=== PATIENT | female | born 1935 | race Caucasian/White ===

== ENCOUNTER 2017-10-25 07:43 | Emergency (ER) | payer OTHER, BC ==
[~2017-10-25] VITALS: Ht 162.6 cm; Wt 105.1 kg
[2017-10-25] MEDS ORDERED: HYDROCODONE/ACETAMIN 5/325MG TAB PO STA (07:58)
[2017-10-25 08:13] VITALS: O2SAT 92
[2017-10-25 08:14] VITALS: Ht 162.6 cm; Wt 105.1 kg
--- NOTE | 2017-10-25 08:39 | EMERGENCY ROOM VISIT NOTE ---
History Report prepared by Varghese: Francisco Barlow Under the Supervision of: Dr. Prasad John M.D. First contact with patient: 07:44 Stated Complaint: SHOULDER PAIN History of Present Illness The patient is a 82 year old female who presents to the Emergency Room via EMS with complaints of worsening left shoulder pain that began 3 days ago. Patient states the pain radiates to the base of her neck, left trapezius, and left upper chest and is worsened with movement. Patient believes her pain is due to overuse of her walking cane and has been taking Tylenol at home for her symptoms. She denies any pain prior to 3 days ago. Past medical history includes a pacemaker, diabetes, and hypertension which she takes lisinopril for. Patient states she is allergic to aspirin and "IV dye". Patient states she lives alone and that her PCP is from [facility] in [place]. Pt denies recent falls/injuries, LOC, headache, fevers, chills, diaphoresis, visual changes, breathing difficulties, nausea, vomiting, abdominal pain, back pain, melena, hematochezia, urinary symptoms, numbness, weakness, lymphadenopathy, rash, or other complaints. Source of History: patient, EMS Onset: 3 days ago Position: neck, chest, shoulder (left) Timing: worsening Modifying Factors (Worsening): movement Modifying Factors (Relieving): other (None) Review of Systems See HPI for pertinent positives and negatives. A total of ten systems were reviewed and were otherwise negative. Past Medical & Surgical Medical Problems: (1) Diabetes (2) H/O cardiac pacemaker (3) Hypertension Family History Omitted secondary to age. Social History Housing Status: lives alone Current/Historical Medications Scheduled Cholecalciferol (Vitamin D3), 1 TAB PO DAILY Clopidogrel (Plavix), 75 MG PO DAILY Pioglitazone (Actos), 1 TAB PO DAILY Potassium Ext Rel (Klor-Con), 20 MEQ PO DAILY Rosuvastatin Calcium (Crestor), 1 TAB PO DAILY Torsemide (Demadex), 1 TAB PO DAILY Scheduled PRN Hydrocodone/Acetaminophen 5MG/325MG ([place] 5MG/325MG), 1-2 TABS PO Q6H PRN for Pain Miscellaneous Medications Isosorbide Dinitrate (Isordil), 30 MG PO Lisinopril (Zestril), 10 MG PO Allergies Coded Allergies: Iodinated Diagnostic Agents (Verified Allergy, Severe, SHORTNESS OF BREATH , 10/25/17) Aspirin (Verified Allergy, Mild, RASH, 10/25/17) Physical Exam Vital Signs Date Time Temp Pulse Resp B/P (MAP) Pulse Ox O2 Delivery O2 Flow Rate FiO2 10/25/17 12:48 72 16 169/99 98 10/25/17 09:40 65 14 192/73 95 Room Air 10/25/17 08:16 74 10/25/17 08:13 92 Room Air 10/25/17 07:50 75 16 189/104 92 Room Air Physical Exam GENERAL: Awake, alert, uncomfortable-appearing, in no distress HENT: Normocephalic, atraumatic. Oropharynx unremarkable. EYES: Normal conjunctiva. Sclera non-icteric. NECK: Supple. No nuchal rigidity. FROM. No masses. RESPIRATORY: Clear to auscultation. No wheezes. No rales. Normal respiratory effort. CARDIAC: Normal rate. Normal rhythm. No murmurs. No rubs. Extremities warm and well perfused. Pulses equal. No JVD. GI: Soft, non-distended. No tenderness to palpation. No rebound or guarding. No masses. RECTAL: Deferred. MUSCULOSKELETAL: Atraumatic. Left upper chest and left trapezius tenderness. Relatively normal range of motion in shoulder. The back is symmetrical on inspection without obvious abnormality. There is no CVA tenderness to palpation. No joint edema. LOWER EXTREMITIES: Calves are equal size bilaterally and non-tender. No edema. No discoloration. NEURO: Normal sensorium. No sensory or motor deficits noted. SKIN: No rash or jaundice noted. No zoster seen. Medical Decision & Procedures ER Provider Diagnostic Interpretation: Radiology results as stated below per my review and radiologist interpretation: C-SPINE ROUTINE 4 OR 5 VIEWS CLINICAL HISTORY: left neck and shoulder pain, no trauma COMPARISON STUDY: 07/14/2016 FINDINGS: There is poor visualization of the C7 vertebra. No fractures or subluxations are visualized. There are multilevel degenerative changes most pronounced the C5-6 level with posterior osteophytic spurring. Neck calcifications, likely represent atherosclerotic carotid disease. There is tracheal deviation to the right. This is indirect evidence for a thoracic inlet mass. There is left apical pleural thickening. IMPRESSION: 1. Multilevel degenerative change. No fractures or subluxations identified 2. Tracheal deviation to the right. This is indirect evidence for a thoracic inlet mass. Electronically signed by: Lacho Graff M.D. 10/25/2017 9:29 AM CHEST 2 VIEWS ROUTINE CLINICAL HISTORY: left upper chest pain COMPARISON STUDY: No previous studies for comparison. FINDINGS: The heart is mildly enlarged. There is a left subclavian dual-chamber central venous pacemaker. There is no failure. There is no focal pulmonary consolidation. Indistinctness left heart border is likely secondary to a fat pad. There are no significant pleural effusions. A linear opacity within the right mid to lower lung zone likely represents an area of scarring. IMPRESSION: No active disease in the chest. Electronically signed by: Lacho Graff M.D. 10/25/2017 9:27 AM (CHEST) THORAX WITHOUT CLINICAL HISTORY: Left upper chest pain. Abnormal cervical spine study. Possible thoracic inlet mass. COMPARISON STUDY: Cervical spine series dated October 25, 2017, chest x-ray dated October 25, 2017 CT DOSE: 505.42 mGy.cm TECHNIQUE: CT of the thorax was performed from the thoracic inlet to the lung bases. Images are reviewed in the axial, sagittal, and coronal planes. IV contrast was not administered for this examination. A dose lowering technique was utilized adhering to the principles of ALARA. FINDINGS: Thyroid: There is a multinodular thyroid gland present. Thoracic aorta: The ascending thoracic aorta measures 35 mm. Heart: The heart is mildly enlarged. There is a left subclavian dual-chamber central venous pacemaker present. There are coronary artery calcifications present. Lungs and pleural spaces: There is respiratory motion artifact. There are no significant pleural effusions. There is no focal pulmonary consolidation. Mediastinum: There is no pathologic adenopathy. No large thoracic inlet masses are visualized. Rosario: There is no evidence of pathologic hilar adenopathy given the limitations of a noncontrast study Axilla: Clear. Upper abdomen: Partially visualized upper abdominal viscera is within normal limits. Skeletal structures: There are no lytic or blastic osseous lesions. IMPRESSION: 1. No acute intrathoracic findings 2. No large thoracic inlet masses are visualized 3. Small multinodular thyroid goiter which results in minor tracheal deviation to the right. 4. No evidence of focal pulmonary consolidation. No pleural effusions identified. Electronically signed by: Lacho Graff M.D. 10/25/2017 10:43 AM Laboratory Results 10/25/17 08:30 Red Blood Count 3.75, Mean Corpuscular Volume 93.9, Mean Corpuscular Hemoglobin 30.4, Mean Corpuscular Hemoglobin Concent 32.4, Mean Platelet Volume 12.6, Neutrophils (%) (Auto) 65.0, Lymphocytes (%) (Auto) 20.0, Monocytes (%) (Auto) 13.8, Eosinophils (%) (Auto) 0.6, Basophils (%) (Auto) 0.3, Neutrophils # (Auto ) 4.61, Lymphocytes # (Auto) 1.42, Monocytes # (Auto) 0.98, Eosinophils # (Auto ) 0.04, Basophils # (Auto) 0.02 10/25/17 08:30 Test 10/25/17 08:30 White Blood Count 7.09 K/uL (4.8-10.8) Red Blood Count 3.75 M/uL (4.2-5.4) Hemoglobin 11.4 g/dL (12.0-16.0) Hematocrit 35.2 % (37-47) Mean Corpuscular Volume 93.9 fL (80-100) Mean Corpuscular Hemoglobin 30.4 pg (25-34) Mean Corpuscular Hemoglobin Concent 32.4 g/dl (32-36) Platelet Count 182 K/uL (130-400) Mean Platelet Volume 12.6 fL (7.4-10.4) Neutrophils (%) (Auto) 65.0 % Lymphocytes (%) (Auto) 20.0 % Monocytes (%) (Auto) 13.8 % Eosinophils (%) (Auto) 0.6 % Basophils (%) (Auto) 0.3 % Neutrophils # (Auto) 4.61 K/uL (1.4-6.5) Lymphocytes # (Auto) 1.42 K/uL (1.2-3.4) Monocytes # (Auto) 0.98 K/uL (0.11-0.59) Eosinophils # (Auto) 0.04 K/uL (0-0.5) Basophils # (Auto) 0.02 K/uL (0-0.2) RDW Standard Deviation 49.9 fL (36.4-46.3) RDW Coefficient of Variation 14.7 % (11.5-14.5) Immature Granulocyte % (Auto) 0.3 % Immature Granulocyte # (Auto) 0.02 K/uL (0.00-0.02) Nucleated RBC Absolute Count (auto) 0.02 K/uL (0-0) Nucleated Red Blood Cells % 0.3 % Anion Gap 11.0 mmol/L (3-11) Est Creatinine Clear Calc Drug Dose 50.4 ml/min Estimated GFR () 60.3 Estimated GFR (Non- 52.1 BUN/Creatinine Ratio 16.4 (10-20) Calcium Level 9.1 mg/dl (8.5-10.1) Total Bilirubin 0.9 mg/dl (0.2-1) Direct Bilirubin 0.3 mg/dl (0-0.2) Aspartate Amino Transf (AST/SGOT) 16 U/L (15-37) Alanine Aminotransferase (ALT/SGPT) 13 U/L (12-78) Alkaline Phosphatase 92 U/L (45-117) Total Creatine Kinase 46 U/L (26-192) Creatine Kinase MB < 1.0 ng/ml (0.5-3.6) Creatine Kinase MB Ratio (0-3.0) Troponin I < 0.015 ng/ml (0-0.045) Total Protein 7.4 gm/dl (6.4-8.2) Albumin 3.2 gm/dl (3.4-5.0) Thyroid Stimulating Hormone (TSH) 1.470 uIu/ml (0.300-4.500) Laboratory results reviewed by me Medications Administered Medications (Trade) Dose Ordered Sig/Billie Route Start Time Stop Time Status Last Admin Dose Admin Acetaminophen/ Hydrocodone Bitart ([place] 5/325 Tab) 1 tab NOW STAT PO 10/25/17 07:58 10/25/17 07:59 DC 10/25/17 08:23 1 TAB Acetaminophen/ Hydrocodone Bitart ([place] 5/325mg Home Pack) 1 homepack UD ONCE PO 10/25/17 12:30 10/25/17 12:31 DC 10/25/17 12:48 1 HOMEPACK ECG Per My Interpretation Indication: back/shoulder pain Rate (beats per minute): 75 Rhythm: atrial fibrillation (with demand pacer) Findings: PVC, other (No ST elevation/depression) ED Course 0747: The patient was evaluated in room A3. A complete history and physical exam was performed. 0758: [place] 5/325 Tab 1 tab PO 1005: I reevaluated the patient and updated her on her treatment plan. 1230: [place] 5/325mg Home Pack 1 homepack PO 1231: I reevaluated the patient and updated her and her family on the patient's findings. She states she is feeling better. Discussed results and discharge instructions with her and her family. Patient is agreeable to following up with the clinic after discharge. She verbalized understanding and agreement. The patient is ready for discharge. Medical Decision Nursing notes reviewed. The patient's presentation and history were concerning for left shoulder, neck and upper chest pain. Etiologies such as musculoskeletal, shingles, trauma, cardiac ischemia, aortic dissection, pulmonary embolism, pneumonia, pneumothorax, infections, gastrointestinal, as well as others were entertained. Patient was evaluated. She had Several days of progressive left shoulder/neck/upper chest pain. It is nonpleuritic. It is worse with movement. Her left shoulder joint examination was rather unremarkable without significant pain elicited during range of motion testing. She did have tenderness to the left upper chest wall and trapezius area. She had good range of motion of her neck. There is no obvious rash to suggest zoster. She was given 1 [place]. ECG did not reveal any acute ischemic change. Blood work and imaging were ordered. Blood work wasUnremarkable. Troponin negative. ECG was unremarkable. The patient had a negative chest x-ray. Imaging of the cervical spine revealed some degenerative changes. She had what appeared to be tracheal deviation to the right. Given her symptoms CT imaging of the chest was performed. There is no obvious mass lesion in the left shoulder region or lung apex. The patient is has a thyroid abnormality. She will follow-up with this. The patient is doing well. She is feeling better after the pain medication. Her pain is intermittent and lancinating. I suspect some type of neuropathic origin. She describes it like pain similar to a zoster episode but I do not see any episode of a rash developing. I did discuss this with the family patient. I discussed very conservative use of pain medication. The patient will rest. She will take it easy. She will follow up with primary providers on Friday. The patient was educated. Family was advised to monitor the patient and check on her frequently. There are any worsening problems or issues with other symptoms develop she should come back to the ER right away. By the evaluation outlined above other emergent etiologies such as those listed in the differential, as well as others, were deemed relatively unlikely. The patient was educated about the findings as listed above. All questions were answered and the patient was pleased with the treatment. Return instructions were outlined and the patient was discharged in stable condition. The patient was referred to her PCP for follow-up for a recheck of the current condition. Medication Reconcilliation Current Medication List: was personally reviewed by me Blood Pressure Screening Patient's blood pressure: Elevated blood pressure Blood pressure disposition: Referred to PCP Consults Time Called: [phone] Consulting Physician: Dr. Graff - [facility] Returned Call: [phone] Discussed the patient's case. Dr. Graff recommends ordering the patient a CT Chest. Impression Primary Impression: Left shoulder pain Additional Impressions: Left sided chest pain Neck pain on left side Scribe Attestation The scribe's documentation has been prepared under my direction and personally reviewed by me in its entirety. I confirm that the note above accurately reflects all work, treatment, procedures, and medical decision making performed by me. Departure Information Dispostion Home / Self-Care Prescriptions Hydrocodone/Acetaminophen 5MG/325MG ([place] 5MG/325MG) Tab 1-2 TABS PO Q6H Y for Pain, #8 TAB Prov: Prasad John MD 10/25/17 Referrals No Doctor, Assigned (PCP) Forms HOME CARE DOCUMENTATION FORM, IMPORTANT VISIT INFORMATION Patient Instructions My [facility] Additional Instructions Hydrocodone/acetaminophen 5/325mg: Take 1-2 pills every 6 hours as needed for pain. Avoid additional Acetaminophen/Tylenol, alcohol, operating machinery or dangerous equipment, working on ladders or roofs, DRIVING, or situations where being under the influence may be dangerous. It is recommended to use a stool softener such as Colace, 100mg twice daily while taking this medication to avoid constipation. Rest. Warm compresses for 20 minutes at a time four times daily for 2-3 days. Continue current medications. Follow-up with her primary clinic on Friday for recheck of the current condition as well as her blood pressure. Also have your thyroid checked. Return to the ER for worsening pain, chest pain, difficulty breathing, fevers, vomiting, worsening of your condition, or as needed. Problem Qualifiers
[2017-10-25 08:40] LABS: BASO % 0.3 %; BASO ABS # 0.02 K/uL (0-0.2); EOS % 0.6 %; EOS ABS # 0.04 K/uL (0-0.5); HEMATOCRIT 35.2 % (37-47); HEMOGLOBIN 11.4 g/dL (12.0-16.0); IG# 0.02 K/uL (0.00-0.02); LYMPH ABS # 1.42 K/uL (1.2-3.4); MEAN CELL VOLUME 93.9 fL (80-100); MEAN CORPUSCULAR HEMOGLOBIN 30.4 pg (25-34); MEAN CORPUSCULAR HGB CONC 32.4 g/dl (32-36); MEAN PLATELET VOLUME 12.6 fL (7.4-10.4); MONO % 13.8 %; MONO ABS # 0.98 K/uL (0.11-0.59); NEUT ABS # 4.61 K/uL (1.4-6.5); NUCLEATED RED BLOOD CELL ABS 0.02 K/uL (0-0); PLATELET COUNT 182 K/uL (130-400); RED CELL DISTRIBUTION WIDTH CV 14.7 % (11.5-14.5); RED CELL DISTRIBUTION WIDTH SD 49.9 fL (36.4-46.3); WHITE BLOOD COUNT 7.09 K/uL (4.8-10.8)
[2017-10-25 09:09] LABS: ALBUMIN 3.2 gm/dl (3.4-5.0); ALKALINE PHOSPHATASE 92 U/L (45-117); ALT/SGPT 13 U/L (12-78); AST/SGOT 16 U/L (15-37); BLOOD UREA NITROGEN 16 mg/dl (7-18); CALCIUM 9.1 mg/dl (8.5-10.1); CARBON DIOXIDE 23 mmol/L (21-32); CKMB < 1.0 ng/ml (0.5-3.6); GLUCOSE 130 mg/dl (70-99); POTASSIUM 3.7 mmol/L (3.5-5.1); SODIUM 139 mmol/L (136-145); TOTAL PROTEIN 7.4 gm/dl (6.4-8.2)
--- NOTE | 2017-10-25 09:28 | DIAGNOSTIC IMAGING REPORT ---
CHEST 2 VIEWS ROUTINE CLINICAL HISTORY: left upper chest pain COMPARISON STUDY: No previous studies for comparison. FINDINGS: The heart is mildly enlarged. There is a left subclavian dual-chamber central venous pacemaker. There is no failure. There is no focal pulmonary consolidation. Indistinctness left heart border is likely secondary to a fat pad. There are no significant pleural effusions. A linear opacity within the right mid to lower lung zone likely represents an area of scarring. IMPRESSION: No active disease in the chest. Electronically signed by: Lacho Graff M.D. 10/25/2017 9:27 AM Dictated Date/Time: 10/25/2017 9:26 AM
--- NOTE | 2017-10-25 09:31 | DIAGNOSTIC IMAGING REPORT ---
C-SPINE ROUTINE 4 OR 5 VIEWS CLINICAL HISTORY: left neck and shoulder pain, no trauma COMPARISON STUDY: 07/14/2016 FINDINGS: There is poor visualization of the C7 vertebra. No fractures or subluxations are visualized. There are multilevel degenerative changes most pronounced the C5-6 level with posterior osteophytic spurring. Neck calcifications, likely represent atherosclerotic carotid disease. There is tracheal deviation to the right. This is indirect evidence for a thoracic inlet mass. There is left apical pleural thickening. IMPRESSION: 1. Multilevel degenerative change. No fractures or subluxations identified 2. Tracheal deviation to the right. This is indirect evidence for a thoracic inlet mass. Electronically signed by: Lacho Graff M.D. 10/25/2017 9:29 AM Dictated Date/Time: 10/25/2017 9:27 AM
[2017-10-25] MEDS ORDERED: POTA-639 PO (10:08)
[2017-10-25] MEDS ORDERED: LISI-461 PO (10:08)
[2017-10-25] MEDS ORDERED: ISR/30 PO (10:08)
[2017-10-25] MEDS ORDERED: ROSU20TA PO (10:08)
[2017-10-25] MEDS ORDERED: ACT30 PO (10:08)
[2017-10-25] MEDS ORDERED: TORS20TA2 PO (10:08)
[2017-10-25] MEDS ORDERED: CLOP1TAB15 PO (10:08)
[2017-10-25] MEDS ORDERED: CHOL1000 PO (10:08)
--- NOTE | 2017-10-25 10:45 | DIAGNOSTIC IMAGING REPORT ---
(CHEST) THORAX WITHOUT CLINICAL HISTORY: Left upper chest pain. Abnormal cervical spine study. Possible thoracic inlet mass. COMPARISON STUDY: Cervical spine series dated October 25, 2017, chest x-ray dated October 25, 2017 CT DOSE: 505.42 mGy.cm TECHNIQUE: CT of the thorax was performed from the thoracic inlet to the lung bases. Images are reviewed in the axial, sagittal, and coronal planes. IV contrast was not administered for this examination. A dose lowering technique was utilized adhering to the principles of ALARA. FINDINGS: Thyroid: There is a multinodular thyroid gland present. Thoracic aorta: The ascending thoracic aorta measures 35 mm. Heart: The heart is mildly enlarged. There is a left subclavian dual-chamber central venous pacemaker present. There are coronary artery calcifications present. Lungs and pleural spaces: There is respiratory motion artifact. There are no significant pleural effusions. There is no focal pulmonary consolidation. Mediastinum: There is no pathologic adenopathy. No large thoracic inlet masses are visualized. Rosario: There is no evidence of pathologic hilar adenopathy given the limitations of a noncontrast study Axilla: Clear. Upper abdomen: Partially visualized upper abdominal viscera is within normal limits. Skeletal structures: There are no lytic or blastic osseous lesions. IMPRESSION: 1. No acute intrathoracic findings 2. No large thoracic inlet masses are visualized 3. Small multinodular thyroid goiter which results in minor tracheal deviation to the right. 4. No evidence of focal pulmonary consolidation. No pleural effusions identified. Electronically signed by: Lacho Graff M.D. 10/25/2017 10:43 AM Dictated Date/Time: 10/25/2017 10:38 AM
[2017-10-25] MEDS ORDERED: NORCO 5/325MG HOME PACK PO ONE (12:30)
[2017-10-25 12:48] VITALS: BP 169/99; PULSE 72; O2SAT 98
[2017-10-25] MEDS ORDERED: HYDR-5688 PO (13:50)
== END 2017-10-25 12:49 | disposition home or self-care (01) ==
LOC: EDBD 07:43 → C.EDA 07:44
DX: M25.512 Pain in left shoulder (principal); M54.2 Cervicalgia; R07.89 Other chest pain; R94.6 Abnormal results of thyroid function studies; E11.9 Type 2 diabetes mellitus without complications; I10 Essential (primary) hypertension; Z95.0 Presence of cardiac pacemaker; Z79.899 Other long term (current) drug therapy; Z88.6 Allergy status to analgesic agent; Z91.041 Radiographic dye allergy status

== ENCOUNTER 2018-12-05 22:02 | Inpatient (IN) ==
[2018-12-05 22:41] LABS: Basophils # (auto) 0.02 K/uL (0-0.2); Basophils % (auto) 0.2 %; Eosinophils % (auto) 1.1 %; Hematocrit (blood only) 32.4 % (37-47); Hemoglobin 10.3 g/dL (12.0-16.0); Immature Granulocytes # (auto) 0.02 K/uL (0.00-0.02); Immature Granulocytes % (auto) 0.2 %; Lymphocytes # (auto) 1.11 K/uL (1.2-3.4); Lymphocytes % (auto) 12.3 %; Mean Corpuscular Hemoglobin 28.8 pg (25-34); Mean Corpuscular Hgb Conc 31.8 g/dL (32-36); Mean Corpuscular Volume 90.5 fL (80-100); Mean Platelet Volume 13.4 fL (7.4-10.4); Monocytes # (auto) 0.65 K/uL (0.11-0.59); Monocytes % (auto) 7.2 %; Neutrophils # (auto) 7.09 K/uL (1.4-6.5); Platelet Count 221 K/uL (130-400); RDW Coefficient of Variation 14.6 % (11.5-14.5); RDW Standard Deviation 48.9 fL (36.4-46.3); Red Blood Count 3.58 M/uL (4.2-5.4); White Blood Count 8.99 K/uL (4.8-10.8)
[2018-12-05 22:44] LABS: iSTAT Creatinine 1.1 mg/dl (0.6-1.3); iSTAT Hemoglobin 10.2 g/dl (12.0-16.0); iSTAT Ionized Calcium 1.2 mmol/l (1.12-1.32); iSTAT Potassium 4.3 mEq/L (3.3-5.0)
[2018-12-05 22:48] LABS: Alanine Aminotransferase 12 U/L (12-78); Albumin Level 3.5 gm/dl (3.4-5.0); Aspartate Aminotransferase 16 U/L (15-37); BUN Creatinine Ratio 18.5 (10-20); Blood Urea Nitrogen 22 mg/dl (7-18); Calcium 9.4 mg/dl (8.5-10.1); Carbon Dioxide 21 mmol/L (21-32); Chloride 110 mmol/L (98-107); Creatinine Clr Calc Pharmacy 38.7 ml/min; Est GFR (Non-African American) 42.3; Glucose 152 mg/dl (70-99); Magnesium 1.7 mg/dl (1.8-2.4); Potassium 4.3 mmol/L (3.5-5.1); Sodium 139 mmol/L (136-145)
[2018-12-05 22:52] LABS: INR 1.1 (0.9-1.1); Partial Thromboplastin Ratio 0.9; Partial Thromboplastin Time 25.7 Seconds (21.0-31.0)
[2018-12-05] MEDS ORDERED: METOPROLOL SUCC 25MG EXT REL TAB PO STA (22:54)
[2018-12-05] MEDS ORDERED: MAGNESIUM SULFATE / D5W 1 GM/100 ML BAG IV ONE (22:54)
[2018-12-05] MEDS ORDERED: METOPROLOL TARTRATE 1 MG/ML VIAL IV STA (22:54)
[2018-12-05 22:59] LABS: Albumin Globulin Ratio 0.9 (0.9-2); Alkaline Phosphatase 98 U/L (45-117); Bilirubin,Total 0.3 mg/dl (0.2-1); Creatine Kinase 74 U/L (26-192); Globulin 3.8 gm/dl (2.5-4.0); Total Protein 7.3 gm/dl (6.4-8.2); Troponin I < 0.015 ng/ml (0-0.045)
--- NOTE | 2018-12-05 23:00 | XRay Report ---
XR chest 1V portable CLINICAL HISTORY: Dysrhythmia COMPARISON STUDY: 10/25/2017 FINDINGS: The heart is enlarged. There is a left subclavian dual-chamber central venous pacemaker pre sent. There is mild vascular prominence without evidence for overt failure. There are no pleural effu sions. There is no focal pulmonary consolidation. There is stable indistinctness of the left heart clifton rder.[ IMPRESSION: No active disease in the chest. Electronically signed by: Lacho Graff M.D. 12/05/2018 10:57 PM
[2018-12-05 23:28] LABS: Lyme Ab IgG w/WB Rflx Negative (Negative); Lyme Ab IgM w/WB Rflx Negative (Negative)
[2018-12-06] MEDS ORDERED: ACETAMINOPHEN 325 MG TAB PO STA (00:13)
[2018-12-06] MEDS ORDERED: ACETAMINOPHEN 325 MG TAB PO PRN (01:05)
[2018-12-06] MEDS ORDERED: NITROGLYCERIN SL 0.4 MG/TAB TAB SL PRN (01:05)
[2018-12-06] MEDS ORDERED: ONDANSETRON INJ 2 MG/ML 2 ML VIAL IV PRN (01:05)
[2018-12-06] MEDS ORDERED: POLYETHYLENE (MIRALAX) 17 GM PACK PO PRN (01:05)
[2018-12-06] MEDS ORDERED: ALBUTEROL HFA 8 GM INHALER INH PRN (01:05)
--- NOTE | 2018-12-06 01:14 | Emergency Department Note ---
Entered by Supriya Farrell acting as a scribe for ED Provider Note CHIEF COMPLAINT: Cardiac assessment HISTORY OF PRESENT ILLNESS: The patient is an 83 year old female who presents to the Emergency Room for a cardiac assessment. Per daughter, she and the patient were going to see the [employer] today, but the patient suddenly started gasping for air in the car and almost had a syncopal episode. Per daughter, when the patient got out of the car, she complained of feeling nauseas and she eventually vomited. Per daughter, the patient had a very rapid heat rate at this time and she looked more pale than usual. The patient notes that she has a history of atrial fibrillation and she is currently on Eliquis. Pt denies LOC, headache, fevers, chills, diaphoresis, visual changes, neck pain, chest pain, abdominal pain, back pain, melena, asad tochezia, urinary symptoms, numbness, lymphadenopathy, rash, or other complaints. REVIEW OF SYSTEMS: See HPI for pertinent positives and negatives. A total of ten systems were reviewed and were otherwise negative. PMHx/PSHx: Atrial fibrillation, cardiac pacemaker, diabetes, hypertension. SOCIAL HISTORY: Patient lives at home. PHYSICAL EXAM: GENERAL: Awake, alert, well-appearing, in no distress HENT: Normocephalic, atraumatic. Oropharynx unremarkable. EYES: PERRL. Normal conjunctiva. Sclera non-icteric. NECK: Inspection normal. Non-tender. Supple. No nuchal rigidity. FROM. No masses. RESPIRATORY: Clear to auscultation. No wheezes. No rales. Normal respiratory effort. CARDIAC: Normal rate. Normal rhythm. No murmurs. No rubs. Extremities warm and well perfused. Pulses equal. No JVD. GI: Soft, non-distended. No tenderness to palpation. No rebound or guarding. No masses. RECTAL: Deferred. MUSCULOSKELETAL: Atraumatic. Pacemaker in left upper chest, chest examination reveals no tenderness. The back is symmetrical on inspection without obvious abnormality. There is no CVA tenderness to palpation. No joint edema. LOWER EXTREMITIES: Calves are equal size bilaterally and non-tender. No edema. No discoloration. NEURO: Normal sensorium. No sensory or motor deficits noted. SKIN: No rash or jaundice noted. EMERGENCY DEPARTMENT COURSE: 2226: Past medical records reviewed. The patient was evaluated in room A4, and a complete history and physical examination were performed. 2230: I-STAT does not show any significant abnormalities. 2254: I discussed the patient's case with Dr. Kemp- Cardiology. He recommends starting the patient on beta blockers and admission to hospital service. He states that he will consult with the patient tomorrow. 2257: I updated the patient on the plan for admission and she verbally agreed and understands. 2308: I discussed the patient's case with Dr. Gao- [facility]. He will evaluate the patient for further management. MEDICAL DECISION MAKING: A4B Triage Nursing notes reviewed and agree them. Additional history obtained from the family. The patient's history was concerning for near syncope, palpitations. Differential diagnosis: Etiologies such as electrolyte abnormality, cardiac dysrhythmia, thyroid dysfunction, pulmonary embolism, infection, gastrointestinal, as well as others were entertained. Physical examination: Benign as above. ER treatment provided: Cardiac monitoring revealed a paced rhythm with occasional runs of wide-complex tachycardia IV metoprolol 5 mg IV magnesium 1 g Oral metoprolol 25 mg On reassessment the patient felt well. Diagnostic interpretation by me: The electrocardiogram was negative for pathologic change. No ischemia. The labs revealed an unremarkable CBC and chemistry panel except for mild hypomagnesemia. Imaging studies: Chest x-ray as above. Consultation: A consultation was placed with [facility] due to the wide-complex dysrhythmia. I discussed case with Dr. Kemp. He recommended the metoprolol as given above. Monitoring in the hospital was recommended. A consultation was placed with the hospitalist. The case was discussed and diagnostics were reviewed. The patient was evaluated in the ER for further treatment. IMPRESSION: Wide-complex tachycardia, near syncope, hypomagnesemia PLAN: Evaluated by Hospitalist The scribe's documentation has been prepared under my direction and personally reviewed by me in its entirety. I confirm that the note above accurately reflects all work, treatment, procedures, and medical decision making performed by me. Impression & Plan Wide-complex tachycardia, Near syncope, Hypomagnesemia Past Med/Surg History Medical History H/O cardiac pacemaker Diabetes Hypertension Atrial fibrillation Social History Preferred Language: Citizen Of [place] Feels Safe at Home: Yes Smoking Status: Never smoker Results & Data Vital Signs Vital Signs - 24 hr 12/05/18 22:10 12/05/18 22:15 12/05/18 22:17 Temperature 36.5 C Temperature Source Oral Sepsis Recent Fever Within 48 Hours No Sepsis Action Taken by Nursing No Action Required Pulse Rate 89 85 107 H Pulse Rate from SpO2 Sensor 89 73 106 H Pulse Rhythm Irregular Pulse Strength Normal Respiratory Rate 21 22 25 H Respiratory Effort / Characteristics Non-Labored Respiratory Depth Normal Respiratory Pattern Regular Blood Pressure 174/139 H 176/80 H Blood Pressure Mean 150 112 Blood Pressure Position Lying Pulse Oximetry 98 99 97 Oxygen Delivery Method Room Air 12/05/18 22:20 12/05/18 22:25 12/05/18 22:30 Temperature Temperature Source Sepsis Recent Fever Within 48 Hours Sepsis Action Taken by Nursing Pulse Rate 73 74 Pulse Rate from SpO2 Sensor 93 H 74 64 Pulse Rhythm Pulse Strength Respiratory Rate 16 25 H Respiratory Effort / Characteristics Respiratory Depth Respiratory Pattern Blood Pressure 168/77 H Blood Pressure Mean 107 Blood Pressure Position Pulse Oximetry 97 98 97 Oxygen Delivery Method 12/05/18 22:31 12/05/18 22:35 12/05/18 22:40 Temperature Temperature Source Sepsis Recent Fever Within 48 Hours Sepsis Action Taken by Nursing Pulse Rate 72 76 69 Pulse Rate from SpO2 Sensor 72 76 69 Pulse Rhythm Pulse Strength Respiratory Rate 18 21 21 Respiratory Effort / Characteristics Respiratory Depth Respiratory Pattern Blood Pressure 162/60 H 158/61 H 141/66 H Blood Pressure Mean 94 93 91 Blood Pressure Position Pulse Oximetry 99 98 98 Oxygen Delivery Method 12/05/18 22:45 12/05/18 22:50 12/05/18 22:55 Temperature Temperature Source Sepsis Recent Fever Within 48 Hours Sepsis Action Taken by Nursing Pulse Rate 66 69 69 Pulse Rate from SpO2 Sensor 64 69 67 Pulse Rhythm Pulse Strength Respiratory Rate 14 13 26 H Respiratory Effort / Characteristics Respiratory Depth Respiratory Pattern Blood Pressure 133/66 153/63 H 143/48 H Blood Pressure Mean 88 93 79 Blood Pressure Position Pulse Oximetry 98 98 98 Oxygen Delivery Method 12/05/18 23:00 12/05/18 23:04 12/05/18 23:05 Temperature Temperature Source Sepsis Recent Fever Within 48 Hours Sepsis Action Taken by Nursing Pulse Rate 68 67 72 Pulse Rate from SpO2 Sensor 66 72 Pulse Rhythm Pulse Strength Respiratory Rate 19 19 Respiratory Effort / Characteristics Respiratory Depth Respiratory Pattern Blood Pressure 152/58 H 152/58 H 159/60 H Blood Pressure Mean 89 93 Blood Pressure Position Pulse Oximetry 99 99 Oxygen Delivery Method 12/05/18 23:10 12/05/18 23:11 12/05/18 23:15 Temperature Temperature Source Sepsis Recent Fever Within 48 Hours Sepsis Action Taken by Nursing Pulse Rate 69 64 65 Pulse Rate from SpO2 Sensor Pulse Rhythm Pulse Strength Respiratory Rate 18 21 20 Respiratory Effort / Characteristics Respiratory Depth Respiratory Pattern Blood Pressure 142/56 H 160/55 H Blood Pressure Mean 84 90 Blood Pressure Position Pulse Oximetry Oxygen Delivery Method 12/05/18 23:20 12/05/18 23:25 12/05/18 23:30 Temperature Temperature Source Sepsis Recent Fever Within 48 Hours Sepsis Action Taken by Nursing Pulse Rate 63 64 67 Pulse Rate from SpO2 Sensor 65 69 67 Pulse Rhythm Pulse Strength Respiratory Rate 20 24 21 Respiratory Effort / Characteristics Respiratory Depth Respiratory Pattern Blood Pressure 153/60 H 152/75 H 143/89 H Blood Pressure Mean 91 100 107 Blood Pressure Position Pulse Oximetry 99 93 99 Oxygen Delivery Method 12/05/18 23:35 12/05/18 23:40 12/05/18 23:45 Temperature Temperature Source Sepsis Recent Fever Within 48 Hours Sepsis Action Taken by Nursing Pulse Rate 61 64 61 Pulse Rate from SpO2 Sensor 61 64 62 Pulse Rhythm Pulse Strength Respiratory Rate 21 21 15 Respiratory Effort / Characteristics Respiratory Depth Respiratory Pattern Blood Pressure 137/105 H 145/62 H 148/57 H Blood Pressure Mean 115 89 87 Blood Pressure Position Pulse Oximetry 98 99 96 Oxygen Delivery Method 12/05/18 23:51 12/05/18 23:55 12/06/18 00:00 Temperature Temperature Source Sepsis Recent Fever Within 48 Hours Sepsis Action Taken by Nursing Pulse Rate 64 62 65 Pulse Rate from SpO2 Sensor 71 61 66 Pulse Rhythm Pulse Strength Respiratory Rate 16 16 19 Respiratory Effort / Characteristics Respiratory Depth Respiratory Pattern Blood Pressure 136/60 156/63 H 150/96 H Blood Pressure Mean 85 94 114 Blood Pressure Position Pulse Oximetry 98 98 98 Oxygen Delivery Method 12/06/18 00:06 12/06/18 00:10 Temperature Temperature Source Sepsis Recent Fever Within 48 Hours Sepsis Action Taken by Nursing Pulse Rate 63 61 Pulse Rate from SpO2 Sensor 62 62 Pulse Rhythm Pulse Strength Respiratory Rate 25 H 20 Respiratory Effort / Characteristics Respiratory Depth Respiratory Pattern Blood Pressure 152/78 H 142/57 H Blood Pressure Mean 102 85 Blood Pressure Position Pulse Oximetry 98 98 Oxygen Delivery Method Home Medications Current Medication List: was personally reviewed by me Laboratory Data Attestation: I reviewed the patient's lab results. Result diagrams: 12/05/18 22:19 12/05/18 22:19 Lab Results 12/05/18 12/05/18 12/05/18 Range/Units 22:19 22:19 22:19 WBC 8.99 (4.8-10.8) K/uL RBC 3.58 L (4.2-5.4) M/uL Hgb 10.3 L (12.0-16.0) g/dL POC Hgb (12.0-16.0) g/dl Hct 32.4 L (37-47) % POC Hct (37-47) % MCV 90.5 (80-100) fL MCH 28.8 (25-34) pg MCHC 31.8 L (32-36) g/dL RDW Std Deviation 48.9 H (36.4-46.3) fL RDW Coeff of Seferino 14.6 H (11.5-14.5) % Plt Count 221 (130-400) K/uL MPV 13.4 H (7.4-10.4) fL Immature Gran % (Auto) 0.2 % Neut % (Auto) 79.0 % Lymph % (Auto) 12.3 % Osborne % (Auto) 7.2 % Eos % (Auto) 1.1 % Baso % (Auto) 0.2 % Immature Gran # (Auto) 0.02 (0.00-0.02) K/uL Neut # (Auto) 7.09 H (1.4-6.5) K/uL Lymph # (Auto) 1.11 L (1.2-3.4) K/uL Osborne # (Auto) 0.65 H (0.11-0.59) K/uL Eos # (Auto) 0.10 (0-0.5) K/uL Baso # (Auto) 0.02 (0-0.2) K/uL PT 11.0 (9.0-12.0) Seconds INR 1.1 (0.9-1.1) APTT 25.7 (21.0-31.0) Seconds PTT Ratio 0.9 POC Sodium (135-144) mEq/L Sodium 139 (136-145) mmol/L POC Potassium (3.3-5.0) mEq/L Potassium 4.3 (3.5-5.1) mmol/L POC Chloride (101-112) mEq/L Chloride 110 H (98-107) mmol/L Carbon Dioxide 21 (21-32) mmol/L POC Total CO2 (24-31) mEq/l Anion Gap 8.0 (3-11) POC Anion Gap (16-25) mmol/L POC BUN (7-18) mg/dl BUN 22 H (7-18) mg/dl Creatinine 1.18 (0.6-1.2) mg/dl POC Creatinine (0.6-1.3) mg/dl Est Cr Clr Drug Dosing 38.7 ml/min Est GFR ( Amer) 49.0 Est GFR (Non-Af Amer) 42.3 BUN/Creatinine Ratio 18.5 (10-20) Glucose 152 H (70-99) mg/dl POC Glucose (other) (70-99) mg/dl Calcium 9.4 (8.5-10.1) mg/dl POC Ioniz Calcium Carmen (1.12-1.32) mmol/l Magnesium 1.7 L (1.8-2.4) mg/dl Total Bilirubin 0.3 (0.2-1) mg/dl AST 16 (15-37) U/L ALT 12 (12-78) U/L Alkaline Phosphatase 98 (45-117) U/L Total Creatine Kinase 74 (26-192) U/L Troponin I < 0.015 (0-0.045) ng/ml Total Protein 7.3 (6.4-8.2) gm/dl Albumin 3.5 (3.4-5.0) gm/dl Globulin 3.8 (2.5-4.0) gm/dl Albumin/Globulin Ratio 0.9 (0.9-2) TSH 3.050 (0.300-4.500) uIu/ml Lyme Disease IgG Ab (Negative) Lyme Disease IgM Ab (Negative) 12/05/18 12/05/18 Range/Units 22:19 22:32 WBC (4.8-10.8) K/uL RBC (4.2-5.4) M/uL Hgb (12.0-16.0) g/dL POC Hgb 10.2 L (12.0-16.0) g/dl Hct (37-47) % POC Hct 30 L (37-47) % MCV (80-100) fL MCH (25-34) pg MCHC (32-36) g/dL RDW Std Deviation (36.4-46.3) fL RDW Coeff of Seferino (11.5-14.5) % Plt Count (130-400) K/uL MPV (7.4-10.4) fL Immature Gran % (Auto) % Neut % (Auto) % Lymph % (Auto) % Osborne % (Auto) % Eos % (Auto) % Baso % (Auto) % Immature Gran # (Auto) (0.00-0.02) K/uL Neut # (Auto) (1.4-6.5) K/uL Lymph # (Auto) (1.2-3.4) K/uL Osborne # (Auto) (0.11-0.59) K/uL Eos # (Auto) (0-0.5) K/uL Baso # (Auto) (0-0.2) K/uL PT (9.0-12.0) Seconds INR (0.9-1.1) APTT (21.0-31.0) Seconds PTT Ratio POC Sodium 140 (135-144) mEq/L Sodium (136-145) mmol/L POC Potassium 4.3 (3.3-5.0) mEq/L Potassium (3.5-5.1) mmol/L POC Chloride 109 (101-112) mEq/L Chloride (98-107) mmol/L Carbon Dioxide (21-32) mmol/L POC Total CO2 22 L (24-31) mEq/l Anion Gap (3-11) POC Anion Gap 14.0 L (16-25) mmol/L POC BUN 25 H (7-18) mg/dl BUN (7-18) mg/dl Creatinine (0.6-1.2) mg/dl POC Creatinine 1.1 (0.6-1.3) mg/dl Est Cr Clr Drug Dosing ml/min Est GFR ( Amer) Est GFR (Non-Af Amer) BUN/Creatinine Ratio (10-20) Glucose (70-99) mg/dl POC Glucose (other) 154 H (70-99) mg/dl Calcium (8.5-10.1) mg/dl POC Ioniz Calcium Carmen 1.20 (1.12-1.32) mmol/l Magnesium (1.8-2.4) mg/dl Total Bilirubin (0.2-1) mg/dl AST (15-37) U/L ALT (12-78) U/L Alkaline Phosphatase (45-117) U/L Total Creatine Kinase (26-192) U/L Troponin I (0-0.045) ng/ml Total Protein (6.4-8.2) gm/dl Albumin (3.4-5.0) gm/dl Globulin (2.5-4.0) gm/dl Albumin/Globulin Ratio (0.9-2) TSH (0.300-4.500) uIu/ml Lyme Disease IgG Ab Negative (Negative) Lyme Disease IgM Ab Negative (Negative) Administered Medications Discontinued Medications Acetaminophen (Tylenol) 650 mg PO NOW STA Stop: 12/06/18 00:14 Last Admin: 12/06/18 00:20 Dose: 650 mg Documented by: [id number] Magnesium Sulfate/Dextrose (Magnesium Sulfate / D5w) 1 gm in 100 mls @ 100 mls/hr IV ONE ONE Stop: 12/05/18 23:53 Last Infusion: 12/06/18 00:03 Dose: 0 mls/hr Documented by: [id number] Admin: 12/05/18 23:03 Dose: 100 mls/hr Documented by: [id number] Metoprolol Succinate (Toprol Xl) 25 mg PO NOW STA Stop: 12/05/18 22:55 Last Admin: 12/05/18 23:04 Dose: 25 mg Documented by: [id number] Metoprolol Tartrate (Lopressor) 5 mg IV NOW STA Stop: 12/05/18 22:55 Last Admin: 12/05/18 23:04 Dose: 5 mg Documented by: [id number] Imaging Data Radiologist's Impression: Radiology results as stated below per my review and the radiologist's interpretation: XR chest 1V portable CLINICAL HISTORY: Dysrhythmia COMPARISON STUDY: 10/25/2017 FINDINGS: The heart is enlarged. There is a left subclavian dual-chamber central venous pacemaker present. There is mild vascular prominence without evidence for overt failure. There are no pleural effusions. There is no focal pulmonary consolidation. There is stable indistinctness of the left heart border.[ IMPRESSION: No active disease in the chest. Electronically signed by: Lacho Graff M.D. 12/05/2018 10:57 PM ECG Data Attestation: I personally reviewed and interpreted this ECG as follows: Indication: tachycardia Rate (beats per minute): 86 Rhythm: other (atrial paced rhythm with prolonged AV conduction) Findings: no PVC, no ST depression and no ST elevation Blood Pressure Blood Pressure Findings: Elevated blood pressure Blood Pressure Disposition: further management by hospitalist Discharge Plan Visit Data Chief Complaint: Tachycardia Stated Complaint: cardiac assessment ED Provider: Prasad John Discharge Problem: Wide-complex tachycardia, Near syncope, Hypomagnesemia Patient Disposition: Being Evaluated by Hospitalist Discharge Instructions Interventions: ED Discharge Assessment Last Done: 12/06/18 00:33 The scribe's documentation has been prepared under my direction and personally reviewed by me in its entirety. I confirm that the note above accurately reflec ts all work, treatment, procedures, and medical decision making performed by me.
[2018-12-06 01:50] LABS: Appearance Urine Clear (Clear); Bacteria Urine Automated Negative (Negative); Bilirubin Urine Negative (Negative); Blood Urine Negative (Negative); Color Urine Yellow; Glucose Urine UA Negative (Negative); Ketones Urine Trace (Negative); Leukocyte Esterase Urine 2+ (Negative); Nitrite Urine Negative (Negative); Protein Urine Negative (Negative); RBC Urine Automated 0-4 /hpf (0-4); Specific Gravity Urine 1.018 (1.000-1.030); Urobilinogen Urine Negative (Negative); WBC Urine Automated >30 /hpf (0-5)
--- NOTE | 2018-12-06 02:30 | History and Physical Report ---
DATE OF ADMISSION: 12/06/2018 CHIEF COMPLAINT: Near syncope and chest discomfort. HISTORY OF PRESENT ILLNESS: This is an 83-year-old female with past medical history significant for prediabetes, hyperlipidemia, history of asthma, history of coronary artery disease status post stent, hypertension, carotid stenosis, GERD, chronic kidney disease stage III, status post cardiac pacemaker. Follows with cardiology at [facility]. Recently in August when pacemaker was interrogated, she was found to be in AFib and she was started on Eliquis and has next appointment with her [employer] in [place] next week. Presents with near syncope. The patient went outside with her daughters in the car; when they were coming back, she was talking to the lady sitting next to her in the car, when suddenly she stopped talking and when the daughters checked her she was pale. She felt almost passed out and the patient complained of some chest discomfort and she was brought into the ER. In the ER, EKG showed paced rhythm with prolonged AV conduction and then she had a brief period of wide complex tachycardia which was regular. ER physician called [employer] vision care associate and advised IV Lopressor and p.o. Lopressor, which she received. Currently, the patient states the chest pain is almost gone. Denies any shortness of breath. She was nauseous earlier, that improved. She was dizzy earlier, that improved. No blurred visions. No earache, no runny nose, no sore throat, no cough, no recent fever or chills. No abdominal pain. Normal bowel and bladder movements. No blood in the stools or black stools. Sometimes gets edema in left lower extremity.No hematuria or burning micturitions. No rash. Ambulates with the help of cane. Appetite is okay. She lives alone. Later she complained of some bitemporal headache but not very severe. ALLERGIES: ASPIRIN, IODINATED CONTRAST AGENTS. PAST MEDICAL HISTORY: As mentioned above. PAST SURGICAL HISTORY: Status post pacemaker, cardiac stent placement, colonoscopy, EGDs, lumbar spine fusion surgery, left radius and ulnar fracture repaired with fixation, right arm radial shaft repair when she was 8 years old, appendectomy, removal of the bilateral oviducts, cataract surgery of the right eye, cholecystectomy, total abdominal hysterectomy with removal of tubes for uterine cancer. MEDICATIONS: Currently the patient is on albuterol 2 puffs inhalation p.r.n., Eliquis 5 mg p.o. b.i.d., Plavix 75 mg p.o. daily, Imdur 30 mg p.o. daily, lisinopril 20 mg p.o. daily, potassium chloride 20 mEq daily, furosemide 20 mg p.o. daily. FAMILY HISTORY: Significant for mother had bladder and kidney cancer, diabetes, and heart disorder. Sister has nephrectomy and breast cancer. Father has heart disorder. SOCIAL HISTORY: Lives alone, . Quit smoking in 1974. No alcohol, no drug use. REVIEW OF SYSTEMS: As per HPI. Rest of the review of systems negative. PHYSICAL EXAMINATION: GENERAL: The patient is old and frail, not in acute distress. VITAL SIGNS: Temperature 36.5, pulse 61, respiratory rate 15, blood pressure 148/57, oxygen 96% on room air. HEENT: No pallor, no icterus. Pupils equal, round, reactive to light. Extraocular muscles intact. NECK: No JVD, no neck masses, no carotid bruits. CARDIOVASCULAR: S1, S2 heard, regular rate and rhythm, no murmur, no gallop. RESPIRATORY SYSTEM: Normal AP diameter. No accessory muscle use. No wheezing, no crackles. ABDOMEN: Soft, bowel sounds present, nontender. No distention. CENTRAL NERVOUS SYSTEM: Cranial nerves II-XII are grossly intact. Nonfocal. EXTREMITIES: Mild pedal edema present, no erythema seen. LABORATORY DATA: WBC 8.9, hemoglobin 10.3, hematocrit 32.4, platelets 221. PT 11, INR 1.1, APTT 25.7. Sodium 139, potassium 4.3, chloride 110, bicarbonate 21, BUN 22, creatinine 1.1, serum glucose 152, calcium 9.4, magnesium 1.7, total bilirubin 0.3, AST 16, ALT 12, alkaline phosphatase 98, total creatinine kinase 74. Troponin I less than 0.015. TSH 3.05. Lyme disease negative. IMAGING DATA: Chest x-ray, no acute active disease in the chest. EKG: Showed atrial paced rhythm with prolonged AV conduction at a rate of 86. ASSESSMENT AND PLAN: This 83-year-old presents with near syncope. 1. Near syncope with some chest discomfort. Currently asymptomatic. EKG showed paced rhythm with prolonged AV conduction, and she had a brief period of wide complex tachycardia. The patient has received IV Lopressor and p.o. Lopressor as per recommendation of cardiology. We will monitor in the tele floor. We will do serial cardiac enzymes, echocardiogram, and await cardiology input. NPO for now. Pacemaker was interrogated in the ER. 2. History of atrial fibrillation, recently in August when the pacemaker was interrogated by her [employer] in [place], she who was found to be in AFib and she was started on Eliquis. Now we are also starting her on Lopressor. Await cardiac input. 3. History of coronary artery disease status post stent, on Imdur, Plavix, and lisinopril. 4. History of hypertension, on lisinopril and Imdur and torsemide. Currently starting on Lopressor, .We will follow the blood pressure. 5. Prediabetes. We will follow HbA1c levels, follow the blood sugars. She is currently n.p.o. When started on diet we will place her on diabetic diet. 6. Hyperlipidemia, not on any medication currently. We will follow the lipid profile. 7. Chronic kidney disease stage III. Seems stable. We will follow the labs. 8. Hypomagnesemia. Magnesium 1.7, which was replaced in the ER. We will follow the levels again tomorrow. 9. Anemia. Hemoglobin is 10.3, needs followup. 10. Deep venous thrombosis prophylaxis, on Eliquis. DISPOSITION: Admit to tele floor. Expect to discharge home and follow with family doctor and [employer]. Level 1 full code. MTDD
[2018-12-06 07:32] LABS: Basophils # (auto) 0.02 K/uL (0-0.2); Basophils % (auto) 0.3 %; Eosinophils # (auto) 0.19 K/uL (0-0.5); Eosinophils % (auto) 2.7 %; Hematocrit (blood only) 29.8 % (37-47); Hemoglobin 9.7 g/dL (12.0-16.0); Immature Granulocytes # (auto) 0.01 K/uL (0.00-0.02); Immature Granulocytes % (auto) 0.1 %; Lymphocytes # (auto) 2.16 K/uL (1.2-3.4); Lymphocytes % (auto) 31.1 %; Mean Corpuscular Hemoglobin 29.2 pg (25-34); Mean Corpuscular Hgb Conc 32.6 g/dL (32-36); Mean Corpuscular Volume 89.8 fL (80-100); Monocytes # (auto) 0.71 K/uL (0.11-0.59); Monocytes % (auto) 10.2 %; Neutrophils # (auto) 3.85 K/uL (1.4-6.5); Neutrophils % (auto) 55.6 %; Platelet Count 198 K/uL (130-400); RDW Coefficient of Variation 14.4 % (11.5-14.5); RDW Standard Deviation 47.6 fL (36.4-46.3); Red Blood Count 3.32 M/uL (4.2-5.4); White Blood Count 6.94 K/uL (4.8-10.8)
[2018-12-06 08:10] LABS: Creatinine Clr Calc Pharmacy 46.8 ml/min; Est GFR (African American) 62.9; Est GFR (Non-African American) 54.3; Potassium 4.3 mmol/L (3.5-5.1)
[2018-12-06 08:11] LABS: BUN Creatinine Ratio 20.3 (10-20); Magnesium 2.1 mg/dl (1.8-2.4)
[2018-12-06] MEDS ORDERED: PERFLUTREN LIPID MICROSPHERE (DEFINITY) IV ONE (08:22)
[2018-12-06] MEDS: POTASSIUM CHLORIDE 20 MEQ TABCR PO SCH (08:27)
[2018-12-06] MEDS: TORSEMIDE 10 MG TAB PO SCH (08:27)
[2018-12-06] MEDS: APIXABAN 5 MG TABLET PO SCH ×2 (08:27→21:11)
[2018-12-06] MEDS: METOPROLOL TARTRATE 25 MG TAB PO SCH ×2 (08:27→21:11)
[2018-12-06] MEDS: ISOSORBIDE MONO EXTENDED REL 30 MG TABCR PO SCH (08:28)
[2018-12-06] MEDS: lisinopriL 20 MG TAB PO SCH (08:28)
[2018-12-06] MEDS ORDERED: CLOPIDOGREL BISULFATE 75 MG TAB PO SCH (09:00)
--- NOTE | 2018-12-06 09:06 | Hospitalist Progress Note ---
Date of Service December 06, 2018 Subjective ORDERED ESR FOR HER BITEMPORAL HEADACHES AND TYLENOL GIVEN.. WILL FOLLOW. Results & Data Vital Signs (Past 12 Hours) Vital Signs Temp Pulse Pulse Resp BP BP Pulse Ox 12/06/18 07:11 36.9 C 73 20 152/76 H 97 12/06/18 03:29 36.9 C 79 19 151/74 H 97 12/06/18 00:45 36.9 C 99 H 167/76 H 99 12/06/18 00:15 60 20 143/53 H 97 12/06/18 00:10 61 20 142/57 H 98 12/06/18 00:06 63 25 H 152/78 H 98 12/06/18 00:00 65 19 150/96 H 98 12/05/18 23:55 62 16 156/63 H 98 12/05/18 23:51 64 16 136/60 98 12/05/18 23:45 61 15 148/57 H 96 12/05/18 23:40 64 21 145/62 H 99 12/05/18 23:35 61 21 137/105 H 98 12/05/18 23:30 67 21 143/89 H 99 12/05/18 23:25 64 24 152/75 H 93 12/05/18 23:20 63 20 153/60 H 99 12/05/18 23:15 65 20 160/55 H 12/05/18 23:11 64 21 142/56 H 12/05/18 23:10 69 18 12/05/18 23:05 72 19 159/60 H 99 12/05/18 23:04 67 152/58 H 12/05/18 23:00 68 19 152/58 H 99 12/05/18 22:55 69 26 H 143/48 H 98 12/05/18 22:50 69 13 153/63 H 98 12/05/18 22:45 66 14 133/66 98 12/05/18 22:40 69 21 141/66 H 98 12/05/18 22:35 76 21 158/61 H 98 12/05/18 22:31 72 18 162/60 H 99 12/05/18 22:30 74 25 H 97 12/05/18 22:25 73 16 168/77 H 98 12/05/18 22:20 97 12/05/18 22:17 107 H 25 H 176/80 H 97 12/05/18 22:15 85 22 99 12/05/18 22:10 36.5 C 89 21 174/139 H 98
--- NOTE | 2018-12-06 13:21 | Cardiology Consultation ---
Date of Consultation December 06, 2018 Assessment & Plan (1) Wide-complex tachycardia: Wide-complex tachycardia appears to be paced rhythm with atrial tracking. No observed ventricular tachycardia on review of telemetry strips Pacemaker interrogation reveals intermittent atrial fibrillation Plan continue chronic anticoagulation with Eliquis Added routine beta-michael therapy with metoprolol 25 mg twice per day Supplement potassium to greater than 4 (2) Paroxysmal atrial fibrillation: As above (3) H/O cardiac pacemaker: Device functioning appropriately with good battery life (4) Near syncope: Arrhythmias possible ischemia in concerning however no evidence of troponin elevation. (5) Coronary artery disease: Remote coronary intervention (6) Anemia: No recent myocardial infarction or angina would discontinue Plavix and continue Eliquis as single agent History of Present Illness Reason for Consultation: Tachypalpitations Requesting Physician: Dr. Palmer Attending Physician: Samir Palmer MD History of Present Illness Patient is an 83-year-old female with information obtained from review of records and discussion with patient. Patient extremely poor historian. Her past history is notable for remote coronary disease with prior coronary stent in 1993 LAD diagonal possible intervention versus repeat cath in 2007. 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 Yesterday while with family member became pale and nauseated. Per report heart rate was fast when palpated. She presented to the emergency room complaining of mild chest pressure in addition to above Telemetry demonstrated elevated heart rate and intermittent wide-complex conduction (paced rhythm) She is referred now for further evaluation. She denies any acute complaints currently and has minimal recollection of event from day prior. Notes no recent fevers chills or sweats. Notes no bleeding difficulties notes no melena hematochezia dysuria hematuria. Appetite weighted been stable. No recent myocardial infarction or angina. She is active to a modest level degree about home uses walker for ambulation Allergies Allergy/AdvReac Type Severity Reaction Status Date / Time Iodinated Contrast Media Allergy Severe SHORTNESS Verified 12/05/18 23:09 OF BREATH aspirin Allergy Mild RASH Verified 12/05/18 23:09 Home Medications Home Medications Medication Instructions Recorded Confirmed Type albuterol sulfate 2 puff INHALATION DIRECTED PRN 12/05/18 12/05/18 History apixaban [Eliquis] 5 mg PO BID 12/05/18 12/05/18 History clopidogrel [Plavix] 75 mg PO DAILY 12/05/18 12/05/18 History isosorbide mononitrate 30 mg PO DAILY 12/05/18 12/05/18 History lisinopril 20 mg PO DAILY 12/05/18 12/05/18 History potassium chloride 20 meq PO DAILY 12/05/18 12/05/18 History torsemide 20 mg PO DAILY 12/05/18 12/05/18 History metoprolol tartrate 25 mg PO BID 30 Days #60 tab 12/07/18 Rx Patient History Medical History H/O cardiac pacemaker Diabetes Hypertension Atrial fibrillation Social History Preferred Language: Dominican Communication Ability: Effective Beliefs That Will Affect Care: None Current Living Situation: Alone Feels Safe at Home: Yes Safety Concerns: Feels Safe At This Time Smoking Status: Never smoker Hx Alcohol Use: No Hx Substance Use: No Physical Exam Constitutional: WD/WN, vitals as above no acute distress Eyes: PERRL, conjunctivae normal, anicteric sclerae ENMT: external ear and nose normal, oropharynx normal Neck: trachea midline Thyroid goiter present Respiratory: normal respiratory effort, lungs clear to auscultation Cardiovascular: Rate/Rhythm: regular rate and regular rhythm Heart Sounds: normal S1 and normal S2 Palpation: S3 nonpalpable Vessels: no JVD and no femoral bruit Extremities: no edema Mild venous stasis Chest (Breasts): Chest: + pacemaker (Local site without irritation or tenderness) Gastrointestinal (Abdomen): normal bowel sounds, soft, nontender, no hepatosplenomegaly Musculoskeletal: no cyanosis or clubbing, extremities motor strength 5/5 Results & Data Vital Signs (Past 12 Hours) Vital Signs Temp Pulse Pulse Resp BP Pulse Ox 12/06/18 11:43 36.4 C L 80 18 148/76 H 99 12/06/18 08:00 60 12/06/18 07:11 36.9 C 73 20 152/76 H 97 12/06/18 03:29 36.9 C 79 19 151/74 H 97 Laboratory Results Laboratory Results - last 24 hr 12/05/18 12/05/18 12/05/18 22:19 22:19 22:19 WBC 8.99 RBC 3.58 L Hgb 10.3 L POC Hgb Hct 32.4 L POC Hct MCV 90.5 MCH 28.8 MCHC 31.8 L RDW Std Deviation 48.9 H RDW Coeff of Seferino 14.6 H Plt Count 221 MPV 13.4 H Immature Gran % (Auto) 0.2 Neut % (Auto) 79.0 Lymph % (Auto) 12.3 [place] % (Auto) 7.2 Eos % (Auto) 1.1 Baso % (Auto) 0.2 Immature Gran # (Auto) 0.02 Neut # (Auto) 7.09 H Lymph # (Auto) 1.11 L [place] # (Auto) 0.65 H Eos # (Auto) 0.10 Baso # (Auto) 0.02 ESR PT 11.0 INR 1.1 APTT 25.7 PTT Ratio 0.9 POC Sodium Sodium 139 POC Potassium Potassium 4.3 POC Chloride Chloride 110 H Carbon Dioxide 21 POC Total CO2 Anion Gap 8.0 POC Anion Gap POC BUN BUN 22 H Creatinine 1.18 POC Creatinine Est Cr Clr Drug Dosing 38.7 Est GFR ( Amer) 49.0 Est GFR (Non-Af Amer) 42.3 BUN/Creatinine Ratio 18.5 Glucose 152 H POC Glucose POC Glucose (other) Calcium 9.4 POC Ioniz Calcium Carmen Magnesium 1.7 L Total Bilirubin 0.3 AST 16 ALT 12 Alkaline Phosphatase 98 Total Creatine Kinase 74 Troponin I < 0.015 Total Protein 7.3 Albumin 3.5 Globulin 3.8 Albumin/Globulin Ratio 0.9 TSH 3.050 Urine Color Urine Appearance Urine pH Ur Specific [place] Urine Protein Urine Glucose (UA) Urine Ketones Urine Blood Urine Nitrite Urine Bilirubin Urine Urobilinogen Ur Leukocyte Esterase Urine WBC (Auto) Urine RBC (Auto) U Hyaline Cast (Auto) U Epithel Cells (Auto) Urine Bacteria (Auto) Lyme Disease IgG Ab Lyme Disease IgM Ab 12/05/18 12/05/18 12/05/18 22:19 22:19 22:32 WBC RBC Hgb POC Hgb 10.2 L Hct POC Hct 30 L MCV MCH MCHC RDW Std Deviation RDW Coeff of Seferino Plt Count MPV Immature Gran % (Auto) Neut % (Auto) Lymph % (Auto) [place] % (Auto) Eos % (Auto) Baso % (Auto) Immature Gran # (Auto) Neut # (Auto) Lymph # (Auto) [place] # (Auto) Eos # (Auto) Baso # (Auto) ESR 62 H PT INR APTT PTT Ratio POC Sodium 140 Sodium POC Potassium 4.3 Potassium POC Chloride 109 Chloride Carbon Dioxide POC Total CO2 22 L Anion Gap POC Anion Gap 14.0 L POC BUN 25 H BUN Creatinine POC Creatinine 1.1 Est Cr Clr Drug Dosing Est GFR ( Amer) Est GFR (Non-Af Amer) BUN/Creatinine Ratio Glucose POC Glucose POC Glucose (other) 154 H Calcium POC Ioniz Calcium Carmen 1.20 Magnesium Total Bilirubin AST ALT Alkaline Phosphatase Total Creatine Kinase Troponin I Total Protein Albumin Globulin Albumin/Globulin Ratio TSH Urine Color Urine Appearance Urine pH Ur Specific [place] Urine Protein Urine Glucose (UA) Urine Ketones Urine Blood Urine Nitrite Urine Bilirubin Urine Urobilinogen Ur Leukocyte Esterase Urine WBC (Auto) Urine RBC (Auto) U Hyaline Cast (Auto) U Epithel Cells (Auto) Urine Bacteria (Auto) Lyme Disease IgG Ab Negative Lyme Disease IgM Ab Negative 12/06/18 12/06/18 12/06/18 01:34 01:40 07:02 WBC 6.94 RBC 3.32 L Hgb 9.7 L POC Hgb Hct 29.8 L POC Hct MCV 89.8 MCH 29.2 MCHC 32.6 RDW Std Deviation 47.6 H RDW Coeff of Seferino 14.4 Plt Count 198 MPV 13.0 H Immature Gran % (Auto) 0.1 Neut % (Auto) 55.6 Lymph % (Auto) 31.1 [place] % (Auto) 10.2 Eos % (Auto) 2.7 Baso % (Auto) 0.3 Immature Gran # (Auto) 0.01 Neut # (Auto) 3.85 Lymph # (Auto) 2.16 [place] # (Auto) 0.71 H Eos # (Auto) 0.19 Baso # (Auto) 0.02 ESR PT INR APTT PTT Ratio POC Sodium Sodium POC Potassium Potassium POC Chloride Chloride Carbon Dioxide POC Total CO2 Anion Gap POC Anion Gap POC BUN BUN Creatinine POC Creatinine Est Cr Clr Drug Dosing Est GFR ( Amer) Est GFR (Non-Af Amer) BUN/Creatinine Ratio Glucose POC Glucose POC Glucose (other) Calcium POC Ioniz Calcium Carmen Magnesium Total Bilirubin AST ALT Alkaline Phosphatase Total Creatine Kinase Troponin I < 0.015 Total Protein Albumin Globulin Albumin/Globulin Ratio TSH Urine Color Yellow Urine Appearance Clear Urine pH 5.0 Ur Specific [place] 1.018 Urine Protein Negative Urine Glucose (UA) Negative Urine Ketones Trace H Urine Blood Negative Urine Nitrite Negative Urine Bilirubin Negative Urine Urobilinogen Negative Ur Leukocyte Esterase 2+ H Urine WBC (Auto) >30 H Urine RBC (Auto) 0-4 U Hyaline Cast (Auto) 1-5 U Epithel Cells (Auto) 10-20 H Urine Bacteria (Auto) Negative Lyme Disease IgG Ab Lyme Disease IgM Ab 12/06/18 12/06/18 12/06/18 07:02 07:02 07:24 WBC RBC Hgb POC Hgb Hct POC Hct MCV MCH MCHC RDW Std Deviation RDW Coeff of Seferino Plt Count MPV Immature Gran % (Auto) Neut % (Auto) Lymph % (Auto) [place] % (Auto) Eos % (Auto) Baso % (Auto) Immature Gran # (Auto) Neut # (Auto) Lymph # (Auto) [place] # (Auto) Eos # (Auto) Baso # (Auto) ESR PT INR APTT PTT Ratio POC Sodium Sodium 141 POC Potassium Potassium 4.3 POC Chloride Chloride 112 H Carbon Dioxide 21 POC Total CO2 Anion Gap 8.0 POC Anion Gap POC BUN BUN 20 H Creatinine 0.96 POC Creatinine Est Cr Clr Drug Dosing 46.8 Est GFR ( Amer) 62.9 Est GFR (Non-Af Amer) 54.3 BUN/Creatinine Ratio 20.3 H Glucose 102 H POC Glucose 103 H POC Glucose (other) Calcium 9.0 POC Ioniz Calcium Carmen Magnesium 2.1 Total Bilirubin AST ALT Alkaline Phosphatase Total Creatine Kinase Troponin I < 0.015 Total Protein Albumin Globulin Albumin/Globulin Ratio TSH Urine Color Urine Appearance Urine pH Ur Specific [place] Urine Protein Urine Glucose (UA) Urine Ketones Urine Blood Urine Nitrite Urine Bilirubin Urine Urobilinogen Ur Leukocyte Esterase Urine WBC (Auto) Urine RBC (Auto) U Hyaline Cast (Auto) U Epithel Cells (Auto) Urine Bacteria (Auto) Lyme Disease IgG Ab Lyme Disease IgM Ab
--- NOTE | 2018-12-06 13:47 | Hospitalist Progress Note ---
Date of Service December 06, 2018 Assessment & Plan (1) Near syncope: -As per admission History and Physical " This is an 83-year-old female with past medical history significant for prediabetes, hyperlipidemia, history of asthma, history of coronary artery disease status post stent, hypertension, carotid stenosis, GERD, chronic kidney disease stage III, status post cardiac pacemaker. Follows with cardiology at [facility]. Recently in August when pacemaker was interrogated, she was found to be in AFib and she was started on Eliquis and has next appointment with her grape pruner in [place] next week. Presents with near syncope. The patient went outside with her daughters in the car; when they were coming back, she was talking to the lady sitting next to her in the car, when suddenly she stopped talking and when the daughters checked her she was pale. She felt almost passed out and the patient complained of some chest discomfort and she was brought into the ER. In the ER, EKG showed paced rhythm with prolonged AV conduction and then she had a brief period of wide complex tachycardia which was regular. ER physician called grape pruner certified medical transcriptionist and advised IV Lopressor and p.o. Lopressor, which she received. -symptoms likely from paroxysmal atrial fibrillation after inpatient cardiology assessments (2) Paroxysmal atrial fibrillation: -as per cardiology evaluation of EKG and telemetry, the initial concern for Wide-complex tachycardia appears to be misinterpretation of a paced rhythm with atrial tracking. No observed ventricular tachycardia on review of telemetry strips Pacemaker interrogation reveals intermittent atrial fibrillation -metoprolol 25 mg twice a day has been added to patient's medication regimen on this admission -continue chronic anticoagulation with Eliquis -as per cardiology Dr. Kemp, since patient already on Eliquis, there is no additional need of having clopidogrel. will have clopidogrel stopped from home medication list when patient is discharge from hospital (3) H/O cardiac pacemaker: -has pacemaker; Pacemaker interrogation reveals intermittent atrial fibrillation (4) Coronary artery disease: History of coronary artery disease status with stent -continue Imdur and lisinopril -ejection fraction of 50 to 55% on echocardiogram performed on this admission -lipid panel and hemoglobin A1c tests can be done on outpatient basis History of hypertension -continue Imdur and lisinopril -on torsemide 20 mg daily (5) Hypomagnesemia: -admission Magnesium 1.7, which was replaced in the ER -follow up serum magnesium 2.1 -hypomagnesemia resolved Headache -resolved -ESR is elevated as 62 but no other clinical symptoms of infection or autoimmune reaction (6) CKD (chronic kidney disease): -renal function is stable (7) Anemia: Anemia -discontinue clopidogrel while on Eliquis as per cardiology Deep venous thrombosis prophylaxis: on Eliquis. Disposition: patient's family members arrived and agreed with patient of further monitoring of heart rates in the hospital while on new metoprolol medication Patient's daughter Shaye Tavarez [phone] Subjective Patient denies nausea today. no vomiting today. no abdomen pain. on room air, no shortness of breath. no chest pain. no palpitations. she is ambulatory. no dizziness or lightheadedness today. no headache currently Physical Exam Constitutional: WD/WN, vitals as above comfortable Eyes: PERRL, conjunctivae normal, anicteric sclerae EOM intact bilaterally ENMT: external ear and nose normal, oropharynx normal Neck: normal visual inspection Respiratory: normal respiratory effort, lungs clear to auscultation Cardiovascular: Rate/Rhythm: regular rate Gastrointestinal (Abdomen): normal bowel sounds, soft, nontender, no hepatosplenomegaly Musculoskeletal: no cyanosis or clubbing, extremities motor strength 5/5 Head/Neck/Chest: normocephalic and head atraumatic Neurologic: PERRL, EOMI, accommodation nl, no face palsy, no dysarthria CN's II-XI intact bilaterally Psychiatric: A+Ox3, euthymic affect Results & Data Vital Signs (Past 12 Hours) Vital Signs Temp Pulse Pulse Resp BP Pulse Ox 12/06/18 11:43 36.4 C L 80 18 148/76 H 99 12/06/18 08:00 60 12/06/18 07:11 36.9 C 73 20 152/76 H 97 12/06/18 03:29 36.9 C 79 19 151/74 H 97
[2018-12-07] MEDS: POTASSIUM CHLORIDE 20 MEQ TABCR PO SCH (08:06)
[2018-12-07] MEDS: TORSEMIDE 10 MG TAB PO SCH (08:06)
[2018-12-07] MEDS: METOPROLOL TARTRATE 25 MG TAB PO SCH (08:06)
[2018-12-07] MEDS: APIXABAN 5 MG TABLET PO SCH (08:06)
[2018-12-07] MEDS: ISOSORBIDE MONO EXTENDED REL 30 MG TABCR PO SCH (08:06)
[2018-12-07] MEDS: lisinopriL 20 MG TAB PO SCH (08:07)
--- NOTE | 2018-12-07 11:50 | Hospitalist Progress Note ---
Date of Service December 07, 2018 Assessment & Plan (1) Near syncope: -As per admission History and Physical " This is an 83-year-old female with past medical history significant for prediabetes, hyperlipidemia, history of asthma, history of coronary artery disease status post stent, hypertension, carotid stenosis, GERD, chronic kidney disease stage III, status post cardiac pacemaker. Follows with cardiology at [facility]. Recently in August when pacemaker was interrogated, she was found to be in AFib and she was started on Eliquis and has next appointment with her revenue coordinator in [place] next week. Presents with near syncope. The patient went outside with her daughters in the car; when they were coming back, she was talking to the lady sitting next to her in the car, when suddenly she stopped talking and when the daughters checked her she was pale. She felt almost passed out and the patient complained of some chest discomfort and she was brought into the ER. In the ER, EKG showed paced rhythm with prolonged AV conduction and then she had a brief period of wide complex tachycardia which was regular. ER physician called revenue coordinator supervisor functional testing and advised IV Lopressor and p.o. Lopressor, which she received. -symptoms likely from paroxysmal atrial fibrillation after inpatient cardiology assessments (2) Paroxysmal atrial fibrillation: -as per cardiology evaluation of EKG and telemetry, the initial concern for Wide-complex tachycardia appears to be misinterpretation of a paced rhythm with atrial tracking. No observed ventricular tachycardia on review of telemetry strips Pacemaker interrogation reveals intermittent atrial fibrillation -metoprolol 25 mg twice a day has been added to patient's medication regimen on this admission -continue chronic anticoagulation with Eliquis -as per cardiology Dr. Kemp, since patient already on Eliquis, there is no additional need of having clopidogrel. will have clopidogrel stopped from home medication list when patient is discharge from hospital -discharge to home appointments 12/11/2018 12:50 PM Provider Janeth Morin DO Department Internal Medicine [facility] 12/16/2018 9:00 AM Provider Jorge Kemp MD Department Cardiology, [facility] Prescription of Metoprolol Tartrate twice a day for 30 day supply sent electronically to [facility] [address] [place] [id number] stop clopidogrel (plavix) from home medications. continue Eliquis (3) H/O cardiac pacemaker: -has pacemaker; Pacemaker interrogation reveals intermittent atrial fibrillation (4) Coronary artery disease: History of coronary artery disease status with stent -continue Imdur and lisinopril -ejection fraction of 50 to 55% on echocardiogram performed on this admission -Paper prescriptions made for Pre-diabetes to check the blood sugars with Accu- Chek Guide testing strips and Accu-Check Fastclix lancets (drum); Quantity of 60 each -lipid panel and hemoglobin A1c tests can be done on outpatient basis (5) Hypertension: -continue Imdur and lisinopril -on torsemide 20 mg daily (6) Hypomagnesemia: -admission Magnesium 1.7, which was replaced in the ER; follow up serum magnesium 2.1; hypomagnesemia resolved Headache -resolved -ESR is elevated as 62 but no other clinical symptoms of infection or autoimmune reaction (7) CKD (chronic kidney disease): -renal function is stable (8) Anemia: Anemia -discontinue clopidogrel while on Eliquis as per cardiology Deep venous thrombosis prophylaxis: on Eliquis. Patient's daughter Shaye Tavarez [phone] Discharge Diagnosis: Near syncope; Paroxysmal Atrial Fibrillation; Coronary artery disease; Hypertension, Chronic Kidney Disease, Hypomagnesemia (treated and resolved) , Anemia Subjective Patient denies chest pain. no palpitations. no dizziness. no headache. no shortness of breath. no vomiting. no abdominal pain. ambulates. no dizziness. no headache Physical Exam Constitutional: WD/WN, vitals as above comfortable Eyes: PERRL, conjunctivae normal, anicteric sclerae EOM intact bilaterally ENMT: external ear and nose normal, oropharynx normal Neck: normal visual inspection Respiratory: normal respiratory effort, lungs clear to auscultation Cardiovascular: Rate/Rhythm: regular rate Gastrointestinal (Abdomen): normal bowel sounds, soft, nontender, no hepatosplenomegaly Musculoskeletal: no cyanosis or clubbing, extremities motor strength 5/5 Head/Neck/Chest: normocephalic and head atraumatic Neurologic: PERRL, EOMI, accommodation nl, no face palsy, no dysarthria CN's II-XI intact bilaterally Psychiatric: A+Ox3, euthymic affect Results & Data Vital Signs (Past 12 Hours) Vital Signs Temp Pulse Resp BP BP Pulse Ox 12/07/18 07:51 36.5 C 69 18 158/84 H 98 12/07/18 04:10 36.8 C 66 18 159/76 H 98 12/07/18 00:12 36.8 C 74 19 152/83 H 97
--- NOTE | 2018-12-07 11:57 | Discharge Summary ---
Date of Service December 07, 2018 Admission HPI Per Admitting Provider DATE OF ADMISSION: 12/06/2018 CHIEF COMPLAINT: Near syncope and chest discomfort. HISTORY OF PRESENT ILLNESS: This is an 83-year-old female with past medical history significant for prediabetes, hyperlipidemia, history of asthma, history of coronary artery disease status post stent, hypertension, carotid stenosis, GERD, chronic kidney disease stage III, status post cardiac pacemaker. Follows with cardiology at [facility]. Recently in August when pacemaker was interrogated, she was found to be in AFib and she was started on Eliquis and has next appointment with her vp strategic planning in [place] next week. Presents with near syncope. The patient went outside with her daughters in the car; when they were coming back, she was talking to the lady sitting next to her in the car, when suddenly she stopped talking and when the daughters checked her she was pale. She felt almost passed out and the patient complained of some chest discomfort and she was brought into the ER. In the ER, EKG showed paced rhythm with prolonged AV conduction and then she had a brief period of wide complex tachycardia which was regular. ER physician called vp strategic planning electrical contacts adjuster and advised IV Lopressor and p.o. Lopressor, which she received. Currently, the patient states the chest pain is almost gone. Denies any shortness of breath. She was nauseous earlier, that improved. She was dizzy earlier, that improved. No blurred visions. No earache, no runny nose, no sore throat, no cough, no recent fever or chills. No abdominal pain. Normal bowel and bladder movements. No blood in the stools or black stools. Sometimes gets edema in left lower extremity.No hematuria or burning micturitions. No rash. Ambulates with the help of cane. Appetite is okay. She lives alone. Later she complained of some bitemporal headache but not very severe. ALLERGIES: ASPIRIN, IODINATED CONTRAST AGENTS. PAST MEDICAL HISTORY: As mentioned above. PAST SURGICAL HISTORY: Status post pacemaker, cardiac stent placement, colonoscopy, EGDs, lumbar spine fusion surgery, left radius and ulnar fracture repaired with fixation, right arm radial shaft repair when she was 8 years old, appendectomy, removal of the bilateral oviducts, cataract surgery of the right eye, cholecystectomy, total abdominal hysterectomy with removal of tubes for uterine cancer. MEDICATIONS: Currently the patient is on albuterol 2 puffs inhalation p.r.n., Eliquis 5 mg p.o. b.i.d., Plavix 75 mg p.o. daily, Imdur 30 mg p.o. daily, lisinopril 20 mg p.o. daily, potassium chloride 20 mEq daily, furosemide 20 mg p.o. daily. FAMILY HISTORY: Significant for mother had bladder and kidney cancer, diabetes, and heart disorder. Sister has nephrectomy and breast cancer. Father has heart disorder. SOCIAL HISTORY: Lives alone, . Quit smoking in 1974. No alcohol, no drug use. REVIEW OF SYSTEMS: As per HPI. Rest of the review of systems negative. Admission Exam Per Admitting Provider PHYSICAL EXAMINATION: GENERAL: The patient is old and frail, not in acute distress. VITAL SIGNS: Temperature 36.5, pulse 61, respiratory rate 15, blood pressure 148/57, oxygen 96% on room air. HEENT: No pallor, no icterus. Pupils equal, round, reactive to light. Extraocular muscles intact. NECK: No JVD, no neck masses, no carotid bruits. CARDIOVASCULAR: S1, S2 heard, regular rate and rhythm, no murmur, no gallop. RESPIRATORY SYSTEM: Normal AP diameter. No accessory muscle use. No wheezing, no crackles. ABDOMEN: Soft, bowel sounds present, nontender. No distention. CENTRAL NERVOUS SYSTEM: Cranial nerves II-XII are grossly intact. Nonfocal. EXTREMITIES: Mild pedal edema present, no erythema seen. Principal Diagnosis Near syncope; Paroxysmal Atrial Fibrillation; Coronary artery disease; Hypertension, Chronic Kidney Disease, Hypomagnesemia (treated and resolved) , Anemia Discharge Exam Constitutional WD/WN, vitals as above comfortable Eyes PERRL, conjunctivae normal, anicteric sclerae EOM intact bilaterally ENMT external ear and nose normal, oropharynx normal Neck normal visual inspection Respiratory normal respiratory effort, lungs clear to auscultation Cardiovascular Rate/Rhythm: regular rate Gastrointestinal (Abdomen) normal bowel sounds, soft, nontender, no hepatosplenomegaly Musculoskeletal no cyanosis or clubbing, extremities motor strength 5/5 Head/Neck/Chest: normocephalic and head atraumatic Neurologic PERRL, EOMI, accommodation nl, no face palsy, no dysarthria CN's II-XI intact bilaterally Psychiatric A+Ox3, euthymic affect Discharge Data Allergies Allergy/AdvReac Type Severity Reaction Status Date / Time Iodinated Contrast Media Allergy Severe SHORTNESS Verified 12/05/18 23:09 OF BREATH aspirin Allergy Mild RASH Verified 12/05/18 23:09 Consultations 12/05/18 23:37 ED Decision to Admit Stat 12/06/18 01:05 Consult Case Management - Discharge Planning Routine 12/06/18 08:00 Consult Cardiology Routine Hospital Course (1) Near syncope: -As per admission History and Physical " This is an 83-year-old female with past medical history significant for prediabetes, hyperlipidemia, history of asthma, history of coronary artery disease status post stent, hypertension, carotid stenosis, GERD, chronic kidney disease stage III, status post cardiac pacemaker. Follows with cardiology at [facility]. Recently in August when pacemaker was interrogated, she was found to be in AFib and she was started on Eliquis and has next appointment with her vp strategic planning in [place] next week. Presents with near syncope. The patient went outside with her daughters in the car; when they were coming back, she was talking to the lady sitting next to her in the car, when suddenly she stopped talking and when the daughters checked her she was pale. She felt almost passed out and the patient complained of some chest discomfort and she was brought into the ER. In the ER, EKG showed paced rhythm with prolonged AV conduction and then she had a brief period of wide complex tachycardia which was regular. ER physician called vp strategic planning electrical contacts adjuster and advised IV Lopressor and p.o. Lopressor, which she received. -symptoms likely from paroxysmal atrial fibrillation after inpatient cardiology assessments (2) Paroxysmal atrial fibrillation: -as per cardiology evaluation of EKG and telemetry, the initial concern for Wide-complex tachycardia appears to be misinterpretation of a paced rhythm with atrial tracking. No observed ventricular tachycardia on review of telemetry strips Pacemaker interrogation reveals intermittent atrial fibrillation -metoprolol 25 mg twice a day has been added to patient's medication regimen on this admission -continue chronic anticoagulation with Eliquis -as per cardiology Dr. Kemp, since patient already on Eliquis, there is no additional need of having clopidogrel. will have clopidogrel stopped from home medication list when patient is discharge from hospital -discharge to home appointments 12/11/2018 12:50 PM Provider Janeth Morin DO Department Internal Medicine [facility] 12/16/2018 9:00 AM Provider Jorge Kemp MD Department Cardiology, [facility] Prescription of Metoprolol Tartrate twice a day for 30 day supply sent electronically to [facility] [address] [place] [address] stop clopidogrel (plavix) from home medications. continue Eliquis (3) H/O cardiac pacemaker: -has pacemaker; Pacemaker interrogation reveals intermittent atrial fibrillation (4) Coronary artery disease: History of coronary artery disease status with stent -continue Imdur and lisinopril -ejection fraction of 50 to 55% on echocardiogram performed on this admission -Paper prescriptions made for Pre-diabetes to check the blood sugars with Accu- Chek Guide testing strips and Accu-Check Fastclix lancets (drum); Quantity of 60 each -lipid panel and hemoglobin A1c tests can be done on outpatient basis (5) Hypertension: -continue Imdur and lisinopril -on torsemide 20 mg daily (6) Hypomagnesemia: -admission Magnesium 1.7, which was replaced in the ER; follow up serum magnesium 2.1; hypomagnesemia resolved Headache -resolved -ESR is elevated as 62 but no other clinical symptoms of infection or autoimmune reaction (7) CKD (chronic kidney disease): -renal function is stable (8) Anemia: Anemia -discontinue clopidogrel while on Eliquis as per cardiology Deep venous thrombosis prophylaxis: on Eliquis. Patient's daughter Shaye Tavarez [phone] Discharge Diagnosis: Near syncope; Paroxysmal Atrial Fibrillation; Coronary artery disease; Hypertension, Chronic Kidney Disease, Hypomagnesemia (treated and resolved) , Anemia Total Time Total Time Spent Total Time Spent (In Minutes): 40 minutes Total Time Includes: Examination of the Patient, Discharge Planning, Medication Reconciliation and Communication With Other Providers Discharge Plan Discharge Items Patient Disposition: Home - Self-Care Reason For Visit: NEAR SYNCOPE, CHEST PAIN Discharge Diagnosis: Near syncope; Paroxysmal Atrial Fibrillation; Coronary artery disease; Hyp ertension, Chronic Kidney Disease, Anemia, Hypomagnesemia (treated and resolved) Condition on Discharge: Good Activity: Per Instructions section Non-emergency contact: Primary Care Provider and Charge Manager Call non-emergency contact if: you have any medication questions Follow-up/Referrals: Janeth Morin DO [Primary Care Provider] - Diet: Heart Healthy Addtl Attending Provider Instructions: discharge to home appointments 12/11/2018 12:50 PM Provider Janeth Morin DO Department Internal Medicine [facility] 12/16/2018 9:00 AM Provider Jorge Kemp MD Department Cardiology, [facility] Prescription of Metoprolol Tartrate twice a day for 30 day supply sent electronically to [facility] [address] [place] [address] stop clopidogrel (plavix). continue Eliquis Paper prescriptions made for Pre-diabetes to check the blood sugars with Accu- Chek Guide testing strips and Accu-Check Fastclix lancets (drum); Quantity of 60 each Pending Studies at Discharge: No Stand-Alone Forms: [facility] Medications and DC Order Prescriptions: New metoprolol tartrate 25 mg Tablet 25 mg PO BID 30 Days Qty: 60 RF: 0 Continued torsemide 20 mg Tablet 20 mg PO DAILY RF: 0 lisinopril 20 mg Tablet 20 mg PO DAILY RF: 0 isosorbide mononitrate 30 mg Tablet Extended Release 24 Hr 30 mg PO DAILY RF: 0 albuterol sulfate 90 mcg/actuation Hfa Aerosol Inhaler 2 puff INHALATION DIRECTED PRN (Reason: Shortness Of Breath Or Wheezing) RF: 0 Eliquis 5 mg Tablet 5 mg PO BID RF: 0 potassium chloride 20 mEq Tablet Extended Release 20 meq PO DAILY RF: 0 Discontinued clopidogrel [Plavix] 75 mg Tablet 75 mg PO DAILY RF: 0 Discharge Orders: Discharge Order (Routine); Ordered 12/07/18 Ordered By: Samir Palmer Admission Data Admit Date/Time: 12/06/18 00:11 Attending Provider: Samir Palmer Admit Provider: Gil Gao Primary Care Provider: Janeth Morin Other Providers: Gil Gao ; Jorge Kemp
--- NOTE | 2018-12-07 11:59 | Cardiology Progress Note ---
Date of Service December 07, 2018 Assessment & Plan (1) Paroxysmal atrial fibrillation: No recurrence in hospital since initiation of beta-michael therapy. Pacemaker interrogation reveals presence of paroxysmal atrial fibrillation on presentation. Main complaint tachypalpitations without recurrent events Patient on appropriate medical therapies with beta-michael, JOSELITO inhibitor appropriate anticoagulation with apixaban. We continue current medications Given remote coronary disease and no evidence of acute myocardial injury would discontinue clopidogrel maintain single agent apixaban given anemia Could consider statin dosing as an outpatient patient followed by cardiology currently allow this to be addressed Patient unable to continue with current oyster sorter would offer [facility] as alternative (2) Wide-complex tachycardia: Wide-complex tachycardia appears to be paced rhythm with atrial tracking. No observed ventricular tachycardia on review of telemetry strips Pacemaker interrogation reveals intermittent atrial fibrillation Plan continue chronic anticoagulation with Eliquis Added routine beta-michael therapy with metoprolol 25 mg twice per day Supplement potassium to greater than 4 (3) H/O cardiac pacemaker: Device functioning appropriately with good battery life (4) Near syncope: Arrhythmias possible ischemia in concerning however no evidence of troponin elevation. (5) Coronary artery disease: Remote coronary intervention (6) Anemia: No recent myocardial infarction or angina would discontinue Plavix and continue Eliquis as single agent Subjective . Telemetry reveals atrial and ventricular pacing Patient seen and examined, chart, medications, telemetry reviewed. No complaints overnight overall feeling well this morning no chest pains or discomfort no dizziness or lightheadedness. Patient rather is rather poor historian however Telemetry reveals atrial and intermittent ventricular pacing Physical Exam Constitutional: WD/WN, vitals as above no acute distress Eyes: PERRL, conjunctivae normal, anicteric sclerae ENMT: external ear and nose normal, oropharynx normal Neck: trachea midline Respiratory: normal respiratory effort, lungs clear to auscultation Cardiovascular: Rate/Rhythm: regular rate and regular rhythm Heart Sounds: normal S1 and normal S2 Palpation: S3 nonpalpable Vessels: no JVD and no femoral bruit Extremities: no edema Chest (Breasts): Chest: + pacemaker (Local site without irritation or tenderness) Gastrointestinal (Abdomen): normal bowel sounds, soft, nontender, no hepatosplenomegaly Musculoskeletal: no cyanosis or clubbing, extremities motor strength 5/5 Skin: no rashes, warm and dry Results & Data Vital Signs (Past 12 Hours) Vital Signs Temp Pulse Resp BP BP Pulse Ox 10/07/19 07:51 36.5 C 69 18 158/84 H 98 12/07/18 04:10 36.8 C 66 18 159/76 H 98 12/07/18 00:12 36.8 C 74 19 152/83 H 97
== END 2018-12-07 14:43 | disposition home or self-care (01) | DRG 310 ==
LOC: ED 22:02 → 2S 12-06 00:11

== ENCOUNTER 2018-12-10 18:36 | Inpatient (IN) ==
--- NOTE | 2018-12-10 19:01 | XRay Report ---
XR chest 1V portable HISTORY: 83 years-old Female Chest Pain acute atypical chest pain COMPARISON: Chest radiograph 12/05/2018 TECHNIQUE: Portable AP view of the chest FINDINGS: Cardiac silhouette is enlarged, unchanged. Stable positioning of the left subclavian pacer. No pneumo thorax or overt pulmonary edema. Mild left hemidiaphragm elevation with subsegmental left basilar opa cities. Mild chronic interstitial coarsening. Degenerative changes of the shoulders and spine. IMPRESSION: 1. Cardiomegaly without overt pulmonary edema. 2. Subsegmental left basilar opacities with mild left hemidiaphragmatic elevation suggests atelectasi s. Pneumonitis considered less likely. The above report was generated using voice recognition software. It may contain grammatical, syntax o r spelling errors. Electronically signed by: Lionel Bush M.D. 12/10/2018 7:00 PM
[2018-12-10] MEDS ORDERED: DiphenhydrAMINE HCL 50 MG/ML VIAL IV STA ×2 (19:10→21:50)
[2018-12-10] MEDS ORDERED: ACETAMINOPHEN 1,000 MG/100 ML VIAL IV STA (19:10)
[2018-12-10] MEDS ORDERED: METOCLOPRAMIDE HCL INJ 5 MG/ML 2 ML VIAL IV STA (19:10)
[2018-12-10] MEDS ORDERED: SODIUM CHLORIDE 0.9% 500 ML IV ONE ×2 (19:11→20:32)
[2018-12-10 19:31] LABS: Basophils # (auto) 0.02 K/uL (0-0.2); Basophils % (auto) 0.2 %; Eosinophils # (auto) 0.11 K/uL (0-0.5); Hematocrit (blood only) 32.2 % (37-47); Hemoglobin 10.6 g/dL (12.0-16.0); Immature Granulocytes # (auto) 0.02 K/uL (0.00-0.02); Immature Granulocytes % (auto) 0.2 %; Lymphocytes # (auto) 1.49 K/uL (1.2-3.4); Lymphocytes % (auto) 13.5 %; Mean Corpuscular Hemoglobin 29.4 pg (25-34); Mean Corpuscular Hgb Conc 32.9 g/dL (32-36); Mean Corpuscular Volume 89.2 fL (80-100); Mean Platelet Volume 13.4 fL (7.4-10.4); Monocytes % (auto) 5.4 %; Neutrophils # (auto) 8.79 K/uL (1.4-6.5); Neutrophils % (auto) 79.7 %; Platelet Count 230 K/uL (130-400); RDW Coefficient of Variation 14.4 % (11.5-14.5); RDW Standard Deviation 47.3 fL (36.4-46.3); Red Blood Count 3.61 M/uL (4.2-5.4); White Blood Count 11.03 K/uL (4.8-10.8)
[2018-12-10 20:00] LABS: Alanine Aminotransferase 13 U/L (12-78); Albumin Globulin Ratio 0.9 (0.9-2); Albumin Level 3.5 gm/dl (3.4-5.0); Alkaline Phosphatase 102 U/L (45-117); Aspartate Aminotransferase 16 U/L (15-37); BUN Creatinine Ratio 25.6 (10-20); Bilirubin,Total 0.3 mg/dl (0.2-1); Blood Urea Nitrogen 45 mg/dl (7-18); Calcium 9.3 mg/dl (8.5-10.1); Carbon Dioxide 18 mmol/L (21-32); Chloride 106 mmol/L (98-107); Creatinine Clr Calc Pharmacy 26.9 ml/min; Est GFR (African American) 30.2; Est GFR (Non-African American) 26.1; Globulin 3.7 gm/dl (2.5-4.0); Glucose 200 mg/dl (70-99); Lipase 173 U/L (73-393); Magnesium 1.6 mg/dl (1.8-2.4); Phosphorus 2.4 mg/dl (2.5-4.9); Potassium 4.3 mmol/L (3.5-5.1); Sodium 138 mmol/L (136-145); Total Protein 7.2 gm/dl (6.4-8.2); Troponin I < 0.015 ng/ml (0-0.045)
[2018-12-10] MEDS ORDERED: MAGNESIUM SULFATE / D5W 1 GM/100 ML BAG IV STA (20:31)
--- NOTE | 2018-12-10 20:36 | CT Scan Report ---
CT head/brain wo con CLINICAL HISTORY: 83 years-old Female with vertigo. Acute vertigo with dizziness TECHNIQUE: Multiple axial CT images of the head were obtained without contrast. A dose lowering tech nique was utilized adhering to the principles of ALARA. CT DOSE: 537.48 mGy.cm COMPARISON: None. FINDINGS: No acute intracranial hemorrhage, midline shift, intracranial mass, hydrocephalus, territorial ischem ia or abnormal extra-axial collection. Age-related involutional changes. Patchy white matter hypodens ities suggest chronic microvascular ischemic disease. Cerebral vascular calcifications are noted. The calvarium is intact. Small air-fluid level of the right sphenoid sinus suggests acute sinus dise ase. Trace right mastoid effusion. Soft tissues are unremarkable. Prior bilateral cataract repair. IMPRESSION: No acute intracranial abnormality. The above report was generated using voice recognition software. It may contain grammatical, syntax o r spelling errors. Electronically signed by: Lionel Bush M.D. 12/10/2018 8:35 PM
[2018-12-10] MEDS ORDERED: cefTRIAXone SODIUM 2,000 MG/70 ML BAG IV STA (21:32)
[2018-12-10] MEDS ORDERED: SODIUM CHLORIDE 0.9% 1000ML 1,000 ML IV ONE (22:23)
--- NOTE | 2018-12-10 22:48 | History & Physical Report ---
Date of Service December 10, 2018 Assessment & Plan (1) Dizziness: This is a pleasant 83-year-old female who has significant past medical history of CAD with history of stent x2, PAF, status post PPM, HTN, HLD, prediabetes mellitus, CKD stage III, GERD, anemia, osteoporosis who presents to [facility] ED secondary to dizziness prior to arrival. Per history symptoms appear consistent with vertigo CT scan of brain without acute abnormality Symptoms concerning given recent admission due to near syncopal episode MRI unobtainable due to pacemaker Also appears to have active UTI along with ABEL Admit to telemetry Treat UTI to culture with IV antibiotic IVF due to ABEL Replete electrolytes Would consult PT for BPPV evaluation Obtain orthostatics Consider fluticasone nasal spray or antihistamine like Jazmyne given effusion of tympanic membranes - sx may be related to ET dysfunction Hx of carotid artery disease per epic - may benefit from carotid doppler Please refer to attending addendum for further details regarding assessment and treatment plan (2) Acute worsening of stage 3 chronic kidney disease: Baseline creatinine 1.0 BUN/creatinine 45 and 1.76 Continue IVF Hold lisinopril and torsemide Likely prerenal Monitor BMP (3) UTI (urinary tract infection): Urine culture from previous admission on 12/06 grew E. coli, sensitive to ceftriaxone Received 1 dose of ceftriaxone in ED WBC 11 K, urinalysis with leukocyte esterase, W BC, +4 bacteria Continue treat with IV antibiotics, await urine culture (4) Hypomagnesemia: Repleted with 1 g mag sulfate in ED Repeat mag in a.m. (5) Paroxysmal atrial fibrillation: Patient currently in sinus rhythm Rate controlled with metoprolol Anticoagulated with Eliquis (6) Coronary artery disease: History of stenting x2 at [place] On lisinopril, metoprolol, imdur, Eliquis as outpatient Hold lisinopril given ABEL Patient to establish with Dr. Kemp on 12/16/2018 at 9 AM (7) Hypertension: Blood pressure elevated upon admission, I got a blood pressure of 164/87 Continue metoprolol Hold lisinopril and torsemide given ABEL Monitor and treat accordingly (8) Pre-diabetes: Last A1c 6.3 on 08/07/2018 A1c pending Admission glucose 200 Per family patient ate a whole bag of candy corn the day of admission NovoLog per protocol (9) HLD (hyperlipidemia): Not currently on statin Per cardiology recent note to discuss at upcoming office visit (10) H/O cardiac pacemaker: Last interrogated 12/05/2018 intermittent atrial fibrillation (11) DVT prophylaxis: Continue Eliquis Disposition: Admit to telemetry Follow-up: PCP Dr. Morin upon discharge Patient was seen and examined in collaboration with Dr. Richard, please see addendum History of Present Illness Chief Complaint: Dizziness prior to arrival Primary Care Provider: Janeth Morin DO This is a pleasant 83-year-old female who has significant past medical history of CAD with history of stent x2, PAF, status post PPM, HTN, HLD, prediabetes mellitus, CKD stage III, GERD, anemia, osteoporosis who presents to [facility] ED secondary to dizziness prior to arrival. Family members at bedside. Of significance patient recently admitted to [facility] 12/05 to 12/07 secondary to near syncopal episode. During this hospitalization her pacemaker was interrogated and she was found to be having episodes of atrial fibrillation. She was initiated on metoprolol. She was seen and evaluated by cardiology. Echocardiogram was performed which revealed EF 55 to 60%, AV sclerosis. Patient was sitting in her chair today when she became very dizzy. "Everything was moving around me and I felt like I was on a [id number]." Symptoms did not seem to worsen with head movements. She had one episode of emesis and felt nauseated. Family members felt she was diaphoretic and clammy. Since discharge she is otherwise been doing well. Fatou etite has been good. She is been compliant with her medications. She denies fever, chills, sweats, lightheadedness, presyncope, chest pain, shortness with rest, palpitations, hemoptysis, cough, URI symptoms, abdominal pain, diarrhea, melena, hematochezia. She has had one episode of dysuria and increased frequency with urination. Denies hematuria and increased urgency. In ED patient has received IV fluid for dehydration, IV ceftriaxone for concern for UTI, IV Reglan and IV acetaminophen due to headache. Currently her symptoms have since resolved and she feels much improved. Allergies Allergy/AdvReac Type Severity Reaction Status Date / Time Iodinated Contrast Media Allergy Severe SHORTNESS Verified 12/10/18 19:54 OF BREATH aspirin Allergy Mild RASH Verified 12/10/18 19:54 Home Medications Home Medications Medication Instructions Recorded Confirmed Type Eliquis 5 mg PO BID 12/05/18 12/10/18 History albuterol sulfate 2 puff INHALATION DIRECTED PRN 12/05/18 12/10/18 History isosorbide mononitrate 30 mg PO QAM 12/05/18 12/10/18 History lisinopril 20 mg PO QAM 12/05/18 12/10/18 History potassium chloride 20 meq PO QAM 12/05/18 12/10/18 History torsemide 20 mg PO QAM 12/05/18 12/10/18 History metoprolol tartrate 25 mg PO BID 30 Days #60 tab 12/07/18 12/10/18 Rx Past Med/Surg History Medical History HLD (hyperlipidemia) Carotid artery stenosis CKD (chronic kidney disease) stage 3, GFR 30-59 ml/min Pre-diabetes Hypertension Paroxysmal atrial fibrillation Anemia Coronary artery disease Diabetes Hypertension Atrial fibrillation Surgical History History of heart artery stent 1993, 2007 History of lumbar fusion History of total abdominal hysterectomy History of cataract extraction History of appendectomy History of cholecystectomy History of open reduction and internal fixation (ORIF) procedure Left forearm H/O cardiac pacemaker Family History Mother Diabetes Myocardial infarction Cancer Bladder and kidney Sister Breast cancer Son Multiple sclerosis Social History Preferred Language: Beninese Communication Ability: Effective Access Clinician Required: No Beliefs That Will Affect Care: None Current Living Situation: Alone Other Information That Helps Us Care for You: Yes (would like more help at home) Feels Safe at Home: Yes Safety Concerns: Feels Safe At This Time Smoking Status: Never smoker Hx Alcohol Use: No Hx Substance Use: No Review of Systems Review of Systems: All systems reviewed & are unremarkable except as noted in HPI & below Physical Exam Physical Exam: Constitutional: WD/WN, elderly, female, appears stated age, vitals as above, NAD, sitting up in bed, pleasant, conversing easily Head: Normocephalic, Atraumatic Eyes: PERRL, conjunctivae normal, anicteric sclerae ENMT: external ear and nose normal, oropharynx normal, external auditory canals clean and dry. Bilateral TMs visualized with mild bulging of TM, clear effusion Neck: trachea midline, no thyromegaly normal visual inspection Respiratory: normal respiratory effort, lungs clear to auscultation, no wheeze, rales, rhonchi. Normal insp/exp effort, no accessory muscle use Cardiovascular: RRR, 1/6 NITHIN noted RUSB, no edema Vessels: no JVD or carotid bruit Chest: normal inspection of chest Abdomen: normal bowel sounds, soft, nontender, no hepatosplenomegaly Musculoskeletal: no cyanosis or clubbing, extremities motor strength 5/5 Skin: no rashes, warm and dry normal turgor Neurologic: PERRL, EOMI, no nystagmus, dizziness unable to be elicited with quick alternating head movements or change in position. Accommodation nl, no face palsy, no dysarthria CN's II-XI intact bilaterally and moves all extremities Psychiatric: A+Ox3, euthymic affect Lymphatic: no cervical or axillary lymphadenopathy : deferred Results & Data Vital Signs (Past 12 Hours) Vital Signs Temp Pulse Pulse Resp BP BP Pulse Ox 12/10/18 22:02 64 21 198/85 H 12/10/18 22:00 68 21 12/10/18 21:00 74 17 147/66 H 12/10/18 20:57 80 24 151/77 H 12/10/18 20:17 64 17 93 12/10/18 19:36 79 23 116/51 L 12/10/18 19:35 79 20 116/51 L 99 12/10/18 19:00 69 17 12/10/18 18:53 79 17 12/10/18 18:44 63 97 12/10/18 18:42 37.3 C 81 20 154/52 H 99 12/10/18 18:41 72 15 154/52 H Laboratory Results Short CBC 12/10/18 Range/Units 19:05 WBC 11.03 H (4.8-10.8) K/uL Hgb 10.6 L (12.0-16.0) g/dL Hct 32.2 L (37-47) % Plt Count 230 (130-400) K/uL BMP 12/10/18 19:05 Sodium 138 Potassium 4.3 Chloride 106 Carbon Dioxide 18 L BUN 45 H Creatinine 1.76 H Glucose 200 H Calcium 9.3 Cardiac Enzymes 12/10/18 Range/Units 19:05 Troponin I < 0.015 (0-0.045) ng/ml Liver Function 12/10/18 Range/Units 19:05 Total Bilirubin 0.3 (0.2-1) mg/dl AST 16 (15-37) U/L ALT 13 (12-78) U/L Alkaline Phosphatase 102 (45-117) U/L Albumin 3.5 (3.4-5.0) gm/dl Diagnostic Findings Head CT: Findings: No acute intracranial hemorrhage, midline shift, intracranial mass, hydrocephalus, territorial ischemia or abnormal extra-axial collection. Age- related involutional changes. Patchy white matter hypodensities suggest chronic microvascular ischemic disease. Cerebral vascular calcifications are noted. The calvarium is intact. Small air-fluid level of the right sphenoid sinus suggests acute sinus disease. Trace right mastoid effusion. Soft tissues are unremarkable. Prior bilateral cataract repair. IMPRESSION: No acute intracranial abnormality. CXR:IMPRESSION: 1. Cardiomegaly without overt pulmonary edema. 2. Subsegmental left basilar opacities with mild left hemidiaphragmatic elevation suggests atelectasis. Pneumonitis considered less likely. Medications Administered Discontinued Medications Diphenhydramine HCl (Benadryl) 12.5 mg IV NOW STA Stop: 12/10/18 19:11 Last Admin: 12/10/18 19:26 Dose: 12.5 mg Documented by: [id number] Diphenhydramine HCl (Benadryl) 25 mg IV NOW STA Stop: 12/10/18 21:51 Last Admin: 12/10/18 22:01 Dose: Not Given Documented by: [id number] Acetaminophen (Ofirmev) 1,000 mg in 100 mls @ 400 mls/hr IV NOW STA Stop: 12/10/18 19:24 Last Infusion: 12/10/18 20:15 Dose: 0 mls/hr Documented by: [id number] Admin: 12/10/18 19:26 Dose: 400 mls/hr Documented by: [id number] Sodium Chloride (Nss) 500 mls @ 999 mls/hr IV .Q31M ONE Stop: 12/10/18 19:41 Last Infusion: 12/10/18 20:15 Dose: 0 mls/hr Documented by: [id number] Admin: 12/10/18 19:31 Dose: 999 mls/hr Documented by: [id number] Magnesium Sulfate/Dextrose (Magnesium Sulfate / D5w) 1 gm in 100 mls @ 100 mls/hr IV NOW STA Stop: 12/10/18 21:30 Last Infusion: 12/10/18 22:01 Dose: 0 mls/hr Documented by: [id number] Admin: 12/10/18 20:56 Dose: 100 mls/hr Documented by: [id number] Sodium Chloride (Nss) 500 mls @ 999 mls/hr IV .Q31M ONE Stop: 12/10/18 21:02 Last Infusion: 12/10/18 22:01 Dose: 0 mls/hr Documented by: [id number] Admin: 12/10/18 20:57 Dose: 999 mls/hr Documented by: [id number] Metoclopramide HCl (Reglan) 5 mg IV NOW STA Stop: 12/10/18 19:11 Last Admin: 12/10/18 19:26 Dose: 5 mg Documented by: [id number] ECG Rate (beats per minute): 69 Findings: + paced rhythm Additional Comments: Atrial paced with prolonged AV conduction Code Status & VTE Plan Code Status Full code VTE Prophylaxis Plan VTE Prophylaxis will be ordered: Yes Supervising Physician Co-Signing Physician Notes IM ATTENDING : Patient seen and examined. History obtained from patient, family, and records. Preceding documentation by Ms. Linda Irby PA-C reviewed. FINAL ASSESSMENT AND PLAN as follows : Dizziness, vertigo Likely secondary to orthostasis secondary to ARF, clinical dehydration Complicated UTI, no sepsis With peripheral component given spinning symptoms A. fib status post PPM on Eliquis, paced rhythm CAD status post stent PVD as per records Hypertension, BP on the lower side Chronic anemia, hemoglobin at baseline Hyperglycemia secondary to prediabetes, hemoglobin A1c of 6.3 last August 2018 OBS Medical telemetry Check orthostatic vitals IVF, hold home JOSELITO inhibitor, diuretic Rx until creatinine at baseline and patie nt euvolemic Follow urine cultures, IV Ceftriaxone Meclizine as needed ISS BG goal 140-180 PT OT eval DVT prophylaxis. Eliquis Full code
[2018-12-10 22:59] LABS: Appearance Urine Clear (Clear); Bacteria Urine Automated 4+ (Negative); Bilirubin Urine Negative (Negative); Blood Urine Negative (Negative); Color Urine Yellow; Glucose Urine UA Negative (Negative); Ketones Urine Negative (Negative); Leukocyte Esterase Urine 2+ (Negative); Nitrite Urine Negative (Negative); Protein Urine Negative (Negative); RBC Urine Automated 0-4 /hpf (0-4); Specific Gravity Urine 1.015 (1.000-1.030); Urobilinogen Urine Negative (Negative)
[2018-12-11] MEDS ORDERED: NITROGLYCERIN SL 0.4 MG/TAB TAB SL PRN (00:33)
[2018-12-11] MEDS ORDERED: GLUCOSE 10 TABS/TUBE PO PRN (00:33)
[2018-12-11] MEDS ORDERED: ACETAMINOPHEN 325 MG TAB PO PRN (00:33)
[2018-12-11] MEDS ORDERED: DEXTROSE 50% 50 ML SYRINGE IV PRN (00:33)
[2018-12-11] MEDS ORDERED: MECLIZINE 12.5 MG TAB PO PRN (00:33)
[2018-12-11] MEDS ORDERED: PROMETHAZINE HCL 12.5 MG in SODIUM CHLORIDE 0.9% 50 ML IV PRN (00:33)
[2018-12-11] MEDS ORDERED: GLUCOSE 40% GEL 15 GM TUBE PO PRN (00:33)
[2018-12-11] MEDS ORDERED: TRAMADOL HCL 50 MG TABLET PO PRN (00:33)
[2018-12-11] MEDS ORDERED: CARBOHYDRATES FOR HYPOGLYCEMIA PO PRN (00:33)
[2018-12-11] MEDS ORDERED: GLUCAGON FOR INJ 1 MG VIAL SQ PRN (00:33)
[2018-12-11] MEDS ORDERED: INFLUENZA ADMINISTRATION CHARGE ONE (01:30)
[2018-12-11] MEDS ORDERED: INFLUENZA VACCINE HIGH DOSE 65+ 0.5 ML SYR IM ONE (01:30)
[2018-12-11] MEDS: APIXABAN 5 MG TABLET PO SCH ×3 (02:32→21:11)
[2018-12-11] MEDS: METOPROLOL TARTRATE 25 MG TAB PO SCH ×3 (02:32→21:11)
[2018-12-11] MEDS ORDERED: SODIUM CHLORIDE 0.9% 1000ML 1,000 ML IV ONE (02:33)
[2018-12-11] MEDS: INSULIN ASPART 100 UNITS/ML 3 ML PEN SC SCH ×5 (02:44→21:11)
[2018-12-11] MEDS: SODIUM CHLORIDE 0.9% 1000ML 1,000 ML IV SCH ×2 (04:04→12:11)
[2018-12-11 05:35] LABS: Basophils # (auto) 0.02 K/uL (0-0.2); Basophils % (auto) 0.2 %; Eosinophils # (auto) 0.07 K/uL (0-0.5); Eosinophils % (auto) 0.8 %; Hematocrit (blood only) 30.2 % (37-47); Hemoglobin 9.4 g/dL (12.0-16.0); Immature Granulocytes # (auto) 0.01 K/uL (0.00-0.02); Immature Granulocytes % (auto) 0.1 %; Lymphocytes # (auto) 2.38 K/uL (1.2-3.4); Lymphocytes % (auto) 26.4 %; Mean Corpuscular Hemoglobin 28.2 pg (25-34); Mean Corpuscular Hgb Conc 31.1 g/dL (32-36); Mean Corpuscular Volume 90.7 fL (80-100); Mean Platelet Volume 12.8 fL (7.4-10.4); Monocytes # (auto) 0.59 K/uL (0.11-0.59); Monocytes % (auto) 6.5 %; Neutrophils # (auto) 5.94 K/uL (1.4-6.5); Platelet Count 211 K/uL (130-400); RDW Coefficient of Variation 14.6 % (11.5-14.5); RDW Standard Deviation 48.2 fL (36.4-46.3); Red Blood Count 3.33 M/uL (4.2-5.4); White Blood Count 9.01 K/uL (4.8-10.8)
[2018-12-11 06:08] LABS: BUN Creatinine Ratio 26.9 (10-20); Calcium 8.4 mg/dl (8.5-10.1); Creatinine Clr Calc Pharmacy 29.3 ml/min; Est GFR (African American) 36.4; Est GFR (Non-African American) 31.4; Magnesium 2.1 mg/dl (1.8-2.4)
--- NOTE | 2018-12-11 06:13 | Emergency Department Note ---
Entered by Danny Craven acting as a scribe for Cullen Pardo MD History of Present Illness General Chief complaint: Vertigo Stated complaint: DIZZY/VOMITING Time Seen by Provider: 12/10/18 18:43 Source: patient History of Present Illness Onset (ago): hour(s) (few) Location: head Pain Consistency: + constant Quality: + other (dizziness) Exacerbated By: + movement Associated symptoms: + headaches and + other (diarrhea) The patient is an 83 y/o female who presents to the ED w/ CC of constant dizz iness beginning a few hours ago. The patient states it feels like the room is spinning, and she is not sure if this has happened to her before. She reports she also has a headache, and she rarely gets a headache. The patient notes her symptoms started while she was in the bathroom. She states she had to lay on the floor for a little before getting up in the chair. The patient reports she was here a week ago, and she did not have symptoms of the room spinning. She notes movements in general worsens her dizziness, and she has been intermittently vomiting. The patient denies diarrhea. She states she is on torsemide for fluid retention in her legs. Home Medications Home Medications Medication Instructions Recorded Confirmed Type Eliquis 5 mg PO BID 12/05/18 12/10/18 History albuterol sulfate 2 puff INHALATION DIRECTED PRN 12/05/18 12/10/18 History isosorbide mononitrate 30 mg PO QAM 12/05/18 12/10/18 History lisinopril 20 mg PO QAM 12/05/18 12/10/18 History potassium chloride 20 meq PO QAM 12/05/18 12/10/18 History torsemide 20 mg PO QAM 12/05/18 12/10/18 History metoprolol tartrate 25 mg PO BID 30 Days #60 tab 12/07/18 12/10/18 Rx Allergies Allergy/AdvReac Type Severity Reaction Status Date / Time Iodinated Contrast Media Allergy Severe SHORTNESS Verified 12/10/18 19:54 OF BREATH aspirin Allergy Mild RASH Verified 12/10/18 19:54 Past Med/Surg History Medical History HLD (hyperlipidemia) Carotid artery stenosis CKD (chronic kidney disease) stage 3, GFR 30-59 ml/min Pre-diabetes Hypertension Paroxysmal atrial fibrillation Anemia Coronary artery disease Diabetes Hypertension Atrial fibrillation Surgical History History of heart artery stent 1993, 2007 History of lumbar fusion History of total abdominal hysterectomy History of cataract extraction History of appendectomy History of cholecystectomy History of open reduction and internal fixation (ORIF) procedure Left forearm H/O cardiac pacemaker Family History Mother Diabetes Myocardial infarction Cancer Bladder and kidney Sister Breast cancer Son Multiple sclerosis Social History Preferred Language: Malawian Communication Ability: Effective 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 and A total of 10 systems reviewed and were otherwise negative Physical Exam Vital Signs Vital Signs - 24 hr 12/10/18 18:41 12/10/18 18:42 12/10/18 18:44 Temperature 37.3 C Temperature Source Oral Sepsis Recent Fever Within 48 Hours No Sepsis New/Unexplained Change in Mental Status No Sepsis Action Taken by Nursing No Action Required Pulse Rate 72 81 63 Pulse Rate [Apical] Pulse Rate from SpO2 Sensor Pulse Rhythm Regular Pulse Rhythm [Apical] Pulse Strength [Apical] Respiratory Rate 15 20 Respiratory Effort / Characteristics Respiratory Depth Blood Pressure 154/52 H 154/52 H Blood Pressure [Right Arm] Blood Pressure Mean 86 86 Blood Pressure Mean [Right Arm] Blood Pressure Position Sitting Pulse Oximetry 99 97 Oxygen Delivery Method Room Air 12/10/18 18:53 12/10/18 19:00 12/10/18 19:35 Temperature Temperature Source Sepsis Recent Fever Within 48 Hours Sepsis New/Unexplained Change in Mental Status Sepsis Action Taken by Nursing Pulse Rate 79 69 Pulse Rate [Apical] 79 Pulse Rate from SpO2 Sensor Pulse Rhythm Pulse Rhythm [Apical] Regular Pulse Strength [Apical] Normal Respiratory Rate 17 17 20 Respiratory Effort / Characteristics Non-Labored Spontaneous Respiratory Depth Normal Blood Pressure Blood Pressure [Right Arm] 116/51 L Blood Pressure Mean Blood Pressure Mean [Right Arm] 72 Blood Pressure Position Pulse Oximetry 99 Oxygen Delivery Method Room Air 12/10/18 19:36 12/10/18 20:17 12/10/18 20:57 Temperature Temperature Source Sepsis Recent Fever Within 48 Hours Sepsis New/Unexplained Change in Mental Status Sepsis Action Taken by Nursing Pulse Rate 79 64 80 Pulse Rate [Apical] Pulse Rate from SpO2 Sensor 64 Pulse Rhythm Pulse Rhythm [Apical] Pulse Strength [Apical] Respiratory Rate 23 17 24 Respiratory Effort / Characteristics Respiratory Depth Blood Pressure 116/51 L 151/77 H Blood Pressure [Right Arm] Blood Pressure Mean 72 101 Blood Pressure Mean [Right Arm] Blood Pressure Position Pulse Oximetry 93 Oxygen Delivery Method 12/10/18 21:00 12/10/18 22:00 12/10/18 22:02 Temperature Temperature Source Sepsis Recent Fever Within 48 Hours Sepsis New/Unexplained Change in Mental Status Sepsis Action Taken by Nursing Pulse Rate 74 68 64 Pulse Rate [Apical] Pulse Rate from SpO2 Sensor Pulse Rhythm Pulse Rhythm [Apical] Pulse Strength [Apical] Respiratory Rate 17 21 21 Respiratory Effort / Characteristics Respiratory Depth Blood Pressure 147/66 H 198/85 H Blood Pressure [Right Arm] Blood Pressure Mean 93 122 Blood Pressure Mean [Right Arm] Blood Pressure Position Pulse Oximetry Oxygen Delivery Method 12/10/18 22:43 12/10/18 23:00 Temperature Temperature Source Sepsis Recent Fever Within 48 Hours Sepsis New/Unexplained Change in Mental Status Sepsis Action Taken by Nursing Pulse Rate 80 70 Pulse Rate [Apical] Pulse Rate from SpO2 Sensor Pulse Rhythm Pulse Rhythm [Apical] Pulse Strength [Apical] Respiratory Rate 15 24 Respiratory Effort / Characteristics Respiratory Depth Blood Pressure 167/86 H Blood Pressure [Right Arm] Blood Pressure Mean 113 Blood Pressure Mean [Right Arm] Blood Pressure Position Pulse Oximetry Oxygen Delivery Method GENERAL: Awake, alert, uncomfortable-appearing, in no distress HENT: Normocephalic, atraumatic. Oropharynx with dry mucous membranes and otherwise unremarkable. EYES: Normal conjunctiva. Sclera non-icteric. Bilateral bidirectional horizontal nystagmus that extinguishes. NECK: Supple. No nuchal rigidity. FROM. No JVD. RESPIRATORY: CTAB CARDIAC: Regular rate, normal rhythm. Extremities warm and well perfused. Pulses equal. ABDOMEN: Soft, non-distended. No tenderness to palpation. No rebound or guarding. No masses. RECTAL: Deferred. MUSCULOSKELETAL: Chest examination reveals no tenderness. The back is symmetrical on inspection without obvious abnormality. There is no CVA tenderness to palpation. No joint edema. LOWER EXTREMITIES: Calves are equal size bilaterally and non-tender. No edema. No discoloration. NEURO: Normal sensorium. No sensory or motor deficits noted. Cerebellar function intact, including finger to nose, alternating palms, heel to turner. 5/5 strength and SILT x 4 extremities. SKIN: No rash or jaundice noted. Course 1901: Past medical records reviewed. The patient was evaluated in room B10. A complete history and physical exam was performed. 2202: Upon reevaluation, the patient is resting comfortably. I discussed laboratory and radiographic results with her. She verbalized agreement of the treatment plan. The patient will be evaluated for further management and care. 2210: I reviewed the patient's case with Dr. Nixon, [facility] Hospitalist. He will evaluate the patient for further management. Administered Medications Apixaban (Eliquis) 5 mg PO BID OSCAR Stop: 01/10/19 02:29 Last Admin: 12/11/18 02:32 Dose: 5 mg Documented by: [id number] Sodium Chloride (Nss 1000ml) 1,000 mls @ 150 mls/hr IV .Q6H40M OSCAR Stop: 01/10/19 04:44 Last Admin: 12/11/18 04:04 Dose: 150 mls/hr Documented by: [id number] Insulin Aspart (Novolog Flexpen) 0 units SC ACHS OSCAR Stop: 01/10/19 02:29 Last Admin: 12/11/18 02:44 Dose: Not Given Documented by: [id number] Cosigned by: [id number] Metoprolol Tartrate (Lopressor) 25 mg PO BID OSCAR Stop: 01/10/19 01:59 Last Admin: 12/11/18 02:32 Dose: 25 mg Documented by: [id number] Discontinued Medications Diphenhydramine HCl (Benadryl) 12.5 mg IV NOW STA Stop: 12/10/18 19:11 Last Admin: 12/10/18 19:26 Dose: 12.5 mg Documented by: [id number] Diphenhydramine HCl (Benadryl) 25 mg IV NOW STA Stop: 12/10/18 21:51 Last Admin: 12/10/18 22:01 Dose: Not Given Documented by: [id number] Acetaminophen (Ofirmev) 1,000 mg in 100 mls @ 400 mls/hr IV NOW STA Stop: 12/10/18 19:24 Last Infusion: 12/10/18 20:15 Dose: 0 mls/hr Documented by: [id number] Admin: 12/10/18 19:26 Dose: 400 mls/hr Documented by: [id number] Sodium Chloride (Nss) 500 mls @ 999 mls/hr IV .Q31M ONE Stop: 12/10/18 19:41 Last Infusion: 12/10/18 20:15 Dose: 0 mls/hr Documented by: [id number] Admin: 12/10/18 19:31 Dose: 999 mls/hr Documented by: [id number] Magnesium Sulfate/Dextrose (Magnesium Sulfate / D5w) 1 gm in 100 mls @ 100 mls/hr IV NOW STA Stop: 12/10/18 21:30 Last Infusion: 12/10/18 22:01 Dose: 0 mls/hr Documented by: [id number] Admin: 12/10/18 20:56 Dose: 100 mls/hr Documented by: [id number] Sodium Chloride (Nss) 500 mls @ 999 mls/hr IV .Q31M ONE Stop: 12/10/18 21:02 Last Infusion: 12/10/18 22:01 Dose: 0 mls/hr Documented by: [id number] Admin: 12/10/18 20:57 Dose: 999 mls/hr Documented by: [id number] Ceftriaxone Sodium (Rocephin) 2,000 mg in 70 mls @ 140 mls/hr IV NOW STA Stop: 12/10/18 22:01 Last Infusion: 12/11/18 01:57 Dose: 0 mls/hr Documented by: [id number] Admin: 12/10/18 23:38 Dose: 140 mls/hr Documented by: [id number] Sodium Chloride (Nss 1000ml) 1,000 mls @ 80 mls/hr IV .[id number] ONE Stop: 12/11/18 10:52 Last Infusion: 12/11/18 02:30 Dose: 0 mls/hr Documented by: [id number] Admin: 12/10/18 23:38 Dose: 80 mls/hr Documented by: [id number] Sodium Chloride (Nss 1000ml) 1,000 mls @ 999 mls/hr IV .Q1H1M ONE Stop: 12/11/18 03:33 Last Infusion: 12/11/18 04:05 Dose: 0 mls/hr Documented by: [id number] Admin: 12/11/18 02:40 Dose: 999 mls/hr Documented by: [id number] Metoclopramide HCl (Reglan) 5 mg IV NOW STA Stop: 12/10/18 19:11 Last Admin: 12/10/18 19:26 Dose: 5 mg Documented by: [id number] Medical Decision Making Differential Diagnosis Differential Diagnosis includes but is not limited to dehydration, stroke, anemia, hypoglycemia, hyponatremia, hypernatremia, urinary tract infection, pneumonia, bronchitis, sepsis, gastroenteritis, additional abdominal pathology, metabolic abnormalities and infections. Medical Records Attestation: I reviewed the patient's medical records. Home Medications Current Medication List: was personally reviewed by me Laboratory Data Attestation: I reviewed the patient's lab results. Result diagrams: 12/11/18 05:27 12/10/18 19:05 Lab Results 12/10/18 12/10/18 12/10/18 Range/Units 19:05 19:05 21:00 WBC 11.03 H (4.8-10.8) K/uL RBC 3.61 L (4.2-5.4) M/uL Hgb 10.6 L (12.0-16.0) g/dL Hct 32.2 L (37-47) % MCV 89.2 (80-100) fL MCH 29.4 (25-34) pg MCHC 32.9 (32-36) g/dL RDW Std Deviation 47.3 H (36.4-46.3) fL RDW Coeff of Seferino 14.4 (11.5-14.5) % Plt Count 230 (130-400) K/uL MPV 13.4 H (7.4-10.4) fL Immature Gran % (Auto) 0.2 % Neut % (Auto) 79.7 % Lymph % (Auto) 13.5 % [place] % (Auto) 5.4 % Eos % (Auto) 1.0 % Baso % (Auto) 0.2 % Immature Gran # (Auto) 0.02 (0.00-0.02) K/uL Neut # (Auto) 8.79 H (1.4-6.5) K/uL Lymph # (Auto) 1.49 (1.2-3.4) K/uL [place] # (Auto) 0.60 H (0.11-0.59) K/uL Eos # (Auto) 0.11 (0-0.5) K/uL Baso # (Auto) 0.02 (0-0.2) K/uL Sodium 138 (136-145) mmol/L Potassium 4.3 (3.5-5.1) mmol/L Chloride 106 (98-107) mmol/L Carbon Dioxide 18 L (21-32) mmol/L Anion Gap 14.0 H (3-11) BUN 45 H (7-18) mg/dl Creatinine 1.76 H (0.6-1.2) mg/dl Est Cr Clr Drug Dosing 26.9 ml/min Est GFR ( Amer) 30.2 Est GFR (Non-Af Amer) 26.1 BUN/Creatinine Ratio 25.6 H (10-20) Glucose 200 H (70-99) mg/dl Lactate (0.4-2.0) mmol/L Calcium 9.3 (8.5-10.1) mg/dl Phosphorus 2.4 L (2.5-4.9) mg/dl Magnesium 1.6 L (1.8-2.4) mg/dl Total Bilirubin 0.3 (0.2-1) mg/dl AST 16 (15-37) U/L ALT 13 (12-78) U/L Alkaline Phosphatase 102 (45-117) U/L Troponin I < 0.015 (0-0.045) ng/ml Total Protein 7.2 (6.4-8.2) gm/dl Albumin 3.5 (3.4-5.0) gm/dl Globulin 3.7 (2.5-4.0) gm/dl Albumin/Globulin Ratio 0.9 (0.9-2) Lipase 173 (73-393) U/L Specimen Hemolysis Urine Color Yellow Urine Appearance Clear (Clear) Urine pH 5.0 (4.5-7.5) Ur Specific [place] 1.015 (1.000-1.030) Urine Protein Negative (Negative) Urine Glucose (UA) Negative (Negative) Urine Ketones Negative (Negative) Urine Blood Negative (Negative) Urine Nitrite Negative (Negative) Urine Bilirubin Negative (Negative) Urine Urobilinogen Negative (Negative) Ur Leukocyte Esterase 2+ H (Negative) Urine WBC (Auto) 10-30 H (0-5) /hpf Urine RBC (Auto) 0-4 (0-4) /hpf U Hyaline Cast (Auto) 5-10 H (0-5) /lpf U Epithel Cells (Auto) 5-10 H (0-5) /lpf Urine Bacteria (Auto) 4+ H (Negative) 12/10/18 Range/Units 23:17 WBC (4.8-10.8) K/uL RBC (4.2-5.4) M/uL Hgb (12.0-16.0) g/dL Hct (37-47) % MCV (80-100) fL MCH (25-34) pg MCHC (32-36) g/dL RDW Std Deviation (36.4-46.3) fL RDW Coeff of Seferino (11.5-14.5) % Plt Count (130-400) K/uL MPV (7.4-10.4) fL Immature Gran % (Auto) % Neut % (Auto) % Lymph % (Auto) % [place] % (Auto) % Eos % (Auto) % Baso % (Auto) % Immature Gran # (Auto) (0.00-0.02) K/uL Neut # (Auto) (1.4-6.5) K/uL Lymph # (Auto) (1.2-3.4) K/uL [place] # (Auto) (0.11-0.59) K/uL Eos # (Auto) (0-0.5) K/uL Baso # (Auto) (0-0.2) K/uL Sodium (136-145) mmol/L Potassium (3.5-5.1) mmol/L Chloride (98-107) mmol/L Carbon Dioxide (21-32) mmol/L Anion Gap (3-11) BUN (7-18) mg/dl Creatinine (0.6-1.2) mg/dl Est Cr Clr Drug Dosing ml/min Est GFR ( Amer) Est GFR (Non-Af Amer) BUN/Creatinine Ratio (10-20) Glucose (70-99) mg/dl Lactate 3.5 H* (0.4-2.0) mmol/L Calcium (8.5-10.1) mg/dl Phosphorus (2.5-4.9) mg/dl Magnesium (1.8-2.4) mg/dl Total Bilirubin (0.2-1) mg/dl AST (15-37) U/L ALT (12-78) U/L Alkaline Phosphatase (45-117) U/L Troponin I (0-0.045) ng/ml Total Protein (6.4-8.2) gm/dl Albumin (3.4-5.0) gm/dl Globulin (2.5-4.0) gm/dl Albumin/Globulin Ratio (0.9-2) Lipase (73-393) U/L Specimen Hemolysis Urine Color Urine Appearance (Clear) Urine pH (4.5-7.5) Ur Specific [place] (1.000-1.030) Urine Protein (Negative) Urine Glucose (UA) (Negative) Urine Ketones (Negative) Urine Blood (Negative) Urine Nitrite (Negative) Urine Bilirubin (Negative) Urine Urobilinogen (Negative) Ur Leukocyte Esterase (Negative) Urine WBC (Auto) (0-5) /hpf Urine RBC (Auto) (0-4) /hpf U Hyaline Cast (Auto) (0-5) /lpf U Epithel Cells (Auto) (0-5) /lpf Urine Bacteria (Auto) (Negative) Imaging Data Radiologist's Impression: Radiology results as stated below per my review and the radiologist's interpretation: XR chest 1V portable HISTORY: 83 years-old Female Chest Pain acute atypical chest pain COMPARISON: Chest radiograph 12/05/2018 TECHNIQUE: Portable AP view of the chest FINDINGS: Cardiac silhouette is enlarged, unchanged. Stable positioning of the left subclavian pacer. No pneumothorax or overt pulmonary edema. Mild left hemidiaphragm elevation with subsegmental left basilar opacities. Mild chronic interstitial coarsening. Degenerative changes of the shoulders and spine. IMPRESSION: 1. Cardiomegaly without overt pulmonary edema. 2. Subsegmental left basilar opacities with mild left hemidiaphragmatic elevation suggests atelectasis. Pneumonitis considered less likely. The above report was generated using voice recognition software. It may contain grammatical, syntax or spelling errors. Electronically signed by: Lionel Bush M.D. 12/10/2018 7:[address] head/brain wo con CLINICAL HISTORY: 83 years-old Female with vertigo. Acute vertigo with dizziness TECHNIQUE: Multiple axial CT images of the head were obtained without contrast. A dose lowering technique was utilized adhering to the principles of ALARA. CT DOSE: 537.48 mGy.cm COMPARISON: None. FINDINGS: No acute intracranial hemorrhage, midline shift, intracranial mass, hydrocephalus, territorial ischemia or abnormal extra-axial collection. Age- related involutional changes. Patchy white matter hypodensities suggest chronic microvascular ischemic disease. Cerebral vascular calcifications are noted. The calvarium is intact. Small air-fluid level of the right sphenoid sinus suggests acute sinus disease. Trace right mastoid effusion. Soft tissues are unremarkable. Prior bilateral cataract repair. IMPRESSION: No acute intracranial abnormality. The above report was generated using voice recognition software. It may contain grammatical, syntax or spelling errors. Electronically signed by: Lionel Bush M.D. 12/10/2018 8:35 PM ECG Data Attestation: I personally reviewed and interpreted this ECG as follows: Indication: nausea Rate (beats per minute): 69 Rhythm: other (atrial paced) Findings: no PAC, no PVC, no ST depression, no ST elevation, no acute ischemic change and no ectopy Blood Pressure Blood Pressure Findings: Elevated blood pressure Blood Pressure Disposition: further management by hospitalist MAEGAN Schwarz The patient is a pleasant 83 y/o woman with a pmhx of PAF on Eliquis, HTN, CAD, s/p PPM who presents to the emergency department with vertigo with associated n/v per HPI. On arrival the patient is uncomfortable appearing but in NAD, AFVSS. Patient appears clinically dry. She exhibits bilateral bidirectional horizontal nystagmus that extinguishes. Otherwise she has no focal neuro deficits. Cerebellar function intact including [id number], alternating palms, [id number] and 5/5 strength and SILT x 4 extremities. EKG demonstrates paced rhythm. CXR with most likely basilar atelectasis. WBC 11, nonspecific. Platelets wnl. H/H similar to prior range of values. Cr. 1.7 elevated for patient when compared to past year. Chemistry bicarb of 18 and Agap 14. Mg 1.6 with repletion provided. LFTs unremarkable. UA c/w infection with WBC, LE and bacteria. Previous UA grew ecoli sensitive to CTX and so treatment initiated with this. CT head negative for acute proess and demonstrates chronic parasinus disease. Patient feeling improved after IVF hydraiton, Reglan, diphenhydramine. However given patient's renal failure and electrolytes abnormalities reasoanble to admit for further management. Patient and daughters at beside agreeable. Case was discussed with Dr. Nixon, [facility] hospitalist, who will evaluate the patient for admission. Impression & Plan Vertigo, Hypomagnesemia, Acute renal insufficiency Discharge Plan Visit Data *Final* Discharge Date/Time: 12/11/18 00:00 Chief Complaint: Vertigo Stated Complaint: DIZZY/VOMITING ED Provider: Cullen Pardo Discharge Problem: Vertigo, Hypomagnesemia, Acute renal insufficiency Patient Disposition: Admitted As Inpatient Discharge Instructions Interventions: ED Discharge Assessment Last Done: 12/11/18 00:00 The scribe's documentation has been prepared under my direction and personally reviewed by me in its entirety. I confirm that the note above accurately reflects all work, treatment, procedures, and medical decision making performed by me.
[2018-12-11 06:21] LABS: Estimated Average Glucose 140 mg/dl; Hemoglobin A1C 6.5 % (4.5-5.6)
[2018-12-11] MEDS: ISOSORBIDE MONO EXTENDED REL 30 MG TABCR PO SCH (07:49)
--- NOTE | 2018-12-11 17:23 | Hospitalist Progress Note ---
Date of Service December 11, 2018 Assessment & Plan (1) Dizziness: Patient is an 83 yr female with H/O CAD S/P stent x2, PAF, status post PPM, HTN, HLD, prediabetes mellitus, CKD stage III, GERD, anemia, osteoporosis who presents to [facility] ED secondary to dizziness prior to arrival. Dizziness/Vertigo CT HEAD:No acute intracranial abnormality. MRI unobtainable due to pacemaker Negative Orthostatics Meclizine PRN PT/OT for BPPV evaluation Fall precautions Consider carotid Doppler if no improvement given history of carotid artery disease (2) Acute worsening of stage 3 chronic kidney disease: Baseline Cr 1.0 Cr: 1.76>>1.51 Continue IVF Hold lisinopril and torsemide Likely prerenal due to UTI Monitor renal function (3) UTI (urinary tract infection): Urine culture from previous admission on 12/06 grew E. coli, sensitive to ceftriaxone Lactate levels trended down Blood cultures pending Urine culture gram-negative bacilli Continue ceftriaxone # day 2 (4) Hypomagnesemia: Resolved Monitor (5) Paroxysmal atrial fibrillation: Continue metoprolol On Eliquis for anticoagulation (6) Coronary artery disease: H/O Stenting x2 at [place] Continue metoprolol, Imdur Hold lisinopril due to ABEL Patient to establish with Dr. Kemp on 12/16/2018 at 9 AM Denies chest pain (7) Hypertension: Continue metoprolol Also on Imdur Hold lisinopril and torsemide given ABEL Monitor (8) Pre-diabetes: Hb A1c 6.5 Per family patient ate a whole bag of candy corn the day of admission Continue NovoLog per protocol (9) HLD (hyperlipidemia): Not currently on statin Per cardiology recent note to discuss at upcoming office visit (10) H/O cardiac pacemaker: Last interrogated 12/05/2018 intermittent atrial fibrillation (11) DVT prophylaxis: On Eliquis Code Status Full Code Disposition: Follow-up: PCP Dr. Morin upon discharge Subjective Patient is seen and examined at bedside Complains of intermittent burning micturition Also reports dizziness with ambulation Denies any chest pain, shortness of breath, nausea, abdominal pain Offers no other complaints Review of Systems Review of Systems: All systems reviewed & are unremarkable except as noted in HPI & below Physical Exam Physical Exam: Physical Exam: Vitals signs as noted above General Appearance:Obese, no apparent distress Head: normocephalic, Atraumatic Eyes: normal inspection, EOMI Neck: supple, Trachea midline Respiratory/Chest: Normal breath sounds, CTA Cardiovascular: S1, S2, + murmur Abdomen/GI:Soft, Non tender, Bowel sounds present Extremities/Musculoskelatal:normal inspection, no edema Neurologic/Psych:AAOX3, grossly no focal neurological deficits Skin: normal color, warm Results & Data Vital Signs (Past 12 Hours) Vital Signs Temp Pulse Resp BP Pulse Ox 12/11/18 15:22 37.0 C 98 H 18 146/72 H 95 12/11/18 11:13 36.7 C 85 18 144/72 H 98 12/11/18 07:26 36.7 C 78 18 127/74 95 Laboratory Results Short CBC 12/10/18 12/11/18 Range/Units 19:05 05:27 WBC 11.03 H 9.01 (4.8-10.8) K/uL Hgb 10.6 L 9.4 L (12.0-16.0) g/dL Hct 32.2 L 30.2 L (37-47) % Plt Count 230 211 (130-400) K/uL BMP 12/10/18 12/11/18 19:05 05:27 Sodium 138 140 Potassium 4.3 5.0 D Chloride 106 110 H Carbon Dioxide 18 L 21 BUN 45 H 41 H Creatinine 1.76 H 1.51 H Glucose 200 H 113 H Calcium 9.3 8.4 L Cardiac Enzymes 12/10/18 Range/Units 19:05 Troponin I < 0.015 (0-0.045) ng/ml Liver Function 12/10/18 Range/Units 19:05 Total Bilirubin 0.3 (0.2-1) mg/dl AST 16 (15-37) U/L ALT 13 (12-78) U/L Alkaline Phosphatase 102 (45-117) U/L Albumin 3.5 (3.4-5.0) gm/dl Urine 12/10/18 Range/Units 21:00 Urine Color Yellow Urine Appearance Clear (Clear) Urine pH 5.0 (4.5-7.5) Ur Specific [place] 1.015 (1.000-1.030) Urine Protein Negative (Negative) Urine Glucose (UA) Negative (Negative)
[2018-12-11] MEDS ORDERED: SODIUM CHLORIDE 0.9% 1000ML 1,000 ML IV STA (19:32)
[2018-12-11] MEDS ORDERED: cefTRIAXone SODIUM 2,000 MG in DEXTROSE 5% 50 ML IV SCH (23:30)
[2018-12-12 06:38] LABS: Hemoglobin 9.7 g/dL (12.0-16.0); Mean Corpuscular Hemoglobin 28.4 pg (25-34); Mean Corpuscular Hgb Conc 31.3 g/dL (32-36); Mean Corpuscular Volume 90.9 fL (80-100); Mean Platelet Volume 12.5 fL (7.4-10.4); Platelet Count 192 K/uL (130-400); RDW Coefficient of Variation 14.4 % (11.5-14.5); Red Blood Count 3.41 M/uL (4.2-5.4); White Blood Count 4.97 K/uL (4.8-10.8)
[2018-12-12 07:16] LABS: BUN Creatinine Ratio 22.6 (10-20); Calcium 8.4 mg/dl (8.5-10.1); Creatinine Clr Calc Pharmacy 42.2 ml/min; Est GFR (African American) 56.5; Est GFR (Non-African American) 48.7; Magnesium 1.7 mg/dl (1.8-2.4); Potassium 4.3 mmol/L (3.5-5.1)
[2018-12-12] MEDS: ISOSORBIDE MONO EXTENDED REL 30 MG TABCR PO SCH (08:05)
[2018-12-12] MEDS: INSULIN ASPART 100 UNITS/ML 3 ML PEN SC SCH ×2 (08:05→13:29)
[2018-12-12] MEDS: APIXABAN 5 MG TABLET PO SCH (08:05)
[2018-12-12] MEDS: METOPROLOL TARTRATE 25 MG TAB PO SCH (08:05)
[2018-12-12] MEDS ORDERED: MAGNESIUM SULFATE / D5W 1 GM/100 ML BAG IV ONE (09:00)
[2018-12-12] MEDS ORDERED: cefTRIAXone SODIUM 2,000 MG in DEXTROSE 5% 50 ML IV ONE (11:30)
--- NOTE | 2018-12-12 11:39 | Hospitalist Progress Note ---
Date of Service December 12, 2018 Assessment & Plan (1) Dizziness: Patient is an 83 yr female with H/O CAD S/P stent x2, PAF, status post PPM, HTN, HLD, prediabetes mellitus, CKD stage III, GERD, anemia, osteoporosis who presents to [facility] ED secondary to dizziness prior to arrival. Dizziness/Vertigo CT HEAD:No acute intracranial abnormality. MRI unobtainable due to pacemaker Negative Orthostatics Meclizine PRN PT/OT: Negative for BPPV Fall precautions Dizziness resolved (2) Acute worsening of stage 3 chronic kidney disease: Baseline Cr 1.0 Cr: 1.76>>1.51>>1.05 Received IV Fluids Hold lisinopril and torsemide Likely prerenal due to UTI Monitor renal function Resolved (3) UTI (urinary tract infection): Urine culture from previous admission on 12/06 grew E. coli, sensitive to ceftriaxone Lactate levels trended down Blood cultures:Negative to date Urine culture: E.coli Continue ceftriaxone # day 3 (4) Hypomagnesemia: Replace electrolytes as needed Monitor (5) Paroxysmal atrial fibrillation: Continue metoprolol On Eliquis for anticoagulation (6) Coronary artery disease: H/O Stenting x2 at [place] Continue metoprolol, Imdur Hold lisinopril due to ABEL Patient to establish with Dr. Kemp on 12/16/2018 at 9 AM Denies chest pain (7) Hypertension: Continue metoprolol Also on Imdur Hold lisinopril and torsemide given ABEL Monitor (8) Pre-diabetes: Hb A1c 6.5 Per family patient ate a whole bag of candy corn the day of admission Continue NovoLog per protocol (9) HLD (hyperlipidemia): Not currently on statin Per cardiology recent note to discuss at upcoming office visit (10) H/O cardiac pacemaker: Last interrogated 12/05/2018 intermittent atrial fibrillation (11) DVT prophylaxis: On Eliquis Code Status Full Code Disposition: Plan to discharge home today Follow-up: PCP Dr. Morin upon discharge Subjective Patient is seen and examined at bedside Doing much better today No new complaints Minimal dysuria Dizziness resolved Denies any chest pain, shortness of breath, nausea, abdominal pain Review of Systems Review of Systems: All systems reviewed & are unremarkable except as noted in HPI & below Physical Exam Physical Exam: Physical Exam: Vitals signs as noted above General Appearance:Obese, no apparent distress Head: normocephalic, Atraumatic Eyes: normal inspection, EOMI Neck: supple, Trachea midline Respiratory/Chest: Normal breath sounds, CTA Cardiovascular: S1, S2, + murmur Abdomen/GI:Soft, Non tender, Bowel sounds present Extremities/Musculoskelatal:normal inspection, no edema Neurologic/Psych:AAOX3, grossly no focal neurological deficits Skin: normal color, warm Results & Data Vital Signs (Past 12 Hours) Vital Signs Temp Pulse Pulse Resp BP BP Pulse Ox 12/12/18 09:30 80 12/12/18 07:16 36.6 C 68 18 147/76 H 98 12/12/18 04:07 36.8 C 91 H 20 121/76 95 12/12/18 01:04 91 H 12/11/18 23:46 36.8 C 86 20 116/61 94 Laboratory Results Short CBC 12/12/18 Range/Units 06:25 WBC 4.97 (4.8-10.8) K/uL Hgb 9.7 L (12.0-16.0) g/dL Hct 31.0 L (37-47) % Plt Count 192 (130-400) K/uL BMP 12/12/18 06:25 Sodium 141 Potassium 4.3 Chloride 112 H Carbon Dioxide 23 BUN 24 H Creatinine 1.05 Glucose 96 Calcium 8.4 L
--- NOTE | 2018-12-12 11:50 | Discharge Summary ---
Date of Service December 12, 2018 Admission HPI Per Admitting Provider This is a pleasant 83-year-old female who has significant past medical history of CAD with history of stent x2, PAF, status post PPM, HTN, HLD, prediabetes mellitus, CKD stage III, GERD, anemia, osteoporosis who presents to [facility] ED secondary to dizziness prior to arrival. Family members at bedside. Of significance patient recently admitted to [facility] 12/05 to 12/07 secondary to near syncopal episode. During this hospitalization her pacemaker was interrogated and she was found to be having episodes of atrial fibrillation. She was initiated on metoprolol. She was seen and evaluated by cardiology. Echocardiogram was performed which revealed EF 55 to 60%, AV sclerosis. Patient was sitting in her chair today when she became very dizzy. "Everything was moving around me and I felt like I was on a [id number]." Symptoms did not seem to worsen with head movements. She had one episode of emesis and felt nauseated. Family members felt she was diaphoretic and clammy. Since discharge she is otherwise been doing well. Appetite has been good. She is been compliant with her medications. She denies fever, chills, sweats, lightheadedness, presyncope, chest pain, shortness with rest, palpitations, hemoptysis, cough, URI symptoms, abdominal pain, diarrhea, melena, hematochezia. She has had one episode of dysuria and increased frequency with urination. Denies hematuria and increased urgency. In ED patient has received IV fluid for dehydration, IV ceftriaxone for concern for UTI, IV Reglan and IV acetaminophen due to headache. Currently her symptoms have since resolved and she feels much improved. Admission Exam Per Admitting Provider Constitutional: WD/WN, elderly, female, appears stated age, vitals as above, NAD, sitting up in bed, pleasant, conversing easily Head: Normocephalic, Atraumatic Eyes: PERRL, conjunctivae normal, anicteric sclerae ENMT: external ear and nose normal, oropharynx normal, external auditory canals clean and dry. Bilateral TMs visualized with mild bulging of TM, clear effusion Neck: trachea midline, no thyromegaly normal visual inspection Respiratory: normal respiratory effort, lungs clear to auscultation, no wheeze, rales, rhonchi. Normal insp/exp effort, no accessory muscle use Cardiovascular: RRR, 1/6 NITHIN noted RUSB, no edema Vessels: no JVD or carotid bruit Chest: normal inspection of chest Abdomen: normal bowel sounds, soft, nontender, no hepatosplenomegaly Musculoskeletal: no cyanosis or clubbing, extremities motor strength 5/5 Skin: no rashes, warm and dry normal turgor Neurologic: PERRL, EOMI, no nystagmus, dizziness unable to be elicited with quick alternating head movements or change in position. Accommodation nl, no face palsy, no dysarthria CN's II-XI intact bilaterally and moves all extremities Psychiatric: A+Ox3, euthymic affect Lymphatic: no cervical or axillary lymphadenopathy : deferred Principal Diagnosis Urinary tract infection Acute kidney injury Hypomagnesemia Hypertension Discharge Data Allergies Allergy/AdvReac Type Severity Reaction Status Date / Time Iodinated Contrast Media Allergy Severe SHORTNESS Verified 12/10/18 19:54 OF BREATH aspirin Allergy Mild RASH Verified 12/10/18 19:54 Consultations 12/10/18 22:09 ED Decision to Admit Stat 12/11/18 00:33 Consult Case Management - Discharge Planning Routine Procedures Performed Head CT: No acute intracranial abnormality. CXR: 1. Cardiomegaly without overt pulmonary edema. 2. Subsegmental left basilar opacities with mild left hemidiaphragmatic elevation suggests atelectasis. Pneumonitis considered less likely. Ordered Studies 12/10/18 19:10 CT head/brain wo con Stat Hospital Course (1) Dizziness: Patient is an 83 yr female with H/O CAD S/P stent x2, PAF, status post PPM, HTN, HLD, prediabetes mellitus, CKD stage III, GERD, anemia, osteoporosis who presents to [facility] ED secondary to dizziness prior to arrival. Dizziness/Vertigo CT HEAD:No acute intracranial abnormality. MRI unobtainable due to pacemaker Negative Orthostatics Meclizine PRN PT/OT: Negative for BPPV Fall precautions Dizziness resolved (2) Acute worsening of stage 3 chronic kidney disease: Baseline Cr 1.0 Cr: 1.76>>1.51>>1.05 Received IV Fluids Hold lisinopril and torsemide Likely prerenal due to UTI Monitor renal function Resolved (3) UTI (urinary tract infection): Urine culture from previous admission on 12/06 grew E. coli, sensitive to ceftriaxone Lactate levels trended down Blood cultures:Negative to date Urine culture: E.coli Continue ceftriaxone # day 3 (4) Hypomagnesemia: Replace electrolytes as needed Monitor (5) Paroxysmal atrial fibrillation: Continue metoprolol On Eliquis for anticoagulation (6) Coronary artery disease: H/O Stenting x2 at [place] Continue metoprolol, Imdur Hold lisinopril due to ABEL Patient to establish with Dr. Kemp on 12/16/2018 at 9 AM Denies chest pain (7) Hypertension: Continue metoprolol Also on Imdur Hold lisinopril and torsemide given ABEL Monitor (8) Pre-diabetes: Hb A1c 6.5 Per family patient ate a whole bag of candy corn the day of admission Continue NovoLog per protocol (9) HLD (hyperlipidemia): Not currently on statin Per cardiology recent note to discuss at upcoming office visit (10) H/O cardiac pacemaker: Last interrogated 12/05/2018 intermittent atrial fibrillation (11) DVT prophylaxis: On Eliquis Code Status Full Code Disposition: Plan to discharge home today Follow-up: PCP Dr. Morin upon discharge Total Time Total Time Spent Total Time Spent (In Minutes): 38 minutes Total Time Includes: Examination of the Patient, Discharge Planning, Medication Reconciliation, Communication With Other Providers and Other Discharge Plan Discharge Items Patient Disposition: Home - Self-Care Reason For Visit: HTN URGENCY, ARF Discharge Diagnosis: Urinary tract infection Acute kidney injury Hypomagnesemia Hypertension Activity: Resume your previous activity Exercise/Sports: Gradually increase as tolerated Non-emergency contact: Primary Care Provider Call non-emergency contact if: you have any medication questions, your symptoms worsen, your pain is not controlled, your pain is worsening, your pain is unusual for you, your pain is concerning for you and you have a fever Follow-up/Referrals: Janeth Morin DO [Primary Care Provider] - Diet: Carb Consistent or DM2 and Heart Healthy Addtl Attending Provider Instructions: Follow-up with Dr. Koby Alex for primary care service on December 16, 2018 at 10:45 AM Complete antibiotic course as prescribed Your final blood cultures are pending at the time of discharge. Follow-up with your primary care physician for results. Seek immediate medical attention if your symptoms reoccur or worsen Pending Studies at Discharge: Yes Studies:: Final blood cultures Stand-Alone Forms: [facility] Medications and DC Order Prescriptions: New meclizine 12.5 mg Tablet 12.5 mg PO TID PRN (Reason: dizziness) 10 Days Qty: 30 RF: 0 cefuroxime axetil 500 mg tablet 500 mg PO BID 5 Days Qty: 10 RF: 0 Continued torsemide 20 mg Tablet 20 mg PO QAM RF: 0 lisinopril 20 mg Tablet 20 mg PO QAM RF: 0 isosorbide mononitrate 30 mg Tablet Extended Release 24 Hr 30 mg PO QAM RF: 0 albuterol sulfate 90 mcg/actuation Hfa Aerosol Inhaler 2 puff INHALATION DIRECTED PRN (Reason: Shortness Of Breath Or Wheezing) RF: 0 Eliquis 5 mg Tablet 5 mg PO BID RF: 0 potassium chloride 20 mEq Tablet Extended Release 20 meq PO QAM RF: 0 metoprolol tartrate 25 mg Tablet 25 mg PO BID 30 Days Qty: 60 RF: 0 Discharge Orders: Discharge Order (Routine); Ordered 12/12/18 Ordered By: David Wilcox Admission Data Admit Date/Time: 12/11/18 16:15 Attending Provider: David Wilcox Admit Provider: Maxi Nixon Primary Care Provider: Janeth Morin Other Providers: Maxi Nixon Other Interventions: Discharge Summary Assessment (RN) Last Done: 12/12/18 11:56 DC Date/Time DO NOT enter until pt leaves facility: 12/12/18 15:03
== END 2018-12-12 15:03 | disposition home or self-care (01) | DRG 305 ==
LOC: ED 18:36 → 2W 18:36

== ENCOUNTER 2021-03-14 10:58 | Observation (INO) ==
--- NOTE | 2021-03-14 11:16 | Emergency Department Note ---
Impression & Plan Vertigo, Difficulty in walking ED Provider Note NAME: SJ ADLER AGE: 86 SEX: F : 1935 ARRIVES VIA: Ambulance INFORMANT: Patient, ED PROVIDER(S): Aravind Walton DO CHIEF COMPLAINT: Dizziness HPI: The patient is an 86-year-old female who presented to emergency department for an evaluation of dizziness. The patient states when she went to get out of bed this morning to go to the bathroom she felt an acute onset of dizziness. She felt that the room was spinning. She had severe nausea and vomiting. She called 911 because the symptoms were not getting better. The patient was treated with Zofran prior to arrival. She does have a pacemaker. She had a pacemaker rhythm prior to arrival. She also was noted to have elevated blood pressure. She has no history of stroke. She does have a history of taking oral anticoagulation. She states she has been compliant with her usual medications. She has not been seen by doctor today. She denies having any fever or cough. She denies having any lower extremity swelling or pain. ROS: See above HPI for pertinent positives & negatives. A total of 10 systems reviewed and were otherwise negative. PAST MEDICAL HISTORY: See Below PAST SURGICAL HISTORY: See Below FAMILY HISTORY: See Below SOCIAL HISTORY: See Below HOME MEDICATIONS: See Below ALLERGIES: See Below VITALS: See Below PHYSICAL EXAMINATION: GENERAL: The patient is awake and alert. She is nonanxious appearing comfortable. EYES: The conjunctivae are clear. The pupils are round and reactive. EARS, NOSE, MOUTH AND THROAT: The nose is without any evidence of any deformity. Tympanic membranes are clear bilaterally. NECK: The neck is nontender and supple. RESPIRATORY: Normal respiratory effort is noted there is no evidence of wheezing rhonchi or rales CARDIOVASCULAR: Regular rate and rhythm noted there no murmurs rubs or gallops normal S1 normal S2. GASTROINTESTINAL: The abdomen is soft. Abdomen is nontender. MUSCULOSKELETAL/EXTREMITIES: There is no evidence of gross deformity full range of motion is noted in the hips and shoulders. SKIN: Skin is warm and dry. There is no significant pedal edema. NEUROLOGIC: Patient is awake alert and oriented x3. Patient is able to hold each leg off the bed for greater than 5 seconds. No facial droop was noted. T here was no nystagmus elicited. MEDICAL DECISION MAKING: The patient is an 86-year-old female who presented to the emergency department for an evaluation of vertigo. The patient had very severe symptoms that she awoke with. She had no other deficits but did have significant difficulty ambulating because of vertigo. I discussed patient's laboratory and radiographic studies with her. She was treated with Antivert in the emergency department. Symptoms did not significantly change. The patient tried to ambulate and had severe difficulty again. For this reason I discussed her case with the on-call [facility]. They have agreed to evaluate the patient in the emergency department for further management and disposition. It is possible she may require further work-up to ensure this is not a neurologic cause for her vertigo. Triage Nursing notes reviewed. Prior medical records reviewed Vital Signs: reviewed and remarkable for no significant abnormalities Differential diagnosis: Benign positional vertigo, dehydration, hypovolemia, anemia, tumor, infection, hypoglycemia, electrolyte abnormalities, cardiac sources, intracerebral event, toxicologic, neurologic, as well as other pathologies. ER treatment provided: See below Diagnostics interpreted by me: ECG: EKG was obtained in the emergency department. My interpretation is atrial paced with ventricular sensed rhythm. 74 bpm. PVCs were noted. Increased NV interval was noted. This was compared to a tracing from December 10, 2018. The ectopy is new otherwise no significant changes were noted. Cardiac Monitoring: An order was placed for continuous cardiac monitoring. The monitor shows a rate of 66 bpm with paced rhythm. Laboratory studies: As stated above and show below. Imaging studies: See below Consultation(s): I discussed this case with Capri who is on-call for the [facility]. Past Med/Surg History Medical History Arthritis Atrial fibrillation REASON FOR ELIQUIS (FOLLOWED BY DR. PENNY) Carotid artery stenosis CKD (chronic kidney disease) stage 3, GFR 30-59 ml/min Coronary artery disease s/p stent placement in 1993 (LAD diagonal) and 2007 HLD (hyperlipidemia) Hx of cancer of uterus s/p hysterectomy Hypertension Lower back pain Peripheral neuropathy Prediabetes NO MEDS CURRENLTY Shortness of breath REASON FOR INHLAER RX (HAS NOT USED FOR A WHILE) Spinal stenosis Urinary leakage Surgical History H/O cardiac pacemaker IMPLANTED "QUITE A WHILE AGO" RECENTLY CHECKED>LAST WEEK History of appendectomy History of bladder surgery BLADDER TACK History of cholecystectomy History of colonoscopy History of heart artery stent 1993, 2007 (PLACED IN [place]) History of lumbar fusion History of open reduction and internal fixation (ORIF) procedure Left forearm History of surgery on arm RT ARM REPAIRED AT AGE 9 D/T FRACTURE History of tonsillectomy History of tooth extraction History of total abdominal hysterectomy Family History Mother Diabetes Myocardial infarction Cancer Bladder and kidney Family history of diabetes mellitus Sister Breast cancer Son Multiple sclerosis Social History Smoking Status: Never smoker Second Hand Exposure: Yes (IN THE PAST); Hx Alcohol Use: No Hx Substance Use: No Preferred Language: Lao Communication Ability: Effective Desk Interviewer Required: No Beliefs That Will Affect Care: None Current Living Situation: Alone Other Information That Helps Us Care for You: No Feels Safe at Home: Yes Safety Concerns: Feels Safe At This Time Assistive Devices: Cane Allergies Allergies Allergy/AdvReac Type Severity Reaction Status Date / Time Iodinated Contrast Media Allergy Severe SHORTNESS Verified 03/14/21 15:16 OF BREATH aspirin Allergy Mild RASH Verified 03/14/21 15:16 Home Meds Home Medications Medication Instructions Recorded Confirmed albuterol sulfate 90 mcg/actuation 2 puff INHALATION Q4 PRN 12/05/18 03/14/21 aerosol inhaler apixaban 5 mg tablet (Eliquis) 5 mg PO BID 12/05/18 03/14/21 isosorbide mononitrate 30 mg 30 mg PO QAM 12/05/18 03/14/21 tablet,extended release 24 hr lisinopril 20 mg tablet 20 mg PO QAM 12/05/18 03/14/21 potassium chloride 20 mEq 20 meq PO QAM 12/05/18 03/14/21 tablet,extended release torsemide 20 mg tablet 20 mg PO QAM 12/05/18 03/14/21 metoprolol tartrate 25 mg tablet 25 mg PO BID 10/20/19 03/14/21 rosuvastatin 5 mg tablet 5 mg PO QAM 10/20/19 03/14/21 Results & Data (ED) Vital Signs Vital Signs - 24 hr 03/14/21 11:20 03/14/21 11:23 03/14/21 11:24 Temperature 36.5 C Temperature Source Oral Pulse Rate 82 78 Pulse Rate [Apical] 81 Pulse Rhythm Regular Regular Pulse Rhythm [Apical] Regular Respiratory Rate 18 17 18 Respiratory Effort / Characteristics Non-Labored Respiratory Depth Normal Normal Blood Pressure 186/75 H Blood Pressure [Left Arm] 198/169 H Blood Pressure Mean 112 Blood Pressure Mean [Left Arm] 178 Blood Pressure Position Sitting Pulse Oximetry 100 100 100 Oxygen Delivery Method Room Air Room Air Room Air Sepsis Recent Fever Within 48 Hours No Sepsis New/Unexplained Change in Mental Status No Sepsis Action Taken by Nursing No Action Required 03/14/21 11:26 03/14/21 13:05 Temperature Temperature Source Pulse Rate Pulse Rate [Apical] 89 Pulse Rhythm Pulse Rhythm [Apical] Regular Respiratory Rate 15 Respiratory Effort / Characteristics Respiratory Depth Normal Blood Pressure Blood Pressure [Left Arm] 146/112 H Blood Pressure Mean Blood Pressure Mean [Left Arm] 123 Blood Pressure Position Pulse Oximetry 100 100 Oxygen Delivery Method Room Air Room Air Sepsis Recent Fever Within 48 Hours Sepsis New/Unexplained Change in Mental Status Sepsis Action Taken by Half-Way Medications Current Medication List: was personally reviewed by me Laboratory Data Attestation: I reviewed the patient's lab results. Result diagrams: 03/15/21 06:48 03/15/21 06:48 Lab Results 03/14/21 03/14/21 03/14/21 Range/Units 11:08 11:08 11:22 WBC 6.46 (4.8-10.8) K/uL RBC 4.01 L (4.2-5.4) M/uL Hgb 11.8 L (12.0-16.0) g/dL Hct 38.0 (37-47) % MCV 94.8 (80-100) fL MCH 29.4 (25-34) pg MCHC 31.1 L (32-36) g/dL RDW Std Deviation 48.0 H (36.4-46.3) fL RDW Coeff of Seferino 13.9 (11.5-14.5) % Plt Count 196 (130-400) K/uL MPV 12.8 H (7.4-10.4) fL Immature Gran % (Auto) 0.2 % Neut % (Auto) 69.5 % Lymph % (Auto) 24.1 % Wirt % (Auto) 4.5 % Eos % (Auto) 1.2 % Baso % (Auto) 0.5 % Neut # (Auto) 4.49 (1.4-6.5) K/uL Lymph # (Auto) 1.56 (1.2-3.4) K/uL Wirt # (Auto) 0.29 (0.11-0.59) K/uL Eos # (Auto) 0.08 (0-0.5) K/uL Baso # (Auto) 0.03 (0-0.2) K/uL Immature Gran # (Auto) 0.01 (0.00-0.02) K/uL PT 10.4 (9.0-12.0) Seconds INR 1.0 (0.9-1.1) APTT 24.6 (21.0-31.0) Seconds PTT Ratio 0.9 Sodium 141 (136-145) mmol/L Potassium 4.3 (3.5-5.1) mmol/L Chloride 108 H (98-107) mmol/L Carbon Dioxide 21 (21-32) mmol/L Anion Gap 12 H (3-11) BUN 16 (6-23) mg/dl Creatinine 0.96 (0.6-1.2) mg/dl Est Cr Clr Drug Dosing 45.8 ml/min Est GFR ( Amer) 61.6 ml/min Est GFR (Non-Af Amer) 53.2 ml/min BUN/Creatinine Ratio 16.7 (10-20) Glucose 188 H (70-99) mg/dl Calcium 9.2 (8.5-10.1) mg/dl Total Bilirubin 0.5 (0.2-1.0) mg/dl AST 14 (13-39) U/L ALT 9 (7-52) U/L Alkaline Phosphatase 89 (34-104) U/L Troponin I 0.03 (0-0.04) ng/ml Total Protein 7.0 (6.0-8.3) gm/dl Albumin 3.7 (3.4-5.0) gm/dl Globulin 3.3 (2.5-4.0) gm/dl Albumin/Globulin Ratio 1.1 (0.9-2) TSH 2.827 (0.300-4.500) uIu/ml POC Urine pH (4.5-7.5) POC Urine Protein (Negative) POC Ur Glucose (UA) (Normal) POC Urine Ketones (Negative) POC Urine Blood (Negative) POC Urine Nitrite (Negative) POC Urine Bilirubin (Negative) POC Urine Urobilinogen (Normal) POC U Leukocyte Esteras (Negative) SARS-CoV-2, RNA, NAAT (NEGATIVE) 03/14/21 03/14/21 Range/Units 13:04 14:37 WBC (4.8-10.8) K/uL RBC (4.2-5.4) M/uL Hgb (12.0-16.0) g/dL Hct (37-47) % MCV (80-100) fL MCH (25-34) pg MCHC (32-36) g/dL RDW Std Deviation (36.4-46.3) fL RDW Coeff of Seferino (11.5-14.5) % Plt Count (130-400) K/uL MPV (7.4-10.4) fL Immature Gran % (Auto) % Neut % (Auto) % Lymph % (Auto) % Wirt % (Auto) % Eos % (Auto) % Baso % (Auto) % Neut # (Auto) (1.4-6.5) K/uL Lymph # (Auto) (1.2-3.4) K/uL Wirt # (Auto) (0.11-0.59) K/uL Eos # (Auto) (0-0.5) K/uL Baso # (Auto) (0-0.2) K/uL Immature Gran # (Auto) (0.00-0.02) K/uL PT (9.0-12.0) Seconds INR (0.9-1.1) APTT (21.0-31.0) Seconds PTT Ratio Sodium (136-145) mmol/L Potassium (3.5-5.1) mmol/L Chloride (98-107) mmol/L Carbon Dioxide (21-32) mmol/L Anion Gap (3-11) BUN (6-23) mg/dl Creatinine (0.6-1.2) mg/dl Est Cr Clr Drug Dosing ml/min Est GFR ( Amer) ml/min Est GFR (Non-Af Amer) ml/min BUN/Creatinine Ratio (10-20) Glucose (70-99) mg/dl Calcium (8.5-10.1) mg/dl Total Bilirubin (0.2-1.0) mg/dl AST (13-39) U/L ALT (7-52) U/L Alkaline Phosphatase (34-104) U/L Troponin I (0-0.04) ng/ml Total Protein (6.0-8.3) gm/dl Albumin (3.4-5.0) gm/dl Globulin (2.5-4.0) gm/dl Albumin/Globulin Ratio (0.9-2) TSH (0.300-4.500) uIu/ml POC Urine pH 5 (4.5-7.5) POC Urine Protein Negative (Negative) POC Ur Glucose (UA) Normal (Normal) POC Urine Ketones 2+ (Moderate) H (Negative) POC Urine Blood Negative (Negative) POC Urine Nitrite Negative (Negative) POC Urine Bilirubin Negative (Negative) POC Urine Urobilinogen Normal (Normal) POC U Leukocyte Esteras Trace H (Negative) SARS-CoV-2, RNA, NAAT NEGATIVE (NEGATIVE) Administered Medications Apixaban (Apixaban 5 Mg Tablet) 5 mg PO BID [facility] Stop: 04/13/21 20:59 Last Admin: 03/15/21 07:44 Dose: 5 mg Documented by: [id number] Admin: 03/14/21 20:25 Dose: 5 mg Documented by: [id number] Insulin Aspart (Insulin Aspart Per Unit) 0 units [facility] Stop: 04/13/21 16:29 Last Admin: 03/14/21 17:27 Dose: Not Given Documented by: [id number] Isosorbide Mononitrate (Isosorbide Wirt Extended Rel 30 Mg Tabcr) 30 mg PO [facility] Stop: 04/14/21 08:59 Last Admin: 03/15/21 07:44 Dose: 30 mg Documented by: [id number] Lisinopril (L[facility] 20 Mg Tab) [facility] Stop: 04/14/21 08:59 Last Admin: 03/15/21 07:44 Dose: 20 mg Documented by: [id number] Metoprolol Tartrate (Metoprolol Tartrate 25 Mg Tab) 25 mg PO BID [facility] Stop: 04/13/21 20:59 Last Admin: 03/15/21 07:45 Dose: 25 mg Documented by: [id number] Admin: 03/14/21 20:25 Dose: 25 mg Documented by: [id number] Potassium Chloride (Potassium Chloride Crtab 20 Meq Tabcr) 20 meq PO QAM [facility] Stop: 04/14/21 08:59 Last Admin: 03/15/21 07:44 Dose: 20 meq Documented by: [id number] Rosuvastatin Calcium (Rosuvastatin Calcium 5 Mg Tab) 5 mg PO QAM [facility] Stop: 04/14/21 08:59 Last Admin: 03/15/21 07:44 Dose: 5 mg Documented by: [id number] Torsemide (Torsemide 20 Mg Tab) 20 mg PO QAM [facility] Stop: 04/14/21 08:59 Last Admin: 03/15/21 07:45 Dose: 20 mg Documented by: [id number] Discontinued Medications Meclizine HCl (Meclizine Hcl 25 Mg Tab) 25 mg PO NOW STA Stop: 03/14/21 13:01 Last Admin: 03/14/21 13:14 Dose: 25 mg Documented by: [id number] Imaging Data Radiologist's Impression: Chest X-Ray 03/14/21 11:12 XR chest 1V portable CLINICAL HISTORY: weakness. Evaluate cardiac pulmonary status COMPARISON STUDY: 12/10/2018 TECHNIQUE: 1 view of the chest FINDINGS: Single frontal view of the chest demonstrates the heart size to be at the upper limits of normal with a precardiac pacer again seen. The lungs are clear of alveolar opacities. There is no evidence for pleural effusion. There is no evidence for vascular congestion. There is no acute osseous pathology. IMPRESSION: No acute cardiopulmonary disease. ACT 112: Negative or not required by law. Electronically signed by: Leland Denis M.D. 03/14/2021 11:[address] 03/14/21 11:12 CT OF THE HEAD WITHOUT CONTRAST CLINICAL HISTORY: Vertigo. COMPARISON STUDY: Head CT December 10, 2018. CT DOSE: 537.48 mGy.cm TECHNIQUE: Helical axial images of the head were obtained without IV contrast. Automated exposure control was utilized for the study. A dose lowering technique was utilized adhering to the principles of ALARA. FINDINGS: No acute intracranial hemorrhage, midline shift or mass effect is present. The ventricular system is unremarkable. The basal cisterns are patent. No extra-axial collections are present. White matter hypodensity suggests small vessel disease. There are no findings to suggest acute dural sinus thrombosis or acute territorial infarct. No significant calvarial abnormalities are present. IMPRESSION: No acute intracranial findings. ACT 112: Negative or not required by law. Electronically signed by: Quirino Lai M.D. 03/14/2021 11:52 AM Discharge Plan Visit Data Chief Complaint: Weakness Stated Complaint: WEAKNESS, NAUSEA, VOMITING ED Provider: Aravind Walton Discharge Problem: Vertigo, Difficulty in walking Patient Disposition: Admitted As Inpatient Discharge Instructions Interventions: ED Discharge Assessment Last Done: 03/14/21 15:39
[2021-03-14 11:22] LABS: Basophils # (auto) 0.03 K/uL (0-0.2); Basophils % (auto) 0.5 %; Eosinophils # (auto) 0.08 K/uL (0-0.5); Eosinophils % (auto) 1.2 %; Hemoglobin 11.8 g/dL (12.0-16.0); Immature Granulocytes # (auto) 0.01 K/uL (0.00-0.02); Immature Granulocytes % (auto) 0.2 %; Lymphocytes # (auto) 1.56 K/uL (1.2-3.4); Lymphocytes % (auto) 24.1 %; Mean Corpuscular Hemoglobin 29.4 pg (25-34); Mean Corpuscular Hgb Conc 31.1 g/dL (32-36); Mean Corpuscular Volume 94.8 fL (80-100); Mean Platelet Volume 12.8 fL (7.4-10.4); Monocytes # (auto) 0.29 K/uL (0.11-0.59); Monocytes % (auto) 4.5 %; Neutrophils # (auto) 4.49 K/uL (1.4-6.5); Neutrophils % (auto) 69.5 %; Platelet Count 196 K/uL (130-400); RDW Coefficient of Variation 13.9 % (11.5-14.5); Red Blood Count 4.01 M/uL (4.2-5.4); White Blood Count 6.46 K/uL (4.8-10.8)
--- NOTE | 2021-03-14 11:41 | XRay Report ---
XR chest 1V portable CLINICAL HISTORY: weakness. Evaluate cardiac pulmonary status COMPARISON STUDY: 12/10/2018 TECHNIQUE: 1 view of the chest FINDINGS: Single frontal view of the chest demonstrates the heart size to be at the upper limits of normal with a precardiac pacer again seen. The lungs are clear of alveolar opacities. There is no evidence for p leural effusion. There is no evidence for vascular congestion. There is no acute osseous pathology. IMPRESSION: No acute cardiopulmonary disease. ACT 112: Negative or not required by law. Electronically signed by: Leland Denis M.D. 03/14/2021 11:40 AM
[2021-03-14 11:49] LABS: Partial Thromboplastin Ratio 0.9; Partial Thromboplastin Time 24.6 Seconds (21.0-31.0); Prothrombin Time 10.4 Seconds (9.0-12.0)
[2021-03-14 11:49] LABS: Troponin I 0.03 ng/ml (0-0.04)
[2021-03-14 11:54] LABS: Albumin Globulin Ratio 1.1 (0.9-2); Albumin Level 3.7 gm/dl (3.4-5.0); BUN Creatinine Ratio 16.7 (10-20); Bilirubin,Total 0.5 mg/dl (0.2-1.0); Calcium 9.2 mg/dl (8.5-10.1); Creatinine Clr Calc Pharmacy 45.8 ml/min; Est GFR (African American) 61.6 ml/min; Est GFR (Non-African American) 53.2 ml/min; Globulin 3.3 gm/dl (2.5-4.0); Potassium 4.3 mmol/L (3.5-5.1)
--- NOTE | 2021-03-14 11:54 | CT Scan Report ---
CT OF THE HEAD WITHOUT CONTRAST CLINICAL HISTORY: Vertigo. COMPARISON STUDY: Head CT December 10, 2018. CT DOSE: 537.48 mGy.cm TECHNIQUE: Helical axial images of the head were obtained without IV contrast. Automated exposure con trol was utilized for the study. A dose lowering technique was utilized adhering to the principles o f ALARA. FINDINGS: No acute intracranial hemorrhage, midline shift or mass effect is present. The ventricular system is unremarkable. The basal cisterns are patent. No extra-axial collections are present. White matter hypodensity suggests small vessel disease. There are no findings to suggest acute dural sinus thrombosis or acute territorial infarct. No significant calvarial abnormalities are present. IMPRESSION: No acute intracranial findings. ACT 112: Negative or not required by law. Electronically signed by: Quirino Lai M.D. 03/14/2021 11:52 AM
[2021-03-14 12:05] LABS: Thyroid Stimulating Hormone 2.827 uIu/ml (0.300-4.500)
--- NOTE | 2021-03-14 12:17 | Electrocardiogram Report ---
Test Reason : Blood Pressure : / mmHG Vent. Rate : 074 BPM Atrial Rate : 074 BPM P-R Int : 290 ms QRS Dur : 080 ms QT Int : 386 ms P-R-T Axes : 077 031 100 degrees QTc Int : 428 ms Poor data quality, interpretation may be adversely affected Atrial-paced rhythm with prolonged AV conduction with frequent Premature ventricular complexes Low voltage QRS Abnormal ECG When compared with ECG of 10-DEC-2018 18:48, Premature ventricular complexes now present Confirmed by Lopez Rodas ([id number]) on 03/14/2021 12:17:08 PM Referred By: Confirmed By:Lopez Rodas
[2021-03-14] MEDS ORDERED: MECLIZINE HCL 25 MG TAB PO STA (13:00)
[2021-03-14 13:09] LABS: POC Urine Bilirubin Negative (Negative); POC Urine Blood Negative (Negative); POC Urine Glucose Normal (Normal); POC Urine Leukocytes Trace (Negative); POC Urine Nitrite Negative (Negative); POC Urine Protein Negative (Negative); POC Urine Urobilinogen Normal (Normal); POC Urine pH 5 (4.5-7.5)
--- NOTE | 2021-03-14 15:45 | History & Physical Report ---
Date of Service March 14, 2021 Assessment & Plan (1) Dizziness: Plan: Patient is 86 y/o F with PMH CAD s/p stent, paroxysmal atrial fibrillation on Eliquis, h/o AV block s/p pacemaker, HTN, HLD, CKD III, GERD, chronic anemia, prediabetes presented to ER with complaint of dizziness described as ceiling moving around causing off balance and fall into sofa. In ER hypertensive at 186/75, other vitals stable. No leukocytosis, negative troponin EKG: paced rhythm CT HEAD: no acute intracranial findings Possible BPPV -Orthostatics -Pt with pacemaker, will have to check to see if MRI compatible -Carotid doppler -Fall precautions -Meclizine prn -Pacemaker interrogation -PT eval -CBC, BMP in am (2) Paroxysmal atrial fibrillation: Plan: On Eliquis -Continue Eliquis, metoprolol tartrate (3) Hypertension: Plan: Hypertensive in ER Repeat BP on floor improved at 156/72 -Will follow BP and may need to consider adding/adjusting medications -Continue lisinopril, metoprolol tartrate, torsemide (4) Coronary artery disease: Plan: S/p stent x 2 -Continue rosuvastatin, isosorbide, Toprol tartrate (5) H/O cardiac pacemaker: Plan: h/o AV block -Pacemaker interrogation (6) Pre-diabetes: Plan: A1c: 6.5 in 2019 -A1c in a.m. -Diabetic diet (7) CKD (chronic kidney disease) stage 3, GFR 30-59 ml/min: Plan: Cr: 0.9. Baseline ~1.1 -Monitor renal functions, avoid nephrotoxic agents when possible DVT Prophylaxis -On Eliquis Full Code as per discussion with pt Follows with Dr Morin for routine care Pt was seen and care coordinated with Dr Adkins. See addendum History of Present Illness Chief Complaint: Dizziness Primary Care Provider: Janeth Morin DO Patient is 86 y/o F with PMH CAD s/p stent, paroxysmal atrial fibrillation on Eliquis, h/o AV block s/p pacemaker, HTN, HLD, CKD III, GERD, chronic anemia, prediabetes presented to ER with complaint of dizziness. Patient is poor historian. Patient reports she did have her medications this morning. She states this morning she had onset of dizziness described as ceiling moving around. She reports this started when she was walking from her living room to kitchen and reports caused her to feel off balance and fall into her sofa. She denies hitting her head or any injury. Patient thinks that she has some associated nausea. Denies any vomiting. Reports had similar episode of dizziness several years ago. She reports she usually walks with a cane. Denies any extremity weakness or paresthesias. Denies fever/chills, diaphoresis, V/D/C, RUIZ, syncope, LOC, vision changes, neck pain, CP, SOB, orthopnea, palpitations, cough, sore throat, choking, otalgia, rhinorrhea, abdominal pain, paresthesias, extremity weakness, extremity edema, rashes, urinary symptoms. Allergies Allergy/AdvReac Type Severity Reaction Status Date / Time Iodinated Contrast Media Allergy Severe SHORTNESS Verified 03/14/21 15:16 OF BREATH aspirin Allergy Mild RASH Verified 03/14/21 15:16 Home Medications Medication Instructions Recorded Confirmed Type albuterol sulfate 90 mcg/actuation 2 puff INHALATION Q4 PRN 12/05/18 03/14/21 History aerosol inhaler apixaban 5 mg tablet (Eliquis) 5 mg PO BID 12/05/18 03/14/21 History isosorbide mononitrate 30 mg 30 mg PO QAM 12/05/18 03/14/21 History tablet,extended release 24 hr lisinopril 20 mg tablet 20 mg PO QAM 12/05/18 03/14/21 History potassium chloride 20 mEq 20 meq PO QAM 12/05/18 03/14/21 History tablet,extended release torsemide 20 mg tablet 20 mg PO QAM 12/05/18 03/14/21 History metoprolol tartrate 25 mg tablet 25 mg PO BID 10/20/19 03/14/21 History rosuvastatin 5 mg tablet 5 mg PO QAM 10/20/19 03/14/21 History Past Med/Surg History Medical History Arthritis Atrial fibrillation REASON FOR ELIQUIS (FOLLOWED BY DR. PENNY) Carotid artery stenosis CKD (chronic kidney disease) stage 3, GFR 30-59 ml/min Coronary artery disease s/p stent placement in 1993 (LAD diagonal) and 2007 HLD (hyperlipidemia) Hx of cancer of uterus s/p hysterectomy Hypertension Lower back pain Peripheral neuropathy Prediabetes NO MEDS CURRENLTY Shortness of breath REASON FOR INHLAER RX (HAS NOT USED FOR A WHILE) Spinal stenosis Urinary leakage Surgical History H/O cardiac pacemaker IMPLANTED "QUITE A WHILE AGO" RECENTLY CHECKED>LAST WEEK History of appendectomy History of bladder surgery BLADDER TACK History of cholecystectomy History of colonoscopy History of heart artery stent 1993, 2007 (PLACED IN [place]) History of lumbar fusion History of open reduction and internal fixation (ORIF) procedure Left forearm History of surgery on arm RT ARM REPAIRED AT AGE 9 D/T FRACTURE History of tonsillectomy History of tooth extraction History of total abdominal hysterectomy Family History Mother Diabetes Myocardial infarction Cancer Bladder and kidney Family history of diabetes mellitus Sister Breast cancer Son Multiple sclerosis Social History Smoking Status: Never smoker Second Hand Exposure: Yes (IN THE PAST); Hx Alcohol Use: No Hx Substance Use: No Preferred Language: Albanian Communication Ability: Effective Excelsior Picker Required: No Beliefs That Will Affect Care: None Current Living Situation: Alone Other Information That Helps Us Care for You: No Feels Safe at Home: Yes Safety Concerns: Feels Safe At This Time Assistive Devices: Cane Review of Systems Review of Systems: All systems reviewed & are unremarkable except as noted in HPI & below Physical Exam Physical Exam: General: no distress, obese Head: normocephalic, atraumatic Eyes: PERRL, EOM's intact, conjunctiva non-injected, anicteric ENT: normal inspection external ears, nose, mucous membranes moist Neck: supple, trachea midline, non-tender Lungs: clear, no respiratory distress, no wheezing/rhonchi/rales CV: RRR, no JVD, no pretibial edema Abd: normal BS, soft, non-tender Ext: no cyanosis, no calf tenderness Neuro: A&O x 3, no focal deficits noted, normal affect Skin: warm, dry Results & Data Results & Data ([facility]) Vital Signs (Past 12 Hours) Vital Signs Temp Pulse Pulse Resp BP BP Pulse Ox 03/14/21 15:39 82 16 100 03/14/21 15:22 81 15 98 03/14/21 13:05 89 15 146/112 H 100 03/14/21 11:26 100 03/14/21 11:24 78 18 100 03/14/21 11:23 81 17 198/169 H 100 03/14/21 11:20 36.5 C 82 18 186/75 H 100 Laboratory Results Short CBC 03/14/21 Range/Units 11:08 WBC 6.46 (4.8-10.8) K/uL Hgb 11.8 L (12.0-16.0) g/dL Hct 38.0 (37-47) % Plt Count 196 (130-400) K/uL BMP 03/14/21 11:08 Sodium 141 Potassium 4.3 Chloride 108 H Carbon Dioxide 21 BUN 16 Creatinine 0.96 Glucose 188 H Calcium 9.2 Cardiac Enzymes 03/14/21 Range/Units 11:08 Troponin I 0.03 (0-0.04) ng/ml Liver Function 03/14/21 Range/Units 11:08 Total Bilirubin 0.5 (0.2-1.0) mg/dl AST 14 (13-39) U/L ALT 9 (7-52) U/L Alkaline Phosphatase 89 (34-104) U/L Albumin 3.7 (3.4-5.0) gm/dl Diagnostic Findings Chest X-Ray 03/14/21 11:12 XR chest 1V portable CLINICAL HISTORY: weakness. Evaluate cardiac pulmonary status COMPARISON STUDY: 12/10/2018 TECHNIQUE: 1 view of the chest FINDINGS: Single frontal view of the chest demonstrates the heart size to be at the upper limits of normal with a precardiac pacer again seen. The lungs are clear of alveolar opacities. There is no evidence for pleural effusion. There is no evidence for vascular congestion. There is no acute osseous pathology. IMPRESSION: No acute cardiopulmonary disease. ACT 112: Negative or not required by law. Electronically signed by: Leland Denis M.D. 03/14/2021 11:[address] 03/14/21 11:12 CT OF THE HEAD WITHOUT CONTRAST CLINICAL HISTORY: Vertigo. COMPARISON STUDY: Head CT December 10, 2018. CT DOSE: 537.48 mGy.cm TECHNIQUE: Helical axial images of the head were obtained without IV contrast. Automated exposure control was utilized for the study. A dose lowering technique was utilized adhering to the principles of ALARA. FINDINGS: No acute intracranial hemorrhage, midline shift or mass effect is present. The ventricular system is unremarkable. The basal cisterns are patent. No extra-axial collections are present. White matter hypodensity suggests small vessel disease. There are no findings to suggest acute dural sinus thrombosis or acute territorial infarct. No significant calvarial abnormalities are present. IMPRESSION: No acute intracranial findings. ACT 112: Negative or not required by law. Electronically signed by: Quirino Lai M.D. 03/14/2021 11:52 AM Code Status & VTE Plan VTE Prophylaxis Plan VTE Prophylaxis will be ordered: Yes
[2021-03-14] MEDS ORDERED: DEXTROSE 50% 50 ML SYRINGE IV PRN (16:28)
[2021-03-14] MEDS ORDERED: GLUCOSE 40% GEL 15 GM TUBE PO PRN (16:28)
[2021-03-14] MEDS ORDERED: ACETAMINOPHEN 325 MG TAB PO PRN (16:28)
[2021-03-14] MEDS ORDERED: CARBOHYDRATES FOR HYPOGLYCEMIA PO PRN (16:28)
[2021-03-14] MEDS ORDERED: GLUCAGON FOR INJ 1 MG VIAL SQ PRN (16:28)
[2021-03-14] MEDS ORDERED: GLUCOSE 10 TABS/TUBE PO PRN (16:28)
[2021-03-14] MEDS ORDERED: MECLIZINE HCL 25 MG TAB PO PRN (16:28)
[2021-03-14] MEDS ORDERED: INSULIN ASPART PER UNIT SC SCH (16:30)
--- NOTE | 2021-03-14 19:44 | Ultrasound Report ---
US carotid doppler BI CLINICAL HISTORY: 86 years-old Female with dizziness. Acute dizziness COMPARISON: Head CT of same day TECHNIQUE: Multiple real time sonographic images of the carotid bifurcations were obtained assessing marcelino scale, color Doppler and spectral wave form appearance FINDINGS: RIGHT CAROTID: The peak systolic velocity measured within the right ICA is90 cm/sec. The end diasto lic velocity measured 16 cm/sec. The ICA to CCA ratio measured 1.3 which correlates with a stenosis of 0-50%. Mild to moderate atherosclerotic plaque of the right carotid bulb. LEFT CAROTID: The peak systolic velocity measured within the left ICA is71 cm/sec. The end diastoli c velocity measured 18 cm/sec. The ICA to CCA ratio measured 0.78 which correlates with a stenosis of 0-50%. Mild to moderate atherosclerotic plaque of the left carotid bulb. There is normal antegrade vertebral flow bilaterally. Blood pressure within the right upper extremity is measured at 174/71 and on the left is measured at 159/73. IMPRESSION: 1. Atherosclerosis of the bilateral carotid bulbs without hemodynamically significant stenosis. 2. Normal antegrade vertebral flow bilaterally. ACT 112: Negative or not required by law. The above report was generated using voice recognition software. It may contain grammatical, syntax o r spelling errors. Electronically signed by: Matt Bush M.D. 03/14/2021 7:43 PM
[2021-03-14] MEDS: METOPROLOL TARTRATE 25 MG TAB PO SCH (20:25)
[2021-03-14] MEDS: APIXABAN 5 MG TABLET PO SCH (20:25)
[2021-03-15 07:21] LABS: Hematocrit (blood only) 36.1 % (37-47); Hemoglobin 11.2 g/dL (12.0-16.0); Mean Corpuscular Hemoglobin 29.2 pg (25-34); Mean Corpuscular Volume 94.3 fL (80-100); Platelet Count 196 K/uL (130-400); RDW Standard Deviation 48.3 fL (36.4-46.3); Red Blood Count 3.83 M/uL (4.2-5.4); White Blood Count 6.53 K/uL (4.8-10.8)
[2021-03-15] MEDS: APIXABAN 5 MG TABLET PO SCH (07:44)
[2021-03-15 07:45] LABS: BUN Creatinine Ratio 17.2 (10-20); Calcium 8.9 mg/dl (8.5-10.1); Creatinine Clr Calc Pharmacy 45.2 ml/min; Est GFR (Non-African American) 55.3 ml/min
[2021-03-15] MEDS: METOPROLOL TARTRATE 25 MG TAB PO SCH (07:45)
[2021-03-15] MEDS ORDERED: ROSUVASTATIN CALCIUM 5 MG TAB PO SCH (09:00)
[2021-03-15] MEDS ORDERED: POTASSIUM CHLORIDE CRTAB 20 MEQ TABCR PO SCH (09:00)
[2021-03-15] MEDS ORDERED: ISOSORBIDE MONO EXTENDED REL 30 MG TABCR PO SCH (09:00)
[2021-03-15] MEDS ORDERED: lisinopril 20 MG TAB PO SCH (09:00)
[2021-03-15] MEDS ORDERED: TORSEMIDE 20 MG TAB PO SCH (09:00)
[2021-03-15 09:32] LABS: Estimated Average Glucose 148 mg/dl; Hemoglobin A1C 6.8 % (4.5-5.6)
--- NOTE | 2021-03-15 14:33 | Electrocardiogram Report ---
Test Reason : Blood Pressure : / mmHG Vent. Rate : 067 BPM Atrial Rate : 067 BPM P-R Int : 302 ms QRS Dur : 088 ms QT Int : 396 ms P-R-T Axes : 000 022 048 degrees QTc Int : 418 ms Atrial-paced rhythm with prolonged AV conduction Low voltage QRS Abnormal ECG When compared with ECG of 14-MAR-2021 11:14, Premature ventricular complexes are no longer Present Confirmed by Lopez Rodas ([id number]) on 03/15/2021 2:33:12 PM Referred By: REFERRED SELF Confirmed By:Lopez Rodas
--- NOTE | 2021-03-15 16:04 | Hospitalist Progress Note ---
Date of Service March 15, 2021 Assessment & Plan (1) Dizziness: Plan: Patient is 86 y/o F with PMH CAD s/p stent, paroxysmal atrial fibrillation on Eliquis, h/o AV block s/p pacemaker, HTN, HLD, CKD III, GERD, chronic anemia, prediabetes presented to ER with complaint of dizziness described as ceiling moving around causing off balance and fall into sofa. In ER hypertensive at 186/75, other vitals stable. No leukocytosis, negative troponin EKG: paced rhythm CT HEAD showed no acute intracranial abnormality Unable to get an MRI due to her pacemaker carotid u/s showed atherosclerosis of the bilateral carotid bulbs without hemodynamically significant stenosis. Normal antegrade vertebral flow bilaterally. Continue Meclizine prn Fall precaution Continue PT/OT eval (2) Elevated troponin: Plan: Troponin increased from 0.03 to 0.34 , then trending down to 0.29 Possible related to elevate blood pressure Denies any chest pain EKG showed no ischemic changes ECHO showed moderate concentric LVH. LV wall motion is normal with EF 55-60% Continue statin, eliquis and metoprolol (3) Paroxysmal atrial fibrillation: Plan: Continue Eliquis, metoprolol tartrate (4) Hypertension: Plan: Hypertensive on admission, currently BP improved Continue lisinopril, metoprolol tartrate, torsemide Stable (5) Coronary artery disease: Plan: S/p stent x 2 Continue rosuvastatin, isosorbide, Toprol tartrate (6) H/O cardiac pacemaker: Plan: h/o AV block Stable (7) Pre-diabetes: Plan: A1c: 6.8 on 03/15/21 Diabetic diet (8) CKD (chronic kidney disease) stage 3, GFR 30-59 ml/min: Plan: Cr: 0.9. Baseline ~1.1 stable DVT Prophylaxis On Eliquis Full Code Disposition Discharge home today By CMS guidelines, a determination that the admission or continued stay is not medically necessary has been made by a member of the UR committee and a physician for this hospital stay, therefore a Code 44 will be completed and the Inpatient admission will be changed to outpatient. Admission and Anticipated Discharge Date Admission Date: March 14, 2021 Subjective Pt was seen and examined for follow up of dizziness Lying in bed with no acute distress Pt said that she feels fine Denies any chest pain, palpitation, fever and SOB Review of Systems Review of Systems: All systems reviewed & are unremarkable except as noted in Subjective Physical Exam Physical Exam: General- No acute distress Head- atraumatic Eyes- PERRL, EOMI, ENT- oropharynx clear Neck- supple, no JVD Lungs- clear to auscultation Heart- regular rhythm; no murmur Abdomen- normal bowel sounds, soft, nontender Extremities- no calf tenderness Neuro- alert, oriented x 3; PERRL, EOMI; no facial palsy; no dysarthria Skin- warm & dry Results & Data Results & Data ([facility]) Vital Signs (Past 12 Hours) Vital Signs Temp Pulse Pulse Resp BP Pulse Ox 03/15/21 14:56 71 03/15/21 11:52 36.4 C L 60 16 119/71 94 03/15/21 08:00 36.9 C 61 18 127/70 95 03/15/21 07:19 71 03/15/21 04:39 36.5 C 66 18 126/68 97
--- NOTE | 2021-03-16 16:15 | Communication Note ---
Date of Service: March 16, 2021 By CMS guidelines, a determination that the admission or continued stay is not medically necessary has been made by a member of the Utilization Review co mmittee and a physician for this hospital stay. Therefore, a Code 44 will be completed and the inpatient admission will be changed to outpatient. Eliz Fabian DO
--- NOTE | 2021-03-16 16:17 | Discharge Summary ---
Date of Service March 15, 2021 Admission HPI Per Admitting Provider Patient is 86 y/o F with PMH CAD s/p stent, paroxysmal atrial fibrillation on Eliquis, h/o AV block s/p pacemaker, HTN, HLD, CKD III, GERD, chronic anemia, prediabetes presented to ER with complaint of dizziness. Patient is poor historian. Patient reports she did have her medications this morning. She states this morning she had onset of dizziness described as ceiling moving around. She reports this started when she was walking from her living room to kitchen and reports caused her to feel off balance and fall into her sofa. She denies hitting her head or any injury. Patient thinks that she has some asso ciated nausea. Denies any vomiting. Reports had similar episode of dizziness several years ago. She reports she usually walks with a cane. Denies any extremity weakness or paresthesias. Denies fever/chills, diaphoresis, V/D/C, RUIZ, syncope, LOC, vision changes, neck pain, CP, SOB, orthopnea, palpitations, cough, sore throat, choking, otalgia, rhinorrhea, abdominal pain, paresthesias, extremity weakness, extremity edema, rashes, urinary symptoms. Admission Exam Per Admitting Provider General: no distress, obese Head: normocephalic, atraumatic Eyes: PERRL, EOM's intact, conjunctiva non-injected, anicteric ENT: normal inspection external ears, nose, mucous membranes moist Neck: supple, trachea midline, non-tender Lungs: clear, no respiratory distress, no wheezing/rhonchi/rales CV: RRR, no JVD, no pretibial edema Abd: normal BS, soft, non-tender Ext: no cyanosis, no calf tenderness Neuro: A&O x 3, no focal deficits noted, normal affect Skin: warm, dry Principal Diagnosis Dizziness: Elevated troponin: Paroxysmal atrial fibrillation: Hypertension: Coronary artery disease: H/O cardiac pacemaker: Diabetes CKD (chronic kidney disease) stage 3, GFR 30-59 ml/min: Discharge Exam General- No acute distress Head- atraumatic Eyes- PERRL, EOMI, ENT- oropharynx clear Neck- supple, no JVD Lungs- clear to auscultation Heart- regular rhythm; no murmur Abdomen- normal bowel sounds, soft, nontender Extremities- no calf tenderness Neuro- alert, oriented x 3; PERRL, EOMI; no facial palsy; no dysarthria Skin- warm & dry Discharge Data Allergies Allergy/AdvReac Type Severity Reaction Status Date / Time Iodinated Contrast Media Allergy Severe SHORTNESS Verified 03/14/21 15:16 OF BREATH aspirin Allergy Mild RASH Verified 03/14/21 15:16 Consultations 03/14/21 14:43 ED Decision to Admit Stat Ordered Studies 03/14/21 11:12 CT head/brain wo con Stat 03/14/21 16:16 US carotid doppler BI Routine US carotid doppler BI CLINICAL HISTORY: 86 years-old Female with dizziness. Acute dizziness COMPARISON: Head CT of same day TECHNIQUE: Multiple real time sonographic images of the carotid bifurcations were obtained assessing marcelino scale, color Doppler and spectral wave form appearance FINDINGS: RIGHT CAROTID: The peak systolic velocity measured within the right ICA is90 cm/sec. The end diastolic velocity measured 16 cm/sec. The ICA to CCA ratio measured 1.3 which correlates with a stenosis of 0-50%. Mild to moderate atherosclerotic plaque of the right carotid bulb. LEFT CAROTID: The peak systolic velocity measured within the left ICA is71 cm/sec. The end diastolic velocity measured 18 cm/sec. The ICA to CCA ratio measured 0.78 which correlates with a stenosis of 0-50%. Mild to moderate atherosclerotic plaque of the left carotid bulb. There is normal antegrade vertebral flow bilaterally. Blood pressure within the right upper extremity is measured at 174/71 and on the left is measured at 159/73. IMPRESSION: 1. Atherosclerosis of the bilateral carotid bulbs without hemodynamically significant stenosis. 2. Normal antegrade vertebral flow bilaterally. ACT 112: Negative or not required by law. The above report was generated using voice recognition software. It may contain grammatical, syntax or spelling errors. Electronically signed by: Matt Bush M.D. 03/14/2021 7:43 PM Dictated:03/14/211939 Transcribed: 03/14/211939 CT OF THE HEAD WITHOUT CONTRAST CLINICAL HISTORY: Vertigo. COMPARISON STUDY: Head CT December 10, 2018. CT DOSE: 537.48 mGy.cm TECHNIQUE: Helical axial images of the head were obtained without IV contrast. Automated exposure control was utilized for the study. A dose lowering technique was utilized adhering to the principles of ALARA. FINDINGS: No acute intracranial hemorrhage, midline shift or mass effect is present. The ventricular system is unremarkable. The basal cisterns are patent. No extra-axial collections are present. White matter hypodensity suggests small vessel disease. There are no findings to suggest acute dural sinus thrombosis or acute territorial infarct. No significant calvarial abnormalities are present. IMPRESSION: No acute intracranial findings. ACT 112: Negative or not required by law. Electronically signed by: Quirino Lai M.D. 03/14/2021 11:52 AM Dictated:03/14/21 1147 Transcribed: 03/14/21 1147 XR chest 1V portable CLINICAL HISTORY: weakness. Evaluate cardiac pulmonary status COMPARISON STUDY: 12/10/2018 TECHNIQUE: 1 view of the chest FINDINGS: Single frontal view of the chest demonstrates the heart size to be at the upper limits of normal with a precardiac pacer again seen. The lungs are clear of alveolar opacities. There is no evidence for pleural effusion. There is no evidence for vascular congestion. There is no acute osseous pathology. IMPRESSION: No acute cardiopulmonary disease. ACT 112: Negative or not required by law. Electronically signed by: Leland Denis M.D. 03/14/2021 11:40 AM Dictated:03/14/21 1140 Transcribed: 03/14/21 1140 Hospital Course (1) Dizziness: Patient is 86 y/o F with PMH CAD s/p stent, paroxysmal atrial fibrillation on Eliquis, h/o AV block s/p pacemaker, HTN, HLD, CKD III, GERD, chronic anemia, prediabetes presented to ER with complaint of dizziness described as ceiling moving around causing off balance and fall into sofa. In ER hypertensive at 186/75, other vitals stable. No leukocytosis, negative troponin EKG: paced rhythm CT HEAD showed no acute intracranial abnormality Unable to get an MRI due to her pacemaker carotid u/s showed atherosclerosis of the bilateral carotid bulbs without hemodynamically significant stenosis. Normal antegrade vertebral flow bilaterally. Continue Meclizine prn Fall precaution Continue PT/OT eval (2) Elevated troponin: Troponin increased from 0.03 to 0.34 , then trending down to 0.29 Possible related to elevate blood pressure Denies any chest pain EKG showed no ischemic changes ECHO showed moderate concentric LVH. LV wall motion is normal with EF 55-60% Continue statin, eliquis and metoprolol (3) Paroxysmal atrial fibrillation: Continue Eliquis, metoprolol tartrate (4) Hypertension: Hypertensive on admission, currently BP improved Continue lisinopril, metoprolol tartrate, torsemide Stable (5) Coronary artery disease: S/p stent x 2 Continue rosuvastatin, isosorbide, Toprol tartrate (6) H/O cardiac pacemaker: h/o AV block Stable (7) Pre-diabetes: A1c: 6.8 on 03/15/21 Diabetic diet (8) CKD (chronic kidney disease) stage 3, GFR 30-59 ml/min: Cr: 0.9. Baseline ~1.1 stable DVT Prophylaxis On Eliquis Full Code Disposition Discharge home today By CMS guidelines, a determination that the admission or continued stay is not medically necessary has been made by a member of the UR committee and a physician for this hospital stay, therefore a Code 44 will be completed and the Inpatient admission will be changed to outpatient. Total Time Total Time Spent Total Time Spent (In Minutes): 35 minutes Discharge Plan Discharge Items Patient Disposition: Home - Home Health Services Reason For Visit: WEAKNESS, NAUSEA, VOMITING Discharge Diagnosis: Dizziness: Elevated troponin: Paroxysmal atrial fibrillation: Hypertension: Coronary artery disease: H/O cardiac pacemaker: Diabetes CKD (chronic kidney disease) stage 3, GFR 30-59 ml/min: Activity: Resume your previous activity Non-emergency contact: Primary Care Provider Call non-emergency contact if: you have any medication questions Follow-up/Referrals: Janeth Morin DO [Primary Care Provider] - (Date & Time 03/21/2021 2:50 PM Provider Janeth Morin DO Department [facility] ) Diet: Carb Consistent or DM2 and Heart Healthy Addtl Attending Provider Instructions: Follow up with your primary care provider Dr. Morin on 03/21/2021 @2:50 PM at the [facility] Continue physical and occupational therapy with home health services Fall precaution Seek medical attention if your symptoms reoccur Continue monitor your blood pressure and bring your blood pressure log at your next appointment with your provider Pending Studies at Discharge: No Stand-Alone Forms: My [facility] Medications and DC Order Prescriptions: New meclizine 12.5 mg tablet 12.5 mg PO BID PRN (Reason: dizziness or vertigo) Qty: 30 RF: 0 Continued torsemide 20 mg Tablet 20 mg PO QAM RF: 0 lisinopril 20 mg Tablet 20 mg PO QAM RF: 0 isosorbide mononitrate 30 mg Tablet Extended Release 24 Hr 30 mg PO QAM RF: 0 albuterol sulfate 90 mcg/actuation Hfa Aerosol Inhaler 2 puff INHALATION Q4 PRN (Reason: Shortness Of Breath Or Wheezing) RF: 0 Eliquis 5 mg Tablet 5 mg PO BID RF: 0 potassium chloride 20 mEq Tablet Extended Release 20 meq PO QAM RF: 0 rosuvastatin 5 mg Tablet 5 mg PO QAM RF: 0 metoprolol tartrate 25 mg Tablet 25 mg PO BID RF: 0 Discharge Orders: Discharge Order (Routine); Ordered 03/15/21 Ordered By: Erica Baker/Other Patient Handouts: A1C Admission Data Admit Date/Time: 03/14/21 15:06 Attending Provider: Erica Adkins Admit Provider: Erica Adkins Primary Care Provider: Janeth Morin Other Providers: Erica Adkins Other Interventions: Discharge Summary Assessment (RN) Last Done: 03/15/21 16:50
== END 2021-03-15 17:35 | disposition home health service (06) ==
LOC: ED 10:58 → INTOOBSV 15:06 → 2N 15:06

== ENCOUNTER 2023-04-08 13:30 | Observation (INO) ==
--- NOTE | 2023-04-08 14:22 | Emergency Department Note ---
Impression & Plan Chest pain, Dizziness, Dementia ED Provider Note NAME: SJ ADLER AGE: 88 SEX: F : 1935 ARRIVES VIA: Ambulance INFORMANT: Patient ED PROVIDER(S): Lowell Corona DO CHIEF COMPLAINT: Chest pain and dizzy HPI: Patient is an 88-year-old female who presents to the ER for symptoms that started somewhat earlier today around 10 PM. She notes she had chest tightness associated with dizziness. This resolved. She admits several days ago she had some back pain for several minutes and that resolved. She is a poor historian. Denies any headache or change in vision. No chest pain or shortness of breath. No nausea, vomiting, or diarrhea. No dysuria, urgency, or frequency. No other exacerbating or remitting factors. Additional history obtained from daughter who notes that patient does have dementia ADDITIONAL HISTORY OBTAINED: Per HPI Chronic Medical/Social Conditions Affecting Care: Per HPI PAST MEDICAL HISTORY:See Below PAST SURGICAL HISTORY:See Below FAMILY HISTORY:See Below SOCIAL HISTORY:See Below HOME MEDICATIONS:See Below ALLERGIES:See Below VITALS:See Below PHYSICAL EXAMINATION: GENERAL: Sitting up in bed, alert, well appearing, well nourished, no distress, non-toxic EYE EXAM: normal conjunctiva. PERRL and EOM's intact. OROPHARYNX:mucous membranes are moist NECK: supple, no nuchal rigidity, no adenopathy, non-tender LUNGS: Clear to auscultation. Normal chest wall mechanics HEART: no murmurs, S1 normal and S2 normal ABDOMEN: abdomen soft, non-tender, normo-active bowel sounds, no masses, no rebound or guarding. BACK: Back is symmetrical on inspection and there is no deformity, no midline tenderness, no CVA tenderness. SKIN: no rashes and no bruising UPPER EXTREMITIES: upper extremities are grossly normal. LOWER EXTREMITIES: No pitting edema. NEURO EXAM: Oriented to person but not place or year, cranial nerves II-XII intact, normal speech, no weakness of arms, no weakness of legs. No drift. Finger to nose intact. Gross sensation intact. MEDICAL DECISION MAKING: Patient is an 88-year-old female who presents the ER with above-stated complaint. Does have a extensive history of dementia which was confirmed with discussion with the daughter. IV was established blood was obtained. Labs show no significant leukocytosis. Mild anemia 11.2. BMP along with LFTs bilirubin was unremarkable. Troponin was negative. EKG was nondiagnostic. Chest x-ray was clean. CT head was negative. Case was discussed with the hospitalist for further evaluation with the chest pain. Daughter was in agreement. Did asked the nurse to interrogate the pacemaker. Never received a report. Will encourage them to check it again. Consults/Care Managements Discussions: Per [facility] Triage Nursing notes reviewed. Limited review of prior medical records performed Vital Signs: reviewed and remarkable for no significant abnormalities Differential diagnosis: Differential diagnosis includes etiologies such as benign positional vertigo, dehydration, hypovolemia, anemia, tumor, infection, hypoglycemia, electrolyte abnormalities, cardiac sources, intracerebral event, toxicologic, neurological, as well as others were entertained. ER treatment provided: See below Diagnostics interpreted by me include EKG and cardiac monitoring as listed below: -Cardiac Monitoring: An order was placed for continuous cardiac monitoring. The monitor shows a rate of 80 with sinus rhythm. -ECG: Atrial paced rate of 67 Normal axis PVCs QTc 435 -Laboratory studies:Interpreted by me as stated above in MDM and shown below. Imaging studies: Xrays: As interpreted by me: Portable AP upright 1 view of the chest shows no focal CTs show: CT head was negative Procedures:none Critical Care: None Past Med/Surg History Medical History (Updated 04/08/23 @ 20:30 by Lowell Corona DO) Coronary artery disease s/p stent placement in 1993 (LAD diagonal) and 2007 Elevated troponin Spinal stenosis Arthritis Urinary leakage Prediabetes NO MEDS CURRENLTY Hx of cancer of uterus s/p hysterectomy Peripheral neuropathy Shortness of breath REASON FOR INHLAER RX (HAS NOT USED FOR A WHILE) Lower back pain HLD (hyperlipidemia) Carotid artery stenosis CKD (chronic kidney disease) stage 3, GFR 30-59 ml/min Hypertension Paroxysmal atrial fibrillation Atrial fibrillation REASON FOR ELIQUIS (FOLLOWED BY DR. PENNY) Hypertension Surgical History History of surgery on arm RT ARM REPAIRED AT AGE 9 D/T FRACTURE History of bladder surgery BLADDER TACK History of colonoscopy History of tooth extraction History of tonsillectomy History of heart artery stent 1993, 2007 (PLACED IN [place]) History of lumbar fusion History of total abdominal hysterectomy History of appendectomy History of cholecystectomy History of open reduction and internal fixation (ORIF) procedure Left forearm H/O cardiac pacemaker IMPLANTED "QUITE A WHILE AGO" RECENTLY CHECKED>LAST WEEK Family History Mother Diabetes Myocardial infarction Cancer Bladder and kidney Family history of diabetes mellitus Sister Breast cancer Son Multiple sclerosis Social History Smoking Status: Former smoker Second Hand Exposure: Yes (IN THE PAST); Do You Dip or Chew Tobacco: No; Hx Alcohol Use: No Hx Substance Use: No Preferred Language: Danish Communication Ability: Effective Photographic Equipment Technician Required: No Beliefs That Will Affect Care: None marital status: / Current Living Situation: Alone Feels Safe at Home: Yes Assistive Devices: Walker Allergies Allergies Allergy/AdvReac Type Severity Reaction Status Date / Time Iodinated Contrast Media Allergy Severe SHORTNESS Verified 04/08/23 15:53 OF BREATH aspirin Allergy Mild RASH Verified 04/08/23 15:53 Home Meds Home Medications Medication Instructions Recorded Confirmed albuterol sulfate 90 mcg/actuation 2 puff inhalation Q4 PRN Shortness 12/05/18 04/08/23 aerosol inhaler Of Breath Or Wheezing apixaban 5 mg tablet (Eliquis) 5 mg PO BID 12/05/18 04/08/23 isosorbide mononitrate 30 mg 30 mg PO QAM 12/05/18 04/08/23 tablet,extended release 24 hr lisinopril 20 mg tablet 20 mg PO QAM 12/05/18 04/08/23 potassium chloride 20 mEq 20 meq PO QAM 12/05/18 04/08/23 tablet,extended release torsemide 20 mg tablet 20 mg PO QAM 12/05/18 04/08/23 metoprolol tartrate 25 mg tablet 25 mg PO BID 10/20/19 04/08/23 rosuvastatin 5 mg tablet 5 mg PO QAM 10/20/19 04/08/23 Previous Rx's Medication Instructions Recorded meclizine 12.5 mg tablet 12.5 mg PO BID PRN dizziness or 03/15/21 vertigo #30 tabs Results & Data (ED) Vital Signs Vital Signs - 24 hr 04/08/23 13:40 04/08/23 13:42 04/08/23 14:01 Pulse Rate 79 82 Pulse Rate [Apical] 66 Pulse Rhythm Regular Pulse Rhythm [Apical] Regular Pulse Strength [Apical] Normal Respiratory Rate 20 14 Respiratory Effort / Characteristics Non-Labored Non-Labored Respiratory Depth Normal Normal Respiratory Pattern Regular Regular Blood Pressure 120/70 Blood Pressure [Left Arm] 161/103 H Blood Pressure Mean 86 Blood Pressure Mean [Left Arm] 122 Blood Pressure Position Lying Blood Pressure Position [Left Arm] Pulse Oximetry 97 96 Oxygen Delivery Method Room Air Room Air Sepsis Recent Fever Within 48 Hours No Sepsis New/Unexplained Change in Mental Status N/A Sepsis Action Taken by Nursing No Action Required 04/08/23 16:00 Pulse Rate Pulse Rate [Apical] 84 Pulse Rhythm Pulse Rhythm [Apical] Regular Pulse Strength [Apical] Normal Respiratory Rate 16 Respiratory Effort / Characteristics Non-Labored Respiratory Depth Normal Respiratory Pattern Regular Blood Pressure Blood Pressure [Left Arm] 125/65 Blood Pressure Mean Blood Pressure Mean [Left Arm] 85 Blood Pressure Position Blood Pressure Position [Left Arm] Lying Pulse Oximetry 96 Oxygen Delivery Method Room Air Sepsis Recent Fever Within 48 Hours Sepsis New/Unexplained Change in Mental Status Sepsis Action Taken by Nursing Laboratory Data 04/08/23 14:15 04/08/23 14:15 Lab Results 04/08/23 Range/Units 14:15 WBC 8.50 (4.8-10.8) K/ul RBC 3.63 L (4.20-5.40) M/uL Hgb 11.2 L (12.0-16.0) g/dl Hct 34.0 L (37.0-47.0) % MCV 93.7 (80.0-100.0) fL MCH 30.9 (25.0-34.0) pg MCHC 32.9 (32.0-36.0) g/dL RDW Std Deviation 45.0 (36.4-46.3) fL RDW Coeff of Seferino 13.2 (11.5-14.5) % Plt Count 194 (130-400) K/uL MPV 13.2 H (9.4-12.4) fL Immature Gran % (Auto) 0.4 % Neut % (Auto) 59.6 % Lymph % (Auto) 26.8 % Morrill % (Auto) 9.2 % Eos % (Auto) 3.4 % Baso % (Auto) 0.6 % Neut # (Auto) 5.07 (1.40-6.50) K/uL Lymph # (Auto) 2.28 (1.20-3.40) K/uL Morrill # (Auto) 0.78 H (0.11-0.59) K/uL Eos # (Auto) 0.29 (0.00-0.50) K/uL Baso # (Auto) 0.05 (0.00-0.20) K/uL Immature Gran # (Auto) 0.03 (0.01-0.20) K/uL Sodium 138 (136-145) mmol/L Potassium 4.6 (3.5-5.1) mmol/L Chloride 104 (98-107) mmol/L Carbon Dioxide 27 (21-32) mmol/L Anion Gap 7 (3-11) BUN 22 (6-23) mg/dl Creatinine 1.29 H (0.6-1.2) mg/dl Est Cr Clr Drug Dosing Not Reportable Est GFR ( Amer) 42.5 ml/min Est GFR (Non-Af Amer) 36.7 ml/min BUN/Creatinine Ratio 17.1 (10-20) Glucose 157 H (70-99(Fasting)) mg/dl Calcium 8.9 (8.6-10.3) mg/dl Total Bilirubin 0.4 (0.2-1.0) mg/dl AST 14 (13-39) U/L ALT 9 (7-52) U/L Alkaline Phosphatase 74 (34-104) U/L Troponin I High Sens 10.8 (0-14) pg/ml Total Protein 6.5 (6.0-8.3) gm/dl Albumin 3.6 (3.4-5.0) gm/dl Globulin 2.9 (2.5-4.0) gm/dl Albumin/Globulin Ratio 1.2 (0.9-2) Lipase 45 (11-82) U/L Administered Medications Insulin Aspart (Insulin Aspart Per Unit Charge) 0 units SC ACHS OSCAR Stop: 05/08/23 18:44 Last Admin: 04/08/23 19:47 Dose: Not Given Documented By: PAT Co-signed By: RUDDY Discontinued Medications Haloperidol Lactate (Haloperidol Lactate 5 Mg/Ml 1 Ml Vial) 2.5 mg IV NOW STA Stop: 04/08/23 19:29 Last Admin: 04/08/23 19:48 Dose: 2.5 mg Documented By: PAT Imaging Data Radiologist's Impression: Chest X-Ray 04/08/23 14:09 XR chest 1V portable HISTORY: Chest pain, nonspecific COMPARISON: Chest 01/30/2022. FINDINGS: There is a left-sided dual-chamber pacemaker. The heart remains mildly enlarged. No pneumothorax. No pleural effusions. There are calcifications within the aortic knob. Slightly rotated study. No acute fractures identified. No evidence for pulmonary edema. No focal lung consolidations to suggest a pneumonia. IMPRESSION: Mild cardiomegaly. Otherwise, no acute process within the chest ACT 112: Negative or not required by law. Electronically signed by: Rakesh Franco M.D. 04/08/2023 2:[address] 04/08/23 14:59 CT OF THE HEAD WITHOUT CONTRAST CLINICAL HISTORY: Altered mental status. COMPARISON STUDY: Head CT January 30, 2022. CT DOSE: 703.85 mGy.cm TECHNIQUE: Helical axial images of the head were obtained without IV contrast. Automated exposure control was utilized for the study. A dose lowering technique was utilized adhering to the principles of ALARA. FINDINGS: No acute intracranial hemorrhage, midline shift or mass effect is present. White matter hypodensities are similar to prior exam and favor small vessel disease. The ventricular system is unremarkable. The basal cisterns are patent. No extra-axial collections are present. There are no findings to suggest acute dural sinus thrombosis or acute territorial infarct. No significant calvarial abnormalities are present. Visualized portions of the sinuses and mastoid air cells are clear. IMPRESSION: No acute intracranial findings. ACT 112: Negative or not required by law. Electronically signed by: Quirino Lai M.D. 04/08/2023 3:45 PM Discharge Plan Visit Data Chief Complaint: Chest Pain Stated Complaint: UPPER GASTRIC & PAIN BETWEEN SHOULDER BLADES ED Provider: Lowell Corona Discharge Problem: Chest pain, Dizziness, Dementia Patient Disposition: Admitted As Inpatient Discharge Instructions Interventions: ED Discharge Assessment Last Done: 04/08/23 18:45 Discharge Problem: Chest pain Qualifiers: Chest pain type: unspecified Qualified Code(s): R07.9 - Chest pain, unspecified Dementia Qualifiers: Dementia type: unspecified type Dementia severity: unspecified severity D ementia behavioral or psychological symptom: unspecified whether behavioral, psychotic, or mood disturbance or anxiety Qualified Code(s): F03.90 - Unspecified dementia, unspecified severity, without behavioral disturbance, psychotic disturbance, mood disturbance, and anxiety
--- NOTE | 2023-04-08 14:42 | Electrocardiogram Report ---
Test Reason : Blood Pressure : / mmHG Vent. Rate : 067 BPM Atrial Rate : 067 BPM P-R Int : 266 ms QRS Dur : 086 ms QT Int : 412 ms P-R-T Axes : 092 059 052 degrees QTc Int : 435 ms Atrial-paced rhythm with prolonged AV conduction and occasional ventricular pacing Low voltage QRS Abnormal ECG When compared with ECG of 30-JAN-2022 15:18, Electronic atrial pacemaker has replaced Sinus rhythm Confirmed by Lopez Rodas ([id number]) on 04/08/2023 2:42:25 PM Referred By: Confirmed By:Lopez Rodas
[2023-04-08 14:47] LABS: Basophils # (auto) 0.05 K/uL (0.00-0.20); Basophils % (auto) 0.6 %; Eosinophils # (auto) 0.29 K/uL (0.00-0.50); Eosinophils % (auto) 3.4 %; Hemoglobin 11.2 g/dl (12.0-16.0); Immature Granulocytes # (auto) 0.03 K/uL (0.01-0.20); Immature Granulocytes % (auto) 0.4 %; Lymphocytes # (auto) 2.28 K/uL (1.20-3.40); Lymphocytes % (auto) 26.8 %; Mean Corpuscular Hemoglobin 30.9 pg (25.0-34.0); Mean Corpuscular Hgb Conc 32.9 g/dL (32.0-36.0); Mean Corpuscular Volume 93.7 fL (80.0-100.0); Mean Platelet Volume 13.2 fL (9.4-12.4); Monocytes # (auto) 0.78 K/uL (0.11-0.59); Monocytes % (auto) 9.2 %; Neutrophils # (auto) 5.07 K/uL (1.40-6.50); Neutrophils % (auto) 59.6 %; Platelet Count 194 K/uL (130-400); RDW Coefficient of Variation 13.2 % (11.5-14.5); Red Blood Count 3.63 M/uL (4.20-5.40)
--- NOTE | 2023-04-08 14:57 | XRay Report ---
XR chest 1V portable HISTORY: Chest pain, nonspecific COMPARISON: Chest 01/30/2022. FINDINGS: There is a left-sided dual-chamber pacemaker. The heart remains mildly enlarged. No pneumot horax. No pleural effusions. There are calcifications within the aortic knob. Slightly rotated study. No acute fractures identified. No evidence for pulmonary edema. No focal lung consolidations to sugg est a pneumonia. IMPRESSION: Mild cardiomegaly. Otherwise, no acute process within the chest ACT 112: Negative or not required by law. Electronically signed by: Rakesh Franco M.D. 04/08/2023 2:55 PM
[2023-04-08 15:02] LABS: Alanine Aminotransferase 9 U/L (7-52); Albumin Globulin Ratio 1.2 (0.9-2); Albumin Level 3.6 gm/dl (3.4-5.0); Alkaline Phosphatase 74 U/L (34-104); Anion Gap 7 (3-11); Aspartate Aminotransferase 14 U/L (13-39); BUN Creatinine Ratio 17.1 (10-20); Bilirubin,Total 0.4 mg/dl (0.2-1.0); Blood Urea Nitrogen 22 mg/dl (6-23); Calcium 8.9 mg/dl (8.6-10.3); Carbon Dioxide 27 mmol/L (21-32); Chloride 104 mmol/L (98-107); Est GFR (African American) 42.5 ml/min; Est GFR (Non-African American) 36.7 ml/min; Globulin 2.9 gm/dl (2.5-4.0); Glucose 157 mg/dl (70-99(Fasting)); Lipase 45 U/L (11-82); Potassium 4.6 mmol/L (3.5-5.1); Sodium 138 mmol/L (136-145); Total Protein 6.5 gm/dl (6.0-8.3)
[2023-04-08 15:06] LABS: Troponin I High Sensitivity 10.8 pg/ml (0-14)
--- NOTE | 2023-04-08 15:46 | CT Scan Report ---
CT OF THE HEAD WITHOUT CONTRAST CLINICAL HISTORY: Altered mental status. COMPARISON STUDY: Head CT January 30, 2022. CT DOSE: 703.85 mGy.cm TECHNIQUE: Helical axial images of the head were obtained without IV contrast. Automated exposure con trol was utilized for the study. A dose lowering technique was utilized adhering to the principles o f ALARA. FINDINGS: No acute intracranial hemorrhage, midline shift or mass effect is present. White matter hyp odensities are similar to prior exam and favor small vessel disease. The ventricular system is unrema rkable. The basal cisterns are patent. No extra-axial collections are present. There are no findings to suggest acute dural sinus thrombosis or acute territorial infarct. No significant calvarial abnorm alities are present. Visualized portions of the sinuses and mastoid air cells are clear. IMPRESSION: No acute intracranial findings. ACT 112: Negative or not required by law. Electronically signed by: Quirino Lai M.D. 04/08/2023 3:45 PM
--- NOTE | 2023-04-08 17:13 | History & Physical Report ---
Date of Service April 08, 2023 Assessment & Plan (1) Chest pain: (2) Coronary artery disease: (3) Atrial fibrillation: (4) Diabetes: (5) Hypertension: (6) HLD (hyperlipidemia): Plan This is an 88-year-old female who has significant past medical history of CAD with history of stent x 2, PAF with history of pacemaker, HTN, HLD, T2DM, CKD stage III, dementia who presents to ED secondary to chest pain and dizziness x 5 minutes. Chest pain -currently resolved CAD with history of stent Chronic HFpEF HTN HLD Admit to telemetry under observation Cycle troponins, repeat echocardiogram A1c, lipid panel in a.m. Continue Eliquis, Imdur, lisinopril, metoprolol, rosuvastatin and torsemide Pt BP elevated in ED. Will receive metoprolol this evening monitor closely T2DM last a1c 2022 obtain a1c in a.m. diet controlled novolog sliding scale PAF hx of AVB PPM in place interrogate pacemaker to see if correlates with sx continue metoprolol and eliquis DVT ppx: eliquis DNR/DNI Dispo: admit to tele under obs, likely d/c tomorrow if w/u unremarkable PCP: Patience Pt was seen and examined in collaboration with Dr. Sullivan, please see addendum A total of 76 minutes was spent coordinating, documenting, and providing care for this patient excluding time spent in the performance of separately billed services. This included personally viewing all current laboratories and imaging studies, medication reconciliation, outpatient chart review, and discussion with specialists. History of Present Illness Chief Complaint: Chest pain Primary Care Provider: Janeth Morin, This is an 88-year-old female who has significant past medical history of CAD with history of stent x 2, PAF with history of pacemaker, HTN, HLD, T2DM, CKD stage III, dementia who presents to ED secondary to chest pain and dizziness x 5 minutes. Patient lives alone and has caregivers who come from 7-5p. She also has strong family support in the evening. She was referred to ED from her caregiver due to complaining of chest pain and dizziness. It was resolved upon EMS arrival. ROS unreliable due to patient underlying history of dementia. Did discuss with patient's daughter Dayanna. At baseline she is alert to self and some family members, but is otherwise confused. In ED she remained hemodynamically stable. Her EKG revealed atrial paced rhythm at 60 bpm, no ST or T wave changes. Her last echocardiogram was March 2022 which revealed m oderate LVH, 55 to 60%, mild AV sclerosis and grade 1 diastolic dysfunction. She is recommended for admission for cardiac eval. Allergies Allergy/AdvReac Type Severity Reaction Status Date / Time Iodinated Contrast Media Allergy Severe SHORTNESS Verified 04/08/23 15:53 OF BREATH aspirin Allergy Mild RASH Verified 04/08/23 15:53 Home Medications Medication Instructions Recorded Confirmed Type albuterol sulfate 90 mcg/actuation 2 puff inhalation Q4 PRN Shortness 12/05/18 04/08/23 History aerosol inhaler Of Breath Or Wheezing apixaban 5 mg tablet (Eliquis) 5 mg PO BID 12/05/18 04/08/23 History isosorbide mononitrate 30 mg 30 mg PO QAM 12/05/18 04/08/23 History tablet,extended release 24 hr lisinopril 20 mg tablet 20 mg PO QAM 12/05/18 04/08/23 History potassium chloride 20 mEq 20 meq PO QAM 12/05/18 04/08/23 History tablet,extended release torsemide 20 mg tablet 20 mg PO QAM 12/05/18 04/08/23 History metoprolol tartrate 25 mg tablet 25 mg PO BID 10/20/19 04/08/23 History rosuvastatin 5 mg tablet 5 mg PO QAM 10/20/19 04/08/23 History meclizine 12.5 mg tablet 12.5 mg PO BID PRN dizziness or 03/15/21 04/08/23 Rx vertigo #30 tabs Past Med/Surg History Medical History (Updated 04/08/23 @ 17:26 by Linda Arce PA-C) Coronary artery disease s/p stent placement in 1993 ([facility] diagonal) and 2007 Elevated troponin Spinal stenosis Arthritis Urinary leakage Prediabetes NO MEDS CURRENLTY Hx of cancer of uterus s/p hysterectomy Peripheral neuropathy Shortness of breath REASON FOR INHLAER RX (HAS NOT USED FOR A WHILE) Lower back pain HLD (hyperlipidemia) Carotid artery stenosis CKD (chronic kidney disease) stage 3, GFR 30-59 ml/min Hypertension Paroxysmal atrial fibrillation Atrial fibrillation REASON FOR ELIQUIS (FOLLOWED BY DR. PENNY) Hypertension Surgical History History of surgery on arm RT ARM REPAIRED AT AGE 9 D/T FRACTURE History of bladder surgery BLADDER TACK History of colonoscopy History of tooth extraction History of tonsillectomy History of heart artery stent 1993, 2007 (PLACED IN [place]) History of lumbar fusion History of total abdominal hysterectomy History of appendectomy History of cholecystectomy History of open reduction and internal fixation (ORIF) procedure Left forearm H/O cardiac pacemaker IMPLANTED "QUITE A WHILE AGO" RECENTLY CHECKED>LAST WEEK Family History Mother Diabetes Myocardial infarction Cancer Bladder and kidney Family history of diabetes mellitus Sister Breast cancer Son Multiple sclerosis Social History Smoking Status: Former smoker Second Hand Exposure: Yes (IN THE PAST); Do You Dip or Chew Tobacco: No; Hx Alcohol Use: No Hx Substance Use: No Preferred Language: Peruvian Communication Ability: Effective Administrative Services Specialist Required: No Beliefs That Will Affect Care: None marital status: / Current Living Situation: Alone Feels Safe at Home: Yes Assistive Devices: Walker Review of Systems Review of Systems: All systems reviewed & are unremarkable except as noted in HPI & below Physical Exam Physical Exam: Constitutional: WD/WN, Elderly, F, alert to self only, vitals as above, NAD, sitting up in bed, pleasant but wishing to go home Head: Normocephalic, Atraumatic Eyes: PERRL, conjunctivae normal, anicteric sclerae ENMT: external ear and nose normal, oropharynx normal Neck: trachea midline, no thyromegaly normal visual inspection Respiratory: normal respiratory effort, lungs clear to auscultation, no wheeze, rales, rhonchi. Normal insp/exp effort, no accessory muscle use Cardiovascular: RRR, no murmur, LLE non pitting edema, venous stasis change Vessels: no JVD or carotid bruit Chest: normal inspection of chest Abdomen: normal bowel sounds, soft, nontender, no hepatosplenomegaly Musculoskeletal: no cyanosis or clubbing, AROM x 4 Skin: no rashes, warm and dry normal turgor Neurologic: PERRL, EOMI, accommodation nl, no face palsy, no dysarthria CN's II-XI intact bilaterally and moves all extremities Psychiatric: A+O x 1 to self, euthymic affect Lymphatic: no cervical or axillary lymphadenopathy : deferred Results & Data Results & Data Vital Signs (Past 12 Hours) Vital Signs Pulse Pulse Resp BP BP Pulse Ox O2 Del Method 04/08/23 14:01 66 14 161/103 H 96 Room Air 04/08/23 13:42 82 04/08/23 13:40 79 20 120/70 97 Room Air Diagnostic Findings Chest X-Ray 04/08/23 14:09 XR chest 1V portable HISTORY: Chest pain, nonspecific COMPARISON: Chest 01/30/2022. FINDINGS: There is a left-sided dual-chamber pacemaker. The heart remains mildly enlarged. No pneumothorax. No pleural effusions. There are calcifications within the aortic knob. Slightly rotated study. No acute fractures identified. No evidence for pulmonary edema. No focal lung consolidations to suggest a pneumonia. IMPRESSION: Mild cardiomegaly. Otherwise, no acute process within the chest ACT 112: Negative or not required by law. Electronically signed by: Rakesh Franco M.D. 04/08/2023 2:[address] 04/08/23 14:59 CT OF THE HEAD WITHOUT CONTRAST CLINICAL HISTORY: Altered mental status. COMPARISON STUDY: Head CT January 30, 2022. CT DOSE: 703.85 mGy.cm TECHNIQUE: Helical axial images of the head were obtained without IV contrast. Automated exposure control was utilized for the study. A dose lowering technique was utilized adhering to the principles of ALARA. FINDINGS: No acute intracranial hemorrhage, midline shift or mass effect is present. White matter hypodensities are similar to prior exam and favor small vessel disease. The ventricular system is unremarkable. The basal cisterns are patent. No extra-axial collections are present. There are no findings to suggest acute dural sinus thrombosis or acute territorial infarct. No significant calvarial abnormalities are present. Visualized portions of the sinuses and mastoid air cells are clear. IMPRESSION: No acute intracranial findings. ACT 112: Negative or not required by law. Electronically signed by: Quirino Lai M.D. 04/08/2023 3:45 PM ECG Additional Comments: I have independently reviewed and interpreted patient's admitting EKG which revealed: 67, a paced COVID-19 Results Results COVID-19 Adm Lab Results: RBC 3.63 M/uL (4.20-5.40) L 04/08/23 WBC 8.50 K/ul (4.8-10.8) 04/08/23 Hgb 11.2 g/dl (12.0-16.0) L 04/08/23 Hct 34.0 % (37.0-47.0) L 04/08/23 Plt Count 194 K/uL (130-400) 04/08/23 Neutrophils (%) (Auto) 59.6 % 04/08/23 Lymphocytes (%) (Auto) 26.8 % 04/08/23 Monocytes # (Auto) 0.78 K/uL (0.11-0.59) H 04/08/23 Eosinophils # (Auto) 0.29 K/uL (0.00-0.50) 04/08/23 Immature Granulocyte % (Auto) 0.4 % 04/08/23 Neutrophils # (Auto) 5.07 K/uL (1.40-6.50) 04/08/23 Lymphocytes # (Auto) 2.28 K/uL (1.20-3.40) 04/08/23 Monocytes # (Auto) 0.78 K/uL (0.11-0.59) H 04/08/23 Eosinophils # (Auto) 0.29 K/uL (0.00-0.50) 04/08/23 Basophils # (Auto) 0.05 K/uL (0.00-0.20) 04/08/23 Immature Granulocyte # (Auto) 0.03 K/uL (0.01-0.20) 4 Na 138 mmol/L (136-145) 04/08/23 K 4.6 mmol/L (3.5-5.1) 04/08/23 Cl 104 mmol/L (98-107) 04/08/23 CO2 27 mmol/L (21-32) 04/08/23 Anion Gap 7 (3-11) 04/08/23 BUN 22 mg/dl (6-23) 04/08/23 Creatinine 1.29 mg/dl (0.6-1.2) H 04/08/23 BUN/Creatinine Ratio 17.1 (10-20) 04/08/23 Glucose Level 157 mg/dl (70-99(Fasting)) H 04/08/23 Ca 8.9 mg/dl (8.6-10.3) 04/08/23 Total Bilirubin 0.4 mg/dl (0.2-1.0) 04/08/23 AST/SGOT 14 U/L (13-39) 04/08/23 ALT/SGPT 9 U/L (7-52) 04/08/23 Alkaline Phosphatase 74 U/L (34-104) 04/08/23 Total Protein 6.5 gm/dl (6.0-8.3) 04/08/23 Albumin 3.6 gm/dl (3.4-5.0) 04/08/23 Globulin 2.9 gm/dl (2.5-4.0) 04/08/23 Albumin/Globulin Ratio 1.2 (0.9-2) 04/08/23 Chest X-Ray 04/08/23 Code Status & VTE Plan Code Status DNR/DNI - confirmed with MICHELLE Alan Supervising Physician Co-Signing Physician Notes I have seen and discussed the case with the collaborating RUSTAM. I agree with the above H&P. I have reviewed and confirmed the patients medical history, the findings on physical examination, and the patients diagnosis and treatment plan with Yazmin EASTON and agree with the information documented. In short, Ms. Botello is an 88 year old woman with CAD s/p stent x 2, PAF with history of pacemaker, HTN, HLD, T2DM, CKD stage III, dementia who is being admitted for ACS r/o. Patient with chest pain this morning prompting caregiver to call EMS. This was also associated with dizziness. This all resolved prior to EMS arrival. Upon presentation, troponin negative, EKG without acute changes. Patient AOx2, does not recall chest pain from the morning or events leading to presentation, which is consistent wth baseline per daughter. Exam CTABL, no tenderness to palpation along costochondral margins, RRR. #ACS r/o Tropx3, follow up ECHO, PPM check Resume home medications Rest of plan as above I have reviewed the advanced practitioner's documentation, and I agree with, and take responsibility for the plan of care
[2023-04-08] MEDS ORDERED: POLYETHYLENE (MIRALAX) 17 GM PACK PO PRN (18:45)
[2023-04-08] MEDS ORDERED: GLUCOSE 40% GEL 15 GM TUBE PO PRN (18:45)
[2023-04-08] MEDS ORDERED: ALUMINUM/MAGNESIUM SUSP 30 ML UDC PO PRN (18:45)
[2023-04-08] MEDS ORDERED: ONDANSETRON INJ 2 MG/ML 2 ML VIAL IV PRN (18:45)
[2023-04-08] MEDS ORDERED: MAGNESIUM HYDROXIDE SUSP 30 ML UDC PO PRN (18:45)
[2023-04-08] MEDS ORDERED: GLUCAGON FOR INJ 1 MG VIAL SQ PRN (18:45)
[2023-04-08] MEDS ORDERED: CARBOHYDRATES FOR HYPOGLYCEMIA PO PRN (18:45)
[2023-04-08] MEDS ORDERED: DEXTROSE 50% 50 ML SYRINGE IV PRN (18:45)
[2023-04-08] MEDS ORDERED: GLUCOSE 10 TAB/TUBE PO PRN (18:45)
[2023-04-08] MEDS: INSULIN ASPART PER UNIT CHARGE SC SCH (19:47)
[2023-04-08] MEDS: HALOPERIDOL LACTATE 5 MG/ML 1 ML VIAL IV STA (19:48)
[2023-04-08] MEDS: APIXABAN 5 MG TABLET PO SCH (20:32)
[2023-04-08] MEDS: METOPROLOL TARTRATE 25 MG TAB PO SCH (20:33)
[2023-04-08] MEDS ORDERED: HALOPERIDOL LACTATE 5 MG/ML 1 ML VIAL IM STA (22:01)
--- OUTSIDE RECORDS SUMMARY | 2023-04-08 23:59 | External Medical Summary | Summary of Care ---
Author Name Unknown Organization [facility] Address [address] [place] [address] Phone [phone] Care Team Providers Care Wagon Driver Salesperson Name Role Phone Jenae Phipps DO Primary Care Provider Reason for Visit * Reason Onset Date Comments Medication Refill 03/27/2023 Encounter Details Date Type Department Care Team (Late st Contact Info) Description 03/27/2023 Refill Family Medicine [address] [place] [phone] Jenae Phipps DO [address] [place] [address] [place] [address] Paroxysmal atrial fibrillation (HCC); Hypertensive kidney disease with stage 3 chronic kidney disease (HCC) Allergies Active Allergy Reactions Criticality Noted Date Comments Aspirin Hives Medium 12/26/2010 Iodinated Contrast Media Other (Please comment) Medium 12/26/2010 Pt said she gets hives and can't breath documented as of this encounter (statuses as of 03/27/2023) Medications Medication Sig Dispensed Refills Start Date End Date Status Meclizine HCl 12.5 MG Oral Tablet (Antivert) 0 03/15/2021 Active Tylenol 325 MG Oral Capsule (Acetaminophen) Take by mouth . Twice a week if that 0 Active Loratadine 10 MG Oral Tablet Take 1 Tablet by mouth in the morning. 0 Active Potassium Chloride Sophia ER 20 MEQ Oral Tablet Extended Release Take 1 Tablet by mouth in the morning. 90 Tablet 3 07/16/2022 Active Albuterol Sulfate HFA 108 (90 Base) MCG/ACT Inhalation Aerosol SolutionIndication s:Intermittent asthma with reliever use up to twice per week Use two puffs every four hours as needed for wheezing 18 g 3 10/01/2022 Active Torsemide 20 MG Oral Tablet (Demadex)Indicatio ns:Hypertensive kidney disease with stage 3 chronic kidney disease (HCC) TAKE 1 TABLET BY MOUTH EVERY MORNING 90 Tablet 3 12/02/2022 Active Rosuvastatin Calcium 5 MG Oral Tablet (Crestor)Indicatio ns:Dyslipidemia, goal LDL below 100 Take 1 Tablet by mouth in the morning. 90 Tablet 1 12/10/2022 Active Eliquis 5 MG Oral Tablet Take 1 Tablet by mouth in the morning and 1 Tablet before bedtime. 180 Tablet 3 12/17/2022 Active Metoprolol Tartrate 25 MG Oral Tablet (Lopressor)Indicat ions:Paroxysmal atrial fibrillation (HCC) TAKE ONE TABLET BY MOUTH TWICE DAILY 180 Tablet 3 03/05/2023 Active Isosorbide Mononitrate ER 30 MG Oral Tablet Extended Release 24 Hour (Imdur) Take 1 Tablet by mouth in the morning. 90 Tablet 3 03/17/2023 Active Lisinopril 20 MG Oral Tablet (Prinivil)Indicati ons:Paroxysmal atrial fibrillation (HCC),Hypertensive kidney disease with stage 3 chronic kidney disease (HCC) Take 1 Tablet by mouth in the morning. 90 Tablet 1 03/27/2023 Active Lisinopril 20 MG Oral Tablet (Prinivil)Indicati ons:Paroxysmal atrial fibrillation (HCC),Hypertensive kidney disease with stage 3 chronic kidney disease (HCC) Take 1 Tablet by mouth in the morning. 90 Tablet 1 10/02/2022 03/27/2023 Discontinue d(Refill) documented as of this encounter (statuses as of 03/27/2023) Active Problems Problem Noted Date Diagnosed Date Moderate late onset Alzheimer's dementia 023 Chronic kidney disease, stage 3a 04/03/2022 Type 2 diabetes mellitus wit h stage 3b chronic kidney disease 11/12/2021 Overview: Per CKD protocol Benign hypertension with stage 3b chronic kidney disease 10/08/2021 Overview: Per CKD protocol Diabetes mellitus without complication 2 Paroxysmal atrial fibrillation 12/29/2018 Hyperparathyroidism, secondary renal 10/22/2016 Fecal incontinence 08/08/2015 HTN, goal below 150/90 07/11/2014 Senile osteoporosis 06/28/2014 Abnormality of gait 09/15/2013 Degenerative disc disease, cervical 04/09/2013 Intermittent asthma with reliever use up to twic e per week 02/02/2013 Dyslipidemia, goal LDL below 100 08/19/2012 Aspirin intolerance 05/12/2012 Rotator cuff tear arthropathy of both shoulders 05/12/2012 Coronary atherosclerosis 12/26/2010 Carotid stenosis, non-symptomatic 12/26/2010 GERD (gastroesophageal reflux disease) Cardiac pacemaker documented as of this encounter (statuses as of 03/27/2023) Resolved Problems Problem Noted Date Diagnosed Date Resolved Date Mild late onset Alzheimer's dementia 04/03/2022 10/04/2022 Chronic kidney disease, stage 3b 11/12/2021 10/04/2022 Overview: Per CKD protocol Diabetes mellitus with stage 3 chronic kidney disease 10/08/2021 11/15/2021 Overview: Per CKD protocol Hypertensive kidney disease with stage 3b chronic kidney disease 10/08/2021 04/03/2022 Overview: Per CKD protocol Benign hypertension with sta ge 3a chronic kidney disease 07/11/2020 10/11/2021 Overview: Per CKD protocol Chronic kidney disease, stage 3a 07/11/2020 10/11/2021 Overview: Per CKD protocol Benign hypertension with CKD (chronic kidney disease) stage III 02/04/2020 07/13/2020 Overview: Per CKD protocol Hypertensive kidney disease with stage 3a chronic kidney disease 01/10/2020 10/11/2021 Overview: Per CKD protocol Hypertensive kidney disease with stage 3 chronic kidney disease 12/29/2018 01/13/2020 Overview: Per CKD protocol Kidney disease, chronic, sta ge III (GFR 30-59 ml/min) 09/07/2018 01/15/2019 Overview: Per CKD protocol Iron deficiency anemia 10/28/201710/04 Body mass index (BMI) of 40. 0 to 44.9 in adult 12/02/2016 12/29/2018 Overview: Per Obesity protocol #1 Vitamin D deficiency 10/11/2015 023 Kidney disease, chronic, sta ge III (GFR 30-59 ml/min) 05/16/2014 05/12/2018 Overview: Per CKD protocol #1 Type 2 diabetes mellitus wit h stage 3 chronic kidney disease, without long-term current use of insulin 09/15/2013 08/24/2018 Overview: ICD-10 update of inactive term Fracture of wrist, closed 09/15/2013 Prediabetes 11/07/2011 10/04/2022 Type 2 diabetes mellitus wit h hemoglobin A1c goal of less than 7.0% 11/07/2011 09/15/2013 Overview: ICD-10 update of inactive term Type 2 diabetes mellitus wit h hemoglobin A1c goal of less than 7.0% 02/04/2011 11/07/2011 Overview: ICD-10 update of inactive term Hyperlipidemia with target LDL less than 70 02/04/2011 08/19/2012 Overview: ICD-10 update of inactive term Rosacea 02/04/2011 02/04/2011 Cardiovascular symptoms 12/26/201012/02 IBS (irritable bowel syndrome) 10/28/2017 Polyp of colon 10/28/2017 Anemia 10/04/2022 Hypertension goal BP (blood pressure) < 130/80 07/11/2014 documented as of this encounter (statuses as of 03/27/2023) Immunizations Name Administration Dates Next Due COVID-19 mRNA, LNP-s, No Pre serve, 2-Dose Series (Moderna) 06/01/2020,05/03/2020 COVID-19, mRNA, LNP-s, PF, B ooster, 100mcg/0.5mg (Moderna) 09/21/2021,02/02/2021 Pneumococcal Conjugate Vacc, 13 Valent (Prevnar) 10/10/2015 Pneumococcal Polysaccharide PPV23 (Pneumovax) 12/15/2004 Season Influenza, Quad, PF, Adjuvanted, 65+ Yrs, IM (FLUAD) 02/04/2020 Seasonal Influenza, Quadriva lent Hd (Fluzone Hd) 04/03/2022,01/23/2021 Seasonal Influenza, Quadrivalent, ID ,02/04/2020,12/11/2018,12/09,12/22/2012,11/12/2011,12/15/2010 ,01/31/2004 Seasonal Influenza, Split, I IV3, With Preserve, Inj 12/09/2013,12/22/2012,11/12/2011,12/15 Seasonal Influenza, Trivalen t, High Dose, No Preserve, IM 12/11/2018 Varicella Zoster Vaccine (Adult) 03/03/2008 documented as of this encounter Social History Tobacco Use Types Packs/Day Years Used Date Smoking Tobacco: Former Cigarettes Q uit: 03/03/1974 Smokeless Tobacco: Never Alcohol Use Standard Drinks/Week Comments No 0 (1 standard drink = 0.6 oz pur e alcohol) PHQ-2 Answer Date Recorded PHQ-2 Score 0 02/04/2020 Hunger Vital Sign Answer Date Recorded Worried About Running Out of Food in the Last Ye ar Never true 12/29/2018 Ran Out of Food in the Last Year Never true 12/29/2018 Sex and Gender Information Value Date Recorded Sex Assigned at Not on file Gender Identity Not on file Sexual Orientation Not on file Job Start Date Occupation Industry Not on file Not on file Not on file documented as of this encounter Miscellaneous Notes * Telephone Encounter - Jenae Phipps DO - 03/27/2023 11:34 AM ESTSigned Prescriptions: Disp Refills Lisinopril 20 MG Oral Tablet (Prinivil) 90 Tab*1 Sig: Take 1 Tablet by mouth in the morning. Authorizing Provider: JENAE PHIPPS * Telephone Encounter - Soheila Tong RN - 03/27/2023 11:13 AM ESTPending Prescriptions: Disp Refills Lisinopril 20 MG Oral Tablet (Prinivil) 90 Tab*1 Sig: Take 1 Tablet by mouth in the morning. * Telephone Encounter - Grecia Jules OSA - 03/27/2023 10:55 AM EST Did you pend patient's preferred pharmacy and medication before forwarding?yes Pharmacy: [id number] [facility] Pending Prescriptions: Disp Refills Lisinopril 20 MG Oral Tablet (Prinivil) 90 Tab*1 Sig: Take 1 Tablet by mouth in the morning. Last Visit: 10/04/2022 (in office), Visit date not found (telemedicine) Next Visit: 04/11/2023 If no future appointments scheduled, and last appointment is greater than a year ago, please schedule patient for a follow-up appointment Last date the medication was ordered: 10/02/22 Is this request for a controlled substance?No Urine Drug Screen:No results found for this or any previous visit. Patient Phone Numbers Labs: Lab Results Component Value Date/Time CREAT 1.4 (H) 10/04/2022 02:58 PM CREAT 1.05 12/12/2018 12:00 AM CREAT 1.1 (H) 08/17/2018 11:07 AM POTASSIUM 4.8 10/04/2022 02:58 PM POTASSIUM 4.3 12/12/2018 12:00 AM POTASSIUM 4.6 08/17/2018 11:07 AM TSH 3.050 12/05/2018 12:00 AM TSH 2.27 10/28/2017 12:19 PM LDLCALC 80 04/03/2022 04:04 PM LDLCALC 54 06/10/2018 11:20 AM LDLDIRECT NOT APPLICABLE 10/28/2017 12:19 PM ALT 13 04/03/2022 04:04 PM ALT 18 06/10/2018 11:20 AM HGBA1C 7.1 (H) 10/04/2022 02:58 PM HGBA1C 6.3 (H) 08/17/2018 11:07 AM documented in this encounter Plan of Treatment Upcoming Encounters Date Type Department Care Team (Late st Contact Info) Description 04/11/2023 3:10 PM EST Office Visit Family Medicine [address] [place] [phone] Jenae Phipps [address] [place] [address] 05/08/2023 3:00 PM EST Office Visit Cardiology [address] [place] [address] Christiane Batista PA-C [address] [place] [phone] Health Maintenance Due Date Last Done Comments DTaP,Tdap,and Td Vaccines (1 - Tdap) 1954 Hepatitis B (1 of 3 - Risk 3-dose series) 1994 Zoster Vaccines (2 of 3) 04/28/2008 03/03/2008 *BISPHONATE OR OTHER ACCEPTABLE MEDICATION NEEDED FOR OSTEOPOROSIS (REFER TO SMARTSET #1146) 07/02/2014 Diabetic Eye Exam 07/08/2014 07/08/2013 (Do ne elsewhere), 07/01/2013, 06/25/2012 (Done elsewhere), Additional history exists Diabetic Foot Exam 10/22/2017 10/22/2016, 0 10/10/2015, 07/11/2014, Additional history exists DXA Scan 12/16/2019 12/15/2017, 050 06/2014, 06/20/2011 Depression Screening 02/03/2021 02/04/2020 *SPIROMETRY ONCE FOR ASTHMA-ADULT 01/24/2022 COVID-19 Vaccine ( season) 2022 09/21/2021, 02/02/2021, 06/01/2020, Additional history exists Influenza Vaccine (FLU shot) (#1) 2022 04/03/2022, 01/23/2021, 01/23/2021, Additional history exists CKD HGB USE SMARTSET 44119 04/03/202304/03, 04/03/2022, 03/21/2021, Additional history exists HbA1c 04/06/2023 10/04/2022, 020 03/2022, 09/21/2021, Additional history exists Albumin/Creatinine Ratio 10/05/2023 023, 09/21/2021, 10/22/2016, Additional history exists CKD PHOS USE SMARTSET 23833 10/05/2023 08/0 06/2022, 09/21/2021, 03/21/2021, Additional history exists Pneumococcal Vaccine: 65+ Years Completed 10/10/2015, 12/15/2004 VITAMIN D LEVEL ONCE IN A LIFETIME-USE SMARTSET# [id number] Completed 04/03/2022, 09/21/2021, 03/21/2021, Additional history exists GARDASIL-HPV IMMUNIZATION SERIES Aged Out No longer eligible based on patient's age to complete this topic MENINGOCOCCAL (MENACTRA/MENVEO) Aged Out No longer eligible based on patient's age to complete this topic documented as of this encounter Medical Devices Not on filedocumented as of this encounter Visit Diagnoses Diagnosis Paroxysmal atrial fibrillation (HCC) Atrial fibrillation Hypertensive kidney disease with stage 3 chronic kidney disease (HCC) documented in this encounter Care Teams Wagon Driver Salesperson Relationship Specialty Start Date End Date Jenae Phipps DO [address] [place] [address] [place] [address] PCP - General Internal Medicine 11/08/16 documented as of this encounter
--- OUTSIDE RECORDS SUMMARY | 2023-04-09 | External Medical Summary | Summary of Care ---
Author Name Unknown Organization [facility] Address [address] [facility] [address] Phone [phone] Care Team Providers Care Bill Poster Installer Name Role Phone Janeth Morin Primary Care Provider Reason for Visit * Reason Onset Date Comments Appointment 01/22/2023 Encounter Details Date Type Department Care Team (Late st Contact Info) Description 01/22/2023 Telephone [facility] [place] [address] [facility] [address] [facility] [place] [address] Appointment Allergies Active Allergy Reactions Criticality Noted Date Comments Aspirin Hives Medium 12/26/2010 Iodinated Contrast Media Other (Please comment) Medium 12/26/2010 Pt said she gets hives and can't breath documented as of this encounter (statuses as of 03/14/2023) Medications Medication Sig Dispensed Refills Start Date End Date Status Meclizine HCl 12.5 MG Oral Tablet (Antivert) 0 03/15/2021 Active Tylenol 325 MG Oral Capsule (Acetaminophen) Take by mouth . Twice a week if that 0 Active Loratadine 10 MG Oral Tablet Take 1 Tablet by mouth in the morning. 0 Active Isosorbide Mononitrate ER 30 MG Oral Tablet Extended Release 24 Hour (Imdur) Take 1 Tablet by mouth in the morning. 90 Tablet 3 03/18/2022 Active Potassium Chloride Sophia ER 20 MEQ Oral Tablet Extended Release Take 1 Tablet by mouth in the morning. 90 Tablet 3 07/16/2022 Active Albuterol Sulfate HFA 108 (90 Base) MCG/ACT Inhalation Aerosol SolutionIndications:I ntermittent asthma with reliever use up to twice per week Use two puffs every four hours as needed for wheezing 18 g 3 10/01/2022 Active Lisinopril 20 MG Oral Tablet (Prinivil)Indications :Paroxysmal atrial fibrillation (HCC),Hypertensive kidney disease with stage 3 chronic kidney disease (HCC) Take 1 Tablet by mouth in the morning. 90 Tablet 1 10/02/2022 Active Torsemide 20 MG Oral Tablet (Demadex)Indications: Hypertensive kidney disease with stage 3 chronic kidney disease (HCC) TAKE 1 TABLET BY MOUTH EVERY MORNING 90 Tablet 3 12/02/2022 Active Rosuvastatin Calcium 5 MG Oral Tablet (Crestor)Indications: Dyslipidemia, goal LDL below 100 Take 1 Tablet by mouth in the morning. 90 Tablet 1 12/10/2022 Active Eliquis 5 MG Oral Tablet Take 1 Tablet by mouth in the morning and 1 Tablet before bedtime. 180 Tablet 3 12/17/2022 Active documented as of this encounter (statuses as of 03/14/2023) Active Problems Problem Noted Date Diagnosed Date [...] as of this encounter (statuses as of 03/14/2023) Resolved Problems Problem Noted Date Diagnosed Date [...] as of this encounter (statuses as of 03/14/2023) Immunizations Name Administration Dates Next Due COVID-19 [...] encounter Miscellaneous Notes * Telephone Encounter - Renuka Tavarez RN - 01/22/2023 12:20 PM EST Called, left message for patient to return call. Device clinic appointment for 01/28/23 needing cancelled due to tech/rep being unavailable. Last device interrogation in office 07/23/22; 4.83 years on battery. Normal device function. Will plan to do [employer] express device transmission at evaluation with Christiane Batista 05/08/23. Please notify patient upon return call. documented in this encounter Plan of Treatment Upcoming Encounters Date Type Department Care Team (Late st Contact Info) Description 04/11/2023 3:10 PM EST Office Visit Family Medicine [address] [place] [phone] Janeth Morin[address] [place] [address] 05/08/2023 3:00 PM EST Office Visit Cardiology [address] [place] [address] Christiane Batista, RUSTAM [address] [place] [address] Health Maintenance Due Date Last Done Comments [...] Additional history exists CKD HGB USE SMARTSET 11193 04/03/202304/03, 04/03/2022, 03/21/2021, Additional history exists HbA1c 04/06/2023 10/04/2022, 020 03/2022, 09/21/2021, Additional history exists Albumin/Creatinine Ratio 10/05/2023 08/ 023, 09/21/2021, 10/22/2016, Additional history exists CKD PHOS USE SMARTSET 14726 10/05/2023 08/0 06/2022, 09/21/2021, 03/21/2021, Additional history exists Pneumococcal Vaccine: 65+ Years Completed 10/10/2015, 12/15/2004 VITAMIN D LEVEL ONCE IN A LIFETIME-USE SMARTSET# [id number] Completed 04/03/2022, 09/21/2021, 03/21/2021, Additional history exists GARDASIL-HPV IMMUNIZATION SERIES Aged Out No longer eligible based on patient's age to complete this topic MENINGOCOCCAL (MENACTRA/MENVEO) Aged Out No longer eligible based on patient's age to complete this topic documented as of this encounter Medical Devices Not on filedocumented as of this encounter Care Teams Bill Poster Installer Relationship Specialty Start Date End Date Janeth Morin DO [address] [place] [address] [place] [address] PCP - General Internal Medicine 11/08/16 documented as of this encounter
--- OUTSIDE RECORDS SUMMARY | 2023-04-09 | External Medical Summary | Summary of Care ---
Author Name Unknown Organization [facility] Address [address] [place] [address] Phone [phone] Care Team Providers Care Rubber Curer Name Role Phone Jenae Phipps DO Primary Care Provider Reason for Visit * Reason Onset Date Comments Medication Refill 03/17/2023 Encounter Details Date Type Department Care Team (Late st Contact Info) Description 03/17/2023 Refill Family Medicine [address] [place] [phone] Jenae Phipps DO [address] [place] [address] [place] [address] Allergies Active Allergy Reactions Criticality Noted Date Comments Aspirin Hives Medium 12/26/2010 Iodinated Contrast Media Other (Please comment) Medium 12/26/2010 Pt said she gets hives and can't breath documented as of this encounter (statuses as of 03/17/2023) Medications Medication Sig Dispensed Refills Start Date [...] 10/01/2022 Active Lisinopril 20 MG Oral Tablet (Prinivil)Indicati ons:Paroxysmal atrial fibrillation (HCC),Hypertensive kidney disease with stage 3 chronic kidney disease (HCC) Take 1 Tablet by mouth in the morning. 90 Tablet 1 10/02/2022 Active Torsemide 20 MG Oral Tablet (Demadex)Indicatio [...] the morning. 90 Tablet 3 03/17/2023 Active Isosorbide Mononitrate ER 30 MG Oral Tablet Extended Release 24 Hour (Imdur) Take 1 Tablet by mouth in the morning. 90 Tablet 3 03/18/2022 03/17/2023 Discontinue d(Refill) documented as of this encounter (statuses as of 03/17/2023) Active Problems Problem Noted Date Diagnosed Date Moderate late onset Alzheimer's dementia 023 Chronic kidney disease, stage 3a 04/03/2022 Type 2 diabetes mellitus wit h stage 3b chronic kidney disease 11/12/2021 Overview: Per CKD protocol Benign hypertension with stage 3b chronic kidney disease 10/08/2021 Overview: Per CKD protocol Diabetes mellitus without complication Paroxysmal atrial fibrillation 12/29/2018 Hyperparathyroidism, secondary renal [...] as of this encounter (statuses as of 03/17/2023) Resolved Problems Problem Noted Date Diagnosed Date [...] as of this encounter (statuses as of 03/17/2023) Immunizations Name Administration Dates Next Due COVID-19 [...] Telephone Encounter - Jenae Phipps DO - 03/17/2023 11:25 AM ESTSigned Prescriptions: Disp Refills Isosorbide Mononitrate ER 30 MG Oral Table*90 Tab*3 Sig: Take 1 Tablet by mouth in the morning. Authorizing Provider: JENAE PHIPPS * Telephone Encounter - Soheila Tong RN - 03/17/2023 11:07 AM ESTPending Prescriptions: Disp Refills Isosorbide Mononitrate ER 30 MG Oral Table*90 Tab*3 Sig: Take 1 Tablet by mouth in the morning. * Telephone Encounter - Jaclyn Castellanos OSA - 03/17/2023 10:52 AM EST Did you pend patient's preferred pharmacy and medication before forwarding?yes Pharmacy: [id number] [address] [facility] Pending Prescriptions: Disp Refills Isosorbide Mononitrate ER 30 MG Oral Tabl*90 Tab*3 Sig: Take 1 Tablet by mouth in the morning. Last Visit: 10/04/2022 (in office), Visit date not found (telemedicine) Next Visit: 04/11/2023 If no future appointments scheduled, and last appointment is greater than a year ago, please schedule patient for a follow-up appointment Last date the medication was ordered: 03.18.22 Is this request for a controlled substance?No [...] 3:10 PM EST Office Visit Family Medicine [address] [place] [phone] [address] [place] [address] 05/08/2023 3:00 PM EST Office Visit Cardiology [address] [place] [address] Christiane Batista PA-Segundo [address] [place] [address] Health Maintenance Due Date Last Done Comments [...] Additional history exists DXA Scan 12/16/2019 12/15/2017, 05/0 06/2014, 06/20/2011 Depression Screening 02/03/2021 02/04/2020 *SPIROMETRY ONCE FOR ASTHMA-ADULT 01/24/2022 COVID-19 Vaccine ( season) 2022 09/21/2021, 02/02/2021, 06/01/2020, Additional history exists Influenza Vaccine (FLU shot) (#1) 2022 04/03/2022, 01/23/2021, 01/23/2021, Additional history exists CKD HGB USE SMARTSET 35532 04/03/202304/03, 04/03/2022, 03/21/2021, Additional history exists HbA1c 04/06/2023 10/04/2022, 020 03/2022, 09/21/2021, Additional history exists Albumin/Creatinine Ratio 10/05/2023 023, 09/21/2021, 10/22/2016, Additional history exists CKD PHOS USE SMARTSET 21717 10/05/2023 08/0 06/2022, 09/21/2021, 03/21/2021, Additional history exists Pneumococcal Vaccine: 65+ Years Completed 10/10/2015, 12/15/2004 VITAMIN D LEVEL ONCE IN A LIFETIME-USE SMARTSET# 70612 Completed 04/03/2022, 09/21/2021, 03/21/2021, Additional history exists GARDASIL-HPV IMMUNIZATION SERIES Aged Out No longer eligible based on patient's age to complete this topic MENINGOCOCCAL (MENACTRA/MENVEO) Aged Out No longer eligible based on patient's age to complete this topic documented as of this encounter Medical Devices Not on filedocumented as of this encounter Care Teams Rubber Curer Relationship Specialty Start Date End Date Jenae Phipps DO [address] [place] [address] [place] [address] PCP - General Internal Medicine 11/08/16 documented as of this encounter
--- OUTSIDE RECORDS SUMMARY | 2023-04-09 | External Medical Summary | Summary of Care ---
Author Name Unknown Organization [facility] Address [address] [place] [address] Phone [phone] Care Team Providers Care Lead Software Development Engineer Name Role Phone Janeth Morin DO Primary Care Provider Reason for Visit * Reason Onset Date Comments Medication Refill 12/09/2022 Encounter Details Date Type Department Care Team (Late st Contact Info) Description 12/09/2022 Refill Family Medicine [address] [place] [phone] Janeth Morin DO [address] [place] [address] [place] [address] Dyslipidemia, goal LDL below 100 Allergies Active Allergy Reactions Criticality Noted Date Comments Aspirin Hives Medium 12/26/2010 Iodinated Contrast Media Other (Please comment) Medium 12/26/2010 Pt said she gets hives and can't breath documented as of this encounter (statuses as of 01/02/2023) Medications Medication Sig Dispensed Refills Start Date [...] the morning. 90 Tablet 3 07/16/2022 Active Metoprolol Tartrate 25 MG Oral Tablet (Lopressor)Indicat ions:Paroxysmal atrial fibrillation (HCC) TAKE ONE TABLET BY MOUTH TWICE DAILY 180 Tablet 3 09/04/2022 Active Albuterol Sulfate HFA 108 (90 Base) [...] 1 Tablet before bedtime. 180 Tablet 3 03/25/2022 12/17/2022 Discontinue d(Refill) Rosuvastatin Calcium 5 MG Oral Tablet (Crestor)Indicatio ns:Dyslipidemia, goal LDL below 100 Take 1 Tablet by mouth in the morning. 90 Tablet 1 06/18/2022 12/09/2022 Discontinue d(Refill) documented as of this encounter (statuses as of 01/02/2023) Active Problems Problem Noted Date Diagnosed Date [...] as of this encounter (statuses as of 01/02/2023) Resolved Problems Problem Noted Date Diagnosed Date [...] as of this encounter (statuses as of 01/02/2023) Immunizations Name Administration Dates Next Due COVID-19 [...] drink = 0.6 oz pur e alcohol) Sex and Gender Information Value Date Recorded Sex Assigned at Not on file Gender Identity Not on file Sexual Orientation Not on file Job Start Date Occupation Industry Not on file Not on file Not on file documented as of this encounter Miscellaneous Notes * Telephone Encounter - Neptali Severino MD - 12/10/2022 8:48 AM EDTSigned Prescriptions: Disp Refills Rosuvastatin Calcium 5 MG Oral Tablet (Cre*90 Tab*1 Sig: Take 1 Tablet by mouth in the morning. Authorizing Provider: NEPTALI SEVERINO * Telephone Encounter - Soheila Tong RN - 12/09/2022 1:43 PM EDTPending Prescriptions: Disp Refills Rosuvastatin Calcium 5 MG Oral Tablet (Cre*90 Tab*1 Sig: Take 1 Tablet by mouth in the morning. * Telephone Encounter - Jaclyn Castellanos Benito - 12/09/2022 11:08 AM EDT Did you pend patient's preferred pharmacy and medication before forwarding?yes [id number] [address] [facility] Pending Prescriptions: Disp Refills Rosuvastatin Calcium 5 MG Oral Tablet (Cr*90 Tab*1 Sig: Take 1 Tablet by mouth in the morning. Last Visit: 10/04/2022 (in office), Visit date not found (telemedicine) Next Visit: 04/11/2023 If no future appointments scheduled, and last appointment is greater than a year ago, please schedule patient for a follow-up appointment Last date the medication was ordered: 06.18.22 Is this request for a controlled substance?No [...] Care Team (Late st Contact Info) Description 01/28/2023 2:30 PM EST Cardiac Studies Cardiology [address] [place] [address] [facility] [address] [place] [address] 04/11/2023 3:10 PM EST Office Visit Family Medicine [address] [place] [phone] [address] [place] [address] 05/08/2023 3:00 PM EST Office Visit Cardiology [address] [place] [address] Christiane Batista PA-C [address] [place] [address] Health Maintenance Due Date Last Done Comments [...] Additional history exists CKD HGB USE SMARTSET 58401 04/03/202304/03, 04/03/2022, 03/21/2021, Additional history exists HbA1c 04/06/2023 10/04/2022, 020 03/2022, 09/21/2021, Additional history exists Albumin/Creatinine Ratio 10/05/2023 023, 09/21/2021, 10/22/2016, Additional history exists CKD PHOS USE SMARTSET 26627 10/05/2023 08/0 06/2022, 09/21/2021, 03/21/2021, Additional history exists Pneumococcal Vaccine: 65+ Years Completed 10/10/2015, 12/15/2004 VITAMIN D LEVEL ONCE IN A LIFETIME-USE SMARTSET# [id number] Completed 04/03/2022, 09/21/2021, 03/21/2021, Additional history exists GARDASIL-HPV IMMUNIZATION SERIES Aged Out No longer eligible based on patient's age to complete this topic MENINGOCOCCAL (MENACTRA/MENVEO) Aged Out No longer eligible based on patient's age to complete this topic documented as of this encounter Medical Devices Not on filedocumented as of this encounter Visit Diagnoses Diagnosis Dyslipidemia, goal LDL below 100 Other and unspecified hyperlipidemia documented in this encounter Care Teams Lead Software Development Engineer Relationship Specialty Start Date End Date Janeth Morin DO [address] [place] [address] [place] [address] PCP - General Internal Medicine 11/08/16 documented as of this encounter
--- OUTSIDE RECORDS SUMMARY | 2023-04-09 | External Medical Summary | Summary of Care ---
Author Name Unknown Organization [facility] Address [address] [facility] [place] [address] Phone [phone] Care Team Providers Care Dowel Machine Operator Name Role Phone Janeth Morin Primary Care Provider [phone] Reason for Visit * Reason Comments eRx-Medication Refill Encounter Details Date Type Department Care Team Description 11/30/2022 Refill Cardiology, [facility] [address] [place] [phone] Bobbi Haywood PA-C [address] [place] [address] Hypertensive kidney disease with stage 3 chronic kidney disease (HCC) Allergies Active Allergy Reactions Severity Noted Date Comments Aspirin Hives Medium 12/26/2010 Iodinated Contrast Media Other (Please comment) Medium 12/26/2010 Pt said she gets hives and can't breath documented as of this encounter (statuses as of 12/02/2022) Medications Medication Sig Dispensed Refills Start Date [...] the morning. 90 Tablet 3 03/18/2022 Active Eliquis 5 MG Oral Tablet Take 1 Tablet by mouth in the morning and 1 Tablet before bedtime. 180 Tablet 3 03/25/2022 Active Rosuvastatin Calcium 5 MG Oral Tablet (Crestor)Indicatio ns:Dyslipidemia, goal LDL below 100 Take 1 Tablet by mouth in the morning. 90 Tablet 1 06/18/2022 Active Potassium Chloride Sophia ER 20 MEQ [...] EVERY MORNING 90 Tablet 3 12/02/2022 Active Torsemide 20 MG Oral Tablet (Demadex)Indicatio ns:Hypertensive kidney disease with stage 3 chronic kidney disease (HCC) TAKE ONE TABLET BY MOUTH IN THE MORNING 90 Tablet 3 04/09/2022 3 Discontinued documented as of this encounter (statuses as of 12/02/2022) Active Problems Problem Noted Date Moderate late onset Alzheimer's dementia 10/04/2022 Chronic kidney disease, stage 3a 023 Type 2 diabetes mellitus with stage 3b c hronic kidney disease 11/12/2021 Overview: Per CKD protocol Benign hypertension with stage 3b chroni c kidney disease 10/08/2021 Overview: Per CKD protocol Diabetes mellitus without complication 0 09/21/2021 Paroxysmal atrial fibrillation 9 Hyperparathyroidism, secondary renal Fecal incontinence 08/08/2015 HTN, goal below 150/90 07/11/2014 Senile osteoporosis 06/28/2014 Abnormality of gait 09/15/2013 Degenerative disc disease, cervical 08/2013 Intermittent asthma with reliever use up to twice per week 02/02/2013 Dyslipidemia, goal LDL below 100 013 Aspirin intolerance 05/12/2012 Rotator cuff tear arthropathy of both sh oulders 05/12/2012 Coronary atherosclerosis 12/26/2010 Carotid stenosis, non-symptomatic 2010 GERD (gastroesophageal reflux disease) Cardiac pacemaker documented as of this encounter (statuses as of 12/02/2022) Resolved Problems Problem Noted Date Resolved Date Mild late onset Alzheimer's dementia 04/03/2022 10/04/2022 Chronic kidney disease, stage 3b 11/12/2021 10/04/2022 Overview: Per CKD protocol Diabetes mellitus with stage 3 chronic kidney di sease 10/08/2021 11/15/2021 Overview: Per CKD protocol Hypertensive kidney disease with stage 3b chronic kidney disease 10/08/2021 04/03/2022 Overview: Per CKD protocol Benign hypertension with stage 3a chronic kidney disease 07/11/2020 10/11/2021 Overview: [...] Overview: Per CKD protocol Kidney disease, chronic, stage III (GFR 30-59 ml /min) 09/07/2018 01/15/2019 Overview: Per CKD protocol Iron deficiency anemia 10/28/2017 Body mass index (BMI) of 40.0 to 44.9 in adult 1 12/29/2018 Overview: Per Obesity protocol #1 Vitamin D deficiency 10/11/2015 10/04/2022 Kidney disease, chronic, stage III (GFR 30-59 ml /min) 05/16/2014 05/12/2018 Overview: Per CKD protocol #1 Type 2 diabetes mellitus wit h stage 3 chronic kidney disease, without long-term current use of insulin 09/15/201308/02 Overview: ICD-10 update of inactive term Fracture of wrist, closed 09/15/20132014 Prediabetes 11/07/2011 10/04/2022 Type 2 diabetes mellitus wit h hemoglobin A1c goal of less than 7.0% 11/07/2011 09/15/2013 Overview: ICD-10 update of inactive term Type 2 diabetes mellitus wit h hemoglobin A1c goal of less than 7.0% 02/04/2011 11/07/2011 Overview: ICD-10 update of inactive term Hyperlipidemia with target LDL less than 70 07/201008/19/2012 Overview: ICD-10 update of inactive term Rosacea 02/04/2011 02/04/2011 Cardiovascular symptoms 12/26/2010 12/27/19 11 IBS (irritable bowel syndrome) 0 10/28/2017 Polyp of colon 10/28/2017 Anemia 10/04/2022 Hypertension goal BP (blood pressure) < 130/80 07/11/2014 documented as of this encounter (statuses as of 12/02/2022) Immunizations Name Administration Dates Next Due COVID-19 [...] drink = 0.6 oz pur e alcohol) Food Insecurity Answer Date Recorded Within the past 12 months, y ou worried that your food would run out before you got money to buy more. Never true 12/29/2018 Within the past 12 months, t he food you bought just didn't last and you didn't have money to get more. Never true 12/29/2018 Sex Assigned at Date Recorded Not on file Job Start Date Occupation Industry Not on file Not on file Not on file documented as of this encounter Miscellaneous Notes * Telephone Encounter - Bobbi Haywood PA-C - 12/02/2022 1:14 PM EDT Signed Prescriptions: Disp Refills Torsemide 20 MG Oral Tablet (Demadex) 90 Tab*3 Sig: TAKE 1 TABLET BY MOUTH EVERY MORNING Authorizing Provider: BOBBI HAYWOOD * Telephone Encounter - Interface, [facility] S[facility] Inbound - 12/02/2022 12:32 PM EDT Pending Prescriptions: Disp Refills Torsemide 20 MG Oral Tablet (Demadex) 90 Tab*3 Sig: TAKE 1 TABLET BY MOUTH EVERY MORNING * Telephone Encounter - Libra Nickerson CMA - 12/02/2022 11:32 AM EDTPending Prescriptions: Disp Refills Torsemide 20 MG Oral Tablet (Demadex) 90 Tab*3 Sig: TAKE 1 TABLET BY MOUTH EVERY MORNING documented in this encounter Plan of Treatment Upcoming Encounters Date Type Specialty Care Team Description 01/28/2023 Cardiac Studies Cardiology [facility] [address] [place] [phone] 04/11/2023 Office Visit Family Medicine Janeth Morin[address] [place] [address] 05/08/2023 Office Visit Cardiology Bobbi Haywood PA-C [address] [place] [address] Health Maintenance Due Date Last Done Comments DTaP,Tdap,and Td Vaccines (1 - Tdap) 1954 Zoster Vaccines (2 of 3) 04/28/2008 03/03/2008 *BISPHONATE OR OTHER ACCEPTABLE MEDICATION NEEDED FOR OSTEOPOROSIS (REFER TO SMARTSET #1146) 07/02/2014 DIABETES-EYE EXAM 07/08/2014 07/08/2013 (Do ne elsewhere), 07/01/2013, 06/25/2012 (Done elsewhere), Additional history exists Diabetic Foot Exam 10/22/2017 10/22/2016, 0 10/10/2015, 07/11/2014, Additional history exists DXA Scan 12/16/2019 12/15/2017, 05/0 06/2014, 06/20/2011 Depression Screening 02/03/2021 02/04/2020 COVID-19 Vaccine (5 - Moderna series) 11/16/2021 09/21/2021, 02/02/2021, 06/01/2020, Additional history exists *SPIROMETRY ONCE FOR ASTHMA-ADULT 01/24/2022 Influenza Vaccine (FLU shot) (#1) 2022 04/03/2022, 01/23/2021, 01/23/2021, Additional history exists CKD HGB USE SMARTSET 13165 04/03/202304/03, 04/03/2022, 03/21/2021, Additional history exists HbA1c 04/06/2023 10/04/2022, 02/0 03/2022, 09/21/2021, Additional history exists Albumin/Creatinine Ratio 10/05/20232 023, 09/21/2021, 10/22/2016, Additional history exists CKD PHOS USE SMARTSET 53545 10/05/2023 08/0 06/2022, 09/21/2021, 03/21/2021, Additional history exists Pneumococcal Vaccine: 65+ Years Completed 10/10/2015, 12/15/2004 VITAMIN D LEVEL ONCE IN A LIFETIME-USE SMARTSET# 63798 Completed 04/03/2022, 09/21/2021, 03/21/2021, Additional history exists GARDASIL-HPV IMMUNIZATION SERIES Aged Out No longer eligible based on patient's age to complete this topic Hepatitis B Aged Out No longer eligi ble based on patient's age to complete this topic MENINGOCOCCAL (MENACTRA/MENVEO) Aged Out No longer eligible based on patient's age to complete this topic documented as of this encounter Medical Devices Not on filedocumented as of this encounter Visit Diagnoses Diagnosis Hypertensive kidney disease with stage 3 chronic kidney disease (HCC) documented in this encounter Care Teams Dowel Machine Operator Relationship Specialty Start Date End Date Janeth Morin[address] [place] [address] PCP - General Internal Medicine 11/08/16 documented as of this encounter
--- OUTSIDE RECORDS SUMMARY | 2023-04-09 | External Medical Summary | Summary of Care ---
Author Name Unknown Organization [facility] Address [address] [facility] [address] Phone [phone] Care Team Providers Care Health And Safety Tech Name Role Phone Janeth Morin Primary Care Provider [phone] Reason for Visit * Reason Comments eRx-Medication Refill Encounter Details Date Type Department Care Team (Late st Contact Info) Description 03/03/2023 Refill Cardiology, [facility] [address] [place] [phone] Bobbi Haywood PA-C [address] [place] [address] Paroxysmal atrial fibrillation (HCC) Allergies Active Allergy Reactions Criticality Noted Date Comments Aspirin Hives Medium 12/26/2010 Iodinated Contrast Media Other (Please comment) Medium 12/26/2010 Pt said she gets hives and can't breath documented as of this encounter (statuses as of 03/05/2023) Medications Medication Sig Dispensed Refills Start Date [...] TWICE DAILY 180 Tablet 3 03/05/2023 Active Metoprolol Tartrate 25 MG Oral Tablet (Lopressor)Indicat ions:Paroxysmal atrial fibrillation (HCC) TAKE ONE TABLET BY MOUTH TWICE DAILY 180 Tablet 3 09/04/2022 4 Discontinued documented as of this encounter (statuses as of 03/05/2023) Active Problems Problem Noted Date Diagnosed Date [...] as of this encounter (statuses as of 03/05/2023) Resolved Problems Problem Noted Date Diagnosed Date [...] as of this encounter (statuses as of 03/05/2023) Immunizations Name Administration Dates Next Due COVID-19 [...] Telephone Encounter - Bobbi Haywood PA-C - 03/05/2023 11:40 AM EST Signed Prescriptions: Disp Refills Metoprolol Tartrate 25 MG Oral Tablet (Lop*180 Ta*3 Sig: TAKE ONE TABLET BY MOUTH TWICE DAILY Authorizing Provider: BOBBI HAYWOOD * Telephone Encounter - Peyton Gonzales LPN - 03/05/2023 10:32 AM ESTPending Prescriptions: Disp Refills Metoprolol Tartrate 25 MG Oral Tablet (Lop*180 Ta*3 Sig: TAKE ONE TABLET BY MOUTH TWICE DAILY * Telephone Encounter - Peyton Gonzales LPN - 03/05/2023 10:32 AM EST Pending Prescriptions: Disp Refills Metoprolol Tartrate 25 MG Oral Tablet (Lo*180 Ta*3 Sig: TAKE ONE TABLET BY MOUTH TWICE DAILY documented in this encounter Plan of Treatment Upcoming Encounters Date Type Department Care Team (Late st Contact Info) Description 04/11/2023 3:10 PM EST Office Visit Family Medicine [address] [place] [phone] [address] [place] [address] 05/08/2023 3:00 PM EST Office Visit Cardiology [address] [place] [address] Bobbi Haywood PA-C [address] [place] [address] Health Maintenance Due Date Last Done Comments [...] Additional history exists CKD HGB USE SMARTSET 82586 04/03/202304/03, 04/03/2022, 03/21/2021, Additional history exists HbA1c 04/06/2023 10/04/2022, 02/0 03/2022, 09/21/2021, Additional history exists Albumin/Creatinine Ratio 10/05/2023 08/ 023, 09/21/2021, 10/22/2016, Additional history exists CKD PHOS USE SMARTSET 71743 10/05/2023 08/0 06/2022, 09/21/2021, 03/21/2021, Additional history exists Pneumococcal Vaccine: 65+ Years Completed 10/10/2015, 12/15/2004 VITAMIN D LEVEL ONCE IN A LIFETIME-USE SMARTSET# [id number] Completed 04/03/2022, 09/21/2021, 03/21/2021, Additional history exists GARDASIL-HPV IMMUNIZATION SERIES Aged Out No longer eligible based on patient's age to complete this topic MENINGOCOCCAL (MENACTRA/MENVEO) Aged Out No longer eligible based on patient's age to complete this topic documented as of this encounter Medical Devices Not on filedocumented as of this encounter Visit Diagnoses Diagnosis Paroxysmal atrial fibrillation (HCC) Atrial fibrillation documented in this encounter Care Teams Health And Safety Tech Relationship Specialty Start Date End Date Janeth Morin DO [address] [place] [address] [place] [address] PCP - General Internal Medicine 11/08/16 documented as of this encounter
--- OUTSIDE RECORDS SUMMARY | 2023-04-09 | External Medical Summary | Summary of Care ---
Author Name Unknown Organization [facility] Address [address] [place] [address] Phone [phone] Care Team Providers Care Braider Operator Name Role Phone Janeth Morin DO Primary Care Provider [phone] Reason for Visit * Reason Onset Date Comments Medical Records Request 02/13/2023 Encounter Created in Error 02/13/2023 Encounter Details Date Type Department Care Team (Late st Contact Info) Description 02/13/2023 Telephone Family Medicine [address] [phone] Janeth Morin [address] [place] [address] Medical Records Request; Encounter Created... Allergies Active Allergy Reactions Criticality Noted Date Comments Aspirin Hives Medium 12/26/2010 Iodinated Contrast Media Other (Please comment) Medium 12/26/2010 Pt said she gets hives and can't breath documented as of this encounter (statuses as of 02/13/2023) Medications Medication Sig Dispensed Refills Start Date [...] Active Metoprolol Tartrate 25 MG Oral Tablet (Lopressor)Indication s:Paroxysmal atrial fibrillation (HCC) TAKE ONE TABLET BY [...] as of this encounter (statuses as of 02/13/2023) Active Problems Problem Noted Date Diagnosed Date [...] as of this encounter (statuses as of 02/13/2023) Resolved Problems Problem Noted Date Diagnosed Date [...] as of this encounter (statuses as of 02/13/2023) Immunizations Name Administration Dates Next Due COVID-19 [...] on file documented as of this encounter Plan of Treatment Upcoming Encounters Date Type Department Care Team (Late st Contact Info) Description 04/11/2023 3:10 PM EST Office Visit Family Medicine [address] [place] [phone] Janeth Morin[address] [place] [address] 05/08/2023 3:00 PM EST Office Visit Cardiology [address] [place] [address] Christiane Batista, RUSTAM [address] [place] [address] Health Maintenance Due Date Last Done Comments [...] Additional history exists DXA Scan 12/16/2019 12/15/2017, 0506/2014, 06/20/2011 Depression Screening 02/03/2021 02/04/2020 *SPIROMETRY ONCE FOR ASTHMA-ADULT 01/24/2022 COVID-19 Vaccine ( season) 2022 09/21/2021, 02/02/2021, 06/01/2020, Additional history exists Influenza Vaccine (FLU shot) (#1) 2022 04/03/2022, 01/23/2021, 01/23/2021, Additional history exists CKD HGB USE SMARTSET 57645 04/03/202304/03, 04/03/2022, 03/21/2021, Additional history exists HbA1c 04/06/2023 10/04/2022, 02/0 03/2022, 09/21/2021, Additional history exists Albumin/Creatinine Ratio 10/05/2023 082 023, 09/21/2021, 10/22/2016, Additional history exists CKD PHOS USE SMARTSET 33784 10/05/2023 08/0 06/2022, 09/21/2021, 03/21/2021, Additional history exists Pneumococcal Vaccine: 65+ Years Completed 10/10/2015, 12/15/2004 VITAMIN D LEVEL ONCE IN A LIFETIME-USE SMARTSET# [id number] Completed 04/03/2022, 09/21/2021, 03/21/2021, Additional history exists GARDASIL-HPV IMMUNIZATION SERIES Aged Out No longer eligible based on patient's age to complete this topic MENINGOCOCCAL (MENACTRA/MENVEO) Aged Out No longer eligible based on patient's age to complete this topic documented as of this encounter Medical Devices Not on filedocumented as of this encounter Care Teams Braider Operator Relationship Specialty Start Date End Date Janeth Morin DO [address] [place] [address] [place] [phone] PCP - General Internal Medicine 11/08/16 documented as of this encounter
--- OUTSIDE RECORDS SUMMARY | 2023-04-09 | External Medical Summary | Summary of Care ---
Author Name Unknown Organization [facility] Address [address] [place] [facility] [place] [facility] [place] [address] Phone [phone] Care Team Providers Care Dairy Products Maker Name Role Phone Janeth Morin DO Primary Care Provider Reason for Visit * Reason Onset Date Comments Medication Refill 12/16/2022 Encounter Details Date Type Department Care Team Description 12/16/2022 Refill [address] Medicine [address] [place] [phone] Janeth Morin DO [address] [place] [address] [place] [phone] Allergies Active Allergy Reactions Severity Noted Date Comments Aspirin Hives Medium 12/26/2010 Iodinated Contrast Media Other (Please comment) Medium 12/26/2010 Pt said she gets hives and can't breath documented as of this encounter (statuses as of 12/17/2022) Medications Medication Sig Dispensed Refills Start Date [...] before bedtime. 180 Tablet 3 12/17/2022 Active Eliquis 5 MG Oral Tablet Take 1 Tablet by mouth in the morning and 1 Tablet before bedtime. 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 05/12/2012 Coronary atherosclerosis 12/26/2010 Carotid stenosis, non-symptomatic 2010 GERD (gastroesophageal reflux disease) Cardiac pacemaker documented as of this encounter (statuses as of 12/17/2022) Resolved Problems Problem Noted Date Resolved Date [...] as of this encounter (statuses as of 12/17/2022) Immunizations Name Administration Dates Next Due COVID-19 [...] encounter Miscellaneous Notes * Telephone Encounter - Kimber Castro LPN - 12/17/2022 10:16 AM EDT Filled on 03/2022 Next fill date 03/2023 * Telephone Encounter - Kimber Castro LPN - 12/17/2022 10:16 AM EDTRefused Prescriptions: Disp Refills Eliquis 5 MG Oral Tablet 180 Ta*3 Sig: Take 1 Tablet by mouth in the morning and 1 Tablet before bedtime. Refused By: KIMBER CASTRO Reason for Refusal: Too soon * Telephone Encounter - Xenia L Ron - 12/16/2022 10:34 AM EDT Did you pend patient's preferred pharmacy and medication before forwarding?yes Pharmacy: [id number] [address] [facility] Pending Prescriptions: Disp Refills Eliquis 5 MG Oral Tablet 180 Ta*3 Sig: Take 1 Tablet by mouth in the morning and 1 Tablet before bedtime. Last Visit: 10/04/2022 (in office), Visit date not found (telemedicine) Next Visit: 04/11/2023 If no future appointments scheduled, and last appointment is greater than a year ago, please schedule patient for a follow-up appointment Last date the medication was ordered: 03/25/2022 Is this request for a controlled substance?No [...] Description 01/28/2023 Cardiac Studies Cardiology [facility] [address] [place] [address] 04/11/2023 Office Visit Family Medicine Janeth Morin[address] [place] [address] 05/08/2023 Office Visit Cardiology Christiane Batista PA-C [address] [place] [address] Health Maintenance Due Date Last Done Comments [...] *SPIROMETRY ONCE FOR ASTHMA-ADULT 01/24/2022 COVID-19 Vaccine (2022- season) 2022 09/21/2021, 02/02/2021, 06/01/2020, Additional history exists Influenza Vaccine (FLU shot) (#1) 2022 04/03/2022, 01/23/2021, 01/23/2021, Additional history exists CKD HGB USE SMARTSET 40882 04/03/202304/03, 04/03/2022, 03/21/2021, Additional history exists HbA1c 04/06/2023 10/04/2022, 020 03/2022, 09/21/2021, Additional history exists Albumin/Creatinine Ratio 10/05/2023 023, 09/21/2021, 10/22/2016, Additional history exists CKD PHOS USE SMARTSET 77605 10/05/2023 08/0 06/2022, 09/21/2021, 03/21/2021, Additional history exists Pneumococcal Vaccine: 65+ Years Completed 10/10/2015, 12/15/2004 VITAMIN D LEVEL ONCE IN A LIFETIME-USE SMARTSET# [id number] Completed 04/03/2022, 09/21/2021, 03/21/2021, Additional history exists [...] filedocumented as of this encounter Care Teams Dairy Products Maker Relationship Specialty Start Date End Date Janeth Morin, [address] [place] [address] PCP - General Internal Medicine 11/08/16 documented as of this encounter
--- OUTSIDE RECORDS SUMMARY | 2023-04-09 | External Medical Summary | Summary of Care ---
Author Name Unknown Organization [facility] Address [address] [place] [address] Phone [phone] Care Team Providers Care Printing And Stamping Supervisor Name Role Phone Janeth Morin DO Primary Care Provider [phone] Reason for Visit * Reason Onset Date Comments Fax 11/15/2022 Encounter Details Date Type Department Care Team Description 11/15/2022 Telephone Family Medicine [address] [place] [phone] Janeth Morin DO [address] [place] [address] [place] [phone] Fax Allergies Active Allergy Reactions Severity Noted Date Comments Aspirin Hives Medium 12/26/2010 Iodinated Contrast Media Other (Please comment) Medium 12/26/2010 Pt said she gets hives and can't breath documented as of this encounter (statuses as of 11/15/2022) Medications Medication Sig Dispensed Refills Start Date [...] before bedtime. 180 Tablet 3 03/25/2022 Active Torsemide 20 MG Oral Tablet (Demadex)Indications: Hypertensive kidney disease with stage 3 chronic kidney disease (HCC) TAKE ONE TABLET BY MOUTH IN THE MORNING 90 Tablet 3 04/09/2022 Active Rosuvastatin Calcium 5 MG Oral Tablet [...] the morning. 90 Tablet 1 10/02/2022 Active documented as of this encounter (statuses as of 11/15/2022) Active Problems Problem Noted Date Moderate late [...] as of this encounter (statuses as of 11/15/2022) Resolved Problems Problem Noted Date Resolved Date [...] as of this encounter (statuses as of 11/15/2022) Immunizations Name Administration Dates Next Due COVID-19 [...] encounter Miscellaneous Notes * Telephone Encounter - Leticia Cameron LPN - 11/15/2022 3:22 PM EDT This is a scam. * Telephone Encounter - ELIAS Rodriguez - 11/15/2022 12:22 PM EDT Received a call asking if fax was received by office. Name/Company sending fax: [employer] What fax is pertaining to: HIPAA Compliance form Date(s) they sent request: 11/12/22 Verified fax number they are sending to is correct (Y or N): Y Callback Number for the clinic to call to verified if fax was received: [phone] documented in this encounter Plan of Treatment Upcoming Encounters Date Type Specialty Care Team Description 01/28/2023 Cardiac Studies Cardiology [facility] [address] [place] [address] 04/11/2023 Office Visit Family Medicine Janeth Morin[address] [place] [address] 05/08/2023 Office Visit Cardiology Christiane Batista PA-C [address] [place] [address] Health Maintenance Due Date Last Done Comments [...] Additional history exists CKD HGB USE SMARTSET 02333 04/03/202304/03, 04/03/2022, 03/21/2021, Additional history exists HbA1c 04/06/2023 10/04/2022, 03/2022, 09/21/2021, Additional history exists Albumin/Creatinine Ratio 10/05/2023 023, 09/21/2021, 10/22/2016, Additional history exists CKD PHOS USE SMARTSET 80892 10/05/20230 06/2022, 09/21/2021, 03/21/2021, Additional history exists Pneumococcal Vaccine: 65+ Years Completed 10/10/2015, 12/15/2004 VITAMIN D LEVEL ONCE IN A LIFETIME-USE SMARTSET# 56106 Completed 04/03/2022, 09/21/2021, 03/21/2021, Additional history exists [...] filedocumented as of this encounter Care Teams Printing And Stamping Supervisor Relationship Specialty Start Date End Date Janeth Morin, [address] [place] [address] PCP - General Internal Medicine 11/08/16 documented as of this encounter
[2023-04-09] MEDS: HALOPERIDOL LACTATE 5 MG/ML 1 ML VIAL IM SCH (06:24)
[2023-04-09] MEDS: LORazepam 0.25 MG in SYRINGE 0.125 ML IV ONE (06:25)
[2023-04-09 06:30] LABS: Basophils # (auto) 0.03 K/uL (0.00-0.20); Basophils % (auto) 0.4 %; Eosinophils # (auto) 0.11 K/uL (0.00-0.50); Eosinophils % (auto) 1.4 %; Hematocrit (blood only) 33.1 % (37.0-47.0); Hemoglobin 10.6 g/dl (12.0-16.0); Immature Granulocytes # (auto) 0.03 K/uL (0.01-0.20); Immature Granulocytes % (auto) 0.4 %; Lymphocytes # (auto) 1.72 K/uL (1.20-3.40); Lymphocytes % (auto) 21.3 %; Mean Corpuscular Hemoglobin 30.3 pg (25.0-34.0); Mean Corpuscular Volume 94.6 fL (80.0-100.0); Mean Platelet Volume 13.2 fL (9.4-12.4); Monocytes # (auto) 0.74 K/uL (0.11-0.59); Monocytes % (auto) 9.1 %; Neutrophils # (auto) 5.46 K/uL (1.40-6.50); Neutrophils % (auto) 67.4 %; Platelet Count 173 K/uL (130-400); RDW Coefficient of Variation 13.1 % (11.5-14.5); RDW Standard Deviation 44.6 fL (36.4-46.3); White Blood Count 8.09 K/ul (4.8-10.8)
[2023-04-09 06:44] LABS: Albumin Globulin Ratio 1.4 (0.9-2); Albumin Level 3.4 gm/dl (3.4-5.0); BUN Creatinine Ratio 23.3 (10-20); Bilirubin,Total 0.5 mg/dl (0.2-1.0); Calcium 8.9 mg/dl (8.6-10.3); Chol HDL Ratio 2.3 (0-5); Creatinine Clr Calc Pharmacy 34.4 ml/min; Est GFR (African American) 48.3 ml/min; Est GFR (Non-African American) 41.7 ml/min; Globulin 2.5 gm/dl (2.5-4.0); Magnesium 1.6 mg/dl (1.7-2.4); Potassium 4.6 mmol/L (3.5-5.1); Total Protein 5.9 gm/dl (6.0-8.3)
[2023-04-09 06:50] LABS: Troponin I High Sensitivity 16.2 pg/ml (0-14)
[2023-04-09 07:15] LABS: Estimated Average Glucose 157 mg/dl; Hemoglobin A1C 7.1 % (4.5-5.6)
[2023-04-09] MEDS: lisinopril 20 MG TAB PO SCH (08:04)
[2023-04-09] MEDS: ISOSORBIDE MONO EXTENDED REL 30 MG TABCR PO SCH (08:04)
[2023-04-09] MEDS: TORSEMIDE 20 MG TAB PO SCH (08:04)
[2023-04-09] MEDS: POTASSIUM CHLORIDE CRTAB 20 MEQ TABCR PO SCH (08:04)
[2023-04-09] MEDS: ROSUVASTATIN CALCIUM 5 MG TAB PO SCH (08:04)
[2023-04-09] MEDS: MAGNESIUM SULFATE / D5W 1 GM/100 ML BAG IV ONE (08:59)
--- NOTE | 2023-04-09 10:56 | Electrocardiogram Report ---
Test Reason : Blood Pressure : / mmHG Vent. Rate : 085 BPM Atrial Rate : 085 BPM P-R Int : 300 ms QRS Dur : 086 ms QT Int : 348 ms P-R-T Axes : 000 -55 -19 degrees QTc Int : 414 ms Atrial-paced rhythm with prolonged AV conduction Left axis deviation Low voltage QRS Diffuse Minor Nonspecific T wave abnormality Abnormal ECG When compared with ECG of 08-APR-2023 13:51, No significant change Confirmed by Lopez Rodas ([id number]) on 04/09/2023 10:56:11 AM Referred By: REFERRED SELF Confirmed By:Lopez Rodas
[2023-04-09] MEDS: ACETAMINOPHEN 325 MG TAB PO PRN (12:25)
--- NOTE | 2023-04-09 15:18 | Hospitalist Progress Note ---
Date of Service April 09, 2023 Assessment & Plan (1) Chest pain: (2) Coronary artery disease: (3) Atrial fibrillation: (4) Diabetes: (5) Hypertension: (6) HLD (hyperlipidemia): Plan Patient is an 88 yr female with H/O CAD with history of stent x 2, PAF with history of pacemaker, HTN, HLD, T2DM, CKD stage III, dementia who presents to ED secondary to chest pain and dizziness x 5 minutes. Chest Pain H/O CAD S/P stents Less likely ACS Suspect due to Uncontrolled HTN/? Tachycardia --Troponin mildly elevated--flat --ECHO: Mild concentric LVH. Basal septum is thickened and angulated consistent with sigmoid septum. Left ventricle wall motion is normal. Left ventricle systolic function is normal. EF 60 to 65%. Mild tricuspid regurgitation. Doppler findings do not suggest pulmonary hypertension --EKG: Atrial paced rhythm with prolonged AV conduction and occasional ventricular pacing. --Lipid panel within normal limits --HbA1c 7.1 --Monitor on telemetry --Pacemaker interrogation completed Previously was on Plavix Continue lisinopril, isosorbide, metoprolol, Crestor Also on Eliquis Monitor and adjust blood pressure medications as needed Low threshold to consult cardiology if recurrence of symptoms Will need follow-up with cardiology as outpatient Chronic diastolic heart failure Continue home diuretic Monitor volume status Saturating well on room air HTN HLD Continue statin Continue lisinopril, metoprolol DM II HbA1c 7.1 Diet controlled Continue insulin while hospitalized Monitor BGs Hypomagnesemia Replace and monitor Paroxysmal atrial fibrillation H/O wide-complex tachycardia S/P pacemaker Interrogated pacemaker on Eliquis for anticoagulation Continue metoprolol 25 mg twice a day DVT Px: Eliquis Code Status DNR/DNI Disposition PT OT prior to discharge Admission and Anticipated Discharge Date Admission Date: April 08, 2023 Subjective Patient is seen and examined at bedside History unreliable due to dementia Denies any chest pain, dyspnea, nausea, vomiting, abdominal pain today Reports having minimal cough Saturating well on room air No distress on exam No other complaints Review of Systems Review of Systems: All systems reviewed & are unremarkable except as noted in Subjective Physical Exam Physical Exam: Physical Exam: Vitals signs as noted above General Appearance:Obese, no apparent distress Head: normocephalic, Atraumatic Eyes: normal inspection, EOMI Neck: supple, Trachea midline Respiratory/Chest: Normal breath sounds, CTA, +Pacer, No accessory muscle use Cardiovascular: S1, S2, No murmur Abdomen/GI:Soft, Non tender, Bowel sounds present Extremities/Musculoskeletal:normal inspection, 1+ pedal edema Neurologic/Psych:AAOX2, grossly no focal neurological deficits, +Dementia Skin: normal color, warm Results & Data Results & Data Vital Signs (Past 12 Hours) Vital Signs Temp Pulse Pulse Resp BP Pulse Ox O2 Del Method 04/09/23 14:44 36.6 C 88 19 137/76 97 Room Air 04/09/23 11:34 36.6 C 84 18 137/83 98 Room Air 04/09/23 09:21 96 H 04/09/23 07:23 Room Air 04/09/23 07:11 36.7 C 102 H 19 170/84 H 96 Room Air Laboratory Results Short CBC 04/09/23 Range/Units 04:44 WBC 8.09 (4.8-10.8) K/ul Hgb 10.6 L (12.0-16.0) g/dl Hct 33.1 L (37.0-47.0) % Plt Count 173 (130-400) K/uL BMP 04/09/23 04:44 Sodium 140 Potassium 4.6 Chloride 106 Carbon Dioxide 26 BUN 27 H Creatinine 1.16 Glucose 133 H Calcium 8.9 Liver Function 04/09/23 Range/Units 04:44 Total Bilirubin 0.5 (0.2-1.0) mg/dl AST 13 (13-39) U/L ALT 8 (7-52) U/L Alkaline Phosphatase 68 (34-104) U/L Albumin 3.4 (3.4-5.0) gm/dl
[2023-04-10 07:42] LABS: Hematocrit (blood only) 32.2 % (37.0-47.0); Hemoglobin 10.5 g/dl (12.0-16.0); Mean Corpuscular Hemoglobin 30.6 pg (25.0-34.0); Mean Corpuscular Hgb Conc 32.6 g/dL (32.0-36.0); Mean Corpuscular Volume 93.9 fL (80.0-100.0); Mean Platelet Volume 12.9 fL (9.4-12.4); Platelet Count 171 K/uL (130-400); RDW Coefficient of Variation 13.3 % (11.5-14.5); RDW Standard Deviation 45.4 fL (36.4-46.3); Red Blood Count 3.43 M/uL (4.20-5.40); White Blood Count 6.51 K/ul (4.8-10.8)
[2023-04-10 08:04] LABS: BUN Creatinine Ratio 22.5 (10-20); Calcium 8.7 mg/dl (8.6-10.3); Creatinine Clr Calc Pharmacy 30.8 ml/min; Est GFR (African American) 42.5 ml/min; Est GFR (Non-African American) 36.7 ml/min; Magnesium 1.9 mg/dl (1.7-2.4); Potassium 4.2 mmol/L (3.5-5.1)
--- NOTE | 2023-04-10 12:55 | Hospitalist Progress Note ---
Date of Service April 10, 2023 Assessment & Plan (1) Chest pain: (2) Coronary artery disease: (3) Atrial fibrillation: (4) Diabetes: (5) Hypertension: (6) HLD (hyperlipidemia): Plan Patient is an 88 yr female with H/O CAD with history of stent x 2, PAF with history of pacemaker, HTN, HLD, T2DM, CKD stage III, dementia who presents to ED secondary to chest pain and dizziness x 5 minutes. Chest Pain H/O CAD S/P stents Less likely ACS Suspect due to Uncontrolled HTN/? Tachycardia --Troponin mildly elevated--flat --ECHO: Mild concentric LVH. Basal septum is thickened and angulated consistent with sigmoid septum. Left ventricle wall motion is normal. Left ventricle systolic function is normal. EF 60 to 65%. Mild tricuspid regurgitation. Doppler findings do not suggest pulmonary hypertension --EKG: Atrial paced rhythm with prolonged AV conduction and occasional ventricular pacing. --Lipid panel within normal limits --HbA1c 7.1 --Monitor on telemetry--no issues --Pacemaker interrogation completed on 04/10/23 Previously was on Plavix Continue lisinopril, isosorbide, metoprolol, Crestor Also on Eliquis No recurrence of chest pain while Hospitalized Monitor and adjust blood pressure medications as needed Low threshold to consult cardiology if recurrence of symptoms Needs follow-up with cardiology as outpatient Chronic diastolic heart failure Continue home diuretic Monitor volume status Saturating well on room air HTN HLD Continue statin Continue lisinopril, metoprolol DM II HbA1c 7.1 Diet controlled Continue insulin while hospitalized Monitor BGs Hypomagnesemia Replace and monitor Paroxysmal atrial fibrillation H/O wide-complex tachycardia S/P pacemaker Interrogated pacemaker on Eliquis for anticoagulation Continue metoprolol 25 mg twice a day DVT Px: Eliquis Code Status DNR/DNI Disposition Home with Admission and Anticipated Discharge Date Admission Date: April 08, 2023 Subjective Patient is seen and examined at bedside History unreliable due to dementia RN noted some confusion this morning Denies any chest pain, dyspnea, nausea, vomiting, abdominal pain today Had Pacemaker interrogation earlier today Saturating well on room air Review of Systems Review of Systems: All systems reviewed & are unremarkable except as noted in Subjective Physical Exam Physical Exam: Physical Exam: Vitals signs as noted above General Appearance:Obese, no apparent distress Head: normocephalic, Atraumatic Eyes: normal inspection, EOMI Neck: supple, Trachea midline Respiratory/Chest: Normal breath sounds, CTA, +Pacer, No accessory muscle use Cardiovascular: S1, S2, No murmur Abdomen/GI:Soft, Non tender, Bowel sounds present Extremities/Musculoskeletal:normal inspection, 1+ pedal edema Neurologic/Psych:AAOX2, grossly no focal neurological deficits, +Dementia Skin: normal color, warm Results & Data Results & Data Vital Signs (Past 12 Hours) Vital Signs Temp Pulse Pulse Resp BP Pulse Ox O2 Del Method 04/10/23 11:01 36.6 C 76 18 131/79 95 Room Air 04/10/23 09:00 Room Air 04/10/23 07:33 36.6 C 90 18 145/81 H 97 Room Air 04/10/23 03:04 36.6 C 90 20 136/77 98 Room Air 04/10/23 01:28 93 H Laboratory Results Short CBC 04/10/23 Range/Units 07:01 WBC 6.51 (4.8-10.8) K/ul Hgb 10.5 L (12.0-16.0) g/dl Hct 32.2 L (37.0-47.0) % Plt Count 171 (130-400) K/uL BMP 04/10/23 07:01 Sodium 139 Potassium 4.2 Chloride 107 Carbon Dioxide 24 BUN 29 H Creatinine 1.29 H Glucose 130 H Calcium 8.7
--- NOTE | 2023-04-10 13:24 | Discharge Summary ---
Date of Service April 10, 2023 Admission HPI Per Admitting Provider This is an 88-year-old female who has significant past medical history of CAD with history of stent x 2, PAF with history of pacemaker, HTN, HLD, T2DM, CKD stage III, dementia who presents to ED secondary to chest pain and dizziness x 5 minutes. Patient lives alone and has caregivers who come from 7-5p. She also has strong family support in the evening. She was referred to ED from her caregiver due to complaining of chest pain and dizziness. It was resolved upon EMS arrival. ROS unreliable due to patient underlying history of dementia. Did discuss with patient's daughter Dayanna. At baseline she is alert to self and some family members, but is otherwise confused. In ED she remained hemodynamically stable. Her EKG revealed atrial paced rhythm at 60 bpm, no ST or T wave changes. Her last echocardiogram was March 2022 which revealed moderate LVH, 55 to 60%, mild AV sclerosis and grade 1 diastolic dysfunction. She is recommended for admission for cardiac eval. Admission Exam Per Admitting Provider Constitutional: WD/WN, Elderly, F, alert to self only, vitals as above, NAD, sitting up in bed, pleasant but wishing to go home Head: Normocephalic, Atraumatic Eyes: PERRL, conjunctivae normal, anicteric sclerae ENMT: external ear and nose normal, oropharynx normal Neck: trachea midline, no thyromegaly normal visual inspection Respiratory: normal respiratory effort, lungs clear to auscultation, no wheeze, rales, rhonchi. Normal insp/exp effort, no accessory muscle use Cardiovascular: RRR, no murmur, LLE non pitting edema, venous stasis change Vessels: no JVD or carotid bruit Chest: normal inspection of chest Abdomen: normal bowel sounds, soft, nontender, no hepatosplenomegaly Musculoskeletal: no cyanosis or clubbing, AROM x 4 Skin: no rashes, warm and dry normal turgor Neurologic: PERRL, EOMI, accommodation nl, no face palsy, no dysarthria CN's II-XI intact bilaterally and moves all extremities Psychiatric: A+O x 1 to self, euthymic affect Lymphatic: no cervical or axillary lymphadenopathy : deferred Principal Diagnosis Chest pain Chronic diastolic heart failure Hypomagnesemia Discharge Data Allergies Allergy/AdvReac Type Severity Reaction Status Date / Time Iodinated Contrast Media Allergy Severe SHORTNESS Verified 04/08/23 15:53 OF BREATH aspirin Allergy Mild RASH Verified 04/08/23 15:53 Consultations 04/08/23 16:17 ED Decision to Admit Stat Procedures Performed Laboratory Results WBC 6.51 K/ul (4.8-10.8) 04/10/23 07:01 RBC 3.43 M/uL (4.20-5.40) L 04/10/23 07:01 Hgb 10.5 g/dl (12.0-16.0) L 04/10/23 07:01 Hct 32.2 % (37.0-47.0) L 04/10/23 07:01 MCV 93.9 fL (80.0-100.0) 04/10/23 07:01 MCH 30.6 pg (25.0-34.0) 04/10/23 07:01 MCHC 32.6 g/dL (32.0-36.0) 04/10/23 07:01 RDW Std Deviation 45.4 fL (36.4-46.3) 04/10/23 07:01 RDW Coeff of Seferino 13.3 % (11.5-14.5) 04/10/23 07:01 Plt Count 171 K/uL (130-400) 04/10/23 07:01 MPV 12.9 fL (9.4-12.4) H 04/10/23 07:01 Immature Gran % (Auto) 0.4 % 04/09/23 04:44 Neut % (Auto) 67.4 % 04/09/23 04:44 Lymph % (Auto) 21.3 % 04/09/23 04:44 [place] % (Auto) 9.1 % 04/09/23 04:44 Eos % (Auto) 1.4 % 04/09/23 04:44 Baso % (Auto) 0.4 % 04/09/23 04:44 Neut # (Auto) 5.46 K/uL (1.40-6.50) 04/09/23 04:44 Lymph # (Auto) 1.72 K/uL (1.20-3.40) 04/09/23 04:44 [place] # (Auto) 0.74 K/uL (0.11-0.59) H 04/09/23 04:44 Eos # (Auto) 0.11 K/uL (0.00-0.50) 04/09/23 04:44 Baso # (Auto) 0.03 K/uL (0.00-0.20) 04/09/23 04:44 Immature Gran # (Auto) 0.03 K/uL (0.01-0.20) 04/09/23 04:44 Sodium 139 mmol/L (136-145) 04/10/23 07:01 Potassium 4.2 mmol/L (3.5-5.1) 04/10/23 07:01 Chloride 107 mmol/L (98-107) 04/10/23 07:01 Carbon Dioxide 24 mmol/L (21-32) 04/10/23 07:01 Anion Gap 8 (3-11) 04/10/23 07:01 BUN 29 mg/dl (6-23) H 04/10/23 07:01 Creatinine 1.29 mg/dl (0.6-1.2) H 04/10/23 07:01 Est Cr Clr Drug Dosing 30.8 ml/min 04/10/23 07:01 Est GFR ( Amer) 42.5 ml/min 04/10/23 07:01 Est GFR (Non-Af Amer) 36.7 ml/min 04/10/23 07:01 BUN/Creatinine Ratio 22.5 (10-20) H 04/10/23 07:01 Glucose 130 mg/dl (70-99(Fasting)) H 04/10/23 07:01 POC Glucose 170 mg/dl (70-99) H 04/10/23 11:22 Estimat Average Glucose 157 mg/dl 04/09/23 04:44 Hemoglobin A1c 7.1 % (4.5-5.6) H 04/09/23 04:44 Calcium 8.7 mg/dl (8.6-10.3) 04/10/23 07:01 Magnesium 1.9 mg/dl (1.7-2.4) 04/10/23 07:01 Total Bilirubin 0.5 mg/dl (0.2-1.0) 04/09/23 04:44 AST 13 U/L (13-39) 04/09/23 04:44 ALT 8 U/L (7-52) 04/09/23 04:44 Alkaline Phosphatase 68 U/L (34-104) 04/09/23 04:44 Troponin I High Sens 16.2 pg/ml (0-14) H 04/09/23 04:44 Total Protein 5.9 gm/dl (6.0-8.3) L 04/09/23 04:44 Albumin 3.4 gm/dl (3.4-5.0) 04/09/23 04:44 Globulin 2.5 gm/dl (2.5-4.0) 04/09/23 04:44 Albumin/Globulin Ratio 1.4 (0.9-2) 04/09/23 04:44 Triglycerides 82 mg/dl (0-150) 04/09/23 04:44 Cholesterol 124 mg/dl (0-200) 04/09/23 04:44 LDL Cholesterol, Calc 54 mg/dl 04/09/23 04:44 VLDL Cholesterol, Calc 16 mg/dl (0-30) 04/09/23 04:44 HDL Cholesterol 54 mg/dl 04/09/23 04:44 Cholesterol/HDL Ratio 2.3 (0-5) 04/09/23 04:44 Lipase 45 U/L (11-82) 04/08/23 14:15 Impressions Chest X-Ray 04/08/23 14:09 XR chest 1V portable HISTORY: Chest pain, nonspecific COMPARISON: Chest 01/30/2022. FINDINGS: There is a left-sided dual-chamber pacemaker. The heart remains mildly enlarged. No pneumothorax. No pleural effusions. There are calcifications within the aortic knob. Slightly rotated study. No acute fractures identified. No evidence for pulmonary edema. No focal lung consolidations to suggest a pneumonia. IMPRESSION: Mild cardiomegaly. Otherwise, no acute process within the chest ACT 112: Negative or not required by law. Electronically signed by: Rakesh Franco M.D. 04/08/2023 2:[address] 04/08/23 14:59 CT OF THE HEAD WITHOUT CONTRAST CLINICAL HISTORY: Altered mental status. COMPARISON STUDY: Head CT January 30, 2022. CT DOSE: 703.85 mGy.cm TECHNIQUE: Helical axial images of the head were obtained without IV contrast. Automated exposure control was utilized for the study. A dose lowering technique was utilized adhering to the principles of ALARA. FINDINGS: No acute intracranial hemorrhage, midline shift or mass effect is present. White matter hypodensities are similar to prior exam and favor small vessel disease. The ventricular system is unremarkable. The basal cisterns are patent. No extra-axial collections are present. There are no findings to suggest acute dural sinus thrombosis or acute territorial infarct. No significant calvarial abnormalities are present. Visualized portions of the sinuses and mastoid air cells are clear. IMPRESSION: No acute intracranial findings. ACT 112: Negative or not required by law. Electronically signed by: Quirino Lai M.D. 04/08/2023 3:45 PM Ordered Studies 04/08/23 14:59 CT head/brain wo con Stat Hospital Course (1) Chest pain: (2) Coronary artery disease: (3) Atrial fibrillation: (4) Diabetes: (5) Hypertension: (6) HLD (hyperlipidemia): Plan Patient is an 88 yr female with H/O CAD with history of stent x 2, PAF with history of pacemaker, HTN, HLD, T2DM, CKD stage III, dementia who presents to ED secondary to chest pain and dizziness x 5 minutes. Chest Pain H/O CAD S/P stents Less likely ACS Suspect due to Uncontrolled HTN/? Tachycardia --Troponin mildly elevated--flat --ECHO: Mild concentric LVH. Basal septum is thickened and angulated consistent with sigmoid septum. Left ventricle wall motion is normal. Left ventricle systolic function is normal. EF 60 to 65%. Mild tricuspid regurgitation. Doppler findings do not suggest pulmonary hypertension --EKG: Atrial paced rhythm with prolonged AV conduction and occasional ventricular pacing. --Lipid panel within normal limits --HbA1c 7.1 --Monitor on telemetry--no issues --Pacemaker interrogation completed on 04/10/23: No recent issues. Episode of SVT in Non 2022 Previously was on Plavix Continue lisinopril, isosorbide, metoprolol, Crestor Also on Eliquis No recurrence of chest pain while Hospitalized Monitor and adjust blood pressure medications as needed Low threshold to consult cardiology if recurrence of symptoms Needs follow-up with cardiology as outpatient Chronic diastolic heart failure Continue home diuretic Monitor volume status Saturating well on room air HTN HLD Continue statin Continue lisinopril, metoprolol DM II HbA1c 7.1 Diet controlled Continue insulin while hospitalized Monitor BGs Hypomagnesemia Replace and monitor Paroxysmal atrial fibrillation H/O wide-complex tachycardia S/P pacemaker Interrogated pacemaker on Eliquis for anticoagulation Continue metoprolol 25 mg twice a day DVT Px: Eliquis Code Status DNR/DNI Disposition Home with HH Total Time Total Time Spent Total Time Spent (In Minutes): 56 minutes Discharge Plan Discharge Items Patient Disposition: Home - Home Health Services Reason For Visit: CHEST PAIN Discharge Diagnosis: Chest pain Chronic diastolic heart failure Hypomagnesemia Activity: Per Instructions section Exercise/Sports: Wait until after follow-up appointment Non-emergency contact: Primary Care Provider and Loom Mechanic Call non-emergency contact if: you have any medication questions, your symptoms worsen, your pain is concerning for you and you have a fever Follow-up/Referrals: Janeth Morin DO [Primary Care Provider] - (Date & Time 04/11/2023 3:10 PM Provider Janeth Morin DO Department Family Medicine [facility] ) Diet: Carb Consistent or DM2 and Heart Healthy Addtl Attending Provider Instructions: Follow-up with your primary care physician on 04/11/2023 3:10 PM Follow-up with your asp net c developer in 3 to 4 weeks. Seek immediate medical attention if your symptoms reoccur or worsen Please take all medications as instructed on discharge list below. Please call if you have any questions or problems. You can reach a [facility] hospitalist on duty at [facility] 24 hours a day by calling [phone] Pending Studies at Discharge: No Stand-Alone Forms: My [facility], Smoking Cessation Medications and DC Order Prescriptions: New magnesium chloride 64 mg magnesium tablet 64 mg PO BID Qty: 60 0RF Continued torsemide 20 mg Tablet 20 mg PO QAM lisinopril 20 mg Tablet 20 mg PO QAM isosorbide mononitrate 30 mg Tablet Extended Release 24 Hr 30 mg PO QAM albuterol sulfate 90 mcg/actuation Hfa Aerosol Inhaler 2 puff INHALATION Q4 PRN (Reason: Shortness Of Breath Or Wheezing) Eliquis 5 mg Tablet 5 mg PO BID potassium chloride 20 mEq Tablet Extended Release 20 meq PO QAM rosuvastatin 5 mg Tablet 5 mg PO QAM metoprolol tartrate 25 mg Tablet 25 mg PO BID meclizine 12.5 mg tablet 12.5 mg PO BID PRN (Reason: dizziness or vertigo) Qty: 30 0RF Krames/Other Patient Handouts: Managing Type 2 Diabetes Admission Data Admit Date/Time: 04/08/23 16:30 Attending Provider: David Wilcox Admit Provider: Monica Sullivan Primary Care Provider: Janeth Morin Other Providers: Monica Sullivan
== END 2023-04-10 15:09 | disposition home or self-care (01) ==
LOC: ED 13:30 → EDINP 13:30 → SUATTDRO 16:30 → 2W 22:58

== ENCOUNTER 2023-06-17 13:51 | Observation (INO) ==
[2023-06-17 15:23] LABS: Appearance Urine Clear (Clear); Bilirubin Urine Negative (Negative); Blood Urine Negative (Negative); Color Urine Yellow; Glucose Urine UA Negative (Negative); Ketones Urine Negative (Negative); Leukocyte Esterase Urine Negative (Negative); Nitrite Urine Negative (Negative); Protein Urine Negative (Negative); Specific Gravity Urine 1.007 (1.000-1.030); Urobilinogen Urine Negative (Negative); pH Urine 5.5 (4.5-7.5)
[2023-06-17 16:00] LABS: Basophils # (auto) 0.04 K/uL (0.00-0.20); Basophils % (auto) 0.5 %; Eosinophils # (auto) 0.23 K/uL (0.00-0.50); Eosinophils % (auto) 2.6 %; Hematocrit (blood only) 36.6 % (37.0-47.0); Hemoglobin 11.4 g/dl (12.0-16.0); Immature Granulocytes # (auto) 0.03 K/uL (0.01-0.20); Immature Granulocytes % (auto) 0.3 %; Lymphocytes # (auto) 3.17 K/uL (1.20-3.40); Lymphocytes % (auto) 35.9 %; Mean Corpuscular Hgb Conc 31.1 g/dL (32.0-36.0); Mean Corpuscular Volume 96.3 fL (80.0-100.0); Mean Platelet Volume 12.3 fL (9.4-12.4); Monocytes # (auto) 0.72 K/uL (0.11-0.59); Monocytes % (auto) 8.2 %; Neutrophils # (auto) 4.63 K/uL (1.40-6.50); Neutrophils % (auto) 52.5 %; Platelet Count 211 K/uL (130-400); RDW Coefficient of Variation 12.8 % (11.5-14.5); RDW Standard Deviation 45.5 fL (36.4-46.3); White Blood Count 8.82 K/ul (4.8-10.8)
[2023-06-17 16:08] LABS: Calcium 9.3 mg/dl (8.6-10.3); Creatinine Clr Calc Pharmacy 31.2 ml/min; Est GFR (African American) 37.9 ml/min; Est GFR (Non-African American) 32.7 ml/min
[2023-06-17 16:10] LABS: Adenovirus PCR Not Detected (NotDetected); Bordetella parapertussis PCR Not Detected (NotDetected); Bordetella pertussis PCR Not Detected (NotDetected); Chlamydia pneumoniae PCR Not Detected (NotDetected); Coronavirus 229E PCR Not Detected (NotDetected); Coronavirus CoV-2 (COVID19)PCR Not Detected (NotDetected); Coronavirus HKU1 PCR Not Detected (NotDetected); Coronavirus NL63 PCR Not Detected (NotDetected); Coronavirus OC43PCR Not Detected (NotDetected); Human Metapneumovirus PCR Not Detected (NotDetected); Influenza A PCR Not Detected (NotDetected); Influenza B PCR Not Detected (NotDetected); Mycoplasma pneumoniae PCR Not Detected (NotDetected); Parainfluenza Virus 1 PCR Not Detected (NotDetected); Parainfluenza Virus 2 PCR Not Detected (NotDetected); Parainfluenza Virus 3 PCR Not Detected (NotDetected); Parainfluenza Virus 4 PCR Not Detected (NotDetected); Respiratory Syncytial VirusPCR Not Detected (NotDetected); Rhinovirus/Enterovirus PCR Not Detected (NotDetected)
--- NOTE | 2023-06-17 16:52 | XRay Report ---
XR chest 1V portable HISTORY: cough COMPARISON: Chest 04/08/2023. FINDINGS: No pneumothorax. No pleural effusions. The cardiac silhouette remains mildly enlarged. Mild interstitial thickening, unchanged. This is likely chronic. Hazy appearance to the lung bases is lik neetu due to overlapping soft tissue. Otherwise, no focal lung consolidations to suggest a pneumonia. N o evidence for pulmonary edema. There is a left-sided dual-chamber pacemaker. Calcifications within t he aortic knob. IMPRESSION: Stable mild cardiomegaly. Otherwise, no acute process within the chest. ACT 112: Negative or not required by law. Electronically signed by: Rakesh Franco M.D. 06/17/2023 4:50 PM
--- NOTE | 2023-06-17 17:03 | History & Physical Report ---
Date of Service June 17, 2023 Assessment & Plan (1) Unable to care for self: (2) Dementia: Plan: This is an 88 yo F with a PMH of CAD s/p NOEMI x2, PAF with history of dementia, pacemaker, HTN, HLD, DM II, CKD III, dementia who presents with progressive decline. Family no longer feels patient is safe at home On the list for a bed at [facility], unable to coordinate from ED this afternoon Recent URI symptoms, has taken tylenol PRN Afebrile here, viral resp panel negative, UA negative Fall precautions, PT/OT evaluations Monitor for return of fever Delirium precautions (3) Atrial fibrillation: Plan: HR [address] Penny in clinic. Continue Lopressor BID, Eliquis for anticoagulation (4) Coronary artery disease: Plan: H/o NOEMI x 2 Stable, no chest pain Continue Imdur, beta michael, statin (5) Hypomagnesemia: Plan: Continue magnesium supplement (6) Anemia: Plan: Hgb 11.4, baseline 10-11. Continue to monitor (7) Hypertension: Plan: Continue Imdur, Lopressor, lisinopril, torsemide (8) HLD (hyperlipidemia): Plan: Chronic, stable. Continue statin DVT Ppx: Eliquis Code status: DNR/DNI per discussion with Shaye over phone Dispo: admit to med/tele Shaye Tavarez [phone] updated over the phone and confirmed code status. Patient seen in collaboration with Dr. Sullivan. Please see addendum. I spent a total of 75minutes coordinating, documenting, and providing care for this patient excluding time spent in the performance of separately billed services. History of Present Illness Chief Complaint: dementia, progressive decline, need for placement Primary Care Provider: Janeth Morin, This is an 88 yo F with a PMH of CAD s/p NOEMI x2, PAF with history of dementia, pacemaker, HTN, HLD, DM II, CKD III, dementia who presents with progressive decline. Daughters have been caring for her but they are in their 70s and do not feel they can physically continue to provide care. Previously had 24hr care arranged but has not been receiving routinely since March and has only been coming twice a week. Per note left at bedside from her family, patient with worsening dementia and cough. Has been given tylenol for fever in the past few days. No longer safe to be at home. Ambulates at home with a walker. Have been trying to arrange placement at [facility] and is on the list for a bed. Shaye Tavarez [phone] updated over the phone and confirmed code status. ROS unobtainable due to cognitive state. Allergies Allergy/AdvReac Type Severity Reaction Status Date / Time Iodinated Contrast Media Allergy Severe SHORTNESS Verified 06/17/23 17:11 OF BREATH aspirin Allergy Mild RASH Verified 06/17/23 17:11 Home Medications Medication Instructions Recorded Confirmed Type albuterol sulfate 90 mcg/actuation 2 puff inhalation Q4 PRN Shortness 12/05/18 06/17/23 History aerosol inhaler Of Breath Or Wheezing apixaban 5 mg tablet (Eliquis) 5 mg PO BID 12/05/18 06/17/23 History isosorbide mononitrate 30 mg 30 mg PO QAM 12/05/18 06/17/23 History tablet,extended release 24 hr lisinopril 20 mg tablet 20 mg PO QAM 12/05/18 06/17/23 History potassium chloride 20 mEq 20 meq PO QAM 12/05/18 06/17/23 History tablet,extended release torsemide 20 mg tablet 20 mg PO QAM 12/05/18 06/17/23 History metoprolol tartrate 25 mg tablet 25 mg PO BID 10/20/19 06/17/23 History rosuvastatin 5 mg tablet 5 mg PO QAM 10/20/19 06/17/23 History meclizine 12.5 mg tablet 12.5 mg PO BID PRN dizziness or 03/15/21 06/17/23 Rx vertigo #30 tabs magnesium chloride 64 mg 64 mg PO BID #60 tabs 04/10/23 06/17/23 Rx (magnesium chloride) tablet Past Med/Surg History Medical History Coronary artery disease s/p stent placement in 1993 (LAD diagonal) and 2007 Elevated troponin Spinal stenosis Arthritis Urinary leakage Prediabetes NO MEDS CURRENLTY Hx of cancer of uterus s/p hysterectomy Peripheral neuropathy Shortness of breath REASON FOR INHLAER RX (HAS NOT USED FOR A WHILE) Lower back pain HLD (hyperlipidemia) Carotid artery stenosis CKD (chronic kidney disease) stage 3, GFR 30-59 ml/min Hypertension Paroxysmal atrial fibrillation Atrial fibrillation REASON FOR ELIQUIS (FOLLOWED BY DR. PENNY) Hypertension Surgical History History of surgery on arm RT ARM REPAIRED AT AGE 9 D/T FRACTURE History of bladder surgery BLADDER TACK History of colonoscopy History of tooth extraction History of tonsillectomy History of heart artery stent 1993, 2007 (PLACED IN [place]) History of lumbar fusion History of total abdominal hysterectomy History of appendectomy History of cholecystectomy History of open reduction and internal fixation (ORIF) procedure Left forearm H/O cardiac pacemaker IMPLANTED "QUITE A WHILE AGO" RECENTLY CHECKED>LAST WEEK Family History Mother Diabetes Myocardial infarction Cancer Bladder and kidney Family history of diabetes mellitus Sister Breast cancer Son Multiple sclerosis Social History Smoking Status: Former smoker Second Hand Exposure: Yes (IN THE PAST); Do You Dip or Chew Tobacco: No; Hx Alcohol Use: No Hx Substance Use: No Preferred Language: Surinamese Communication Ability: Effective 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 Sullivan' addendum for physical exam. Results & Data Results & Data Vital Signs (Past 12 Hours) Vital Signs Temp Pulse Resp BP Pulse Ox O2 Del Method 06/17/23 14:02 Room Air 06/17/23 14:02 36.6 C 85 20 142/85 H 98 Room Air Laboratory Results Short CBC 06/17/23 Range/Units 15:35 WBC 8.82 (4.8-10.8) K/ul Hgb 11.4 L (12.0-16.0) g/dl Hct 36.6 L (37.0-47.0) % Plt Count 211 (130-400) K/uL BMP 06/17/23 15:35 Sodium 137 Potassium 4.0 Chloride 103 Carbon Dioxide 25 BUN 27 H Creatinine 1.42 H Glucose 155 H Calcium 9.3 Urine 06/17/23 Range/Units 14:05 Urine Color Yellow Urine Appearance Clear (Clear) Urine pH 5.5 (4.5-7.5) Ur Specific [place] 1.007 (1.000-1.030) Urine Protein Negative (Negative) Urine Glucose (UA) Negative (Negative) Diagnostic Findings Chest X-Ray 06/17/23 16:13 XR chest 1V portable HISTORY: cough COMPARISON: Chest 04/08/2023. FINDINGS: No pneumothorax. No pleural effusions. The cardiac silhouette remains mildly enlarged. Mild interstitial thickening, unchanged. This is likely chronic. Hazy appearance to the lung bases is likely due to overlapping soft tissue. Otherwise, no focal lung consolidations to suggest a pneumonia. No evidence for pulmonary edema. There is a left-sided dual-chamber pacemaker. Calcifications within the aortic knob. IMPRESSION: Stable mild cardiomegaly. Otherwise, no acute process within the chest. ACT 112: Negative or not required by law. Electronically signed by: Rakesh Franco M.D. 06/17/2023 4:50 PM Supervising Physician Co-Signing Physician Notes I have seen and discussed the case with the collaborating advanced practitioner. I agree with the above H&P. I have reviewed and confirmed the patients medical history, the findings on physical examination, and the patients diagnosis and treatment plan with Elia EASTON and agree with the information documented. In short, Ms. Sales is an 88 year old woman with past medical history of f CAD s/p NOEMI x2, PAF with history of dementia, pacemaker, HTN, HLD, DM II, CKD III, dementia who presents with progressive decline. Daughter states that patient is becoming more of a safety hazard. Requesting placement/snf care given inability for care/support at home GENERAL APPEARANCE: AxOx1 generally well-appearing but visibly upset over being in hospital , no acute distress. HEENT: NC, AT. MMM. EOMI, clear conjunctiva, oropharynx clear. NECK: Supple without lymphadenopathy. No stiffness or restricted ROM. HEART: Normal rate and regular rhythm, normal S1/S1, no m/r/g LUNGS: CTAB, moving air well. No crackles or wheezes are heard. ABDOMEN: Soft, nontender, nondistended with good bowel sounds heard. EXTREMITIES: Without cyanosis, clubbing or edema. NEUROLOGICAL: Grossly nonfocal. Alert and oriented, moving all 4 extremities. Skin: Warm and dry without any rash. #Advancing dementia #Generalized weakness Requires placement, working on rehab v. snf placement ambulates with cane Labs not suspicious for infection PT/OT Placement per CM Rest of plan as above I spent a total of 35 minutes coordinating, documenting, and providing care for this patient excluding time spent in the performance of separately billed services. All of the aforementioned completed outside of collaborating with the assigned advanced practitioner for a full treatment plan. I have reviewed the advanced practitioner's documentation, and I agree with, and take responsibility for the plan of care
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
[2023-06-17] MEDS ORDERED: methylPREDNISolone 125 MG/2 ML VIAL IV STA (17:36)
[2023-06-17] MEDS ORDERED: FIRST - Mouthwash BLM 119 ML PO PRN (17:37)
[2023-06-17] MEDS: methylPREDNISolone 1,000 MG in DEXTROSE 5% 250 ML IV STA (18:42)
[2023-06-17] MEDS ORDERED: ALBUTEROL HFA 8 GM INHALER INH PRN (20:41)
[2023-06-17] MEDS ORDERED: ONDANSETRON INJ 2 MG/ML 2 ML VIAL IV PRN (20:41)
[2023-06-17] MEDS ORDERED: MECLIZINE 12.5 MG TAB PO PRN (20:41)
--- OUTSIDE RECORDS SUMMARY | 2023-06-17 20:55 | External Medical Summary | Summary of Care ---
Author Name Unknown Organization [facility] Address [address] [facility] [place] [address] Phone [phone] Care Team Providers Care Cnc Supervisor Name Role Phone Janeth Morin DO Primary Care Provider + [phone] Reason for Visit * Reason Onset Date Comments Fax 05/06/2023 Encounter Details Date Type Department Care Team (Late st Contact Info) Description 05/06/2023 Telephone Family Medicine [address] [place] [address] Janeth Morin DO [address] [place] [address] [place] [address] Fax Allergies Active Allergy Reactions Criticality Noted Date Comments Aspirin Hives Medium 12/26/2010 Iodinated Contrast Media Other (Please comment) Medium 12/26/2010 Pt said she gets hives and can't breath documented as of this encounter (statuses as of 05/22/2023) Medications Medication Sig Dispensed Refills Start Date End Date Status Meclizine HCl 12.5 MG Oral Tablet (Antivert) 0 03/15/2021 Active Tylenol 325 MG Oral Capsule (Acetaminophen) Take by mouth . Twice a week if that 0 Active Loratadine 10 MG Oral Tablet Take 1 Tablet by mouth in the morning. 0 Active Albuterol Sulfate HFA 108 (90 Base) MCG/ACT Inhalation Aerosol SolutionIndications:I ntermittent asthma with reliever use up to twice per week Use two puffs every four hours as needed for wheezing 18 g 3 10/01/2022 Active Torsemide 20 MG Oral Tablet (Demadex)Indications: [...] 03/17/2023 Active Lisinopril 20 MG Oral Tablet (Prinivil)Indications :Paroxysmal atrial fibrillation (HCC),Hypertensive kidney disease with stage 3 chronic kidney disease (HCC) Take 1 Tablet by mouth in the morning. 90 Tablet 1 03/27/2023 Active Magnesium Chloride 64 MG Oral TabletIndications:Hyp omagnesemia 1 pill by mouth twice a day 60 Tablet 1 04/11/2023 Active Potassium Chloride Sophia ER 20 MEQ Oral Tablet Extended Release Take 1 Tablet by mouth in the morning. 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 10/04/2022 Chronic kidney disease, stage 3a 04/03/2022 Type [...] as of this encounter (statuses as of 05/22/2023) Resolved Problems Problem Noted Date Diagnosed Date [...] as of this encounter (statuses as of 05/22/2023) Immunizations Name Administration Dates Next Due COVID-19 mRNA, LNP-s, No Pre serve, 2-Dose Series (Moderna) 06/01/2020,05/03/2020 COVID-19, mRNA, LNP-s, PF, B ooster, 100mcg/0.5mg (Moderna) 09/21/2021,02/02/2021 Pneumococcal Conjugate Vacc, 13 Valent (Prevnar) 10/10/2015 Pneumococcal Polysaccharide PPV23 (Pneumovax) 12/15/2004 Season Influenza, Quad, PF, Adjuvanted, 65+ Yrs, IM (FLUAD) 02/04/2020 Seasonal Influenza Virus Vac cine, Unspecified Formulation 04/03/2022,01/23/2021,02/04/2020,12/11,12/09/2013,12/22/2012,11/12/2011 ,12/15/2010,01/31/2004 Seasonal Influenza, Quadriva lent Hd (Fluzone Hd) 04/11/2023,04/03/2022,01/23/2021 Seasonal Influenza, Quadrivalent, ID ,02/04/2020,12/11/2018,12/09,12/22/2012,11/12/2011,12/15/2010 ,01/31/2004 Seasonal [...] Telephone Encounter - Leticia Cameron LPN - 05/22/2023 8:57 AM EDT Discussed with pt's daughter, this has been taken care of. * Telephone Encounter - Janeth Morin DO - 05/19/2023 12:10 PM EDT Please confirm with Leticia, but I believe this has already been addressed. * Telephone Encounter - Joycelyn Daniels OSA - 05/06/2023 9:08 AM EST Pts Dtr Shaye calling needs a fax sent to [facility] stating mom has Dementia so they can increase the care hours at home. Please fax to [phone] attn: [facility]. documented in this encounter Plan of Treatment Upcoming Encounters Date Type Department Care Team (Late st Contact Info) Description 06/27/2023 2:00 PM EDT Office Visit Cardiology, [facility] [address] [place] [address] Christiane Batista, RUSTAM [address] [place] [address] 11/18/2023 3:10 PM EDT Office Visit Family Medicine [address] [place] [address] Janeth Morin DO [address] [place] [address] [place] [address] Health Maintenance Due Date Last Done Comments DTaP,Tdap,and Td Vaccines (1 - Tdap) 1954 Zoster Vaccines (2 of 3) 04/28/2008 03/03/2008 Diabetic Eye Exam 07/08/2014 07/08/2013 (Do ne elsewhere), 07/01/2013, 06/25/2012 (Done elsewhere), Additional history exists Diabetic Foot Exam 10/22/2017 10/22/2016, 0 10/10/2015, 07/11/2014, Additional history exists DXA Scan 12/16/2019 12/15/2017, 050 06/2014, 06/20/2011 Depression Screening 02/03/2021 02/04/2020 *SPIROMETRY ONCE FOR ASTHMA-ADULT 01/24/2022 COVID-19 Vaccine ( season) 2022 09/21/2021, 02/02/2021, 06/01/2020, Additional history exists Albumin/Creatinine Ratio 10/05/2023 023, 09/21/2021, 10/22/2016, Additional history exists CKD PHOS USE SMARTSET 91400 10/05/2023 08/0 06/2022, 09/21/2021, 03/21/2021, Additional history exists HbA1c 10/10/2023 04/11/2023, 080 06/2022, 04/03/2022, Additional history exists CKD HGB USE SMARTSET 08364 04/11/202404/11, 04/03/2022, 04/03/2022, Additional history exists Pneumococcal Vaccine: 65+ Years Completed 10/10/2015, 12/15/2004 Influenza Vaccine (FLU shot) Completed 11/2023, 04/03/2022, 04/03/2022, Additional history exists VITAMIN D LEVEL ONCE IN A LIFETIME-USE SMARTSET# [id number] Completed 04/11/2023, 04/03/2022, 09/21/2021, Additional history exists GARDASIL-HPV IMMUNIZATION SERIES Aged [...] filedocumented as of this encounter Care Teams Cnc Supervisor Relationship Specialty Start Date End Date Janeth Morin DO [address] [place] [address] [place] [address] PCP - General Internal Medicine 11/08/16 documented as of this encounter
--- OUTSIDE RECORDS SUMMARY | 2023-06-17 20:55 | External Medical Summary | Summary of Care ---
Author Name Unknown Organization [facility] Address [address] [place] [facility] [place] [address] Phone [phone] Care Team Providers Care Director Of Accreditation Name Role Phone Janeth Morin DO Primary Care Provider + [phone] Reason for Visit * Reason Onset Date Comments Fax 05/06/2023 Encounter Details Date Type Department Care Team (Late st Contact Info) Description 05/06/2023 Telephone Family Medicine [address] [place] [address] Janeth Morin DO [address] [place] [address] [place] [address] Fax Allergies Active Allergy Reactions Criticality Noted Date Comments Aspirin Hives Medium 12/26/2010 Iodinated Contrast Media Other (Please comment) Medium 12/26/2010 Pt said she gets hives and can't breath documented as of this encounter (statuses as of 05/21/2023) Medications Medication Sig Dispensed Refills Start Date [...] as of this encounter (statuses as of 05/21/2023) Active Problems Problem Noted Date Diagnosed Date [...] as of this encounter (statuses as of 05/21/2023) Resolved Problems Problem Noted Date Diagnosed Date [...] as of this encounter (statuses as of 05/21/2023) Immunizations Name Administration Dates Next Due COVID-19 [...] encounter Miscellaneous Notes * Telephone Encounter - Janeth Morin DO [...] care hours at home. Please fax to [phone] attn: [facility]. documented in this encounter Plan of Treatment Upcoming Encounters Date Type Department Care Team (Late st Contact Info) Description 06/27/2023 2:00 PM EDT Office Visit Cardiology, [facility] [address] [place] [address] Christiane Batista PA-C [address] [place] [address] 11/18/2023 3:10 PM EDT Office [address] [phone] Janeth Morin DO [address] [place] [address] [place] [address] Health Maintenance Due Date Last Done Comments [...] ONCE FOR ASTHMA-ADULT 01/24/2022 COVID-19 Vaccine ( - 2022-24 season) 2022 09/21/2021, 02/02/2021, 06/01/2020, Additional history exists Albumin/Creatinine Ratio 10/05/2023 023, 09/21/2021, 10/22/2016, Additional history exists CKD PHOS USE SMARTSET 42572 10/05/2023 08/0 06/2022, 09/21/2021, 03/21/2021, Additional history exists HbA1c 10/10/2023 04/11/2023, 08/0 06/2022, 04/03/2022, Additional history exists CKD HGB USE SMARTSET 17794 04/11/202404/11, 04/03/2022, 04/03/2022, Additional history exists Pneumococcal Vaccine: 65+ Years Completed 10/10/2015, 12/15/2004 Influenza Vaccine (FLU shot) Completed 11/2023, 04/03/2022, 04/03/2022, Additional history exists VITAMIN D LEVEL ONCE IN A LIFETIME-USE SMARTSET# [id number] Completed 04/11/2023, 04/03/2022, 09/21/2021, Additional history exists [...] filedocumented as of this encounter Care Teams Director Of Accreditation Relationship Specialty Start Date End Date Janeth Morin DO [address] [place] [address] [place] [address] PCP - General Internal Medicine 11/08/16 documented as of this encounter
--- OUTSIDE RECORDS SUMMARY | 2023-06-17 20:55 | External Medical Summary | Summary of Care ---
Author Name Unknown Organization [facility] Address [address] [place] [address] Phone [phone] Care Team Providers Care Java Mobile Developer Name Role Phone Jenae Phipps Primary Care Provider + [phone] Reason for Visit * Reason Comments eRx-Medication Refill Encounter Details Date Type Department Care Team (Late st Contact Info) Description 06/05/2023 Refill Family Medicine [address] [place] [address] Neptali Rodriguez MD [address] [place] [address] [place] [address] Dyslipidemia, goal LDL below 100 Allergies Active Allergy Reactions Criticality Noted Date Comments Aspirin Hives Medium 12/26/2010 Iodinated Contrast Media Other (Please comment) Medium 12/26/2010 Pt said she gets hives and can't breath documented as of this encounter (statuses as of 06/06/2023) Medications Medication Sig Dispensed Refills Start Date [...] EVERY MORNING 90 Tablet 3 12/02/2022 Active Eliquis 5 MG Oral Tablet Take [...] 03/27/2023 Active Magnesium Chloride 64 MG Oral TabletIndications: Hypomagnesemia 1 pill by mouth twice a day 60 Tablet 1 04/11/2023 Active Potassium Chloride Sophia ER 20 MEQ Oral Tablet Extended Release Take 1 Tablet by mouth in the morning. 90 Tablet 3 04/14/2023 Active Rosuvastatin Calcium 5 MG Oral Tablet (Crestor)Indicatio ns:Dyslipidemia, goal LDL below 100 TAKE ONE TABLET BY MOUTH IN THE MORNING 90 Tablet 1 06/06/2023 Active Rosuvastatin Calcium 5 MG Oral Tablet (Crestor)Indicatio ns:Dyslipidemia, goal LDL below 100 Take 1 Tablet by mouth in the morning. 90 Tablet 1 12/10/2022 4 Discontinued documented as of this encounter (statuses as of 06/06/2023) Active Problems Problem Noted Date Diagnosed Date [...] as of this encounter (statuses as of 06/06/2023) Resolved Problems Problem Noted Date Diagnosed Date [...] as of this encounter (statuses as of 06/06/2023) Immunizations Name Administration Dates Next Due COVID-19 [...] encounter Miscellaneous Notes * Telephone Encounter - Con Savage [facility] - 06/06/2023 8:21 AM EDTSigned Prescriptions: Disp Refills Rosuvastatin Calcium 5 MG Oral Tablet (Cre*90 Tab*1 Sig: TAKE ONE TABLET BY MOUTH IN THE MORNINGAuthorizing Provider: JENAE PHIPPSOrdernew User: CON SAVAGE documented in this encounter Plan of Treatment Upcoming Encounters Date Type Department Care Team (Late st Contact Info) Description 06/27/2023 2:00 PM EDT Office Visit Cardiology, [facility] [address] [place] [address] Christiane Batista PA-C [address] [place] [address] 11/18/2023 3:10 PM EDT Office Visit Family Medicine [address] [place] [phone] Jenae Phipps, [address] [place] [address] Health Maintenance Due Date Last Done Comments [...] Additional history exists CKD PHOS USE SMARTSET 98968 10/05/2023 08/0 06/2022, 09/21/2021, 03/21/2021, Additional history exists HbA1c 10/10/2023 04/11/2023, 080 06/2022, 04/03/2022, Additional history exists CKD HGB USE SMARTSET 60871 04/11/202404/11, 04/03/2022, 04/03/2022, Additional history exists Pneumococcal Vaccine: 65+ Years Completed 10/10/2015, 12/15/2004 Influenza Vaccine (FLU shot) Completed 11/2023, 04/03/2022, 04/03/2022, Additional history exists VITAMIN D LEVEL ONCE IN A LIFETIME-USE SMARTSET# 13259 Completed 04/11/2023, 04/03/2022, 09/21/2021, Additional history exists [...] hyperlipidemia documented in this encounter Care Teams Java Mobile Developer Relationship Specialty Start Date End Date Jenae Phipps DO [address] [place] [address] [place] [address] PCP - General Internal Medicine 11/08/16 documented as of this encounter
--- OUTSIDE RECORDS SUMMARY | 2023-06-17 20:56 | External Medical Summary | Summary of Care ---
Author Name Unknown Organization [facility] Address [address] [facility] [place] [address] Phone [phone] Care Team Providers Care Traffic Checker Name Role Phone Janeth Morin DO Primary Care Provider + [phone] Reason for Visit * Reason Onset Date Comments Fax 05/06/2023 Encounter Details Date Type Department Care Team (Late st Contact Info) Description 05/06/2023 Telephone Family Medicine [address] [place] [phone] Janeth Morin DO [address] [place] [address] [place] [address] Fax Allergies Active Allergy Reactions Criticality Noted Date Comments Aspirin Hives Medium 12/26/2010 Iodinated Contrast Media Other (Please comment) Medium 12/26/2010 Pt said she gets hives and can't breath documented as of this encounter (statuses as of 05/19/2023) Medications Medication Sig Dispensed Refills Start Date [...] as of this encounter (statuses as of 05/19/2023) Active Problems Problem Noted Date Diagnosed Date [...] as of this encounter (statuses as of 05/19/2023) Resolved Problems Problem Noted Date Diagnosed Date [...] as of this encounter (statuses as of 05/19/2023) Immunizations Name Administration Dates Next Due COVID-19 [...] care hours at home. Please fax to [phone] attn: Mary Barber. documented in this encounter Plan of Treatment Upcoming Encounters Date Type Department Care Team (Late st Contact Info) Description 06/27/2023 2:00 PM EDT Office Visit Cardiology, [facility] [address] [place] [address] Christiane Batista PA-C [address] [place] [address] 11/18/2023 3:10 PM EDT Office Visit [address] Medicine [address] [phone] Janeth Morin DO [address] [place] [address] [place] [address] Health Maintenance Due Date Last Done Comments [...] Additional history exists CKD PHOS USE SMARTSET 36607 10/05/2023 08/0 06/2022, 09/21/2021, 03/21/2021, Additional history exists HbA1c 10/10/2023 04/11/2023, 08/0 06/2022, 04/03/2022, Additional history exists CKD HGB USE SMARTSET 51397 04/11/202404/11, 04/03/2022, 04/03/2022, Additional history exists Pneumococcal Vaccine: 65+ Years Completed 10/10/2015, 12/15/2004 Influenza Vaccine (FLU shot) Completed 11/2023, 04/03/2022, 04/03/2022, Additional history exists VITAMIN D LEVEL ONCE IN A LIFETIME-USE SMARTSET# 66137 Completed 04/11/2023, 04/03/2022, 09/21/2021, Additional history exists [...] filedocumented as of this encounter Care Teams Traffic Checker Relationship Specialty Start Date End Date Janeth Morin DO [address] [place] [address] [place] [address] PCP - General Internal Medicine 11/08/16 documented as of this encounter
--- OUTSIDE RECORDS SUMMARY | 2023-06-17 20:56 | External Medical Summary | Summary of Care ---
Author Name Unknown Organization [facility] Address [address] [place] [address] Phone [phone] Care Team Providers Care Cause Analyst Name Role Phone Janeth Morin DO Primary Care Provider [phone] Reason for Referral * Evaluate & Treat - Unlimited Visits (Within 10 days (routine)) - Closed Specialty Diagnoses / Procedures Referred By Moises duran Referred To Contact Optometry Diagnoses Type 2 diabetes mellitus with stage 3b chronic kidney disease, without long-term current use of insulin (HCC) Janeth Morin [address] [place] [address] Referral ID Status Reason Start Date Expiration Date V isits Requested Visits Authorized [id number] Closed Specialty Services Required 10/04/[phone] Question Answer Referral Priority Within 10 days (routine) Comments Diabetic Eye Exam Reason for Visit * Reason Comments Re-Check Encounter Details Date Type Department Care Team (Late st Contact Info) Description 10/04/2022 2:10 PM EDT Office Visit Family Medicine [address] [place] [phone] Janeth Morin [address] [place] [address] 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)*; HTN, goal below 150/90; Dyslipidemia, goal LDL below 100; Hyperparathyroidism, secondary renal (HCC); Paroxysmal atrial fibrillation (HCC); Type 2 diabetes mellitus with stage 3b chronic kidney disease, without long-term current use of insulin (HCC) Allergies Active Allergy Reactions Criticality Noted Date Comments Aspirin Hives Medium 12/26/2010 Iodinated Contrast Media Other (Please comment) Medium 12/26/2010 Pt said she gets hives and can't breath documented as of this encounter (statuses as of 05/06/2023) Medications Medication Sig Dispensed Refills Start Date End Date Status Meclizine HCl 12.5 MG Oral Tablet (Antivert) 0 03/15/2021 Active Tylenol 325 MG Oral Capsule (Acetaminophen) Take by mouth . Twice a week if that 0 Active Loratadine 10 MG Oral Tablet Take 1 Tablet by mouth in the morning. 0 Active Albuterol Sulfate HFA 108 (90 Base) MCG/ACT Inhalation Aerosol SolutionIndicatio ns:Intermittent asthma with reliever use up to twice per week Use two puffs every four hours as needed for wheezing 18 g 3 10/01/2022 Active Isosorbide Mononitrate ER 30 MG Oral Tablet Extended Release 24 Hour (Imdur) Take 1 Tablet by mouth in the morning. 90 Tablet 3 03/18/2022 03/17/19 24 Discontinued(Ref ill) Eliquis 5 MG Oral Tablet Take 1 Tablet by mouth in the morning and 1 Tablet before bedtime. 180 Tablet 3 03/25/2022 12/18/19 23 Discontinued(Ref ill) Torsemide 20 MG Oral Tablet (Demadex)Indicati ons:Hypertensive kidney disease with stage 3 chronic kidney disease (HCC) TAKE ONE TABLET BY MOUTH IN THE MORNING 90 Tablet 3 04/09/2022 12/03/19 23 Discontinued Rosuvastatin Calcium 5 MG Oral Tablet (Crestor)Indicati ons:Dyslipidemia, goal LDL below 100 Take 1 Tablet by mouth in the morning. 90 Tablet 1 06/18/2022 12/10/19 23 Discontinued(Ref ill) Potassium Chloride Sophia ER 20 MEQ Oral Tablet Extended Release Take 1 Tablet by mouth in the morning. 90 Tablet 3 07/16/2022 04/14/19 24 Discontinued(Ref ill) Metoprolol Tartrate 25 MG Oral Tablet (Lopressor)Indica tions:Paroxysmal atrial fibrillation (HCC) TAKE ONE TABLET BY MOUTH TWICE DAILY 180 Tablet 3 09/04/2022 03/05/19 24 Discontinued Lisinopril 20 MG Oral Tablet (Prinivil)Indicat ions:Paroxysmal atrial fibrillation (HCC),Hypertensiv e kidney disease with stage 3 chronic kidney disease (HCC) Take 1 Tablet by mouth in the morning. 90 Tablet 1 10/02/2022 03/27/19 24 Discontinued(Ref ill) documented as of this encounter (statuses as of 05/06/2023) Active Problems Problem Noted Date Diagnosed Date [...] as of this encounter (statuses as of 05/06/2023) Resolved Problems Problem Noted Date Diagnosed Date [...] as of this encounter (statuses as of 05/06/2023) Immunizations Name Administration Dates Next Due COVID-19 [...] on file documented as of this encounter Last Filed Vital Signs Vital Sign Reading Time Taken Comments Blood Pressure 118/60 10/04/2022 2:07 PM EDT Pulse 104 10/04/2022 2:07 PM EDT Temperature 36.6 C (97.9 F) 10/04/2022 2:07 PM ED T Respiratory Rate - - Oxygen Saturation 95% 10/04/2022 2:07 PM EDT Inhaled Oxygen Concentration - - Weight 91.3 kg (201 lb 3.2 oz) 10/04/2022 2:07 P M EDT Height - - Body Mass Index 38.02 03/21/2021 2:45 PM EST documented in this encounter Progress Notes * Janeth Morin DO - 10/04/2022 2:25 PM EDT Subjective: Kristi Serrano is a 87 year old female. Chief Complaint Patient presents with Re-Check HPI: Kristi Serrano presents today with her daughter Cornelio for routine follow up. She is a difficult historian due to her Dementia. She continues to live on her own with family checking on her. She also has a caregiver named Juliet who is there Friday to Friday from 7 AM to 5 PM. She gets herself to bed. She requires help with bathing, cooking, and medicines. No hospitalizations or falls since her last visit. Weight is stable. BP is well controlled here today. Denies lightheadedness or dizziness. No problems with bleeding. Some LE edema - worse on the left. Shoulders are okay. No heartburn. Her daughter Cornelio approached me separately and informed me that family is looking into SNF placement at [facility]. PMH: Patient Active Problem List Diagnosis Code Coronary atherosclerosis I25.10 Carotid stenosis, non-symptomatic I65.29 Aspirin intolerance Z78.9 Rotator cuff tear arthropathy of both shoulders M75.101, M12.811, M12.812, M75.102 GERD (gastroesophageal reflux disease) K21.9 Cardiac pacemaker Z95.0 Dyslipidemia, goal LDL below 100 E78.5 Intermittent asthma with reliever use up to twice per week J45.20 Degenerative disc disease, cervical M50.30 Abnormality of gait R26.9 Senile osteoporosis M81.0 HTN, goal below 150/90 I10 Fecal incontinence R15.9 Hyperparathyroidism, secondary renal (HCC) N25.81 Paroxysmal atrial fibrillation (HCC) I48.0 Diabetes mellitus without complication (HCC) E11.9 Benign hypertension with stage 3b chronic kidney disease (HCC) I12.9, N18.32 Type 2 diabetes mellitus with stage 3b chronic kidney disease (HCC) E11.22, N18.32 Chronic kidney disease, stage 3a (HCC) N18.31 Moderate late onset Alzheimer's dementia (HCC) G30.1, F02.B0 Current Outpatient Medications Medication Sig Dispense Refill Meclizine HCl 12.5 MG Oral Tablet (Antivert) Tylenol 325 MG Oral Capsule (Acetaminophen) Take by mouth . Twice a week if that Loratadine 10 MG Oral Tablet Take 1 Tablet by mouth in the morning. Isosorbide Mononitrate ER 30 MG Oral Tablet Extended Release 24 Hour (Imdur) Take 1 Tablet by mouth in the morning. 90 Tablet 3 Eliquis 5 MG Oral Tablet Take 1 Tablet by mouth in the morning and 1 Tablet before bedtime. 180Tablet 3 Torsemide 20 MG Oral Tablet (Demadex) TAKE ONE TABLET BY MOUTH IN THE MORNING 90 Tablet 3 Rosuvastatin Calcium 5 MG Oral Tablet (Crestor) Take 1 Tablet by mouth in the morning. 90 Tablet 1 Potassium Chloride Sophia ER 20 MEQ Oral Tablet Extended Release Take 1 Tablet by mouth in the morning. 90 Tablet 3 Metoprolol Tartrate 25 MG Oral Tablet (Lopressor) TAKE ONE TABLET BY MOUTH TWICE DAILY 180 Tablet 3 Albuterol Sulfate HFA 108 (90 Base) MCG/ACT Inhalation Aerosol Solution Use two puffs every four hours as needed for wheezing 18 g 3 Lisinopril 20 MG Oral Tablet (Prinivil) Take 1 Tablet by mouth in the morning. 90 Tablet 1 No current facility-administered medications for this visit. Review of patient's allergies indicates: Allergen Reactions Aspirin Hives Iodinated Contrast Media Other (Please comment) Pt said she gets hives and can't breath Objective: BP 118/60 | Pulse 104 | Temp 36.6 C (97.9 F) | Wt 91.3 kg (201 lb 3.2 oz) | SpO2 95% | BMI 38.02 kg/m | BSA 1.98 m General: alert, healthy, no distress, well nourished and well developed Neck: supple, no adenopathy Heart: regular rate & rhythm and no murmur Lungs: chest symmetric with normal AP diameter, no chest deformities noted, normal respiratory rateand rhythm, lungs clear to auscultation Abdomen: abdomen soft and non-tender Extremities: no joint deformities, effusion, or inflammation, no edema Neuro Exam: alert & oriented x 3 with fluent speech, no focal motor/sensory deficits, gait normal Skin: skin color, texture, turgor are normal, no rashes or significant lesions ASSESSMENT/PLAN: Moderate late onset Alzheimer's dementia with agitation (HCC) (Primary) - she has daytime caregiving during the week on the Waiver program but family is looking into placement given her increasing needs. HTN, goal below 150/90 - well controlled. - BASIC METABOLIC PANEL; Future; Expected date: 10/04/2022 Dyslipidemia, goal LDL below 100 - continue low dose rosuvastatin Hyperparathyroidism, secondary renal (HCC) Paroxysmal atrial fibrillation (HCC) - on eliquis. Continue. No recent falls or bleeding problems. Type 2 diabetes mellitus with stage 3b chronic kidney disease, without long-term current use of insulin (HCC) - diet controlled. Discussed the need for an eye exam (if she is able to cooperate). - HEMOGLOBIN A1C; Future; Expected date: 10/04/2022 - ALBUMIN / CREATININE RATIO, URINE; Future; Expected date: 10/04/2022 - PHOSPHORUS; Future; Expected date: 10/04/2022 - OPTOMETRY (DIABETES-EXTENDED) REFERRAL OP Follow-up: Return in about 6 months (around 04/06/2023). | Check-out note: Labs today Janeth Morin DO documented in this encounter Plan of Treatment Upcoming Encounters Date Type Department Care Team (Late st Contact Info) Description 05/23/2023 9:30 AM EDT Office Visit Cardiology, [facility] [address] [place] [address] Christiane Batista PA-C [address] [place] [address] 06/03/2023 10:00 AM EDT Office Visit [facility]ph[facility], [facility] [address] [facility] [place] [address] Ravinder Douglass MD [address] [facility] [place] [address] 11/18/2023 3:10 PM EDT Office Visit [address] Medicine [address] [phone] Janeth Morin DO [address] [place] [address] [place] [address] Scheduled Referrals Name Type Priority Associated Diagnoses Orde r Schedule OPTOMETRY (DIABETES-EXTENDED) REFERRAL OP Referral Within 10 days (routine) Type 2 diabetes mellitus with stage 3b chronic kidney disease, without long-term current use of insulin (HCC) Ordered: 10/04/2022 Health Maintenance Due Date Last Done Comments [...] Additional history exists CKD PHOS USE SMARTSET 78600 10/05/2023 08/0 06/2022, 09/21/2021, 03/21/2021, Additional history exists HbA1c 10/10/2023 04/11/2023, 080 06/2022, 04/03/2022, Additional history exists CKD HGB USE SMARTSET 80355 04/11/202404/11, 04/03/2022, 04/03/2022, Additional history exists Pneumococcal Vaccine: 65+ Years Completed 10/10/2015, 12/15/2004 Influenza Vaccine (FLU shot) Completed 11/2023, 04/03/2022, 04/03/2022, Additional history exists VITAMIN D LEVEL ONCE IN A LIFETIME-USE SMARTSET# 59522 Completed 04/11/2023, 04/03/2022, 09/21/2021, Additional history exists [...] Not on filedocumented as of this encounter Results * PHOSPHORUS (10/04/2022 2:58 PM EDT) Phosphorus 3.9 2.5 - 4.8 mg/dL 10/05/2022 1:11 AM EDT LAB[facility] Blood Venous blood specimen / Unknown Venipuncture / Unknown 10/04/2022 2:58 PM EDT 10/04/2022 2:58 PM EDT Janeth Morin DO LAB BLOOD ORDERABLES Performing Organization Address [facility] Co de Phone Number LABORATORY [facility] [address] [place] [address] * ALBUMIN / CREATININE RATIO, URINE (10/04/2022 2:58 PM EDT) Albumin, Random Urine <1.20 mg/dL 10/04/2022 10:13 PM EDT LABORATORY [facility] Creatinine, Random Urine 62 mg/dL 10/04/2022 10:13 PM EDT LAB[facility]ATORY [facility] Albumin / Creatinine Ratio, Urine <19 <30 mg/g Creat 10/04/2022 10:13 PM EDT LAB[facility]ATORY [facility] Urine Urine specimen obtained by clean catch procedure / Unknown Non-blood Collection / Unknown 10/04/2022 2:58 PM EDT 10/04/2022 2:58 PM EDT Narrative LABORATORY [facility] - 10/04/2022 10:13 PM EDT Normal: <30 mg/g creatinine High: 30-300 mg/g creatinine Very High: >300 mg/g creatinine Nephrotic: >2200 mg/g creatinine Janeth Morin LAB URINE ORDERABLES Performing Organization Address [facility] de Phone Number LABORATORY [address] [address] * (ABNORMAL) HEMOGLOBIN A1C (10/04/2022 2:58 PM EDT) Hemoglobin A1C 7.1(H) 4.0 - 5.6 % 10/05/2022 1:14 AM EDT LABORATORY [facility] Comment:The use of HbA1c to monitor glycemic status is based on normal hemoglobin and HbA composition. This test should not be used in patients with abnormal hemoglobin that affects the half life of the red blood cell or the in vivo glycation rates. Estimated Average Glucose 157(H) <126 mg/dL 10/05/2022 1:14 AM EDT LABORATORY [facility] Blood Venous blood specimen / Unknown Venipuncture / Unknown 10/04/2022 2:58 PM EDT 10/04/2022 2:58 PM EDT Janeth Morin DO LAB BLOOD ORDERABLES Performing Organization Address City/[facility]/ZIP Co de Phone Number [facility] [address] [place] [address] * (ABNORMAL) BASIC METABOLIC PANEL (10/04/2022 2:58 PM EDT) BUN 26(H) 6 - 20 mg/dL 10/05/2022 1:11 AM EDT [facility] Creatinine 1.4(H) 0.5 - 1.0 mg/dL 10/05/2022 1:11 AM EDT [facility] Estimated Glomerular Filtration Rate 37(L) >=60 mL/min 10/05/2022 1:11 AM EDT [facility] Comment:eGFR is calculated b ased on the CKD-EPI 2020 equation Sodium 142 135 - 146 mmol/L 10/05/2022 1:11 AM EDT [facility] Potassium 4.8 3.5 - 5.1 mmol/L 10/05/2022 1:11 AM EDT [facility] Chloride 101 98 - 107 mmol/L 10/05/2022 1:11 AM EDT [facility] CO2 25 22 - 32 mmol/L 10/05/2022 1:11 AM EDT [facility] Anion Gap 16(H) 7 - 15 mmol/L 10/05/2022 1:11 AM EDT [facility] Glucose 137(H) 70 - 120 mg/dL 10/05/2022 1:11 AM EDT [facility] Calcium 9.7 8.4 - 10.2 mg/dL 10/05/2022 1:11 AM EDT [facility] Blood Venous blood specimen / Unknown Venipuncture / Unknown 10/04/2022 2:58 PM EDT 10/04/2022 2:58 PM EDT Janeth Morin DO LAB BLOOD ORDERABLES Performing Organization Address City/[facility]/ZIP Co de Phone Number [facility] [address] [place] [address] documented in this encounter Visit Diagnoses Diagnosis 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)- Primary HTN, goal below 150/90 Dyslipidemia, goal LDL below 100 Other and unspecified hyperlipidemia Hyperparathyroidism, secondary renal (HCC) Secondary hyperparathyroidism (of renal origin) Paroxysmal atrial fibrillation (HCC) Atrial fibrillation Type 2 diabetes mellitus with stage 3b chronic kidney disease, without long-term current use of insulin (HCC) documented in this encounter Care Teams Cause Analyst Relationship Specialty Start Date End Date Janeth Morin DO [address] [place] [address] [place] [phone] PCP - General Internal Medicine 11/08/16 documented as of this encounter"
--- OUTSIDE RECORDS SUMMARY | 2023-06-17 20:56 | External Medical Summary | Summary of Care ---
Author Name Unknown Organization [facility] Address [address] [place] [address] Phone [phone] Care Team Providers Care Cloth Hand Name Role Phone Janeth Morin DO Primary Care Provider Reason for Visit * Reason Onset Date Comments Fax 05/09/2023 Status Check 05/12/2023 Encounter Details Date Type Department Care Team (Late st Contact Info) Description 05/09/2023 Telephone Family Medicine [address] [place] [phone] Janeth Morin DO [address] [place] [address] [place] [address] Fax; Status Check Allergies Active Allergy Reactions Criticality Noted Date Comments Aspirin Hives Medium 12/26/2010 Iodinated Contrast Media Other (Please comment) Medium 12/26/2010 Pt said she gets hives and can't breath documented as of this encounter (statuses as of 05/12/2023) Medications Medication Sig Dispensed Refills Start Date [...] as of this encounter (statuses as of 05/12/2023) Active Problems Problem Noted Date Diagnosed Date [...] as of this encounter (statuses as of 05/12/2023) Resolved Problems Problem Noted Date Diagnosed Date [...] as of this encounter (statuses as of 05/12/2023) Immunizations Name Administration Dates Next Due COVID-19 [...] encounter Miscellaneous Notes * Telephone Encounter - Emely Lynch CMA - 05/12/2023 3:14 PM EDT Faxed information. * Telephone Encounter - Karlie Rojas OSA - 05/12/2023 12:04 PM EDT Alice Tavarez is calling in to check on the status of the message she left on 05.09.2023, in reference to her mother Kristi Serrano. Alice can be contacted at [phone] Thank you * Telephone Encounter - Meseret Mccoy OSA - 05/09/2023 3:29 PM EST Pt's daughter alice called & they are trying to place pt at a nurse skill center at [facility]. They are requesting for some info: Demographics sheet Last office note List of current medication Immunization list Please fax to Attn: Juany Kunz# [phone] F# - [phone] documented in this encounter Plan of Treatment Upcoming Encounters Date Type Department Care Team (Late st Contact Info) Description 06/27/2023 2:00 PM EDT Office Visit Cardiology, [facility] [address] [facility] [place] [address] Christiane Batista PA-C [address] [place] [address] 11/18/2023 3:10 PM EDT Office Visit Family Medicine [address] [place] [phone] Janeth Morin [address] [place] [address] Health Maintenance Due Date Last Done Comments [...] Additional history exists CKD PHOS USE SMARTSET 20635 10/05/2023 08/0 06/2022, 09/21/2021, 03/21/2021, Additional history exists HbA1c 10/10/2023 04/11/2023, 08/0 06/2022, 04/03/2022, Additional history exists CKD HGB USE SMARTSET 11770 04/11/202404/11, 04/03/2022, 04/03/2022, Additional history exists Pneumococcal Vaccine: 65+ Years Completed 10/10/2015, 12/15/2004 Influenza Vaccine (FLU shot) Completed 11/2023, 04/03/2022, 04/03/2022, Additional history exists VITAMIN D LEVEL ONCE IN A LIFETIME-USE SMARTSET# 93021 Completed 04/11/2023, 04/03/2022, 09/21/2021, Additional history exists [...] filedocumented as of this encounter Care Teams Cloth Hand Relationship Specialty Start Date End Date Janeth Morin DO [address] [place] [address] [place] [address] PCP - General Internal Medicine 11/08/16 documented as of this encounter
--- OUTSIDE RECORDS SUMMARY | 2023-06-17 20:56 | External Medical Summary | Summary of Care ---
Author Name Unknown Organization [facility] Address [address] [place] [facility] [facility] [place] [address] Phone [phone] Care Team Providers Care Brick Offbearer Name Role Phone Janeth Morin DO Primary Care Provider + [phone] Reason for Visit * Reason Onset Date Comments Fax 05/06/2023 Encounter Details Date Type Department Care Team (Late st Contact Info) Description 05/06/2023 Telephone Family Medicine [address] [place] [phone] Janeth Morin DO [address] [place] [address] [place] [address] Fax Allergies Active Allergy [...] care hours at home. Please fax to [phone] attn: Mary Barber. documented in this encounter Plan of Treatment Upcoming Encounters Date Type Department Care Team (Late st Contact Info) Description 06/27/2023 2:00 PM EDT Office Visit Cardiology, [facility] [address] [place] [address] Christiane Batista PA-C [address] [place] [address] 11/18/2023 3:10 PM EDT Office Visit Family Medicine [address] [phone] Janeth Morin DO [address] [place] [address] [place] [address] Health Maintenance Due Date Last Done Comments [...] Additional history exists CKD PHOS USE SMARTSET 70438 10/05/2023 08/0 06/2022, 09/21/2021, 03/21/2021, Additional history exists HbA1c 10/10/2023 04/11/2023, 08/0 06/2022, 04/03/2022, Additional history exists CKD HGB USE SMARTSET 06378 04/11/202404/11, 04/03/2022, 04/03/2022, Additional history exists Pneumococcal Vaccine: 65+ Years Completed 10/10/2015, 12/15/2004 Influenza Vaccine (FLU shot) Completed 11/2023, 04/03/2022, 04/03/2022, Additional history exists VITAMIN D LEVEL ONCE IN A LIFETIME-USE SMARTSET# 51005 Completed 04/11/2023, 04/03/2022, 09/21/2021, Additional history exists [...] filedocumented as of this encounter Care Teams Brick Offbearer Relationship Specialty Start Date End Date Janeth Morin DO [address] [place] [address] [place] [address] PCP - General Internal Medicine 11/08/16 documented as of this encounter
--- OUTSIDE RECORDS SUMMARY | 2023-06-17 20:56 | External Medical Summary | Summary of Care ---
Author Name Unknown Organization [facility] Address [address] [facility] [place] [address] Phone [phone] Care Team Providers Care Regulated Program Manager Name Role Phone Janeth Morin DO Primary Care Provider + [phone] Reason for Visit * Reason Onset Date Comments Fax 05/06/2023 Encounter Details Date Type Department Care Team (Late st Contact Info) Description 05/06/2023 Telephone Family Medicine [address] [place] [address] Janeth Morin DO [address] [place] [address] [place] [address] Fax Allergies Active Allergy [...] encounter Miscellaneous Notes * Telephone Encounter - Joycelyn Daniels OSA - 05/06/2023 9:08 AM EST Pts Dtr Shaye calling needs a fax sent to [facility] stating mom has Dementia so they can increase the care hours at home. Please fax to [phone] attn: [facility]. documented in this encounter Plan of Treatment Upcoming Encounters Date Type Department Care Team (Late st Contact Info) Description 06/27/2023 2:00 PM EDT Office Visit Cardiology, [facility] [address] [place] [address] Christiane Batista PA-C [address] [place] [address] 11/18/2023 3:10 PM EDT Office Visit Family Medicine [address] [place] [phone] [place] [address] Health Maintenance Due Date Last Done Comments [...] 06/01/2020, Additional history exists Albumin/Creatinine Ratio 10/05/2023 082 023, 09/21/2021, 10/22/2016, Additional history exists CKD PHOS USE SMARTSET 37031 10/05/202306/20230 06/2022, 09/21/2021, 03/21/2021, Additional history exists HbA1c 10/10/2023 04/11/2023, 06/2022, 04/03/2022, Additional history exists CKD HGB USE SMARTSET 09475 04/11/202404/11, 04/03/2022, 04/03/2022, Additional history exists Pneumococcal Vaccine: 65+ Years Completed 10/10/2015, 12/15/2004 Influenza Vaccine (FLU shot) Completed 11/2023, 04/03/2022, 04/03/2022, Additional history exists VITAMIN D LEVEL ONCE IN A LIFETIME-USE SMARTSET# 71046 Completed 04/11/2023, 04/03/2022, 09/21/2021, Additional history exists [...] filedocumented as of this encounter Care Teams Regulated Program Manager Relationship Specialty Start Date End Date Janeth Morin DO [address] [place] [address] [place] [phone] PCP - General Internal Medicine 11/08/16 documented as of this encounter
--- OUTSIDE RECORDS SUMMARY | 2023-06-17 20:56 | External Medical Summary | Summary of Care ---
Author Name Unknown Organization [facility] Address [address] [place] [facility] [place] [address] Phone [phone] Care Team Providers Care Director Of Supply Chain Name Role Phone Janeth Morin DO Primary Care Provider + [phone] Reason for Visit * Reason Onset Date Comments Fax 05/06/2023 Encounter Details Date Type Department Care Team (Late st Contact Info) Description 05/06/2023 Telephone Family Medicine [address] [place] [address] Janeth Morin DO [address] [place] [address] [place] [address] Fax Allergies Active Allergy [...] care hours at home. Please fax to [phone] attn: [facility]. documented in this encounter Plan of Treatment Upcoming Encounters Date Type Department Care Team (Late st Contact Info) Description 06/27/2023 2:00 PM EDT Office Visit Cardiology, [facility] [address] [place] [address] Christiane Batista PA-C [address] [place] [address] 11/18/2023 3:10 PM EDT Office Visit Family Medicine [address] [phone] Janeth Morin DO [address] [place] [address] [place] [address] Health Maintenance Due Date Last Done Comments [...] Additional history exists CKD PHOS USE SMARTSET 07028 10/05/2023 08/0 06/2022, 09/21/2021, 03/21/2021, Additional history exists HbA1c 10/10/2023 04/11/2023, 08/0 06/2022, 04/03/2022, Additional history exists CKD HGB USE SMARTSET 06665 04/11/202404/11, 04/03/2022, 04/03/2022, Additional history exists Pneumococcal Vaccine: 65+ Years Completed 10/10/2015, 12/15/2004 Influenza Vaccine (FLU shot) Completed 11/2023, 04/03/2022, 04/03/2022, Additional history exists VITAMIN D LEVEL ONCE IN A LIFETIME-USE SMARTSET# 29696 Completed 04/11/2023, 04/03/2022, 09/21/2021, Additional history exists [...] of this encounter Care Teams Director Of Supply Chain Relationship Specialty Start Date End Date Janeth Morin DO [address] [place] [address] [place] [address] PCP - General Internal Medicine 11/08/16 documented as of this encounter
--- OUTSIDE RECORDS SUMMARY | 2023-06-17 20:56 | External Medical Summary | Summary of Care ---
Author Name Unknown Organization [facility] Address [address] [place] [place] [address] Phone [phone] Care Team Providers Care Rn Office Name Role Phone Janeth Morin DO Primary Care Provider [phone] Reason for Visit * Reason Onset Date Comments Advice 05/05/2023 Encounter Details Date Type Department Care Team (Late st Contact Info) Description 05/05/2023 Telephone Family Medicine [address] [place] [address] Janeth Morin DO [address] [place] [address] [place] [address] Advice Allergies Active Allergy Reactions Criticality Noted Date [...] encounter Miscellaneous Notes * Telephone Encounter - Soheila Tong RN - 05/06/2023 4:37 PM EST See encounter 10/04/2022, dementia added to Problem list. Note faxed * Telephone Encounter - Eagle Rincon OSA - 05/05/2023 8:37 AM EST They want a diagnostic list for PT, they just want confirmed that the PT has Dimensia. If It could be faxed to them please. documented in this encounter Plan of Treatment Upcoming Encounters Date Type Department Care Team (Late st Contact Info) Description 05/23/2023 9:30 AM EDT Office Visit Cardiology, [facility] [address] [place] [address] Christiane Batista PA-C [address] [place] [address] 06/03/2023 10:00 AM EDT Office Visit Nephrology, [facility] [address] [facility] [place] [address] Ravinder Douglass MD [address] [facility] [place] [address] 11/18/2023 3:10 PM EDT Office Visit Family Medicine [address] [place] [phone] Janeth Morin, [address] [place] [address] Health Maintenance Due Date Last Done Comments [...] Additional history exists CKD PHOS USE SMARTSET 23901 10/05/2023 08/0 06/2022, 09/21/2021, 03/21/2021, Additional history exists HbA1c 10/10/2023 04/11/2023, 08/0 06/2022, 04/03/2022, Additional history exists CKD HGB USE SMARTSET 19802 04/11/202404/11, 04/03/2022, 04/03/2022, Additional history exists Pneumococcal Vaccine: 65+ Years Completed 10/10/2015, 12/15/2004 Influenza Vaccine (FLU shot) Completed 11/2023, 04/03/2022, 04/03/2022, Additional history exists VITAMIN D LEVEL ONCE IN A LIFETIME-USE SMARTSET# 61952 Completed 04/11/2023, 04/03/2022, 09/21/2021, Additional history exists [...] filedocumented as of this encounter Care Teams Rn Office Relationship Specialty Start Date End Date Janeth Morin DO [address] [place] [address] [place] [address] PCP - General Internal Medicine 11/08/16 documented as of this encounter
--- OUTSIDE RECORDS SUMMARY | 2023-06-17 20:56 | External Medical Summary | Summary of Care ---
Author Name Unknown Organization [facility] Address [address] [place] [facility] [place] [address] Phone [phone] Care Team Providers Care Fleshing Machine Operator Name Role Phone Janeth Morin DO Primary Care Provider [phone] Reason for Visit * Reason Onset Date Comments Advice 05/05/2023 Encounter Details Date Type Department Care Team (Late st Contact Info) Description 05/05/2023 Telephone Family Medicine [address] [place] [phone] Janeth Morin DO [address] [place] [address] [place] [address] Advice Allergies Active Allergy Reactions Criticality Noted Date Comments Aspirin Hives Medium 12/26/2010 Iodinated Contrast Media Other (Please comment) Medium 12/26/2010 Pt said she gets hives and can't breath documented as of this encounter (statuses as of 05/07/2023) Medications Medication Sig Dispensed Refills Start Date [...] as of this encounter (statuses as of 05/07/2023) Active Problems Problem Noted Date Diagnosed Date [...] as of this encounter (statuses as of 05/07/2023) Resolved Problems Problem Noted Date Diagnosed Date [...] as of this encounter (statuses as of 05/07/2023) Immunizations Name Administration Dates Next Due COVID-19 [...] encounter Miscellaneous Notes * Telephone Encounter - Monica Bernard MD - 05/07/2023 11:34 AM EST Yes pt does have dx of dementia - mentioned on 10/04/2022 progress note * Telephone Encounter - Soheila Tong RN [...] 05/23/2023 9:30 AM EDT Office Visit Cardiology, [facility] [address] [place] [address] Christiane Batista PA-C [address] [place] [address] 06/03/2023 10:00 AM EDT Office Visit Nephrology, [facility] [place] [address] Ravinder Douglass MD [facility] [place] [address] 11/18/2023 3:10 PM EDT Office Visit Family Medicine [address] [place] [phone] Janeth Morin[address] [place] [address] Health Maintenance Due Date Last Done Comments [...] Additional history exists CKD PHOS USE SMARTSET 28294 10/05/2023 08/0 06/2022, 09/21/2021, 03/21/2021, Additional history exists HbA1c 10/10/2023 04/11/2023, 08/0 06/2022, 04/03/2022, Additional history exists CKD HGB USE SMARTSET 19894 04/11/202404/11, 04/03/2022, 04/03/2022, Additional history exists Pneumococcal Vaccine: 65+ Years Completed 10/10/2015, 12/15/2004 Influenza Vaccine (FLU shot) Completed 11/2023, 04/03/2022, 04/03/2022, Additional history exists VITAMIN D LEVEL ONCE IN A LIFETIME-USE SMARTSET# 36750 Completed 04/11/2023, 04/03/2022, 09/21/2021, Additional history exists [...] filedocumented as of this encounter Care Teams Fleshing Machine Operator Relationship Specialty Start Date End Date Janeth Morin DO [address] [place] [address] [place] [phone] PCP - General Internal Medicine 11/08/16 documented as of this encounter
--- OUTSIDE RECORDS SUMMARY | 2023-06-17 20:57 | External Medical Summary | Summary of Care ---
Author Name Unknown Organization [facility] Address [address] [facility] [place] [address] Phone [phone] Care Team Providers Care Inspector Material Disposition Name Role Phone Janeth Morin Primary Care Provider Encounter Details Date Type Department Care Team (Late st Contact Info) Description 04/21/2023 3:00 PM EST Imaging Radiology [address] [place] [phone] Chronic kidney disease, stage 3a (HCC) Allergies Active Allergy Reactions Criticality Noted Date Comments Aspirin Hives Medium 12/26/2010 Iodinated Contrast Media Other (Please comment) Medium 12/26/2010 Pt said she gets hives and can't breath documented as of this encounter (statuses as of 04/24/2023) Medications Medication Sig Dispensed Refills Start Date [...] as of this encounter (statuses as of 04/24/2023) Active Problems Problem Noted Date Diagnosed Date Type 2 diabetes mellitus wit h stage 3b chronic kidney disease, without long-term current use of insulin 04/11/2023 Moderate late onset Alzheimer's dementia 023 Chronic [...] as of this encounter (statuses as of 04/24/2023) Resolved Problems Problem Noted Date Diagnosed Date [...] as of this encounter (statuses as of 04/24/2023) Immunizations Name Administration Dates Next Due COVID-19 [...] 05/23/2023 9:30 AM EDT Office Visit Cardiology, [facility] [address] [place] [address] Christiane Batista PA-C 132 [place] [address] 06/03/2023 10:00 AM EDT Office Visit Nephrology, [facility] [place] [address] Ravinder Douglass MD [address] [facility] [address] [place], [place] [address] 11/18/2023 3:10 PM EDT Office Visit Family Medicine [address] [place] [phone] Janeth Morin, [address] [place] [address] Health Maintenance Due Date Last Done Comments [...] Additional history exists CKD PHOS USE SMARTSET 90774 10/05/2023 08/0 06/2022, 09/21/2021, 03/21/2021, Additional history exists HbA1c 10/10/2023 04/11/2023, 080 06/2022, 04/03/2022, Additional history exists CKD HGB USE SMARTSET 81743 04/11/202404/11, 04/03/2022, 04/03/2022, Additional history exists Pneumococcal Vaccine: 65+ Years Completed 10/10/2015, 12/15/2004 Influenza Vaccine (FLU shot) Completed 11/2023, 04/03/2022, 04/03/2022, Additional history exists VITAMIN D LEVEL ONCE IN A LIFETIME-USE SMARTSET# 94675 Completed 04/11/2023, 04/03/2022, 09/21/2021, Additional history exists [...] Not on filedocumented as of this encounter Procedures Procedure Name Priority Date/Time Associated Diagnosis Comments US RENAL Routine 04/21/2023 3:40 PM EST Chronic kidney disease, stage 3a (HCC) documented in this encounter Results * US RENAL (04/21/2023 3:40 PM EST) Anatomical Region Laterality Modality Abdomen, Body Ultrasound 04/24/2023 9:56 AM EST Impressions 04/24/2023 9:53 AM EST IMPRESSION 1. The kidneys are small as measured above. Mild diffuse renal cortical thinning noted. 2. A cyst in the lower pole of the left kidney as measured above. Narrative 04/24/2023 9:53 AM EST EXAM US RENAL-04/21/2023 3:40 pm HISTORY worsening kidney function COMPARISON Renal ultrasound dated 11/16/2015 TECHNIQUE Renal ultrasound FINDINGS The right testis measures 9.2 x 4.2 x 4.6 cm. There is no right hydronephrosis. There is mild diffuse right renal cortical thinning. The left kidney measures 8.3 x 5.0 x 4.0 cm. There is no left hydronephrosis. There is mild diffuse left renal cortical thinning. There is a cyst in the lower pole of the left kidney measuring 3.3 x 3.8 x 3.5 cm, previously measured 3.1 x 2.6 x 2.7 cm, mildly increased in size. The bladder is partially distended, grossly unremarkable. The abdominal aorta is normal in size. Procedure Note Jody Ernst MD - 04/24/2023 EXAM US RENAL-04/21/2023 3:40 pm HISTORY worsening kidney function COMPARISON Renal ultrasound dated 11/16/2015 TECHNIQUE Renal ultrasound FINDINGS The right testis measures 9.2 x 4.2 x 4.6 cm. There is no righthydronephrosis. There is mild diffuse right renal cortical thinning. The left kidney measures 8.3 x 5.0 x 4.0 cm. There is no lefthydronephrosis. There is mild diffuse left renal cortical thinning. There is a cyst in the lower pole of the left kidney measuring 3.3 x 3.8 x3.5 cm, previously measured 3.1 x 2.6 x 2.7 cm, mildly increased insize. The bladder is partially distended, grossly unremarkable. The abdominal aorta is normal in size. IMPRESSION IMPRESSION 1. The kidneys are small as measured above. Mild diffuse renal corticalthinning noted. 2. A cyst in the lower pole of the left kidney as measured above. Janeth Morin DO RAD ULTRASOUND documented in this encounter Visit Diagnoses Diagnosis Chronic kidney disease, stage 3a (HCC) documented in this encounter Care Teams Inspector Material Disposition Relationship Specialty Start Date End Date Janeth Morin DO [address] [place] [address] [place] [phone] PCP - General Internal Medicine 11/08/16 documented as of this encounter
--- OUTSIDE RECORDS SUMMARY | 2023-06-17 20:57 | External Medical Summary | Summary of Care ---
Author Name Unknown Organization [facility] Address [address] [place] [place] [address] Phone [phone] Care Team Providers Care Route Sales Manager Name Role Phone Jenae Phipps DO Primary Care Provider Reason for Visit * Reason Onset Date Comments Medication Refill 04/14/2023 Encounter Details Date Type Department Care Team (Late st Contact Info) Description 04/14/2023 Refill Family Medicine [address] [place] [address] Jenae Phipps DO [address] [place], [place] [address] [address] Allergies Active Allergy Reactions Criticality Noted Date Comments Aspirin Hives Medium 12/26/2010 Iodinated Contrast Media Other (Please comment) Medium 12/26/2010 Pt said she gets hives and can't breath documented as of this encounter (statuses as of 04/14/2023) Medications Medication Sig Dispensed Refills Start Date [...] the morning. 90 Tablet 3 04/14/2023 Active Potassium Chloride Sophia ER 20 MEQ Oral Tablet Extended Release Take 1 Tablet by mouth in the morning. 90 Tablet 3 07/16/2022 04/14/2023 Discontinue d(Refill) documented as of this encounter (statuses as of 04/14/2023) Active Problems Problem Noted Date Diagnosed Date [...] as of this encounter (statuses as of 04/14/2023) Resolved Problems Problem Noted Date Diagnosed Date [...] as of this encounter (statuses as of 04/14/2023) Immunizations Name Administration Dates Next Due COVID-19 [...] Telephone Encounter - Jenae Phipps DO - 04/14/2023 3:07 PM ESTSigned Prescriptions: Disp Refills Potassium Chloride Sophia ER 20 MEQ Oral Tab*90 Tab*3 Sig: Take 1 Tablet by mouth in the morning.Authorizing Provider: JENAE PHIPPS * Telephone Encounter - Soheila Tong RN - 04/14/2023 2:47 PM ESTPending Prescriptions: Disp Refills Potassium Chloride Sophia ER 20 MEQ Oral Tab*90 Tab*3 Sig: Take 1 Tablet by mouth in the morning. * Telephone Encounter - Jaclyn Castellanos OSA - 04/14/2023 2:23 PM EST Did you pend patient's preferred pharmacy and medication before forwarding?yes Pharmacy: [id number] [facility] Pending Prescriptions: Disp Refills Potassium Chloride Sophia ER 20 MEQ Oral Ta*90 Tab*3 Sig: Take 1 Tablet by mouth in the morning. Last Visit: 04/11/2023 (in office), Visit date not found (telemedicine) Next Visit: 11/18/2023 If no future appointments scheduled, and last appointment is greater than a year ago, please schedule patient for a follow-up appointment Last date the medication was ordered: 07.16.22 Is this request for a controlled substance?No Urine Drug Screen:No results found for this or any previous visit. Patient Phone Numbers Labs: Lab Results Component Value Date/Time CREAT 1.7 (H) 04/11/2023 04:05 PM CREAT 1.05 12/12/2018 12:00 AM CREAT 1.1 (H) 08/17/2018 11:07 AM POTASSIUM 4.8 04/11/2023 04:05 PM POTASSIUM 4.3 12/12/2018 12:00 AM POTASSIUM 4.6 08/17/2018 11:07 AM TSH 3.050 12/05/2018 12:00 AM TSH 2.27 10/28/2017 12:19 PM LDLCALC 46 04/11/2023 04:05 PM LDLCALC 54 06/10/2018 11:20 AM LDLDIRECT NOT APPLICABLE 10/28/2017 12:19 PM ALT 13 04/03/2022 04:04 PM ALT 18 06/10/2018 11:20 AM HGBA1C 7.0 (H) 04/11/2023 04:05 PM HGBA1C 6.3 (H) 08/17/2018 11:07 AM documented in this encounter Plan of Treatment Upcoming Encounters Date Type Department Care Team (Late st Contact Info) Description 05/23/2023 9:30 AM EDT Office Visit Cardiology, [facility] [place] [address] Christiane Batista PA-C [address] [place] [address] 11/18/2023 3:10 PM EDT Office Visit Family Medicine [address] [place] [phone] [place] [address] Health Maintenance Due Date Last Done Comments [...] Additional history exists CKD PHOS USE SMARTSET 55209 10/05/2023 08/0 06/2022, 09/21/2021, 03/21/2021, Additional history exists HbA1c 10/10/2023 04/11/2023, 080 06/2022, 04/03/2022, Additional history exists CKD HGB USE SMARTSET 14379 04/11/202404/11, 04/03/2022, 04/03/2022, Additional history exists Pneumococcal Vaccine: 65+ Years Completed 10/10/2015, 12/15/2004 Influenza Vaccine (FLU shot) Completed 11/2023, 04/03/2022, 04/03/2022, Additional history exists VITAMIN D LEVEL ONCE IN A LIFETIME-USE SMARTSET# 13935 Completed 04/11/2023, 04/03/2022, 09/21/2021, Additional history exists GARDASIL-HPV IMMUNIZATION SERIES Aged Out No longer eligible based on patient's age to complete this topic MENINGOCOCCAL (MENACTRA/MENVEO) Aged Out No longer eligible based on patient's age to complete this topic documented as of this encounter Medical Devices Not on filedocumented as of this encounter Care Teams Route Sales Manager Relationship Specialty Start Date End Date Jenae Phipps DO [address] [place] [address] [place] [phone] PCP - General Internal Medicine 11/08/16 documented as of this encounter
--- OUTSIDE RECORDS SUMMARY | 2023-06-17 20:57 | External Medical Summary | Summary of Care ---
Author Name Unknown Organization [facility] Address [address] [facility] [place] [address] Phone [phone] Care Team Providers Care Perl Programmer Name Role Phone Janeth Morin DO Primary Care Provider [phone] Reason for Referral * Evaluate & Treat - Unlimited Visits (Within 10 days (routine)) - Pending Review Specialty Diagnoses / Procedures Referred By Moises duran Referred To Contact Nephrology Diagnoses Chronic kidney disease, stage 3a (HCC) Janeth Morin [address] [place] [address] Referral ID Status Reason Start Date Expiration Date Visits Requested Visits Authorized [id number] Pending Review Specialty Services Required 04/17/2023 999 999 Question Answer Referral Priority Within 10 days (routine) Where should this appointment be scheduled? [facility] What condition is this patient being seen for? Chronic kidney disease Reason for Visit * Reason Onset Date Comments Test Results 04/14/2023 Appointment 04/14/2023 Renal US/Nephrol ogy Encounter Details Date Type Department Care Team (Late st Contact Info) Description 04/14/2023 Telephone Family Medicine [address] [place] [address] Janeth Morin DO [address] [place] [address] [place] [phone] Test Results; Appointment (Renal US/Nephro... Allergies Active Allergy Reactions Criticality Noted Date Comments Aspirin Hives Medium 12/26/2010 Iodinated Contrast Media Other (Please comment) Medium 12/26/2010 Pt said she gets hives and can't breath documented as of this encounter (statuses as of 04/17/2023) Medications Medication Sig Dispensed Refills Start Date [...] as of this encounter (statuses as of 04/17/2023) Active Problems Problem Noted Date Diagnosed Date [...] as of this encounter (statuses as of 04/17/2023) Resolved Problems Problem Noted Date Diagnosed Date [...] as of this encounter (statuses as of 04/17/2023) Immunizations Name Administration Dates Next Due COVID-19 [...] encounter Miscellaneous Notes * Telephone Encounter - Franchesca Morales OSA - 04/17/2023 2:00 PM EST Patient's daughter Dayanna returning Ruchi's call, transferred her Nephrology Scheduling. * Telephone Encounter - Tammie Tavarez OSA - 04/17/2023 1:26 PM EST I left message on patient's daughter, Rd, VM to call me (RE: Scheduling Renal US and Nephrology). * Telephone Encounter - Janeth Morin DO - 04/17/2023 12:43 PM EST Please schedule renal US and nephrology referral. * Telephone Encounter - Cris Alegria LPN - 04/15/2023 3:49 PM EST Patient's daughter Dayanna aware and verbalized understanding. Is agreeable with US and pt seeing Nephrology. Referral pended. Please advise. * Telephone Encounter - Emely Lynch CMA - 04/15/2023 3:33 PM EST I left a message on Dayanna's phone to call back at [phone]. * Telephone Encounter - Janeth Morin DO - 04/14/2023 2:03 PM EST Please call pt's family (pt with dementia). Her kidney function is gradually decreasing. I would like to get a kidney ultrasound and have her see the kidney specialist. Route back to me after speaking with them. I am also sending a letter in the mail with all of Kristi's test results. documented in this encounter Plan of Treatment Upcoming Encounters Date Type Department Care Team (Late st Contact Info) Description 05/23/2023 9:30 AM EDT Office Visit Cardiology, [facility] [address] [place] [address] Christiane Batista PA-C [address] [place] [address] 11/18/2023 3:10 PM EDT Office Visit Family Medicine [address] [place] [phone] Janeth Morin DO [address] [place] [address] [place] [address] Scheduled Orders Name Type Priority Associated Diagnoses Orde r Schedule US RENAL Medical Imaging Routine Chronic kidney disease, stage 3a (HCC) Expected: 04/17/2023 (Approximate), Expires: 05/15/2024 Scheduled Referrals Name Type Priority Associated Diagnoses Orde r Schedule NEPHROLOGY REFERRAL OP Referral Within 10 days (routine) Chronic kidney disease, stage 3a (HCC) Ordered: 04/17/2023 Health Maintenance Due Date Last Done Comments [...] Additional history exists CKD PHOS USE SMARTSET 08766 10/05/2023 08/0 06/2022, 09/21/2021, 03/21/2021, Additional history exists HbA1c 10/10/2023 04/11/2023, 08/0 06/2022, 04/03/2022, Additional history exists CKD HGB USE SMARTSET 26221 04/11/202404/11, 04/03/2022, 04/03/2022, Additional history exists Pneumococcal Vaccine: 65+ Years Completed 10/10/2015, 12/15/2004 Influenza Vaccine (FLU shot) Completed 11/2023, 04/03/2022, 04/03/2022, Additional history exists VITAMIN D LEVEL ONCE IN A LIFETIME-USE SMARTSET# [id number] Completed 04/11/2023, 04/03/2022, 09/21/2021, Additional history exists GARDASIL-HPV IMMUNIZATION SERIES Aged Out No longer eligible based on patient's age to complete this topic MENINGOCOCCAL (MENACTRA/MENVEO) Aged Out No longer eligible based on patient's age to complete this topic documented as of this encounter Medical Devices Not on filedocumented as of this encounter Visit Diagnoses Diagnosis Chronic kidney disease, stage 3a (HCC)- Primary documented in this encounter Care Teams Perl Programmer Relationship Specialty Start Date End Date Janeth Morin DO [address] [place] [address] [place] [address] PCP - General Internal Medicine 11/08/16 documented as of this encounter
--- OUTSIDE RECORDS SUMMARY | 2023-06-17 20:57 | External Medical Summary | Summary of Care ---
Author Name Unknown Organization [facility] Address [address] [facility] [place] [address] Phone [phone] Care Team Providers Care Comic Writer Name Role Phone Janeth Morin DO Primary Care Provider [phone] Reason for Referral * Evaluate & Treat - Unlimited Visits (Within 10 days (routine)) - Pending Review Specialty Diagnoses / Procedures Referred By Moises duran Referred To Contact Nephrology Diagnoses Chronic kidney disease, stage 3a (HCC) Janeth Morin [address] [place] [address] Referral ID Status Reason Start Date Expiration Date Visits Requested Visits Authorized [id number] Pending Review Specialty Services Required 04/17/2023 999 [...] Contact Info) Description 04/14/2023 Telephone Family Medicine [address] [place] [address] Janeth Morin DO [address] [place] [address] [place] [address] Test Results; Appointment (Renal US/Nephro... Allergies Active [...] encounter Miscellaneous Notes * Telephone Encounter - Tammie Tavarez OSA - 04/17/2023 1:26 PM EST I left message on patient's daughter, Rd, VM to call me (RE: Scheduling Renal US and Nephrology). * Telephone Encounter - Janeth Morin DO - 04/17/2023 12:43 PM EST Please schedule renal US and nephrology referral. * Telephone Encounter - Cris Alegria LPN - 04/15/2023 3:49 PM EST Patient's daughter Cornelio aware and verbalized understanding. Is agreeable with US and pt seeing Nephrology. Referral pended. Please advise. * Telephone Encounter - Emely Lynch CMA - 04/15/2023 3:33 PM EST I left a message on Cornelio's phone to call back at [phone]. * Telephone Encounter - Janeth Morin DO [...] 05/23/2023 9:30 AM EDT Office Visit Cardiology, [facility] [address] [place] [address] Christiane Batista PA-C [address] [place] [address] 11/18/2023 3:10 PM EDT Office Visit Family Medicine [address] [place] [address] Janeth Morin DO [address] [place] [address] [place] [address] Scheduled Orders Name Type Priority Associated Diagnoses [...] Additional history exists CKD PHOS USE SMARTSET 26229 10/05/2023 08/0 06/2022, 09/21/2021, 03/21/2021, Additional history exists HbA1c 10/10/2023 04/11/2023, 080 06/2022, 04/03/2022, Additional history exists CKD HGB USE SMARTSET 32787 04/11/202404/11, 04/03/2022, 04/03/2022, Additional history exists Pneumococcal Vaccine: 65+ Years Completed 10/10/2015, 12/15/2004 Influenza Vaccine (FLU shot) Completed 11/2023, 04/03/2022, 04/03/2022, Additional history exists VITAMIN D LEVEL ONCE IN A LIFETIME-USE SMARTSET# [id number] Completed 04/11/2023, 04/03/2022, 09/21/2021, Additional history exists [...] Primary documented in this encounter Care Teams Comic Writer Relationship Specialty Start Date End Date Janeth Morin DO [address] [place] [address] [place] [phone] PCP - General Internal Medicine 11/08/16 documented as of this encounter
--- OUTSIDE RECORDS SUMMARY | 2023-06-17 20:58 | External Medical Summary | Summary of Care ---
Author Name Unknown Organization [facility] Address [address] [facility] [place] [address] Phone [phone] Care Team Providers Care Medical Biller/Coder Name Role Phone Morin Janeth Simpson Primary Care Provider + [phone] Reason for Visit * Reason Comments Outpatient Testing Encounter Details Date Type Department Care Team (Late st Contact Info) Description 04/11/2023 4:10 PM EST Laboratory Laboratory [address] [place] [phone] [place] [address] Dyslipidemia, goal LDL below 100; HTN, goal below 150/90; Hypomagnesemia; Type 2 diabetes mellitus with stage 3b chronic kidney disease, without long-term current use of insulin ([facility]); Chronic kidney disease, stage 3a ([facility]) Allergies Active Allergy Reactions Criticality Noted Date Comments Aspirin Hives Medium 12/26/2010 Iodinated Contrast Media Other (Please comment) Medium 12/26/2010 Pt said she gets hives and can't breath documented as of this encounter (statuses as of 04/11/2023) Medications Medication Sig Dispensed Refills Start Date [...] a day 60 Tablet 1 04/11/2023 Active documented as of this encounter (statuses as of 04/11/2023) Active Problems Problem Noted Date Diagnosed Date [...] as of this encounter (statuses as of 04/11/2023) Resolved Problems Problem Noted Date Diagnosed Date [...] as of this encounter (statuses as of 04/11/2023) Immunizations Name Administration Dates Next Due COVID-19 [...] 05/23/2023 9:30 AM EDT Office Visit Cardiology, [facility] [address] [place] [address] Christiane Batista PA-C [address] [place] [address] 11/18/2023 3:10 PM EDT Office Visit Family Medicine [address] [place] [phone] [address] [place] [address] Pending Results Name Type Priority Associated Diagnoses Date /Time LIPID PANEL WITH DIRECT LDL IF TG IS HIGH Lab Routine Dyslipidemia, goal LDL below 100 04/11/2023 4:05 PM EST BASIC METABOLIC PANEL Lab Routine HTN, goal below 150/90 04/11/2023 4:05 PM EST MAGNESIUM Lab Routine Hypomagnesemia 04/11/2023 4:05 PM EST HEMOGLOBIN A1C Lab Routine Type 2 diabetes mellitus with stage 3b chronic kidney disease, without long-term current use of insulin (HCC) 04/11/2023 4:05 PM EST 25-HYDROXY VITAMIN D Lab Routine Chronic kidney disease, stage 3a (HCC) 04/11/2023 4:05 PM EST HGB Lab Routine Chronic kidney disease, stage 3a (HCC) 04/11/2023 4:05 PM EST Health Maintenance Due Date Last Done Comments [...] 2022 09/21/2021, 02/02/2021, 06/01/2020, Additional history exists CKD HGB USE SMARTSET 87442 04/03/202304/03, 04/03/2022, 03/21/2021, Additional history exists HbA1c 04/06/2023 10/04/2022, 03/2022, 09/21/2021, Additional history exists Albumin/Creatinine Ratio 10/05/2023 023, 09/21/2021, 10/22/2016, Additional history exists CKD PHOS USE SMARTSET 32884 10/05/2023 080 06/2022, 09/21/2021, 03/21/2021, Additional history exists Pneumococcal Vaccine: 65+ Years Completed 10/10/2015, 12/15/2004 VITAMIN D LEVEL ONCE IN A LIFETIME-USE SMARTSET# [id number] Completed 04/03/2022, 09/21/2021, 03/21/2021, Additional history exists Influenza Vaccine (FLU shot) Completed 11/2023, 04/03/2022, 04/03/2022, Additional history exists GARDASIL-HPV IMMUNIZATION SERIES Aged Out No longer eligible based on patient's age to complete this topic MENINGOCOCCAL (MENACTRA/MENVEO) Aged Out No longer eligible based on patient's age to complete this topic documented as of this encounter Medical Devices Not on filedocumented as of this encounter Visit Diagnoses Diagnosis Dyslipidemia, goal LDL below 100 Other and unspecified hyperlipidemia HTN, goal below 150/90 Hypomagnesemia 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
--- OUTSIDE RECORDS SUMMARY | 2023-06-17 20:58 | External Medical Summary | Summary of Care ---
Author Name Unknown Organization [facility] Address [address] [place] [facility] [place] [address] Phone [phone] Care Team Providers Care Coal Dumping Equipment Operator Name Role Phone Janeth Morin DO Primary Care Provider Reason for Visit * Reason Onset Date Comments Re-Check Hospital Follow-Up Pt states fee ling "pretty good". Pt was supposed to have an Rx for magnesium but the script is not at [facility] yet. 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 0 04/10/2023 04/11/2023 Discont inue d(Refill) documented as of this encounter (statuses [...] Sign Reading Time Taken Comments Blood Pressure 126/66 04/11/2023 3:26 PM EST Pulse 86 04/11/2023 3:26 PM EST Temperature 36.8 C (98.2 F) 04/11/2023 3:26 PM ES T Respiratory Rate - - Oxygen Saturation 96% 04/11/2023 3:26 PM EST Inhaled Oxygen Concentration - - Weight - - Height - - Body Mass Index - - documented in this encounter Progress Notes * Janeth Morin, - 04/11/2023 3:34 PM EST SUBJECTIVE: Kristi Serrano is a 88 year old female. Chief Complaint Patient presents with Re-Check Hospital Follow-Up Pt states feeling "pretty good". Pt was supposed to have an Rx for magnesium but the script is not at [facility] yet. Medication Administration Flu and/or Pneumo Inj Hospital Follow-Up Recent Admission: Patient was recently admitted to [facility]. The date of discharge was 04/10/23. Discharge report received and reviewed. Admitted with chest pain. Not felt to be cardiac in nature. Started on magnesium for alow mag level. HPI: Kristi Serrano presents today for HD follow up with her family member. No further chest pain. We will get her scheduled for cardiology follow up. Her magnesium was apparently not sent to the pharmacy. She has some ongoing back pain - uses tylenol only as needed. Breathing feels okay. Bowels are moving okay. No problems with urination. Has some problems with chronic swelling in her left leg. BP is well controlled here today. No recent falls. No bleeding problems on Eliquis. She got her flu shot today. Patient Active Problem List Diagnosis Code Coronary [...] late onset Alzheimer's dementia (HCC) G30.1, F02.B0 Type 2 diabetes mellitus with stage 3b chronic kidney disease, without long-term current use of insulin (HCC) E11.22, N18.32 Current Outpatient Medications Medication Sig Dispense Refill Meclizine HCl 12.5 MG Oral Tablet (Antivert) Tylenol 325 MG Oral Capsule (Acetaminophen) Take by mouth . Twice a week if that Loratadine 10 MG Oral Tablet Take 1 Tablet by mouth in the morning. Potassium Chloride Sophia ER 20 MEQ Oral Tablet Extended Release Take 1 Tablet by mouth in the morning. 90 Tablet 3 Albuterol Sulfate HFA 108 (90 Base) MCG/ACT Inhalation Aerosol Solution Use two puffs every four hours as needed for wheezing 18 g 3 Torsemide 20 MG Oral Tablet (Demadex) TAKE 1 TABLET BY MOUTH EVERY MORNING 90 Tablet 3 Rosuvastatin Calcium 5 MG Oral Tablet (Crestor) Take 1 Tablet by mouth in the morning. 90 Tablet 1 Eliquis 5 MG Oral Tablet Take 1 Tablet by mouth in the morning and 1 Tablet before bedtime. 180 Tablet 3 Metoprolol Tartrate 25 MG Oral Tablet (Lopressor) TAKE ONE TABLET BY MOUTH TWICE DAILY 180 Tablet 3 Isosorbide Mononitrate ER 30 MG Oral Tablet Extended Release 24 Hour (Imdur) Take 1 Tablet by mouthin the morning. 90 Tablet 3 Lisinopril 20 MG Oral Tablet (Prinivil) Take 1 Tablet by mouth in the morning. 90 Tablet 1 Magnesium Chloride 64 MG Oral Tablet 64 mg. No current facility-administered medications for this visit. Current and discharge medications have been reconciled. Review of patient's allergies indicates: Allergen Reactions Aspirin Hives Iodinated Contrast Media Other (Please comment) Pt said she gets hives and can't breath OBJECTIVE: BP 126/66 | Pulse 86 | Temp 36.8 C (98.2 F) | SpO2 96% Review Of Systems: Skin: negative Eyes: negative Ears/Nose/Throat: negative Respiratory: negative Cardiovascular: negative Gastrointestinal: negative Genitourinary: negative Musculoskeletal: negative Neurologic: negative Psychiatric: negative Hematologic/Lymphatic/Immunologic: negative Endocrine: negative PHYSICAL EXAM: General: alert, healthy, no distress, well nourished, and well developed Neck: supple, no adenopathy, thyroid normal size, non-tender, without nodularity Heart: regular rate & rhythm and no murmur Lungs: chest symmetric with normal AP diameter, no chest deformities noted, normal respiratory rateand rhythm, lungs clear to auscultation Abdomen: abdomen soft, non-tender, and normal bowel sounds Extremities: no joint deformities, effusion, or inflammation, no edema Neuro Exam: alert & oriented x 3 with fluent speech, no focal motor/sensory deficits, gait normal Skin: skin color, texture, turgor are normal, no rashes or significant lesions ASSESSMENT/PLAN: Hospital discharge follow-up (Primary) - DISCH MED RECON CUR MED LIS Need for prophylactic vaccination and inoculation against influenza - INFLUENZA VACC, QUAD, HIGH DOSE (FLUZONE HD) Other chest pain - not felt to be cardiac. 1 month cardiology follow up scheduled. Hypertensive urgency - ?cause of her chest pain, although her daughter thinks her high blood pressure on arrival to the ER was due to stress. 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 - BASIC METABOLIC PANEL; Future; Expected date: 04/11/2023 Paroxysmal atrial fibrillation (HCC) - no recent A-fib per pacemaker interrogation Dyslipidemia, goal LDL below 100 - LIPID PANEL WITH DIRECT LDL IF TG IS HIGH; Future; Expected date: 04/11/2023 Type 2 diabetes mellitus with stage 3b chronic kidney disease, without long-term current use of insulin (HCC) - HEMOGLOBIN A1C; Future; Expected date: 04/11/2023 Follow-up: Return in about 6 months (around 10/10/2023). | Check-out note: Cancel HD appointment withAbbie. Labs today I spent a total of 30-39 minutes (exact time 36 mins) minutes on the date of service in preparation, delivery, and documentation of the care provided to Kristi Serrano excluding any time spent in performance of separately billed services. Janeth Morin DO documented in this encounter Plan of Treatment Upcoming Encounters Date Type Department Care Team (Late st Contact Info) Description 05/23/2023 9:30 AM EDT Office Visit Cardiology, [facility] [address] [place] [address] Christiane Batista PA-C [address] [place] [address] 11/18/2023 3:10 PM EDT Office Visit Family Medicine [address] [place] [phone] Janeth Morin DO [address] [place] [address] [place] [phone] Pending Results Name Type Priority Associated Diagnoses [...] stage 3a (HCC) 04/11/2023 4:05 PM EST Scheduled Orders Name Type Priority Associated Diagnoses Orde r Schedule LIPID PANEL WITH DIRECT LDL IF TG IS HIGH Lab Routine Dyslipidemia, goal LDL below 100 Expected: 04/11/2023, Expires: 04/11/2024 BASIC METABOLIC PANEL Lab Routine HTN, goal below 150/90 Expected: 04/11/2023 (Approximate), Expires: 04/10/2024 MAGNESIUM Lab Routine Hypomagnesemia Expected: 04/11/2023 (Approximate), Expires: 04/10/2024 HEMOGLOBIN A1C Lab Routine Type 2 diabetes mellitus with stage 3b chronic kidney disease, without long-term current use of insulin (HCC) Expected: 04/11/2023 (Approximate), Expires: 04/10/2024 25-HYDROXY VITAMIN D Lab Routine Chronic kidney disease, stage 3a (HCC) Expected: 04/11/2023 (Approximate), Expires: 04/10/2024 HGB Lab Routine Chronic kidney disease, stage 3a (HCC) Expected: 04/11/2023 (Approximate), Expires: 04/10/2024 Health Maintenance Due Date Last Done Comments [...] Additional history exists CKD HGB USE SMARTSET 25281 04/03/202304/03, 04/03/2022, 03/21/2021, Additional history exists HbA1c 04/06/2023 10/04/2022, 03/2022, 09/21/2021, Additional history exists Albumin/Creatinine Ratio 10/05/2023 023, 09/21/2021, 10/22/2016, Additional history exists CKD PHOS USE SMARTSET 47250 10/05/202306/2022, 09/21/2021, 03/21/2021, Additional history exists Pneumococcal Vaccine: 65+ Years Completed 10/10/2015, 12/15/2004 VITAMIN D LEVEL ONCE IN A LIFETIME-USE SMARTSET# 59227 Completed 04/03/2022, 09/21/2021, 03/21/2021, Additional history exists [...] as of this encounter Visit Diagnoses Diagnosis Hospital discharge follow-up- Primary Other follow-up examination Need for prophylactic vaccination and inoculation against influenza Other chest pain Hypertensive urgency Unspecified essential hypertension Hypomagnesemia 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
--- OUTSIDE RECORDS SUMMARY | 2023-06-17 20:58 | External Medical Summary ---
Author Name Unknown Address Unknown Organization K01:[facility] - [address] [place] [address] Laboratory Report Ordering Provider Test Date Status MOISE EMANUEL 04/11/2023 16:05:50 Final Observation Date Value Abnormality Reference (Units ) Status Magnesium 04/11/2023 16:05:50 2.2 1.5-2.6 (m g/dL) Final Performing Location [facility] - [address] [place] [address]
--- OUTSIDE RECORDS SUMMARY | 2023-06-17 21:00 | External Medical Summary ---
Author Name Unknown Address Unknown Organization K01:[facility] - [address] [place] [address] Laboratory Report Ordering Provider Test Date Status JENAEPHIPPS 04/11/2023 16:05:50 Final Observation Date Value Abnormality Reference (Units ) Status Hemoglobin 04/11/2023 16:05:50 10.9 Below low normal 12 .0-15.3 (g/dL) Final Performing Location [facility] - [address] [place] [address]
--- OUTSIDE RECORDS SUMMARY | 2023-06-17 21:00 | External Medical Summary ---
Author Name Unknown Address Unknown Organization [id number]:[facility] [place] - [address] [place] [address] Laboratory Report Ordering Provider Test Date Status MIOSE EMANUEL 04/11/2023 16:05:50 Final Observation Date Value Abnormality Reference (Units ) Status BUN 04/11/2023 16:05:50 36 Above high normal 6-20 (mg/dL) Final Creatinine 04/11/2023 16:05:50 1.7 Above high normal 0.5-1.0 (mg/dL) Final Glomerular filtration rate/1.73 sq M.predicted [Volume Rate/Area] in Serum, Plasma or Blood by Creatinine-based formula (CKD-EPI) 04/11/2023 16:05:50 28 Below low normal >=60 (mL/min) Final eGFR is calculated based on the CKD-EPI 2020 equation SODIUM 04/11/2023 16:05:50 138 135-146 (m mol/L) Final Potassium 04/11/2023 16:05:50 4.8 3.5-5.1 (m mol/L) Final Cl 04/11/2023 16:05:50 104 98-107 (mm ol/L) Final CO2 04/11/2023 16:05:50 22 22-32 (mmo l/L) Final Anion gap 04/11/2023 16:05:50 12 7-15 (mmol /L) Final Glucose 04/11/2023 16:05:50 198 Above high normal 70 -120 (mg/dL) Final Calcium 04/11/2023 16:05:50 9.0 8.4-10.2 ( mg/dL) Final Performing Location [facility] [place] - [address] [place] [address]
--- OUTSIDE RECORDS SUMMARY | 2023-06-17 21:00 | External Medical Summary ---
Author Name Unknown Address Unknown Organization [id number]:[facility] [place] - [address] [facility] [address] Laboratory Report Ordering Provider Test Date Status JENAEKIRSTIE RIVASON 04/11/2023 16:05:50 Final Observation Date Value Abnormality Reference (Units ) Status HbA1C 04/11/2023 16:05:50 7.0 Above high normal 4. 0-5.6 (%) Final The use of HbA1c to monitor glycemic status is based on normal hemoglobin and HbA composition. This test should not be used in patients with abnormal hemoglobin that affects the half life of the red blood cell or the in vivo glycation rates. Glucose, estimated average 04/11/2023 16:05:50 154 Above high normal <126 (mg/dL) Cesar majano Performing Location [facility] [place] - [address] [facility] [address]
--- OUTSIDE RECORDS SUMMARY | 2023-06-17 21:01 | External Medical Summary ---
Author Name Unknown Address Unknown Organization [id number]:[facility] [place] [address] [place] [address] Laboratory Report Ordering Provider Test Date Status MOISE EMANUEL 04/11/2023 16:05:50 Final Observation Date Value Abnormality Reference (Units ) Status Triglyceride 04/11/2023 16:05:50 104 <=174 ( mg/dL) Final Triglyceride Reference Range s (mg/dL):
<150 Acceptable
150-174 Borderline high
175-499 High
>=500 Very high Cholesterol 04/11/2023 16:05:50 127 <200 (mg /dL) Final Total Cholesterol Reference Ranges (mg/dL):
<200 Desirable
200-239 Borderline high
>=240 High HDL 04/11/2023 16:05:50 60 >49 (mg/dL ) Final HDL Cholesterol Reference Ra nges (mg/dL):
>=60 High (Desirable)
<50 Low (Undesirable) For Females
<40 Low (Undesirable) For Males NON-HDL CHOLESTEROL 04/11/2023 16:05:50 67 <=159 (mg/dL) Final Non-HDL Cholesterol Referenc e Range (mg/dL):
<100 Target level for high risk ASCVD patient
<130 Optimal for general population
130-159 Near optimal for general population
160-189 Borderline High
190-219 High
>=220 Very High LDL, (calculated) 04/11/2023 16:05:50 46 <= 129 (mg/dL) Final LDL Cholesterol Reference Ra nges (mg/dL):
<70 Target level for high risk ASCVD patient
<100 Optimal for general population
100-129 Near optimal for general population
130-159 Borderline high
160-189 High
>=190 Very high Performing Location [facility] [place] - [address] [facility] [address]
--- OUTSIDE RECORDS SUMMARY | 2023-06-17 21:01 | External Medical Summary ---
Author Name Unknown Address Unknown Organization [id number]:[facility] [place] [address] [place] [address] Laboratory Report Ordering Provider Test Date Status MOISE EMANUEL 04/11/2023 16:05:50 Final Deficient: <20 ng/mL
Ins ufficient: 20-29 ng/mL
Recommended/Optimum:30-50 ng/mL

Vitamin D intoxication is rare. If suspicious of Vitamin D toxicity, evaluation of serum Calcium and PTH is recommended. Observation Date Value Abnormality Reference (Units ) Status 25-OH Vitamin D total 04/11/2023 16:05:50 40 >19 (ng/mL) Final Performing Location LAB[facility]ATORY [facility] - [address] [place] [address]
[2023-06-17] MEDS: APIXABAN 5 MG TABLET PO SCH (21:20)
[2023-06-17] MEDS: METOPROLOL TARTRATE 25 MG TAB PO SCH (21:20)
[2023-06-17] MEDS: MAGNESIUM CHLORIDE W/CALCIUM 64MG DELAYED REL TAB PO SCH (21:20)
[2023-06-18 06:32] LABS: Hematocrit (blood only) 32.7 % (37.0-47.0); Hemoglobin 10.8 g/dl (12.0-16.0); Mean Corpuscular Hemoglobin 30.7 pg (25.0-34.0); Mean Corpuscular Volume 92.9 fL (80.0-100.0); Mean Platelet Volume 12.6 fL (9.4-12.4); Platelet Count 198 K/uL (130-400); RDW Coefficient of Variation 12.9 % (11.5-14.5); RDW Standard Deviation 43.7 fL (36.4-46.3); Red Blood Count 3.52 M/uL (4.20-5.40); White Blood Count 7.76 K/ul (4.8-10.8)
[2023-06-18 06:35] LABS: BUN Creatinine Ratio 19.5 (10-20); Calcium 9.1 mg/dl (8.6-10.3); Creatinine Clr Calc Pharmacy 34.9 ml/min; Est GFR (Non-African American) 38.9 ml/min; Potassium 4.2 mmol/L (3.5-5.1)
[2023-06-18] MEDS: TORSEMIDE 20 MG TAB PO SCH (07:43)
[2023-06-18] MEDS: POTASSIUM CHLORIDE CRTAB 20 MEQ TABCR PO SCH (07:44)
[2023-06-18] MEDS: ROSUVASTATIN CALCIUM 5 MG TAB PO SCH (07:44)
[2023-06-18] MEDS: ISOSORBIDE MONO EXTENDED REL 30 MG TABCR PO SCH (07:45)
[2023-06-18] MEDS: lisinopril 20 MG TAB PO SCH (07:45)
--- NOTE | 2023-06-18 15:49 | Hospitalist Progress Note ---
Date of Service June 18, 2023 Assessment & Plan (1) Unable to care for self: (2) Dementia: (3) Atrial fibrillation: (4) Coronary artery disease: (5) Hypomagnesemia: (6) Anemia: (7) Hypertension: (8) HLD (hyperlipidemia): Admission and Anticipated Discharge Date Admission Date: June 17, 2023 Supervising Physician Co-Signing Physician Notes 88 year old woman with past medical history of f CAD s/p NOEMI x2, PAF with history of dementia, pacemaker, HTN, HLD, DM II, CKD III, dementia who presents with progressive decline. Daughter states that patient is becoming more of a safety hazard. Requesting placement/detention care given inability for care/support at home. Patient remains pleasantly confused Advanced dementia with progressive decline-unable to care for self and awaiting placement. She remains medically stable for placement. Hypertension-BP stable, continue home Lopressor, lisinopril, torsemide Paroxysmal atrial fibrillation-continue Lopressor, Eliquis History of CAD status post stenting-stable, continue Lopressor, Imdur, statin Hypomagnesemia-on oral magnesium supplementation DVT prophylaxis-on Eliquis Disposition-medically stable for placement. Time spent-approximately 35 minutes Subjective Patient was seen and examined at bedside. She is awake alert oriented to self. She thinks she is at her home and waiting for her sister. No fever, chills, chest pain or shortness of breath no nausea or vomiting. Review of Systems Review of Systems: All systems reviewed & are unremarkable except as noted in Subjective Physical Exam Physical Exam: General: Sitting comfortably in chair, not in distress, on room air HEENT: EOMI, TERESA, MMM Chest: Clear breath sounds bilaterally, no wheezes or crackles CVS: Regular rate and rhythm, normal heart sounds, no murmur Abdomen: Soft, non tender, not distended, normal bowel sounds Neuro: Awake, alert, oriented to self, conversing well, no dysarthria Extremities: No edema Results & Data Results & Data Vital Signs (Past 12 Hours) Vital Signs Temp Pulse Resp BP Pulse Ox O2 Del Method 06/18/23 13:55 36.6 C 91 H 16 135/76 99 Room Air 06/18/23 07:33 36.6 C 60 16 115/65 97 Room Air Laboratory Results Short CBC 06/17/23 06/18/23 Range/Units 15:35 05:20 WBC 8.82 7.76 (4.8-10.8) K/ul Hgb 11.4 L 10.8 L (12.0-16.0) g/dl Hct 36.6 L 32.7 L (37.0-47.0) % Plt Count 211 198 (130-400) K/uL BMP 06/17/23 06/18/23 15:35 05:20 Sodium 137 139 Potassium 4.0 4.2 Chloride 103 106 Carbon Dioxide 25 24 BUN 27 H 24 H Creatinine 1.42 H 1.23 H Glucose 155 H 131 H Calcium 9.3 9.1 Medications Administered Current Inpatient Medications Acetaminophen (Acetaminophen 325 Mg Tab) 650 mg PO Q4H PRN PRN Reason: pain/fever Stop: 07/17/23 20:40 Albuterol (Albuterol Hfa 8 Gm Inhaler) 2 puffs INH Q4 PRN PRN Reason: Shortness Of Breath Or Wheezing Stop: 07/17/23 20:40 Apixaban (Apixaban 5 Mg Tablet) 5 mg PO BID [facility] Stop: 07/17/23 20:59 Last Admin: 06/18/23 07:43 Dose: 5 mg Isosorbide Mononitrate (Isosorbide [place] Extended Rel 30 Mg Tabcr) 30 mg PO QAM [facility] Stop: 07/18/23 08:59 Last Admin: 06/18/23 07:45 Dose: 30 mg Lisinopril (Lisinopril 20 Mg Tab) 20 mg PO QAM [facility] Stop: 07/18/23 08:59 Last Admin: 06/18/23 07:45 Dose: 20 mg Magnesium Chloride (Magnesium Chloride W/Calcium 64mg Delayed Rel Tab) 64 mg PO BID [facility] Stop: 07/17/23 20:59 Last Admin: 06/18/23 07:43 Dose: 64 mg Meclizine HCl (Meclizine 12.5 Mg Tab) 12.5 mg PO BID PRN PRN Reason: dizziness or vertigo Stop: 07/17/23 20:40 Metoprolol Tartrate (Metoprolol Tartrate 25 Mg Tab) 25 mg PO BID [facility] Stop: 07/17/23 20:59 Last Admin: 06/18/23 07:44 Dose: 25 mg Ondansetron HCl (Ondansetron Inj 2 Mg/Ml 2 Ml Vial) 4 mg IV Q6H PRN PRN Reason: Nausea Stop: 07/17/23 20:40 Polyethylene Glycol (Polyethylene (Miralax) 17 Gm Pack) 17 gm PO DAILY PRN PRN Reason: Constipation Stop: 07/17/23 20:40 Potassium Chloride (Potassium Chloride Crtab 20 Meq Tabcr) 20 meq PO [facility] Stop: 07/18/23 08:59 Last Admin: 06/18/23 07:44 Dose: 20 meq Rosuvastatin Calcium (Rosuvastatin Calcium 5 Mg Tab) 5 mg PO [facility] Stop: 07/18/23 08:59 Last Admin: 06/18/23 07:44 Dose: 5 mg Torsemide (Torsemide 20 Mg Tab) 20 mg PO [facility] Stop: 07/18/23 08:59 Last Admin: 06/18/23 07:43 Dose: 20 mg
[2023-06-18] MEDS: MELATONIN 3 MG TAB PO PRN (21:12)
[2023-06-19] MEDS: OLANZapine 10 MG/2.1 ML SDV IM PRN (02:03)
[2023-06-19] MEDS: OLANZapine 10 MG/2.1 ML SDV IM STA (04:04)
--- NOTE | 2023-06-19 15:39 | Hospitalist Progress Note ---
Date of Service June 19, 2023 Assessment & Plan (1) Unable to care for self: (2) Dementia: (3) Atrial fibrillation: (4) Coronary artery disease: (5) Hypertension: Plan 88 year old woman with past medical history of f CAD s/p NOEMI x2, PAF with history of dementia, pacemaker, HTN, HLD, DM II, CKD III, dementia who presents with progressive decline. Daughter states that patient is becoming more of a safety hazard. 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 Patient remains pleasantly confused Advanced dementia with progressive decline-unable to care for self and awaiting placement. She remains medically stable for placement. Hypertension-BP stable, continue home Lopressor, lisinopril, torsemide Paroxysmal atrial fibrillation-continue Lopressor, Eliquis History of CAD status post stenting-stable, continue Lopressor, Imdur, statin DVT prophylaxis-on Eliquis Disposition-medically stable for placement. Time spent-approximately 25 minutes Admission and Anticipated Discharge Date Admission Date: June 17, 2023 Subjective Patient was seen and examined at bedside. Remains pleasantly confused. Feels fine. No fever, chills, chest pain or shortness of breath, nausea or vomiting Review of Systems Review of Systems: All systems reviewed & are unremarkable except as noted in Subjective Physical Exam Physical Exam: General: Sitting comfortably in chair, not in distress, on room air HEENT: EOMI, TERESA, MMM Chest: Clear breath sounds bilaterally, no wheezes or crackles CVS: Regular rate and rhythm, normal heart sounds, no murmur Abdomen: Soft, non tender, not distended, normal bowel sounds Neuro: Awake, alert, oriented to self, conversing well, no dysarthria Extremities: No edema Results & Data Results & Data Vital Signs (Past 12 Hours) Vital Signs Temp Pulse Resp BP Pulse Ox O2 Del Method 06/19/23 14:50 36.8 C 88 18 115/62 96 Room Air 06/19/23 07:53 36.4 C L 67 16 122/67 97 Room Air
--- NOTE | 2023-06-20 12:48 | Hospitalist Progress Note ---
Date of Service June 20, 2023 Assessment & Plan (1) Unable to care for self: (2) Dementia: (3) Atrial fibrillation: (4) Coronary artery disease: (5) Hypertension: Plan 88 year old woman with past medical history of f CAD s/p NOEMI x2, PAF with history of dementia, pacemaker, HTN, HLD, DM II, CKD III, dementia who presents with progressive decline. Daughter states that patient is becoming more of a safety hazard. 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 Patient remains pleasantly confused Advanced dementia with progressive decline-unable to care for self and awaiting placement. She remains medically stable for placement. Hypertension-BP on lower end, continue home Lopressor, lisinopril, torsemide. Will decrease lisinopril to 10 mg daily. Monitor. Paroxysmal atrial fibrillation-continue Lopressor, Eliquis History of CAD status post stenting-stable, continue Lopressor, Imdur, statin DVT prophylaxis-on Eliquis Disposition-medically stable for placement. Time spent-approximately 25 minutes Admission and Anticipated Discharge Date Admission Date: June 17, 2023 Subjective Patient was seen and examined at bedside. She is pleasantly confused. No fever, chills, chest pain, shortness of breath, nausea, vomiting. Review of Systems Review of Systems: All systems reviewed & are unremarkable except as noted in Subjective Physical Exam Physical Exam: General: Sitting comfortably in chair, not in distress, on room air HEENT: EOMI, TERESA, MMM Chest: Clear breath sounds bilaterally, no wheezes or crackles CVS: Regular rate and rhythm, normal heart sounds, no murmur Abdomen: Soft, non tender, not distended, normal bowel sounds Neuro: Awake, alert, oriented to self, conversing well, no dysarthria Extremities: No edema Results & Data Results & Data Vital Signs (Past 12 Hours) Vital Signs Temp Pulse Resp BP Pulse Ox O2 Del Method 06/20/23 08:25 74 101/63 06/20/23 07:31 36.9 C 66 18 102/63 96 Room Air
[2023-06-20] MEDS: POLYETHYLENE (MIRALAX) 17 GM PACK PO PRN (18:45)
[2023-06-20] MEDS: ACETAMINOPHEN 325 MG TAB PO PRN (18:45)
[2023-06-21 07:32] LABS: Hematocrit (blood only) 33.6 % (37.0-47.0); Hemoglobin 10.9 g/dl (12.0-16.0); Mean Corpuscular Hemoglobin 30.9 pg (25.0-34.0); Mean Corpuscular Hgb Conc 32.4 g/dL (32.0-36.0); Mean Corpuscular Volume 95.2 fL (80.0-100.0); Mean Platelet Volume 12.8 fL (9.4-12.4); Platelet Count 189 K/uL (130-400); RDW Coefficient of Variation 13.1 % (11.5-14.5); RDW Standard Deviation 45.7 fL (36.4-46.3); Red Blood Count 3.53 M/uL (4.20-5.40); White Blood Count 7.24 K/ul (4.8-10.8)
[2023-06-21 07:48] LABS: BUN Creatinine Ratio 19.2 (10-20); Calcium 9.1 mg/dl (8.6-10.3); Creatinine Clr Calc Pharmacy 22.2 ml/min; Est GFR (African American) 26.1 ml/min; Est GFR (Non-African American) 22.5 ml/min; Potassium 4.3 mmol/L (3.5-5.1)
[2023-06-21] MEDS: lisinopril 10 MG TAB PO SCH (08:46)
--- NOTE | 2023-06-21 10:45 | Hospitalist Progress Note ---
Date of Service June 21, 2023 Assessment & Plan (1) Unable to care for self: (2) Dementia: (3) Atrial fibrillation: (4) Coronary artery disease: (5) Hypertension: (6) ABEL (acute kidney injury): Plan 88 year old woman with past medical history of f CAD s/p NOEMI x2, PAF with history of dementia, pacemaker, HTN, HLD, DM II, CKD III, dementia who presents with progressive decline. Daughter states that patient is becoming more of a safety hazard. Requesting placement/halfway care given inability for care/support at home. Patient remains pleasantly confused ABEL on CKD3- Creatine elevated from 1.2->1.9. Will discontinue torsemide and lisinopril. Will give gentle fluids and recheck in am. Advanced dementia with progressive decline-unable to care for self and awaiting placement. Hypertension-BP on lower end, Will hold home lisinopril, torsemide. Will decrease lopressor. Paroxysmal atrial fibrillation-continue Lopressor, Eliquis History of CAD status post stenting-stable, continue Lopressor, Imdur, statin DVT prophylaxis-on Eliquis Disposition- pending insurance authorization. Time spent-approximately 25 minutes Admission and Anticipated Discharge Date Admission Date: June 17, 2023 Subjective Patient was seen and examined at bedside. Remains confused. No fever, chills, N/V, chest pain, SOB. Review of Systems Review of Systems: All systems reviewed & are unremarkable except as noted in Subjective Physical Exam Physical Exam: General: Sitting comfortably in chair, not in distress, on room air HEENT: EOMI, TERESA, MMM Chest: Clear breath sounds bilaterally, no wheezes or crackles CVS: Regular rate and rhythm, normal heart sounds, no murmur Abdomen: Soft, non tender, not distended, normal bowel sounds Neuro: Awake, alert, oriented to self, conversing well, no dysarthria Extremities: No edema Results & Data Results & Data Vital Signs (Past 12 Hours) Vital Signs Temp Pulse Resp BP Pulse Ox O2 Del Method 06/21/23 07:04 36.4 C L 70 16 100/60 97 Room Air Laboratory Results Short CBC 06/21/23 Range/Units 06:37 WBC 7.24 (4.8-10.8) K/ul Hgb 10.9 L (12.0-16.0) g/dl Hct 33.6 L (37.0-47.0) % Plt Count 189 (130-400) K/uL BMP 06/21/23 06:37 Sodium 137 Potassium 4.3 Chloride 105 Carbon Dioxide 24 BUN 37 H Creatinine 1.93 H Glucose 101 H Calcium 9.1 Medications Administered Current Inpatient Medications Acetaminophen (Acetaminophen 325 Mg Tab) 650 mg PO Q4H PRN PRN Reason: pain/fever Stop: 07/17/23 20:40 Last Admin: 06/21/23 03:30 Dose: 650 mg Albuterol (Albuterol Hfa 8 Gm Inhaler) 2 puffs INH Q4 PRN PRN Reason: Shortness Of Breath Or Wheezing Stop: 07/17/23 20:40 Apixaban (Apixaban 5 Mg Tablet) 5 mg PO BID [facility] Stop: 07/17/23 20:59 Last Admin: 06/21/23 08:46 Dose: 5 mg Isosorbide Mononitrate (Isosorbide [place] Extended Rel 30 Mg Tabcr) 30 mg PO QAM [facility] Stop: 07/18/23 08:59 Last Admin: 06/20/23 08:20 Dose: 30 mg Magnesium Chloride (Magnesium Chloride W/Calcium 64mg Delayed Rel Tab) 64 mg PO BID [facility] Stop: 07/17/23 20:59 Last Admin: 06/21/23 08:46 Dose: 64 mg Meclizine HCl (Meclizine 12.5 Mg Tab) 12.5 mg PO BID PRN PRN Reason: dizziness or vertigo Stop: 07/17/23 20:40 Melatonin (Melatonin 3 Mg Tab) 3 mg PO HS PRN PRN Reason: Sleep Stop: 07/18/23 20:54 Last Admin: 06/20/23 20:01 Dose: 3 mg Metoprolol Tartrate (Metoprolol Tartrate 25 Mg Tab) 12.5 mg PO BID [facility] Stop: 07/21/23 08:59 Olanzapine (Olanzapine 10 Mg/2.1 Ml Sdv) 2.5 mg IM Q4H PRN PRN Reason: Agitation Stop: 07/18/23 20:55 Last Admin: 06/19/23 02:03 Dose: 2.5 mg Ondansetron HCl (Ondansetron Inj 2 Mg/Ml 2 Ml Vial) 4 mg IV Q6H PRN PRN Reason: Nausea Stop: 07/17/23 20:40 Polyethylene Glycol (Polyethylene (Miralax) 17 Gm Pack) 17 gm PO DAILY PRN PRN Reason: Constipation Stop: 07/17/23 20:40 Last Admin: 06/20/23 18:45 Dose: 17 gm Potassium Chloride (Potassium Chloride Crtab 20 Meq Tabcr) 20 meq PO [facility] Stop: 07/18/23 08:59 Last Admin: 06/21/23 08:52 Dose: 20 meq Rosuvastatin Calcium (Rosuvastatin Calcium 5 Mg Tab) 5 mg PO [facility] Stop: 07/18/23 08:59 Last Admin: 06/21/23 08:45 Dose: 5 mg Torsemide (Torsemide 20 Mg Tab) 20 mg PO [facility] Stop: 07/18/23 08:59 Last Admin: 06/20/23 08:19 Dose: 20 mg
[2023-06-21] MEDS: METOPROLOL TARTRATE 25 MG TAB PO SCH (10:52)
[2023-06-21] MEDS: LACTATED RINGER'S 1,000 ML IV SCH (15:04)
[2023-06-22 06:52] LABS: BUN Creatinine Ratio 24.8 (10-20); Creatinine Clr Calc Pharmacy 30.4 ml/min; Est GFR (African American) 38.2 ml/min; Est GFR (Non-African American) 32.9 ml/min; Potassium 4.5 mmol/L (3.5-5.1)
--- NOTE | 2023-06-22 14:18 | Hospitalist Progress Note ---
Date of Service June 22, 2023 Assessment & Plan (1) ABEL (acute kidney injury): (2) Unable to care for self: (3) Dementia: (4) Atrial fibrillation: (5) Coronary artery disease: (6) Hypertension: Plan 88 year old woman with past medical history of f CAD s/p NOEMI x2, PAF with history of dementia, pacemaker, HTN, HLD, DM II, CKD III, dementia who presents with progressive decline. Daughter states that patient is becoming more of a safety hazard. Requesting placement/assisted care given inability for care/support at home. Patient remains pleasantly confused ABEL on CKD3- Improved, Creatinine trend 1.2->1.9->1.4. Will continue to hold torsemide and lisinopril. S/p IVF. Recheck in am Advanced dementia with progressive decline-unable to care for self and awaiting placement. Hypertension-BP on lower end, Continue to hold home lisinopril, torsemide, imdur. Decreased lopressor. Paroxysmal atrial fibrillation-continue Lopressor, Eliquis History of CAD status post stenting-stable, continue Lopressor, statin DVT prophylaxis-on Eliquis Disposition- pending insurance authorization. Time spent-approximately 25 minutes Admission and Anticipated Discharge Date Admission Date: June 17, 2023 Subjective Patient was seen and examined at bedside. She is tearful and asking if she can go home. She wanted me to call her daughters to come pick her up. She denies any other issues. No fever, chills, CP, SOB, N/V. Review of Systems Review of Systems: All systems reviewed & are unremarkable except as noted in Subjective Physical Exam Physical Exam: General:Lying in bed, not in distress, on room air HEENT: EOMI, TERESA, MMM Chest: Clear breath sounds bilaterally, no wheezes or crackles CVS: Regular rate and rhythm, normal heart sounds, no murmur Abdomen: Soft, non tender, not distended, normal bowel sounds Neuro: Awake, alert, oriented to self, conversing well, no dysarthria Extremities: No edema Results & Data Results & Data Vital Signs (Past 12 Hours) Vital Signs Temp Pulse Resp BP Pulse Ox O2 Del Method 06/22/23 09:00 Room Air 06/22/23 07:01 36.6 C 79 16 104/63 97 Room Air Laboratory Results BMP 06/22/23 05:59 Sodium 139 Potassium 4.5 Chloride 110 H Carbon Dioxide 22 BUN 35 H Creatinine 1.41 H D Glucose 109 H Calcium 9.0
[2023-06-23 06:59] LABS: Calcium 9.4 mg/dl (8.6-10.3); Potassium 4.6 mmol/L (3.5-5.1)
[2023-06-23 07:05] LABS: BUN Creatinine Ratio 23.4 (10-20); Creatinine Clr Calc Pharmacy 38.6 ml/min
--- NOTE | 2023-06-23 12:43 | Hospitalist Progress Note ---
Date of Service June 23, 2023 Assessment & Plan (1) ABEL (acute kidney injury): (2) Unable to care for self: (3) Dementia: (4) Atrial fibrillation: (5) Coronary artery disease: (6) Hypertension: Plan 88 year old woman with past medical history of f CAD s/p NOEMI x2, PAF with history of dementia, pacemaker, HTN, HLD, DM II, CKD III, dementia who presents with progressive decline. Daughter states that patient is becoming more of a safety hazard. Requesting placement/[facility] care given inability for care/support at home. Patient remains pleasantly confused ABEL on CKD3-ABEL resolved, creatinine back to baseline, Creatinine trend 1.2->1.9->1.4->1.1. Will continue to hold torsemide and lisinopril as oral intake seems to be less here and BPs stable without these medications. S/p IVF. Advanced dementia with progressive decline-unable to care for self and awaiting placement. Hypertension-BP improving, resume imdur, increase lopressor, Continue to hold home lisinopril and torsemide for now Paroxysmal atrial fibrillation-continue Lopressor, Eliquis History of CAD status post stenting-stable, continue Lopressor, statin DVT prophylaxis-on Eliquis Disposition-medically stable for placement. Time spent-approximately 35 minutes Admission and Anticipated Discharge Date Admission Date: June 17, 2023 Subjective Patient was seen and examined at bedside. No new issues. No fever, chills, chest pain or shortness of breath. No nausea or vomiting Review of Systems Review of Systems: All systems reviewed & are unremarkable except as noted in Subjective Physical Exam Physical Exam: General:Lying in bed, not in distress, on room air HEENT: EOMI, TERESA, MMM Chest: Clear breath sounds bilaterally, no wheezes or crackles CVS: Regular rate and rhythm, normal heart sounds, no murmur Abdomen: Soft, non tender, not distended, normal bowel sounds Neuro: Awake, alert, oriented to self, conversing well, no dysarthria Extremities: No edema Results & Data Results & Data Vital Signs (Past 12 Hours) Vital Signs Temp Pulse Resp BP Pulse Ox O2 Del Method 06/23/23 08:00 Room Air 06/23/23 07:00 36.8 C 74 16 127/72 99 Room Air Laboratory Results [facility] 06/23/23 05:42 Sodium 140 Potassium 4.6 Chloride 110 H Carbon Dioxide 22 BUN 26 H Creatinine 1.11 D Glucose 101 H Calcium 9.4
--- NOTE | 2023-06-23 13:29 | Discharge Summary ---
Date of Service June 23, 2023 Admission HPI Per Admitting Provider This is an 88 yo F with a PMH of CAD s/p NOEMI x2, PAF with history of dementia, pacemaker, HTN, HLD, DM II, CKD III, dementia who presents with progressive decline. Daughters have been caring for her but they are in their 70s and do not feel they can physically continue to provide care. Previously had 24hr care arranged but has not been receiving routinely since March and has only been coming twice a week. Per note left at bedside from her family, patient with worsening dementia and cough. Has been given tylenol for fever in the past few days. No longer safe to be at home. Ambulates at home with a walker. Have been trying to arrange placement at [facility] and is on the list for a bed. Shaye Corby [phone] updated over the phone and confirmed code status. ROS unobtainable due to cognitive state. Admission Exam Per Admitting Provider GENERAL APPEARANCE: AxOx1 generally well-appearing but visibly upset over being in hospital , no acute distress. HEENT: NC, AT. MMM. EOMI, clear conjunctiva, oropharynx clear. NECK: Supple without lymphadenopathy. No stiffness or restricted ROM. HEART: Normal rate and regular rhythm, normal S1/S1, no m/r/g LUNGS: CTAB, moving air well. No crackles or wheezes are heard. ABDOMEN: Soft, nontender, nondistended with good bowel sounds heard. EXTREMITIES: Without cyanosis, clubbing or edema. NEUROLOGICAL: Grossly nonfocal. Alert and oriented, moving all 4 extremities. Skin: Warm and dry without any rash. Principal Diagnosis Dementia, ABEL Discharge Exam General:Lying in bed, not in distress, on room air HEENT: EOMI, TERESA, MMM Chest: Clear breath sounds bilaterally, no wheezes or crackles CVS: Regular rate and rhythm, normal heart sounds, no murmur Abdomen: Soft, non tender, not distended, normal bowel sounds Neuro: Awake, alert, oriented to self, conversing well, no dysarthria Extremities: No edema Discharge Data Allergies Allergy/AdvReac Type Severity Reaction Status Date / Time Iodinated Contrast Media Allergy Severe SHORTNESS Verified 06/17/23 17:11 OF BREATH aspirin Allergy Mild RASH Verified 06/17/23 17:11 Consultations 06/17/23 17:07 ED Decision to Admit Stat Ordered Studies Laboratory Results WBC 7.24 K/ul (4.8-10.8) 06/21/23 06:37 RBC 3.53 M/uL (4.20-5.40) L 06/21/23 06:37 Hgb 10.9 g/dl (12.0-16.0) L 06/21/23 06:37 Hct 33.6 % (37.0-47.0) L 06/21/23 06:37 MCV 95.2 fL (80.0-100.0) 06/21/23 06:37 MCH 30.9 pg (25.0-34.0) 06/21/23 06:37 MCHC 32.4 g/dL (32.0-36.0) 06/21/23 06:37 RDW Std Deviation 45.7 fL (36.4-46.3) 06/21/23 06:37 RDW Coeff of Seferino 13.1 % (11.5-14.5) 06/21/23 06:37 Plt Count 189 K/uL (130-400) 06/21/23 06:37 MPV 12.8 fL (9.4-12.4) H 06/21/23 06:37 Immature Gran % (Auto) 0.3 % 06/17/23 15:35 Neut % (Auto) 52.5 % 06/17/23 15:35 Lymph % (Auto) 35.9 % 06/17/23 15:35 Early % (Auto) 8.2 % 06/17/23 15:35 Eos % (Auto) 2.6 % 06/17/23 15:35 Baso % (Auto) 0.5 % 06/17/23 15:35 Neut # (Auto) 4.63 K/uL (1.40-6.50) 06/17/23 15:35 Lymph # (Auto) 3.17 K/uL (1.20-3.40) 06/17/23 15:35 Early # (Auto) 0.72 K/uL (0.11-0.59) H 06/17/23 15:35 Eos # (Auto) 0.23 K/uL (0.00-0.50) 06/17/23 15:35 Baso # (Auto) 0.04 K/uL (0.00-0.20) 06/17/23 15:35 Immature Gran # (Auto) 0.03 K/uL (0.01-0.20) 06/17/23 15:35 Sodium 140 mmol/L (136-145) 06/23/23 05:42 Potassium 4.6 mmol/L (3.5-5.1) 06/23/23 05:42 Chloride 110 mmol/L (98-107) H 06/23/23 05:42 Carbon Dioxide 22 mmol/L (21-32) 06/23/23 05:42 Anion Gap 8 (3-11) 06/23/23 05:42 BUN 26 mg/dl (6-23) H 06/23/23 05:42 Creatinine 1.11 mg/dl (0.6-1.2) D 06/23/23 05:42 Est Cr Clr Drug Dosing 38.6 ml/min 06/23/23 05:42 Est GFR ( Amer) 51.0 ml/min 06/23/23 05:42 Est GFR (Non-Af Amer) 44.0 ml/min 06/23/23 05:42 BUN/Creatinine Ratio 23.4 (10-20) H 06/23/23 05:42 Glucose 101 mg/dl (70-99(Fasting)) H 06/23/23 05:42 Calcium 9.4 mg/dl (8.6-10.3) 06/23/23 05:42 Magnesium 2.0 mg/dl (1.7-2.4) 06/21/23 06:37 Urine Color Yellow 06/17/23 14:05 Urine Appearance Clear (Clear) 06/17/23 14:05 Urine pH 5.5 (4.5-7.5) 06/17/23 14:05 Ur Specific [place] 1.007 (1.000-1.030) 06/17/23 14:05 Urine Protein Negative (Negative) 06/17/23 14:05 Urine Glucose (UA) Negative (Negative) 06/17/23 14:05 Urine Ketones Negative (Negative) 06/17/23 14:05 Urine Blood Negative (Negative) 06/17/23 14:05 Urine Nitrite Negative (Negative) 06/17/23 14:05 Urine Bilirubin Negative (Negative) 06/17/23 14:05 Urine Urobilinogen Negative (Negative) 06/17/23 14:05 Ur Leukocyte Esterase Negative (Negative) 06/17/23 14:05 Adenovirus (PCR) Not Detected (NotDetected) 06/17/23 14:09 B. pertussis DNA (PCR) Not Detected (NotDetected) 06/17/23 14:09 B.parapertussis DNA PCR Not Detected (NotDetected) 06/17/23 14:09 C. pneumoniae DNA (PCR) Not Detected (NotDetected) 06/17/23 14:09 Coronavirus OC43 (PCR) Not Detected (NotDetected) 06/17/23 14:09 Coronavirus HKU1 (PCR) Not Detected (NotDetected) 06/17/23 14:09 Coronavirus 229E (PCR) Not Detected (NotDetected) 06/17/23 14:09 SARS-CoV-2 (PCR) Not Detected (NotDetected) 06/17/23 14:09 Coronavirus NL63 (PCR) Not Detected (NotDetected) 06/17/23 14:09 Human Metapneumovir PCR Not Detected (NotDetected) 06/17/23 14:09 Influenza Type A (PCR) Not Detected (NotDetected) 06/17/23 14:09 Influenza Type B (PCR) Not Detected (NotDetected) 06/17/23 14:09 M. pneumoniae (PCR) Not Detected (NotDetected) 06/17/23 14:09 Parainfluenza 1 (PCR) Not Detected (NotDetected) 06/17/23 14:09 Parainfluenza 2 (PCR) Not Detected (NotDetected) 06/17/23 14:09 Parainfluenza 3 (PCR) Not Detected (NotDetected) 06/17/23 14:09 Parainfluenza 4 (PCR) Not Detected (NotDetected) 06/17/23 14:09 RSV (PCR) Not Detected (NotDetected) 06/17/23 14:09 Entero/Rhino (PCR) Not Detected (NotDetected) 06/17/23 14:09 Impressions Chest X-Ray 06/17/23 16:13 XR chest 1V portable HISTORY: cough COMPARISON: Chest 04/08/2023. FINDINGS: No pneumothorax. No pleural effusions. The cardiac silhouette remains mildly enlarged. Mild interstitial thickening, unchanged. This is likely chronic. Hazy appearance to the lung bases is likely due to overlapping soft tissue. Otherwise, no focal lung consolidations to suggest a pneumonia. No evidence for pulmonary edema. There is a left-sided dual-chamber pacemaker. Calcifications within the aortic knob. IMPRESSION: Stable mild cardiomegaly. Otherwise, no acute process within the chest. ACT 112: Negative or not required by law. Electronically signed by: Rakesh Franco M.D. 06/17/2023 4:50 PM Hospital Course (1) ABEL (acute kidney injury): (2) Unable to care for self: (3) Dementia: (4) Atrial fibrillation: (5) Coronary artery disease: (6) Hypertension: Plan 88 year old woman with past medical history of f CAD s/p NOEMI x2, PAF with history of dementia, pacemaker, HTN, HLD, DM II, CKD III, dementia who presents with progressive decline. Daughter states that patient is becoming more of a safety hazard. Requesting placement/fdc care given inability for care/support at home. Patient remains pleasantly confused. Had ABEL in setting of limited oral intake but diuretics and now resolved after holding diuretics and giving gentle ivf. Hospital course otherwise unremarkable. She is stable to go to SNF. ABEL on CKD3-ABEL resolved, creatinine back to baseline, Creatinine trend 1.2->1.9->1.4->1.1. Anticipate her oral intake will increase at SNF hence can resume her home diuretics but I do recommend to hold her diuretics if her oral/fluid intake remains a concern. Recommend repeat BMP in a week. Advanced dementia with progressive decline-unable to care for self. Hence going to SNF Hypertension-BP now improving. Continue imdur, lopressor, torsemide. Discontinued lisinopril. Paroxysmal atrial fibrillation-continue Lopressor, Eliquis History of CAD status post stenting-stable, continue Lopressor, statin Total Time Total Time Spent Total Time Spent (In Minutes): 35 Discharge Plan Discharge Items Patient Disposition: Transfer Shelter Fac Reason For Visit: DEMENTIA, NEED FOR PLACEMENT Discharge Diagnosis: Dementia, ABEL Activity: Resume your previous activity Non-emergency contact: Primary Care Provider Call non-emergency contact if: you have any medication questions and your symptoms worsen Follow-up/Referrals: Janeth Morin, [Primary Care Provider] - Diet: Heart Healthy and Low Sodium (2gm) Pending Studies at Discharge: No Stand-Alone Forms: My [facility] Skilled Items Patient informed of condition?: Yes DNR: Yes Discharge Level of Care: Skilled Communicable Disease: No Discharge Prognosis: Stable Lines: None Urinary Catheter: No Medications and DC Order Prescriptions: Continued isosorbide mononitrate 30 mg Tablet Extended Release 24 Hr 30 mg PO QAM albuterol sulfate 90 mcg/actuation Hfa Aerosol Inhaler 2 puff INHALATION Q4 PRN (Reason: Shortness Of Breath Or Wheezing) Eliquis 5 mg Tablet 5 mg PO BID potassium chloride 20 mEq Tablet Extended Release 20 meq PO QAM rosuvastatin 5 mg Tablet 5 mg PO QAM metoprolol tartrate 25 mg Tablet 25 mg PO BID meclizine 12.5 mg tablet 12.5 mg PO BID PRN (Reason: dizziness or vertigo) Qty: 30 0RF magnesium chloride 64 mg magnesium tablet 64 mg PO BID Qty: 60 0RF torsemide 20 mg Tablet 20 mg PO QAM Qty: 30 0RF Rx Instructions: hold if poor oral intake or low BP Discontinued lisinopril 20 mg Tablet 20 mg PO QAM Discharge Orders: Discharge Order (Routine); Ordered 06/23/23 Ordered By: Tony Mccurdy Admission Data Admit Date/Time: 06/17/23 17:53 Attending Provider: Tony Mccurdy Admit Provider: Monica Sullivan Primary Care Provider: Janeth Morin Other Providers: Monica Sullivan; [facility]
[2023-06-23] MEDS ORDERED: METOPROLOL TARTRATE 25 MG TAB PO SCH (21:00)
== END 2023-06-23 16:24 | DRG 884 ==
LOC: ED 13:51 → EDINP 17:53 → INTOOBSV 17:53 → SUATTDRO 17:53 → 3E 20:41